=== PATIENT | female | born 2000 | race Hispanic/Latino ===

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

== ENCOUNTER 2022-03-05 19:12 | Emergency (ER) | payer OTHER ==
--- OUTSIDE RECORDS SUMMARY | 2022-03-05 19:15 | XMS REPORT | Continuity of Care Document ---
:2000 Author Organization [facility] t Address [address] [place] [address] Care Team Providers Name Role Phone SANTY PALUMBO Primary Care Physician Unavailable Nurse, Adc Pob Immunization Attending Clinician Unavailable Luis Fox DO Attending Clinician LUIS FOX Attending Clinician Unavailable MATEUS ALCANTAR Attending Clinician Unavailable Chely Torre DO Attending Clinician Payers Payer Name Policy Type Policy Number Effective Date Expiration Date S [facility] MEDICAID PENDING PENDING 2020 00:00:00 Problems Condition Condition Condition Status Onset Resolution Last Treating Co mments Source Name Details Category Date Date Treatment Clinician Date Passive Passive Disease Active 2012-07 Univers smoke smoke 0-07 ity of exposure exposure 00:00: [address] Allergies, Adverse Reactions, Alerts Allergy Allergy Status Severity Reaction(s) Onset Inactive Treating Comm ents Source Name Type Date Date Clinician NO KNOWN Drug Active Univers ALLERGIE Class ity of S [facility] Social History Social Habit Start Date Stop Date Quantity Comments Source Exposure to Not sure University SARS-CoV-2 [facility] [place] Tobacco use and 2020-09-12 2020-09-12 Never used Universit y of exposure 00:00:00 00:00:00 [facility] Alcohol intake 2020-09-12 2020-09-12 Current University 00:00:00 00:00:00 non-drinker of [facility] alcohol Branch (finding) Tobacco Comment 2013-05-01 2013-05-01 Dad smokes Universit y of 00:00:00 00:00:00 outside only [facility] l [place] Sex Assigned At [birth year] Universit y of 00:00:00 00:00:00 [facility] Smoking Status Start Date Stop Date Source Never smoker [facility] Medications Ordered Filled Start Stop Current Ordering Indication Dosage Frequency Signature Comments Components Source Medication Medication Date Date Medication? Clinician (SIG) Name Name No known No Univers medications ity [facility] No known No Univers medications ity of [facility] Immunizations Ordered Immunization Filled Immunization Date Status Commen ts Source Name Name SARS-COV-2 COVID-19 2021-03-28 Completed Unive rsity of PFIZER VACCINE 00:00:00 [facility] SARS-COV-2 COVID-19 2020-11-16 Completed Unive rsity of PFIZER VACCINE 00:00:00 [facility] Meningococcal Vaccine 2018-03-16 Completed Uni versity of 00:00:00 [facility] Meningococcal Vaccine 2018-03-16 Completed Uni versity of 00:00:00 [facility] Influenza Virus 2013-05-01 Completed Universit y of Vaccine Nasal 00:00:00 [facility] Meningococcal 2013-05-01 Completed University of Polysaccharide 00:00:00 [facility] (groups A, C, Y and Branc h W-135) conjugate vaccine (MCV4P) TDAP 2013-05-01 Completed University of 00:00:00 [facility] Influenza Virus 2013-05-01 Completed Universit y of Vaccine Nasal 00:00:00 [facility] Meningococcal 2013-05-01 Completed University of Polysaccharide 00:00:00 [facility] (groups A, C, Y and Branc h W-135) conjugate vaccine (MCV4P) TDAP 2013-05-01 Completed University of 00:00:00 [facility] HPV 2012-11-17 Completed University of 00:00:00 [facility] HPV 2012-11-17 Completed University of 00:00:00 [facility] HPV 2012-07-21 Completed University of 00:00:00 [facility] HPV 2012-07-21 Completed University of 00:00:00 [facility] HPV 2012-05-18 Completed University of 00:00:00 [facility] Influenza Virus 2012-05-18 Completed Universit y of Vaccine 00:00:00 [facility] HPV 2012-05-18 Completed University of 00:00:00 [facility] Influenza Virus 2012-05-18 Completed Universit y of Vaccine 00:00:00 [facility] Influenza Virus 2011-04-28 Completed Universit y of Vaccine 00:00:00 [facility] Influenza Virus 2011-04-28 Completed Universit y of Vaccine 00:00:00 [facility] Influenza Virus 2010-04-25 Completed Universit y of Vaccine 00:00:00 [facility] Influenza Virus 2010-04-25 Completed Universit y of Vaccine 00:00:00 [facility] H1n1 Vaccine 2009-10-25 Completed University o f 00:00:00 [facility] H1n1 Vaccine 2009-10-25 Completed University o f 00:00:00 [facility] H1n1 Vaccine 2009-08-21 Completed University o f 00:00:00 [facility] H1n1 Vaccine 2009-08-21 Completed University o f 00:00:00 [facility] Influenza Virus 2008-05-03 Completed Universit y of Vaccine 00:00:00 [facility] Influenza Virus 2008-05-03 Completed Universit y of Vaccine 00:00:00 [facility] Varicella 2008-03-13 Completed University of (varivax)(chicken 00:00:00 [facility] edical pox) [place] Varicella 2008-03-13 Completed University of (varivax)(chicken 00:00:00 [facility] edical pox) [place] HEPATITIS A 2006-09-17 Completed University of 00:00:00 [facility] HEPATITIS A 2006-09-17 Completed University of 00:00:00 [facility] DTAP 2006-03-17 Completed University of 00:00:00 [facility] HEPATITIS A 2006-03-17 Completed University of 00:00:00 [facility] MMR 2006-03-17 Completed University of 00:00:00 [facility] Polio (IPV/OPV) 2006-03-17 Completed Universit y of 00:00:00 [facility] DTAP 2006-03-17 Completed University of 00:00:00 [facility] HEPATITIS A 2006-03-17 Completed University of 00:00:00 [facility] MMR 2006-03-17 Completed University of 00:00:00 [facility] Polio (IPV/OPV) 2006-03-17 Completed Universit y of 00:00:00 [facility] PPD (TB) 2004-06-23 Completed University of 00:00:00 [facility] PPD (TB) 2004-06-23 Completed University of 00:00:00 [facility] Pneumococcal 7 2003-10-11 Completed University of Conjugate, PCV7 00:00:00 [place] [facility] (Prevnar7) [facility] Pneumococcal 7 2003-10-11 Completed University of Conjugate, PCV7 00:00:00 [place] [facility] (Prevnar7) Branch Polio (IPV/OPV) 2003-06-13 Completed Universit y of 00:00:00 [facility] Polio (IPV/OPV) 2003-06-13 Completed Universit y of 00:00:00 [facility] Pneumococcal 7 2003-06-04 Completed University of Conjugate, PCV7 00:00:00 [facility] ical (Prevnar7) Branch DTAP 2003-06-04 Completed University of 00:00:00 [facility] Pneumococcal 7 2003-06-04 Completed University of Conjugate, PCV7 00:00:00 [place] [facility] (Prevnar7) Branch DTAP 2003-06-04 Completed University of 00:00:00 [facility] HIB 4 Dose Schedule 2003 Completed Unive rsity of 00:00:00 [facility] MMR 2003 Completed University of 00:00:00 [facility] Pneumococcal 7 2003 Completed University of Conjugate, PCV7 00:00:00 [place] [facility] (Prevnar7) Branch Varicella 2003 Completed University of (varivax)(chicken 00:00:00 [place] [facility] pox) [facility] HIB 4 Dose Schedule 2003 Completed Unive rsity of 00:00:00 [facility] MMR 2003 Completed University of 00:00:00 [facility] Pneumococcal 7 2003 Completed University of Conjugate, PCV7 00:00:00 [place] [facility] (Prevnar7) Branch Varicella 2003 Completed University of (varivax)(chicken 00:00:00 [place] [facility] pox) Branch HIB 4 Dose Schedule 2002 Completed Unive rsity of 00:00:00 [facility] Hep B, Adol or Pedi 2002 Completed Unive rsity of Dosage 00:00:00 [facility] DTAP 2002 Completed University of 00:00:00 [facility] HIB 4 Dose Schedule 2002 Completed Unive rsity of 00:00:00 [facility] Branch Hep B, Adol or Pedi 2002 Completed Unive rsity of Dosage 00:00:00 [facility] DTAP 2002 Completed University of 00:00:00 [facility] HIB 4 Dose Schedule 2002 Completed Unive rsity of 00:00:00 [facility] Polio (IPV/OPV) 2002 Completed Universit y of 00:00:00 [facility] DTAP 2002 Completed University of 00:00:00 [facility] HIB 4 Dose Schedule 2002 Completed Unive rsity of 00:00:00 [facility] Polio (IPV/OPV) 2002 Completed Universit y of 00:00:00 [facility] DTAP 2002 Completed University of 00:00:00 [facility] Hep B, Adol or Pedi 2002 Completed Unive rsity of Dosage 00:00:00 [facility] Polio (IPV/OPV) 2002 Completed Universit y of 00:00:00 [facility] DTAP 2002 Completed University of 00:00:00 [facility] HIB 4 Dose Schedule 2002 Completed Unive rsity of 00:00:00 [facility] Hep B, Adol or Pedi 2002 Completed Unive rsity of Dosage 00:00:00 [facility] Polio (IPV/OPV) 2002 Completed Universit y of 00:00:00 [facility] DTAP 2002 Completed University of 00:00:00 [facility] HIB 4 Dose Schedule 2002 Completed Unive rsity of 00:00:00 [facility] Hep B, Adol or Pedi 2002 Completed Unive rsity of Dosage 00:00:00 [facility] Hep B, Adol or Pedi 2002 Completed Unive rsity of Dosage 00:00:00 [facility] Vital Signs Vital Name Observation Time Observation Value Comments Source Systolic blood 2020-09-12 19:21:00 134 mm[Hg] Univer sity of pressure [facility] Diastolic blood 2020-09-12 19:21:00 89 mm[Hg] Unive rsity of pressure [facility] Heart rate 2020-09-12 19:21:00 122 /min Universi ty of [facility] Body temperature 2020-09-12 19:21:00 37.56 Pilar Univ ersity of [facility] Respiratory rate 2020-09-12 19:21:00 16 /min Univ ersity of [facility] Body height 2020-09-12 19:21:00 154.9 cm Universi ty of [facility] Body weight 2020-09-12 19:21:00 49.896 kg Universi ty [facility] BMI 2020-09-12 19:21:00 20.78 kg/m2 Universi ty of [facility] Oxygen saturation in 2020-09-12 19:21:00 100 /min University of Arterial blood by [place] [employer] wan Pulse oximetry Branch Systolic blood 2020-09-12 19:21:00 134 mm[Hg] Univer sity of pressure [facility] Diastolic blood 2020-09-12 19:21:00 89 mm[Hg] Unive rsity of pressure [facility] Heart rate 2020-09-12 19:21:00 122 /min Universi ty of [facility] Body temperature 2020-09-12 19:21:00 37.56 Pilar Univ ersity of [place] [facility] Respiratory rate 2020-09-12 19:21:00 16 /min Univ ersity of [facility] Body height 2020-09-12 19:21:00 154.9 cm Universi ty [facility] Body weight 2020-09-12 19:21:00 49.896 kg Universi ty [facility] [place] [facility] BMI 2020-09-12 19:21:00 20.78 kg/m2 Universi ty [facility] [place] [facility] Oxygen saturation in 2020-09-12 19:21:00 100 /min University of Arterial blood by [place] [employer] wan Pulse oximetry Branch Procedures Procedure Date / Time Performed Performing Clinician Sour e SARS-COV-2 COVID-19 2021-03-28 21:08:00 [facility] Unassigned, No [facility] [place] VACCINE,0.3ML,IM Name Medical Branch (PFIZER) POCT TEST 2020-09-12 19:43:00 [facility] OF [facility]IVACY 2020-09-12 19:12:23 [facility] 2020-09-12 19:12:09 [facility] TREATMENT Encounters Start End Encounter Admission Attending Care Care Encounter Source Date/Time Date/Time Type Type Clinicians Facility Department ID 2021-05-24 Emergency [facility] [id number] Univers 23:57:16 ity [facility] 2021-03-28 2021-03-28 Imm/Inj Nurse, Adc Pob Immunization [facility] [id number] Univers 16:04:57 16:05:06 [id number] Gianna Brunneressio [id number] [place] [address] Branch [facility] 2021-03-28 2021-03-28 Outpatient Benny FOX [facility] [id number] Univers 14:50:00 16:05:06 LUIS [facility] 2020-12-14 2020-12-14 Outpatient [facility] [id number] Univers 10:05:00 10:05:00 [id number] ity [facility] 2020-12-07 2020-12-07 Outpatient [facility] [id number] Univers 10:05:00 10:05:00 [id number] ity [facility] 2020-11-16 2020-11-16 Outpatient [facility] [id number] Univers 10:05:00 10:05:00 [id number] [facility] 2020-11-16 2020-11-16 Outpatient Benny ALCANTAR [facility] [id number] Univers 10:05:00 10:05:00 [facility] 2020-09-13 2020-09-13 Outpatient [facility] [id number] Univers 09:20:00 09:20:00 [id number] [facility] 2020-09-12 2020-09-12 [facility] [id number] 13:28:00 14:21:00 Chely Pollard [id number] [place] [id number] [place] [id number] 2020-09-12 2020-09-12 [facility] [id number] Univers 13:28:00 14:21:00 Chely Pollard [id number] ity [facility] [id number] [facility] [id number] [address] 2012-07-21 2012-07-21 Outpatient [facility] [id number] Univers 00:00:00 14:57:00 1 [facility] 2012-05-18 2012-05-18 Outpatient [facility] [id number] Univers 00:00:00 15:07:00 4 [facility] 2012-05-18 2012-05-18 Outpatient [facility] [id number] Univers 00:00:00 00:00:00 [id number] [facility] 2012-04-28 2012-04-28 Outpatient [facility] [id number] Univers 00:00:00 16:10:00 6 [facility] 2012-04-28 2012-04-28 Outpatient [facility] [id number] Univers 00:00:00 00:00:00 [id number] [facility] 2012-03-10 2012-03-10 Outpatient [facility] [id number] Univers 00:00:00 16:50:00 8 [facility] 2012-03-09 2012-03-09 Outpatient [facility] [id number] Univers 00:00:00 00:00:00 [id number] [facility] 2012 2012 Outpatient [facility] [id number] Univers 00:00:00 13:23:00 0 [facility] 2011-04-28 2011-04-28 Outpatient [facility] [id number] Univers 00:00:00 18:03:00 4 [facility] Results Test Description Test Time Test Comments Results Result Comments Source POCT TEST 2020-09-12 19:43:00 Test Item Value Reference Range Interpretation Comme nts POCT PREG (test code = 1605) positive On board controls acceptable with C Line (test code = 3574) present POCT PREG LOT # (test code = 3575) [id number] POCT PREG TEST DATE (test code = 3576) 04/24/2022 Lab Interpretation (test code = 03708-5) [facility]
[2022-03-05] MEDS ORDERED: NA CHLORIDE 0.9% 1,000 ML ONE (20:55)
[2022-03-05 21:59] LABS: Albumin 3.9 g/dL (3.4-5.0); Bilirubin Total 0.2 mg/dL (0.2-1.0); Potassium 3.8 mmol/L (3.5-5.1); Protein, Total 7.4 g/dL (6.4-8.2)
[2022-03-05 22:01] LABS: Absolute Lymphocytes (CBC) 3.4 K/uL (0.7-4.9); Hematocrit 40.5 % (36.0-45.0); Lymphocytes % 38.5 % (15.3-44.8); MCV 86.6 fL (80-100); MPV 9.8 fL (7.6-11.3); RBC Red Blood Cell Count 4.68 M/uL (3.86-4.86)
[2022-03-05 22:12] LABS: Urine RBC <5 /HPF (None Seen)
[2022-03-05 22:13] LABS: Urine Bacteria <20 /HPF (<20)
--- NOTE | 2022-03-05 22:28 | ER ---
Nurse's Notes [facility] Name: Nevin Palmer Age: 22 yrs Sex: Female : 2000 Arrival Date: 03/05/2022 Time: 19:14 Bed 15 Private MD: Diagnosis: Diarrhea, unspecified Presentation: 03/05 19:36 Chief complaint: Patient states: dizziness off and on x 2 weeks. Coronavirus screen: Vaccine status: Patient reports receiving the 2nd dose of the covid vaccine. Date September 24, 2020 [employer]. Ebola Screen: Patient negative for fever greater than or equal to 101.5 degrees Fahrenheit, and additional compatible Ebola Virus Disease symptoms. Initial Sepsis Screen: Does the patient meet any 2 criteria? No. Patient's initial sepsis screen is negative. Does the patient have a suspected source of infection? No. Patient's initial sepsis screen is negative. Risk Assessment: Do you want to hurt yourself or someone else? Patient reports no desire to harm self or others. Onset of symptoms was February 17, 2022. 19:36 Method Of Arrival: Ambulatory 19:36 Acuity: CHRISTIANE 3 Triage Assessment: 19:39 General: Appears in no apparent distress. comfortable, Behavior is calm, cooperative. Pain: Denies pain. Neuro: No deficits noted. Alves Agitation-Sedation Scale (RASS): 0 - Alert and Calm Level of Consciousness is awake, alert, obeys commands, Oriented to person, place, time, situation, Gait is steady, Speech is normal, Facial symmetry appears normal. Historical: - Allergies: 19:39 No Known Allergies; kl - Home Meds: 19:39 None [Active]; kl - PMHx: 19:39 None; kl - PSHx: 19:39 None; kl - Immunization history:: Client reports receiving the 2nd dose of the Covid vaccine. - Social history:: Smoking status: Patient denies any tobacco usage or history of. Screenin:00 Abuse screen: Denies threats or abuse. Nutritional screening: No deficits noted. ja4 Tuberculosis screening: No symptoms or risk factors identified. Fall Risk None identified. Assessment: 22:00 General: Appears in no apparent distress. Pain: Denies pain. Neuro: Reports dizziness, ja4 since 3 days. Vital Signs: 19:36 BP 115 / 68; Pulse 79; Resp 18; Temp 99(O); Pulse Ox 100% on R/A; Weight 49.9 kg (R); Height 5 ft. 1 in. (154.94 cm); Pain 0/10; 19:36 Body Mass Index 20.78 (49.90 kg, 154.94 cm) ED Course: 19:14 Patient arrived in ED. bp1 19:39 Triage completed. 20:30 Daina Alas MD is Attending Physician. sp3 20:45 Luke Stone, RN is Primary Nurse. ja4 21:25 CBC with Diff Sent. ja4 21:25 CMP Sent. ja4 21:25 Lipase Sent. ja4 21:25 Urine Microscopic Only Sent. ja4 22:00 Inserted saline lock: 22 gauge in right antecubital area, using aseptic technique. ja4 Blood collected. 22:00 Patient has correct armband on for positive identification. Bed in low position. Call ja4 light in reach. Administered Medications: 20:56 Drug: NS 0.9% 1000 ml Route: IV; Rate: 1 bolus; Site: right antecubital; ja4 Medication: 22:00 VIS not applicable for this client. ja4 Outcome: 22:27 Discharge ordered by . sp3 22:41 Discharged to home ambulatory. ja4 22:41 Condition: stable 22:41 Discharge instructions given to patient, Instructed on discharge instructions, follow up and referral plans. medication usage. 22:42 Patient left the ED. ja4 Signatures: Marilynn Salgado RN RN Devika Casillas [facility] Daina Alas MD MD sp3 Luke Stone, [place] RN [email or web address]
--- NOTE | 2022-03-05 22:28 | EDPHYS ---
Physician Documentation [facility] Name: Nevin Palmer Age: 22 yrs Sex: Female : 2000 Arrival Date: 03/05/2022 Time: 19:14 Bed 15 Private MD: ED Physician Daina Alas HPI: 03/05 20:51 This 22 yrs old Female presents to ER via Ambulatory with complaints of sp3 Dizziness. 20:51 This 22 yrs old Female presents to ER via Ambulatory with complaints of sp3 Dizziness and diarrhea. 20:51 22-year-old female with no past medical history presents with 2 weeks of watery sp3 diarrhea status post eating. She reports 2-4 times a day of bowel movements without any vomiting or abdominal cramping. She also reports no bad food, sick contacts or travel history. She also states that she had anemia during her several months ago now reports similar symptoms of lightheadedness and dizziness without vertigo. She denies headache, neck pain, chest pain, shortness of breath, abdominal pain, nausea, vomiting, lower extremity pain, rash, vaginal bleeding dysuria, any other ROS at this time.. Historical: - Allergies: 19:39 No Known Allergies; kl - Home Meds: 19:39 None [Active]; kl - PMHx: 19:39 None; kl - PSHx: 19:39 None; kl - Immunization history:: Client reports receiving the 2nd dose of the Covid vaccine. - Social history:: Smoking status: Patient denies any tobacco usage or history of. ROS: 20:53 Constitutional: Negative for fever, chills, and weight loss, Eyes: Negative for injury, sp3 pain, redness, and discharge, ENT: Negative for injury, pain, and discharge, Neck: Negative for injury, pain, and swelling, Cardiovascular: Negative for chest pain, palpitations, and edema, Respiratory: Negative for shortness of breath, cough, wheezing, and pleuritic chest pain, Back: Negative for injury and pain, MS/Extremity: Negative for injury and deformity, Skin: Negative for injury, rash, and discoloration, Neuro: Negative for headache, weakness, numbness, tingling, and seizure, Allergy/Immunology: Negative for hives, rash, and allergies, Endocrine: Negative for neck swelling, polydipsia, polyuria, polyphagia, and marked weight changes. 20:53 All other systems are negative. Exam: 20:53 Constitutional: This is a well developed, well nourished patient who is awake, alert, sp3 and in no acute distress. Head/Face: Normocephalic, atraumatic. Eyes: Pupils equal round and reactive to light, extra-ocular motions intact. Lids and lashes normal. Conjunctiva and sclera are non-icteric and not injected. Cornea within normal limits. Periorbital areas with no swelling, redness, or edema. ENT: Nares patent. No nasal discharge, no septal abnormalities noted. External auditory canals are clear. Oropharynx with no redness, swelling, or masses, exudates, or evidence of obstruction, uvula midline. Mucous membranes moist. Neck: Trachea midline, no thyromegaly or masses palpated, and no cervical lymphadenopathy. Supple, full range of motion without nuchal rigidity, or vertebral point tenderness. No Meningismus. Chest/axilla: Normal chest wall appearance and motion. Nontender with no deformity. No lesions are appreciated. Cardiovascular: Regular rate and rhythm with a normal S1 and S2. No gallops, murmurs, or rubs. Normal PMI, no JVD. No pulse deficits. Respiratory: Lungs have equal breath sounds bilaterally, clear to auscultation and percussion. No rales, rhonchi or wheezes noted. No increased work of breathing, no retractions or nasal flaring. Abdomen/GI: Soft, non-tender, with normal bowel sounds. No distension or tympany. No guarding or rebound. No evidence of tenderness throughout. Back: No spinal tenderness. No costovertebral tenderness. Full range of motion. Skin: Warm, dry with normal turgor. Normal color with no rashes, no lesions, and no evidence of cellulitis. MS/ Extremity: Pulses equal, no cyanosis. Neurovascular intact. Full, normal range of motion. Neuro: Awake and alert, GCS 15, oriented to person, place, time, and situation. Cranial nerves II-XII grossly intact. Motor strength 5/5 in all extremities. Sensory grossly intact. Cerebellar exam normal. Normal gait. Psych: Awake, alert, with orientation to person, place and time. Behavior, mood, and affect are within normal limits. Vital Signs: 19:36 BP 115 / 68; Pulse 79; Resp 18; Temp 99(O); Pulse Ox 100% on R/A; Weight 49.9 kg (R); kl Height 5 ft. 1 in. (154.94 cm); Pain 0/10; 19:36 Body Mass Index 20.78 (49.90 kg, 154.94 cm) kl MDM: 20:37 Patient medically screened. sp3 20:53 Data reviewed: vital signs, nurses notes. ED course: Diarrhea lightheadedness. We will sp3 check laboratory values including CBC, metabolic panel and administer normal saline 1 L. If work-up is negative and patient feels better, will discharge patient home on Cipro and Flagyl with PCP follow-up. Differential diagnosis includes traveler's diarrhea, bacterial diarrhea, viral diarrhea, irritable bowel, functional abdominal pain and anxiety.. 22:27 ED course: Laboratory values reviewed and demonstrate no significant abnormality. sp3 Patient remains pain-free and we will discharge her on Cipro and Flagyl at this time with follow-up with her PCP.. 03/05 20:44 Order name: CBC with Diff sp3 03/05 20:44 Order name: CMP; Complete Time: 22:26 sp3 03/05 20:44 Order name: Lipase; Complete Time: 22:26 sp3 03/05 20:44 Order name: Urine Microscopic Only; Complete Time: 22:26 sp3 03/05 20:44 Order name: IV Saline Lock; Complete Time: 21:25 sp3 03/05 20:44 Order name: Labs collected and sent sp3 03/05 20:44 Order name: Urine Dipstick-Ancillary (obtain specimen) sp3 03/05 20:44 Order name: Urine Test (obtain specimen) sp3 Administered Medications: 20:56 Drug: NS 0.9% 1000 ml Route: IV; Rate: 1 bolus; Site: right antecubital; ja4 Disposition Summary: 03/05/22 22:27 Discharge Ordered Location: Home sp3 Condition: Stable sp3 Diagnosis - Diarrhea, unspecified sp3 Followup: sp3 - With: Private Physician - When: Upon discharge from the Emergency Department - Reason: Re-evaluation by your physician Discharge Instructions: - Discharge Summary Sheet sp3 - Diarrhea, Adult sp3 Forms: - Medication Reconciliation Form sp3 - Thank You Letter sp3 - Antibiotic Education sp3 - Prescription Opioid Use sp3 Prescriptions: - Cipro 500 mg Oral Tablet - take 1 tablet by ORAL route every 12 hours for 10 days; 20 tablet; Refills: 0, sp3 Product Selection Permitted - Flagyl 500 mg Oral Tablet - take 1 tablet by ORAL route every 8 hours for 10 days; 30 tablet; Refills: 0, sp3 Product Selection Permitted Signatures: Dispatcher [employer] Marilynn Covarrubias, Daina Lynch RN, MD MD sp3 Luke Stone RN RN ja4
[2022-03-05 23:08] LABS: Blood Morphology Comment NOT SEEN (NOT SEEN); Platelet Estimate ADEQ; Platelets, Giant FEW
[2022-03-06 04:38] VITALS: BP 115/68; TEMP 99; O2SAT 100
== END 2022-03-05 22:42 | disposition home or self-care (01) ==
LOC: ER 19:12
DX: R19.7 Diarrhea, unspecified (principal); R42 Dizziness and giddiness
CPT/HCPCS: 85025; 36415; 81015; 83690; 80053; 99283; J7030

== ENCOUNTER 2022-12-04 07:53 | Emergency (ER) | payer OTHER ==
--- OUTSIDE RECORDS SUMMARY | 2022-12-04 07:57 | XMS REPORT | Continuity of Care Document ---
:2000 Author Organization [facility] t Address [address] [facility] [address] [place] [address] Care Team Providers Name Role Phone PCP, PATIENT DOES NOT HAVE A Primary Care Physician Unavaila DEVIKA Acuña Attending Clinician Unavailable Devika Deleon Attending Clinician Unknown, Attending Attending Clinician Unavailable Nurse, Adc Pob Immunization Attending Clinician Unavailable Mo Fox DO Attending Clinician MO FOX Attending Clinician Unavailable MATEUS ALCANTAR Attending Clinician Unavailable Chely Torre DO Attending Clinician Payers Payer Name Policy Type Policy Number Effective Date Expiration Date S [place] [employer] [id number] 2022 00:00:00 MEDICAID PENDING PENDING 2020 00:00:00 Problems Condition Condition Condition Status Onset Resolution Last Treating Co mments Source Name Details Category Date Date Treatment Clinician Date Passive Passive Disease Active 2012-07 Univers smoke smoke 0-07 ity of exposure exposure 00:00: [address] Allergies, Adverse Reactions, Alerts Allergy Allergy Status Severity Reaction(s) Onset Inactive Treating Comm ents Source Name Type Date Date Clinician NO KNOWN Drug Active Univers ALLERGIE Class ity of S [facility] Social History Social Habit Start Date Stop Date Quantity Comments Source History of Passive smoker University of tobacco use [facility] Exposure to Not sure University [facility] [place] Tobacco use and 2022-07-05 2022-07-05 Smokeless tobacco Un iversity of exposure 00:00:00 00:00:00 non-user [facility] Alcohol intake 2022-07-05 2022-07-05 Current University of 00:00:00 00:00:00 non-drinker of [facility] alcohol (finding) [place] Tobacco Comment 2022-07-05 2022-07-05 Dad smokes Universit y of 00:00:00 00:00:00 outside only [place] [facility] [place] Sex Assigned At [birth year] Universit y of 00:00:00 00:00:00 [facility] Smoking Status Start Date Stop Date Source Never smoked tobacco [facility] Medications Ordered Filled Start Stop Current Ordering Indication Dosage Frequency Signature Comments Components Source Medication Medication Date Date Medication? Clinician (SIG) Name Name sulfamethox 2021-07- No [id number] 1{tbl} Take 1 Univers azole-trime 09-05 [id number] tablet by ity of thoprim 00:00: 05:59 mouth 2 [place] (BACTRIM 00 :00 (two) Medical DS) 800-160 times Branch mg per daily for tablet 7 days. amoxicillin 2021-07 Yes TAKE 1 Univ ers 500 mg 2-03 CAPSULE BY ity of capsule 00:00: MOUTH [place] 00 EVERY 8 Medical HOURS FOR Branch 7 DAYS ibuprofen 2021-07 Yes TAKE 1 Univer s 800 mg 2-03 TABLET BY ity of tablet 00:00: MOUTH [place] 00 EVERY 8 Medical HOURS FOR Branch PAIN No known No [facility] No [facility] medications [facility] Immunizations Ordered Immunization Filled Immunization Date Status Commen ts Source Name Name SARS-COV-2 COVID-19 2021-03-28 Completed Unive rsity of PFIZER VACCINE 00:00:00 [facility] SARS-COV-2 COVID-19 2021-03-28 Completed Unive rsity of PFIZER VACCINE 00:00:00 [facility] SARS-COV-2 COVID-19 2020-11-16 Completed Unive rsity of PFIZER VACCINE 00:00:00 [facility] SARS-COV-2 COVID-19 2020-11-16 Completed Unive rsity of PFIZER VACCINE 00:00:00 [facility] Meningococcal Vaccine 2018-03-16 Completed Uni versity of 00:00:00 [facility] Meningococcal Vaccine 2018-03-16 Completed Uni versity of 00:00:00 [facility] Meningococcal Vaccine 2018-03-16 Completed Uni versity of 00:00:00 [facility] Influenza Virus 2013-05-01 Completed Universit y of Vaccine Nasal 00:00:00 [facility] Meningococcal 2013-05-01 Completed University of Polysaccharide 00:00:00 [facility] wan (groups A, C, Y and Branc h W-135) conjugate vaccine (MCV4P) TDAP 2013-05-01 Completed University of 00:00:00 [facility] Influenza Virus 2013-05-01 Completed Universit y of Vaccine Nasal 00:00:00 [facility] Meningococcal 2013-05-01 Completed University of Polysaccharide 00:00:00 [facility] wan (groups A, C, Y and Branc h W-135) conjugate vaccine (MCV4P) TDAP 2013-05-01 Completed University of 00:00:00 [facility] Influenza Virus 2013-05-01 Completed Universit y of Vaccine Nasal 00:00:00 [facility] Meningococcal 2013-05-01 Completed University of Polysaccharide 00:00:00 [facility] wan (groups A, C, Y and Branc h W-135) conjugate vaccine (MCV4P) TDAP 2013-05-01 Completed University of 00:00:00 [facility] HPV 2012-11-17 Completed University of 00:00:00 [facility] HPV 2012-11-17 Completed University of 00:00:00 [facility] HPV 2012-11-17 Completed University of 00:00:00 [facility] HPV 2012-07-21 Completed University of 00:00:00 [facility] HPV 2012-07-21 Completed University of 00:00:00 [facility] HPV 2012-05-18 Completed University of 00:00:00 [facility] Influenza Virus 2012-05-18 Completed Universit y of Vaccine 00:00:00 [facility] HPV 2012-05-18 Completed University of 00:00:00 [facility] Influenza Virus 2012-05-18 Completed Universit y of Vaccine 00:00:00 [facility] HPV 2012-05-18 Completed University of 00:00:00 [facility] Influenza Virus 2012-05-18 Completed Universit y of Vaccine 00:00:00 [facility] Influenza Virus 2011-04-28 Completed Universit y of Vaccine 00:00:00 [facility] Influenza Virus 2011-04-28 Completed Universit y of Vaccine 00:00:00 [facility] Influenza Virus 2011-04-28 Completed Universit y of Vaccine 00:00:00 [facility] Influenza Virus 2010-04-25 Completed Universit y of Vaccine 00:00:00 [facility] Influenza Virus 2010-04-25 Completed Universit y of Vaccine 00:00:00 [facility] Influenza Virus 2010-04-25 Completed Universit y of Vaccine 00:00:00 [facility] H1n1 Vaccine 2009-10-25 Completed University o f 00:00:00 [facility] H1n1 Vaccine 2009-10-25 Completed University o f 00:00:00 [facility] H1n1 Vaccine 2009-10-25 Completed University o f 00:00:00 [facility] H1n1 Vaccine 2009-08-21 Completed University o f 00:00:00 [facility] H1n1 Vaccine 2009-08-21 Completed University o f 00:00:00 [facility] H1n1 Vaccine 2009-08-21 Completed University o f 00:00:00 [facility] Influenza Virus 2008-05-03 Completed Universit y of Vaccine 00:00:00 [facility] Influenza Virus 2008-05-03 Completed Universit y of Vaccine 00:00:00 [facility] Influenza Virus 2008-05-03 Completed Universit y of Vaccine 00:00:00 [facility] Varicella 2008-03-13 Completed University of (varivax)(chicken 00:00:00 [place] [facility] pox) Branch Varicella 2008-03-13 Completed University of (varivax)(chicken 00:00:00 [place] [facility] pox) Branch Varicella 2008-03-13 Completed University of (varivax)(chicken 00:00:00 [place] [facility] pox) Branch HEPATITIS A 2006-09-17 Completed University of 00:00:00 [facility] HEPATITIS A 2006-09-17 Completed University of 00:00:00 [facility] HEPATITIS A 2006-09-17 Completed University of 00:00:00 [facility] DTAP 2006-03-17 Completed University of 00:00:00 [facility] HEPATITIS A 2006-03-17 Completed University of 00:00:00 [facility] MMR 2006-03-17 Completed University of 00:00:00 [facility] Polio (IPV/OPV) 2006-03-17 Completed Universit y of 00:00:00 [facility] DTAP 2006-03-17 Completed University of 00:00:00 [facility] HEPATITIS A 2006-03-17 Completed University of 00:00:00 [facility] MMR 2006-03-17 Completed University of 00:00:00 [facility] Polio (IPV/OPV) 2006-03-17 Completed Universit y of 00:00:00 [facility] PPD (TB) 2004-06-23 Completed University of 00:00:00 [facility] PPD (TB) 2004-06-23 Completed University of 00:00:00 [facility] PPD (TB) 2004-06-23 Completed University of 00:00:00 [facility] Pneumococcal 7 2003-10-11 Completed University of Conjugate, PCV7 00:00:00 [place] [facility] (Prevnar7) Branch Pneumococcal 7 2003-10-11 Completed University of Conjugate, PCV7 00:00:00 [place] [facility] (Prevnar7) Branch Pneumococcal 7 2003-10-11 Completed University of Conjugate, PCV7 00:00:00 [place] [facility] (Prevnar7) Branch Polio (IPV/OPV) 2003-06-13 Completed Universit y of 00:00:00 [facility] Polio (IPV/OPV) 2003-06-13 Completed Universit y of 00:00:00 [facility] Polio (IPV/OPV) 2003-06-13 Completed Universit y of 00:00:00 [facility] Pneumococcal 7 2003-06-04 Completed University of Conjugate, PCV7 00:00:00 [place] [facility] (Prevnar7) Branch DTAP 2003-06-04 Completed University of 00:00:00 [facility] Pneumococcal 7 2003-06-04 Completed University of Conjugate, PCV7 00:00:00 [place] [facility] (Prevnar7) Branch DTAP 2003-06-04 Completed University of 00:00:00 [facility] Pneumococcal 7 2003-06-04 Completed University of Conjugate, PCV7 00:00:00 [place] [facility] (Prevnar7) Branch DTAP 2003-06-04 Completed University of 00:00:00 [facility] HIB 4 Dose Schedule 2003 Completed Unive rsity of 00:00:00 [facility] MMR 2003 Completed University of 00:00:00 [facility] Branch Pneumococcal 7 2003 Completed University of Conjugate, PCV7 00:00:00 [place] [facility] (Prevnar7) Branch Varicella 2003 Completed University of (varivax)(chicken 00:00:00 [place] [facility] pox) Branch HIB 4 Dose Schedule 2003 Completed Unive rsity of 00:00:00 [facility] Branch MMR 2003 Completed University of 00:00:00 [facility] Pneumococcal 7 2003 Completed University of Conjugate, PCV7 00:00:00 [place] [facility] (Prevnar7) Branch Varicella 2003 Completed University of (varivax)(chicken 00:00:00 [facility] edical pox) Branch HIB 4 Dose Schedule 2003 Completed Unive rsity of 00:00:00 [facility] MMR 2003 Completed University of 00:00:00 [facility] Pneumococcal 7 2003 Completed University of Conjugate, PCV7 00:00:00 [place] [facility] (Prevnar7) Branch Varicella 2003 Completed University of (varivax)(chicken 00:00:00 [place] [facility] pox) Branch HIB 4 Dose Schedule 2002 Completed Unive rsity of 00:00:00 [facility] Hep B, Adol or Pedi 2002 Completed Unive rsity of Dosage 00:00:00 [facility] DTAP 2002 Completed University of 00:00:00 [facility] HIB 4 Dose Schedule 2002 Completed Unive rsity of 00:00:00 [facility] Hep B, Adol or Pedi 2002 Completed Unive rsity of Dosage 00:00:00 [facility] DTAP 2002 Completed University of 00:00:00 [facility] HIB 4 Dose Schedule 2002 Completed Unive rsity of 00:00:00 [facility] Hep B, Adol or Pedi 2002 Completed Unive rsity of Dosage 00:00:00 [facility] DTAP 2002 Completed University of 00:00:00 [facility] HIB 4 Dose Schedule 2002 Completed Unive rsity of 00:00:00 [facility] Polio (IPV/OPV) 2002 Completed Universit y of 00:00:00 [facility] Branch DTAP 2002 Completed University of 00:00:00 [facility] HIB 4 Dose Schedule 2002 Completed Unive rsity of 00:00:00 [facility] Polio (IPV/OPV) 2002 Completed Universit y of 00:00:00 [facility] Branch DTAP 2002 Completed University of 00:00:00 [facility] HIB 4 Dose Schedule 2002 Completed Unive rsity of 00:00:00 [facility] Polio (IPV/OPV) 2002 Completed Universit y of 00:00:00 [facility] DTAP 2002 Completed University of 00:00:00 [facility] Hep B, Adol or Pedi 2002 Completed Unive rsity of Dosage 00:00:00 [facility] Polio (IPV/OPV) 2002 Completed Universit y of 00:00:00 [facility] DTAP 2002 Completed University of 00:00:00 [facility] HIB 4 Dose Schedule 2002 Completed Unive rsity of 00:00:00 [facility] Branch Hep B, Adol or Pedi 2002 Completed Unive rsity of Dosage 00:00:00 [facility] Polio (IPV/OPV) 2002 Completed Universit y of 00:00:00 [facility] DTAP 2002 Completed University of 00:00:00 [facility] HIB 4 Dose Schedule 2002 Completed Unive rsity of 00:00:00 [place] [facility] Hep B, Adol or Pedi 2002 Completed Unive rsity of Dosage 00:00:00 [facility] Polio (IPV/OPV) 2002 Completed Universit y of 00:00:00 [facility] Branch DTAP 2002 Completed University of 00:00:00 [facility] HIB 4 Dose Schedule 2002 Completed Unive rsity of 00:00:00 [place] [facility] Hep B, Adol or Pedi 2002 Completed Unive rsity of Dosage 00:00:00 [place] [facility] Hep B, Adol or Pedi 2002 Completed Unive rsity of Dosage 00:00:00 [facility] Hep B, Adol or Pedi 2002 Completed Unive rsity of Dosage 00:00:00 [facility] Vital Signs Vital Name Observation Time Observation Value Comments Source Systolic blood 2022-07-05 21:26:00 114 mm[Hg] Univer sity of pressure [facility] Diastolic blood 2022-07-05 21:26:00 78 mm[Hg] Unive rsity of pressure [facility] Heart rate 2022-07-05 21:26:00 97 /min Universi ty of [facility] Body temperature 2022-07-05 21:26:00 36.67 Pilar Univ ersity of [facility] Respiratory rate 2022-07-05 21:26:00 16 /min Univ ersity of [facility] Body height 2022-07-05 21:26:00 157.5 cm Universi ty of [place] [facility] [place] Body weight 2022-07-05 21:26:00 50.213 kg Universi ty of [place] [facility] [place] BMI 2022-07-05 21:26:00 20.25 kg/m2 Universi ty of [place] [facility] Oxygen saturation in 2022-07-05 21:26:00 98 /min University of Arterial blood by [facility] Pulse oximetry Branch Systolic blood 2020-09-12 19:21:00 134 mm[Hg] Univer sity of pressure [facility] Diastolic blood 2020-09-12 19:21:00 89 mm[Hg] Unive rsity of pressure [facility] Heart rate 2020-09-12 19:21:00 122 /min Universi ty [facility] [place] [facility] Body temperature 2020-09-12 19:21:00 37.56 Pilar Univ ersity of [facility] Branch Respiratory rate 2020-09-12 19:21:00 16 /min Univ ersity of [facility] Body height 2020-09-12 19:21:00 154.9 cm Universi ty of [place] [facility] Body weight 2020-09-12 19:21:00 49.896 kg [facility]i ty [facility] [place] [facility] BMI 2020-09-12 19:21:00 20.78 kg/m2 Universi ty of [facility] Oxygen saturation in 2020-09-12 19:21:00 100 /min University of Arterial blood by [facility] Pulse oximetry Branch Systolic blood 2020-09-12 19:21:00 134 mm[Hg] Univer sity of pressure [facility] Diastolic blood 2020-09-12 19:21:00 89 mm[Hg] Unive rsity of pressure [facility] Heart rate 2020-09-12 19:21:00 122 /min [facility] Body temperature 2020-09-12 19:21:00 37.56 Pilar [facility] Res[facility] rate 2020-09-12 19:21:00 16 /min [facility] Body height 2020-09-12 19:21:00 154.9 cm [facility] Body weight 2020-09-12 19:21:00 49.896 kg [facility] BMI 2020-09-12 19:21:00 20.78 kg/m2 [facility] Oxygen saturation in 2020-09-12 19:21:00 100 /min [facility] Arterial blood by [facility] Pulse oximetry Branch Procedures Procedure Date / Time Performed Performing Clinician [facility] e SARS-COV-2 COVID-19 2021-03-28 21:08:00 [facility], [facility],IM [facility] (PFIZER) POCT TEST 2020-09-12 19:43:00 Chely Torre [facility] NOTICE OF PRIVACY 2020-09-12 19:12:23 Doctor Unassigned, No [facility] PRACTICES [facility] CONSENT/REFUSAL FOR 2020-09-12 19:12:09 Doctor Unassigned, No Un iversity of [place] DIAGNOSIS AND [facility] TREATMENT Encounters Start End Encounter Admission Attending Care Care Encounter Source Date/Time Date/Time Type Type Clinicians Facility Department ID 2021-05-24 Emergency [facility] [id number] Univers 23:57:16 jennifer of [facility] 2022-07-05 2022-07-05 Outpatient R MILADYS [facility] [id number] Univers 15:40:00 15:42:58 DEVIKA bach f [facility] 2022-07-05 2022-07-05 Urgent Devika Cantrell [facility] 1.2.840. [id number] Univers 15:40:00 15:42:58 Care Unknown, Attending HEALTH [id number] ity of [place] [id number] [place] as EMPERATRIZ?BLEA [id number] Sd dical [place] [address] [place] [facility] 2021-03-28 2021-03-28 Imm/Inj Nurse, Adc Pob Immunization [facility] [id number] Univers 16:04:57 16:05:06 Visit Mo Fox [id number] .10 ity [facility] [id number] [place] [id number] S[place] dical formerly [facility] [address] [facility] 2021-03-28 2021-03-28 [facility] [id number] Univers 14:50:00 16:05:06 MO ity [facility] 2020-12-14 2020-12-14 Outpatient [facility] [id number] Univers 10:05:00 10:05:00 [id number] ity [facility] 2020-12-07 2020-12-07 Outpatient [facility] [id number] Univers 10:05:00 10:05:00 [id number] ity [facility] 2020-11-16 2020-11-16 Outpatient [facility] [id number] Univers 10:05:00 10:05:00 [id number] ity [facility] 2020-11-16 2020-11-16 Outpatient [facility] [id number] Univers 10:05:00 10:05:00 MATEUS [facility] 2020-09-13 2020-09-13 Outpatient [facility] [id number] Univers 09:20:00 09:20:00 [id number] [facility] 2020-09-12 2020-09-12 [facility] [id number] 13:28:00 14:21:00 Chely Pollard [id number] [place] [id number] [place] [id number] [facility] 2020-09-12 2020-09-12 Emergency [facility] [id number] Univers 13:28:00 14:21:00 Chely Pollard [id number] ity [place] [id number] [facility] [id number] [place] [id number] Branch 2012-07-21 2012-07-21 Outpatient [facility] [id number] Univers 00:00:00 14:57:00 1 ity [facility] 2012-05-18 2012-05-18 Outpatient [facility] [id number] Univers 00:00:00 15:07:00 4 ity [facility] 2012-05-18 2012-05-18 Outpatient [facility] [id number] Univers 00:00:00 00:00:00 [id number] [facility] 2012-04-28 2012-04-28 Outpatient [facility] [id number] Univers 00:00:00 [facility]:10[facility] 2012-04-28 Outpatient [facility] [id number] Univers 00:00:00 00:00:00 [id number] [facility] 2012-03-10 2012-03-10 Outpatient [facility] [id number] Univers 00:00:00 16:50:00 8 [facility] 2012-03-09 2012-03-09 Outpatient [facility] [id number] Univers 00:00:00 00:00:00 [id number] [facility] 2012 2012 Outpatient [facility] [id number] Univers 00:00:00 13:23:00 0 [facility] 2011-04-28 2011-04-28 Outpatient [facility] [id number] Univers 00:00:00 18:03:00 4 [facility] Results Test Description Test Time Test Comments Results Result Comments Source POCT TEST 2020-09-12 19:43:00 Test Item Value Reference Range Interpretation Comme nts POCT PREG (test code = 1605) positive On board controls acceptable with C Line (test code = 3574) present POCT PREG LOT # (test code = 3575) [id number] POCT PREG TEST DATE (test code = 3576) 04/24/2022 Lab Interpretation (test code = 11287-4) [facility]
[2022-12-04] MEDS ORDERED: LIDOCAINE HCL JELLY 2% 6 ML SYRINGE TOP ONE (09:06)
--- NOTE | 2022-12-04 09:32 | ER ---
Nurse's Notes [facility] Name: Nevin Palmer Age: 22 yrs Sex: Female : 2000 Arrival Date: 12/04/2022 Time: 07:53 Bed 17 Private MD: Diagnosis: Avulsed toenail Presentation: 12/04 08:13 Chief complaint: Patient states: she noticed last night her right great toe nail is ap3 starting to grow out and fall off after having some discomfort. patient denies any trauma. Coronavirus screen: At this time, the client does not indicate any symptoms associated with coronavirus-19. Ebola Screen: No symptoms or risks identified at this time. Initial Sepsis Screen: Does the patient meet any 2 criteria? No. Patient's initial sepsis screen is negative. Does the patient have a suspected source of infection? No. Patient's initial sepsis screen is negative. Risk Assessment: Do you want to hurt yourself or someone else? Patient reports no desire to harm self or others. Onset of symptoms was December 03, 2022. 08:13 Method Of Arrival: Ambulatory ap3 08:13 Acuity: CHRISTIANE 4 ap3 Triage Assessment: 08:16 General: Appears in no apparent distress. Behavior is calm, cooperative, appropriate ap3 for age. Pain: Complains of pain in Right first toenail Pain currently is 8 out of 10 on a pain scale. Neuro: Level of Consciousness is awake, alert, obeys commands, Oriented to person, place, time, situation. Cardiovascular: Patient's skin is warm and dry. Respiratory: Airway is patent Respiratory effort is even, unlabored, Respiratory pattern is regular, symmetrical. 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 - Social history:: Smoking status: Patient denies any tobacco usage or history of. Screenin:17 [facility] ED Fall Risk Assessment (Adult) History of falling in the last 3 months, ap3 including since admission No falls in past 3 months (0 pts). Abuse screen: Denies threats or abuse. Nutritional screening: No deficits noted. Tuberculosis screening: No symptoms or risk factors identified. Vital Signs: 08:13 BP 121 / 82; Pulse 85; Resp 17; Temp 97.6; Pulse Ox 100% ; Weight 49.9 kg; Pain 8/10; ap3 08:13 Pain Scale: Adult ap3 ED Course: 07:56 Patient arrived in ED. mr 08:04 Idania Stout, [place] is Primary Nurse. ap3 08:07 Olivia Tovar FNP-C is [facility]. snw 08:07 Lamont Gonzalez MD is Attending Physician. snw 08:16 Triage completed. ap3 08:17 Arm band placed on right wrist. ap3 08:17 Patient has correct armband on for positive identification. Bed in low position. Call ap3 light in reach. Side rails up X 1. Pulse ox on. NIBP on. Door closed. Noise minimized. Administered Medications: 09:02 Drug: Lidocaine Mucous Membrane Gel 2 % 1 ea Volume: 15 ml; Route: Mucous Membrane; ap3 09:41 Drug: Ibuprofen PO 800 mg Route: PO; ap3 Outcome: 09:31 Discharge ordered by . snw 10:00 Patient left the ED. zm Signatures: Olivia Tovar FNP-C FNP-Florecita Melissa Felton mr GloriajudyIdania, [place] RN ap3 Shira Jones
--- NOTE | 2022-12-04 09:32 | EDPHYS ---
Physician Documentation [facility] Name: Nevin Palmer Age: 22 yrs Sex: Female : 2000 Arrival Date: 12/04/2022 Time: 07:53 Bed 17 Private MD: ED Physician Lamont Gonzalez HPI: 12/04 08:50 This 22 yrs old Female presents to ER via Ambulatory with complaints of snw Toenail problem. 08:50 The patient presents with tenderness. The complaints affect the right foot. Context: snw The problem was sustained at home, Mechanism of Injury: Unknown. Onset: The symptoms/episode began/occurred acutely. Associated signs and symptoms: Pertinent positives: tenderness. The patient has not experienced similar symptoms in the past. It is unknown whether or not the patient has recently seen a physician. 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 - Social history:: Smoking status: Patient denies any tobacco usage or history of. ROS: 08:48 Constitutional: Negative for fever, chills, and weight loss, Eyes: Negative for injury, snw pain, redness, and discharge, ENT: Negative for injury, pain, and discharge, Neck: Negative for injury, pain, and swelling, Cardiovascular: Negative for chest pain, palpitations, and edema, Respiratory: Negative for shortness of breath, cough, wheezing, and pleuritic chest pain, Abdomen/GI: Negative for abdominal pain, nausea, vomiting, diarrhea, and constipation, Back: Negative for injury and pain, : Negative for injury, bleeding, discharge, and swelling, MS/Extremity: Negative for injury and deformity, Skin: Negative for injury, rash, and discoloration, toenail pain to right great toe Neuro: Negative for headache, weakness, numbness, tingling, and seizure, Psych: Negative for depression, anxiety, suicide ideation, homicidal ideation, and hallucinations. Exam: 08:47 Constitutional: This is a well developed, well nourished patient who is awake, alert, snw and in no acute distress. Head/Face: Normocephalic, atraumatic. Eyes: Pupils equal round and reactive to light, extra-ocular motions intact. Lids and lashes normal. Conjunctiva and sclera are non-icteric and not injected. Cornea within normal limits. Periorbital areas with no swelling, redness, or edema. 08:47 Skin: Appearance: normal except for affected area, Each great toenail split horizontally, right toenail pulling away from nailbed, no bleeding, tender. Vital Signs: 08:13 BP 121 / 82; Pulse 85; Resp 17; Temp 97.6; Pulse Ox 100% ; Weight 49.9 kg; Pain 8/10; ap3 08:13 Pain Scale: Adult ap3 Procedures: 09:34 Foreign Body Removal: lateral aspect of toenail popped free of adhesion to nail bed snw post lidocaine topically. Lido jelly placed and pressure bandage placed. Pt tolerated well.. MDM: 08:27 Patient medically screened. snw 09:33 Differential diagnosis: arthritis, fungal infection, trauma, thyroid dysfunction. Data snw reviewed: vital signs, nurses notes. Counseling: I had a detailed discussion with the patient and/or guardian regarding: the historical points, exam findings, and any diagnostic results supporting the discharge/admit diagnosis, the need for outpatient follow up, to return to the emergency department if symptoms worsen or persist or if there are any questions or concerns that arise at home. Special discussion: Based on the history and exam findings, there is no indication for further emergent testing or inpatient evaluation. I discussed with the patient/guardian the need to see the primary care provider for further evaluation of the symptoms. 12/04 09:31 Order name: Dressing - Wound: pressure dressing please; Complete Time: 09:41 snw Administered Medications: 09:02 Drug: Lidocaine Mucous Membrane Gel 2 % 1 ea Volume: 15 ml; Route: Mucous Membrane; ap3 09:41 Drug: Ibuprofen PO 800 mg Route: PO; ap3 Disposition: 09:18 Co-signature as Attending Physician, Lamont Gonzalez MD I agree with the assessment and kdr plan of care. Disposition Summary: 12/04/22 09:31 Discharge Ordered Location: Home snw Condition: Stable snw Diagnosis - Avulsed toenail snw Followup: snw - With: Emergency Department - When: As needed - Reason: Worsening of condition Followup: snw - With: Private Physician - When: 2 - 3 days - Reason: Recheck today's complaints, Continuance of care, Re-evaluation by your physician Discharge Instructions: - Discharge Summary Sheet snw - Fingernail or Toenail Removal, Adult snw - Fingernail or Toenail Removal, Adult, Care After snw Forms: - Work release form snw - Medication Reconciliation Form snw - Thank You Letter snw - Antibiotic Education snw - Prescription Opioid Use snw Prescriptions: - Motrin IB 200 mg Oral Tablet - take 3 tablet by ORAL route every 8 hours As needed as needed with food; 40 snw tablet; Refills: 0, Product Selection Permitted Signatures: Lamont Gonzalez MD MD kdr Waters, Shelly, FNP-C CLEMENTE-Flore[place] Idania Stout RN RN ap3
[2022-12-04] MEDS ORDERED: IBUPROFEN 400 MG TAB ONE (09:43)
[2022-12-04 10:06] VITALS: BP 121/82; TEMP 97.6; O2SAT 100
== END 2022-12-04 10:00 | disposition home or self-care (01) ==
LOC: ER 07:53
DX: S91.201A Unspecified open wound of right great toe with damage to nail, initial encounter (principal)
CPT/HCPCS: 99283

== ENCOUNTER 2024-03-12 09:45 | Emergency (ER) | payer SELFPAY ==
--- NOTE | 2024-03-12 10:35 | EDPHYS ---
Physician Documentation [facility] Name: Nevin Palmer Age: 24 yrs Sex: Female : 2000 Arrival Date: 03/12/2024 Time: 09:45 Bed DX3 Private MD: ED Physician Obinna Griffin HPI: 03/12 10:38 This 24 yrs old Female presents to ER via Ambulatory with complaints of 6 jr8 weeks , Vomiting - blood, Diarrhea. 10:38 Onset: The symptoms/episode began/occurred acutely, today. Associated signs and jr8 symptoms: The patient has no apparent associated signs or symptoms. The patient has not experienced similar symptoms in the past. The patient has not recently seen a physician. 24-year-old female presents emergency room with complaints of vomiting x 1 earlier this morning with spots of blood and then 4 times episodes of diarrhea. Patient stated that she is 6 weeks but denies vaginal discharge, bleeding, spotting. Currently no active vomiting or abdominal pain or cramping.. Historical: - Allergies: 10:17 No Known Allergies; hb - Home Meds: 10:17 None [Active]; hb - PMHx: 10:17 None; hb - PSHx: 10:17 None; hb - Immunization history:: Adult Immunizations up to date. - Infectious Disease History:: Denies. - Social history:: Smoking status: Patient denies any tobacco usage or history of. ROS: 10:38 Eyes: Negative for injury, pain, redness, and discharge, ENT: Negative for injury, jr8 pain, and discharge, Neck: Negative for injury, pain, and swelling, Cardiovascular: Negative for chest pain, palpitations, and edema, Respiratory: Negative for shortness of breath, cough, wheezing, and pleuritic chest pain, Back: Negative for injury and pain, MS/Extremity: Negative for injury and deformity, Skin: Negative for injury, rash, and discoloration, Neuro: Negative for headache, weakness, numbness, tingling, and seizure, 10:38 Abdomen/GI: Positive for nausea, vomiting, and diarrhea, abdominal cramps, Exam: 10:38 Constitutional: This is a well developed, well nourished patient who is awake, alert, jr8 and in no acute distress. Eyes: Pupils equal round and reactive to light, extra-ocular motions intact. Lids and lashes normal. Conjunctiva and sclera are non-icteric and not injected. Cornea within normal limits. Periorbital areas with no swelling, redness, or edema. ENT: Nares patent. No nasal discharge, no septal abnormalities noted. Tympanic membranes are normal and external auditory canals are clear. Oropharynx with no redness, swelling, or masses, exudates, or evidence of obstruction, uvula midline. Mucous membranes moist. Cardiovascular: Regular rate and rhythm with a normal S1 and S2. No gallops, murmurs, or rubs. Normal PMI, no JVD. No pulse deficits. Respiratory: Lungs have equal breath sounds bilaterally, clear to auscultation and percussion. No rales, rhonchi or wheezes noted. No increased work of breathing, no retractions or nasal flaring. Abdomen/GI: Soft, non-tender, with normal bowel sounds. No distension or tympany. No guarding or rebound. No evidence of tenderness throughout. Back: No spinal tenderness. No costovertebral tenderness. Full range of motion. Skin: Warm, dry with normal turgor. Normal color with no rashes, no lesions, and no evidence of cellulitis. MS/ Extremity: Pulses equal, no cyanosis. Neurovascular intact. Full, normal range of motion. Neuro: Awake and alert, GCS 15, oriented to person, place, time, and situation. Motor strength 5/5 in all extremities. Sensory grossly intact. Vital Signs: 10:15 BP 121 / 64; Pulse 82; Resp 16; Temp 98.9(O); Pulse Ox 100% on R/A; Weight 56.7 kg; hb Height 5 ft. 9 in. ; Pain 3/10; 10:15 Body Mass Index 18.46 (56.70 kg, 175.26 cm) hb 10:15 Pain Scale: Adult hb MDM: 10:11 Patient medically screened. jr8 10:38 Differential diagnosis: gastroenteritis, Dehydration, electrolyte dysfunction, jr8 gastritis, varices. Data reviewed: vital signs, nurses notes, and as a result, I will discharge patient. I considered the following discharge prescriptions or medication management in the emergency department Pain Medications: At this time, prescription pain medications are not recommended, Will be sent home on medications for nausea, gastritis, and diarrhea . Counseling: I had a detailed discussion with the patient and/or guardian regarding the historical points, exam findings, and any diagnostic results supporting the discharge/admit diagnosis, the need for outpatient follow up, a family practitioner, an OB/Gyne specialist, to return to the emergency department if symptoms worsen or persist or if there are any questions or concerns that arise at home. ED course: Discussed with patient that vital signs are stable and afebrile and without acute pain or tenderness upon palpation and no acute findings on physical exam at this time. No sign of significant dehydration. Recommend that we start her on omeprazole for the next 2 weeks to coat her stomach due to the specks of blood that she had. Also recommended nausea medicine and if needed can take Lomotil for diarrhea but did caution her risk versus benefit of it and letting the viral or food toxin pass. All 3 medications safe for at this time. If she were to worsen or have change, to immediately come back to the emergency room for reevaluation and possible IV fluids. Patient understood and good plan at this time and will follow-up otherwise.. 03/12 10:56 Order name: IV; Complete Time: 10:57 go2 Administered Medications: 10:58 Drug: NS 0.9% IV 1000 ml IV at 1 bolus Per protocol; 1000 mL bolus Route: IV; Rate: 1 aa5 bolus; Site: right antecubital; Disposition Summary: 03/12/24 10:34 Discharge Ordered Notes: Location: Home jr8 Problem: new jr8 Symptoms: have improved jr8 Condition: Stable jr8 Diagnosis - Noninfective gastroenteritis and colitis, unspecified jr8 Followup: jr8 - With: Private Physician - When: 5 - 6 days - Reason: Recheck today's complaints, Continuance of care, Re-evaluation by your physician Discharge Instructions: - Discharge Summary Sheet jr8 - Food Choices to Help Relieve Diarrhea, Adult jr8 - Viral Gastroenteritis, Adult jr8 Forms: - Medication Reconciliation Form jr8 - Antibiotic Education jr8 - Prescription Opioid Use jr8 - Patient Portal Instructions jr8 - Leadership Thank You Letter jr8 Prescriptions: - omeprazole 40 mg Oral capsule,delayed release (e.c.) - take 1 capsule ORAL route daily for 14 days; 14 capsule; Refills: 0, Product jr8 Selection Permitted - Lomotil 2.5-0.025 mg Oral Tablet - take 1 tablet ORAL route every 6 hours As needed; 20 tablet; Refills: 0, jr8 Product Selection Permitted - promethazine 25 mg Oral tablet - take 1 tablet ORAL route every 6 hours As needed; 20 tablet; Refills: 0, jr8 Product Selection Permitted Signatures: Zoila Dee RN RN aa5 Abhinav Hutchison PA PA jr8 Bridget Morin RN RN Stacie Zavala RN RN go2
--- NOTE | 2024-03-12 10:35 | ER ---
Nurse's Notes [facility] Name: Nevin Palmer Age: 24 yrs Sex: Female : 2000 Arrival Date: 03/12/2024 Time: 09:45 Bed DX3 Private MD: Diagnosis: Noninfective gastroenteritis and colitis, unspecified Presentation: 03/12 10:15 Chief complaint: N/V/D and diffuse abdominal pain x 2 days. Approx 6 weeks , hb LMP 7/7, . Coronavirus screen: At this time, the client does not indicate any symptoms associated with coronavirus-19. Ebola Screen: No symptoms or risks identified at this time. Initial Sepsis Screen: Does the patient meet any 2 criteria? No. Patient's initial sepsis screen is negative. Does the patient have a suspected source of infection? No. Patient's initial sepsis screen is negative. Risk Assessment: Do you want to hurt yourself or someone else? Patient reports no desire to harm self or others. Onset of symptoms was March 11, 2024. 10:15 Method Of Arrival: Ambulatory hb 10:15 Acuity: CHRISTIANE 3 hb Historical: - Allergies: 10:17 No Known Allergies; hb - Home Meds: 10:17 None [Active]; hb - PMHx: 10:17 None; hb - PSHx: 10:17 None; hb - Immunization history:: Adult Immunizations up to date. - Infectious Disease History:: Denies. - Social history:: Smoking status: Patient denies any tobacco usage or history of. Assessment: 11:00 Reassessment: Discharge pending completion of IV fluids. hb 11:51 Reassessment: Patient appears in no apparent distress at this time. Patient and/or hb family updated on plan of care and expected duration. Pain level reassessed. Patient is alert, oriented x 3, equal unlabored respirations, skin warm/dry/pink. Patient states feeling better. Patient states symptoms have improved. Vital Signs: 10:15 BP 121 / 64; Pulse 82; Resp 16; Temp 98.9(O); Pulse Ox 100% on R/A; Weight 56.7 kg; hb Height 5 ft. 9 in. ; Pain 3/10; 10:15 Body Mass Index 18.46 (56.70 kg, 175.26 cm) hb 10:15 Pain Scale: Adult hb ED Course: 09:48 Patient arrived in ED. im 09:49 Abhinav Hutchison PA is PHCP. jr8 09:49 Obinna Griffin MD is Attending Physician. jr8 10:17 Triage completed. hb 10:17 Arm band placed on. hb 10:56 Stacie Zavala, RN is Primary Nurse. go2 11:51 No provider procedures requiring assistance completed. IV discontinued, intact, hb bleeding controlled, No redness/swelling at site. Pressure dressing applied. Administered Medications: 10:58 Drug: NS 0.9% IV 1000 ml IV at 1 bolus Per protocol; 1000 mL bolus Route: IV; Rate: 1 aa5 bolus; Site: right antecubital; Outcome: 10:34 Discharge ordered by . jr8 11:51 Discharged to home ambulatory, with significant other, hb 11:51 Condition: stable 11:51 Discharge instructions given to patient, significant other, Instructed on discharge instructions, follow up and referral plans. medication usage, Demonstrated understanding of instructions, follow-up care, medications, Prescriptions given X 3, 11:53 Patient left the ED. hb Signatures: Zoila Dee, RN RN aa5 Abhinav Hutchison PA PA jr8 Bridget Morin RN RN Tri Hayes Stacie Zavala, RN RN go2
[2024-03-12] MEDS ORDERED: NA CHLORIDE 0.9% 1,000 ML ONE (10:53)
[2024-03-12 11:59] VITALS: BP 121/64; TEMP 98.9; O2SAT 100
--- OUTSIDE RECORDS SUMMARY | 2024-03-14 12:32 | XMS REPORT | Continuity of Care Document ---
Author Name Unknown Address [address] [facility] [place] [address] [facility] Address [address] [facility] [address] [place] [address] Care Team Providers Care Chief Medical Officer Name Role Phone NGUYEN BROWN Primary Care Physician Unavailab Pam Owusu Attending Clinician Unavailable JAREN ARTHUR Attending Clinician Unavailable JAREN ARTHUR Attending Clinician Unavailable Sandra Navarro Attending Clinician Unavailable Christianne Eckert MD Attending Clinician Doctor Unassigned, [place] Attending Clinician U navailCHRISTIANNE Reilly Attending Clinician Unavailable TG SAWANT Attending Clinician Unamitzi ilNASH Bassett Attending Clinician Unavailable TAMMY ARMENTA Attending Clinician Unavailable TAMMY ARMENTA Attending Clinician Unavailable Pob, [facility] Main Attending Clinician UnavailNguyen Orozco MD Attending Clinician NGUYEN BROWN Attending Clinician Unavailable Draw, [facility] Attending Clinician UnavailDEVIKA Mata Attending Clinician UnavailDevika Reinoso Attending Clinician Unknown, Attending Attending Clinician Unavailab shyla Nurse, Adc Pob Immunization Attending Clinician Unavailable Mo Ramsey DO Attending Clinician [phone] MO RAMSEY Attending Clinician Unavail able MATEUS ALCANTAR Attending Clinician Unavailable Chely Torre DO Attending Clinician Pam Ferrer Admitting Clinician Unavailable Payers Payer Name Policy Type Policy Number Effective Date Expirati on Date Source [employer] [place] [employer] [id number] 2024 00:00:00 MEDICAID PENDING PENDING 2020 00:00:00 Problems Condition Name Condition Details Condition Category Status Onset Date Resolution Date Last Treatment Date Treating Clinician Comments Source Passive smoke exposure Passive smoke exposure Disease Active 2012-07 00:00: 00 [facility] Allergies, Adverse Reactions, Alerts Allergy Name Allergy Type Status Severity Reaction(s) Onset Date Inactive Date Treating Clinician Comments Source No Known Allergie s DA Active U 11-04 00:00: 00 [facility] NO KNOWN ALLERGIE S Drug Class Active [facility] Social History Social Habit Start Date Stop Date Quantity Comments Source History SDOH Social Connections Membership [facility] History SDOH Housing Places Lived [facility] Use [facility] Sex Assigned At [facility] Alcohol intake 2023-09-01 00:00:00 2023-09-01 00:00:00 Current non-drinker of alcohol (finding) [facility] Exposure to SARS-CoV-2 (event) 2022-12-13 00:00:00 2022-12-23 09:58:00 Not sure [facility] History SDOH Alcohol Frequency 2022-12-23 00:00:00 2022-12-23 00:00:00 1 [facility] History SDOH Alcohol Std Drinks 2022-12-23 00:00:00 2022-12-23 00:00:00 0 [facility] History SDOH Alcohol Binge 2022-12-23 00:00:00 2022-12-23 00:00:00 1 [facility] History SDOH Social Connections Phone 2022-12-23 00:00:00 2022-12-23 00:00:00 5 [facility] History SDOH Social Connections Get Together 2022-12-23 00:00:00 2022-12-23 00:00:00 5 [facility] History SDOH Social Connections Temple 2022-12-23 00:00:00 2022-12-23 00:00:00 1 [facility] History SDOH Social Connections Meetings 2022-12-23 00:00:00 2022-12-23 00:00:00 2 [facility] History SDOH Social Connections Living 2022-12-23 00:00:00 2022-12-23 00:00:00 7 [facility] History SDOH Housing Unable to Pay 2022-12-23 00:00:00 2022-12-23 00:00:00 2 [facility] History SDOH Housing Homeless Last Year 2022-12-23 00:00:00 2022-12-23 00:00:00 2 [facility] Tobacco use and exposure 2022-07-05 00:00:00 2022-07-05 00:00:00 Smokeless tobacco non-user [facility] Tobacco Comment 2022-07-05 00:00:00 2022-07-05 00:00:00 Dad smokes outside only [facility] History of Social function 2019-02-02 00:00:00 2019-02-02 00:00:00 [facility] Smoking Status Start Date Stop Date Source Never Smoker [facility] Medications Ordered Medication Name Filled Medication Name Start Date Stop Date Current Medication? Ordering Clinician Indication Dosage Frequency Signature (SIG) Comments Components Source meclizine 25 mg tablet 09-01 00:00: 00 Yes [id number] 25mg Take 1 tablet by mouth 3 (three) times daily as needed for Dizziness. [facility] sulfamethox azole-trime thoprim (BACTRIM DS) 800-160 mg per tablet 2021-07 00:00: 00 07-13 05:59 :00 No [id number] 1{tbl} Take 1 tablet by mouth 2 (two) times daily for 7 days. [facility] amoxicillin 500 mg capsule 2021-07 00:00: 00 12-23 00:00 :00 No TAKE 1 CAPSULE BY MOUTH EVERY 8 HOURS FOR 7 DAYS [facility] ibuprofen 800 mg tablet 2021-07 00:00: 00 12-23 00:00 :00 No TAKE 1 TABLET BY MOUTH EVERY 8 HOURS FOR PAIN [facility] No Known Medications No Known Medications No [facility] No known medications No Un yvonne [facility] No known medications No Un yvonne [facility] Immunizations Ordered Immunization Name Filled Immunization Name Date Status Comments Source SARS-COV-2 COVID-19 PFIZER VACCINE 2021-03-28 00:00:00 Completed [facility] SARS-COV-2 COVID-19 PFIZER VACCINE 2021-03-28 00:00:00 Completed [facility] SARS-COV-2 COVID-19 PFIZER VACCINE 2021-03-28 00:00:00 Completed [facility] SARS-COV-2 COVID-19 PFIZER VACCINE 2021-03-28 00:00:00 Completed [facility] SARS-COV-2 COVID-19 PFIZER VACCINE 2021-03-28 00:00:00 Completed [facility] SARS-COV-2 COVID-19 PFIZER VACCINE 2021-03-28 00:00:00 Completed [facility] SARS-COV-2 COVID-19 PFIZER VACCINE 2021-03-28 00:00:00 Completed [facility] SARS-COV-2 COVID-19 PFIZER VACCINE 2021-03-28 00:00:00 Completed [facility] SARS-COV-2 COVID-19 PFIZER VACCINE 2021-03-28 00:00:00 Completed [facility] SARS-COV-2 COVID-19 PFIZER VACCINE 2020-11-16 00:00:00 Completed [facility] SARS-COV-2 COVID-19 PFIZER VACCINE 2020-11-16 00:00:00 Completed [facility] SARS-COV-2 COVID-19 PFIZER VACCINE 2020-11-16 00:00:00 Completed [facility] SARS-COV-2 COVID-19 PFIZER VACCINE 2020-11-16 00:00:00 Completed [facility] SARS-COV-2 COVID-19 PFIZER VACCINE 2020-11-16 00:00:00 Completed [facility] SARS-COV-2 COVID-19 PFIZER VACCINE 2020-11-16 00:00:00 Completed [facility] SARS-COV-2 COVID-19 PFIZER VACCINE 2020-11-16 00:00:00 Completed [facility] SARS-COV-2 COVID-19 PFIZER VACCINE 2020-11-16 00:00:00 Completed [facility] SARS-COV-2 COVID-19 PFIZER VACCINE 2020-11-16 00:00:00 Completed [facility] Meningococcal Vaccine 2018-03-16 00:00:00 Completed [facility] Meningococcal Vaccine 2018-03-16 00:00:00 Completed [facility] Meningococcal Vaccine 2018-03-16 00:00:00 Completed [facility] Meningococcal Polysaccharide (groups A, C, Y and W-135) conjugate vaccine (MCV4P) 2018-03-16 00:00:00 Completed [facility] Meningococcal Vaccine 2018-03-16 00:00:00 Completed [facility] Meningococcal Polysaccharide (groups A, C, Y and W-135) conjugate vaccine (MCV4P) 2018-03-16 00:00:00 Completed [facility] Meningococcal Vaccine 2018-03-16 00:00:00 Completed [facility] Meningococcal Polysaccharide (groups A, C, Y and W-135) conjugate vaccine (MCV4P) 2018-03-16 00:00:00 Completed [facility] Meningococcal Vaccine 2018-03-16 00:00:00 Completed [facility] Meningococcal Polysaccharide (groups A, C, Y and W-135) conjugate vaccine (MCV4P) 2018-03-16 00:00:00 Completed [facility] Meningococcal Vaccine 2018-03-16 00:00:00 Completed [facility] Meningococcal Polysaccharide (groups A, C, Y and W-135) conjugate vaccine (MCV4P) 2018-03-16 00:00:00 Completed [facility] Meningococcal Vaccine 2018-03-16 00:00:00 Completed [facility] Meningococcal Polysaccharide (groups A, C, Y and W-135) conjugate vaccine (MCV4P) 2018-03-16 00:00:00 Completed [facility] Meningococcal Vaccine 2018-03-16 00:00:00 Completed [facility] Meningococcal Polysaccharide (groups A, C, Y and W-135) conjugate vaccine (MCV4P) 2018-03-16 00:00:00 Completed [facility] Meningococcal Vaccine 2018-03-16 00:00:00 Completed [facility] Influenza Virus Vaccine Nasal 2013-05-01 00:00:00 Completed [facility] Meningococcal Polysaccharide (groups A, C, Y and W-135) conjugate vaccine (MCV4P) 2013-05-01 00:00:00 Completed [facility] TDAP 2013-05-01 00:00:00 Completed [facility] Influenza Virus Vaccine Nasal 2013-05-01 00:00:00 Completed [facility] Meningococcal Polysaccharide (groups A, C, Y and W-135) conjugate vaccine (MCV4P) 2013-05-01 00:00:00 Completed [facility] TDAP 2013-05-01 00:00:00 Completed [facility] Influenza Virus Vaccine Nasal 2013-05-01 00:00:00 Completed [facility] Meningococcal Polysaccharide (groups A, C, Y and W-135) conjugate vaccine (MCV4P) 2013-05-01 00:00:00 Completed [facility] TDAP 2013-05-01 00:00:00 Completed [facility] Influenza Virus Vaccine Nasal 2013-05-01 00:00:00 Completed [facility] Meningococcal Polysaccharide (groups A, C, Y and W-135) conjugate vaccine (MCV4P) 2013-05-01 00:00:00 Completed [facility] TDAP 2013-05-01 00:00:00 Completed [facility] Influenza Virus Vaccine Nasal 2013-05-01 00:00:00 Completed [facility] Meningococcal Polysaccharide (groups A, C, Y and W-135) conjugate vaccine (MCV4P) 2013-05-01 00:00:00 Completed [facility] TDAP 2013-05-01 00:00:00 Completed [facility] Influenza Virus Vaccine Nasal 2013-05-01 00:00:00 Completed [facility] Meningococcal Polysaccharide (groups A, C, Y and W-135) conjugate vaccine (MCV4P) 2013-05-01 00:00:00 Completed [facility] TDAP 2013-05-01 00:00:00 Completed [facility] Influenza Virus Vaccine Nasal 2013-05-01 00:00:00 Completed [facility] Meningococcal Polysaccharide (groups A, C, Y and W-135) conjugate vaccine (MCV4P) 2013-05-01 00:00:00 Completed [facility] TDAP 2013-05-01 00:00:00 Completed [facility] Influenza Virus Vaccine Nasal 2013-05-01 00:00:00 Completed [facility] Meningococcal Polysaccharide (groups A, C, Y and W-135) conjugate vaccine (MCV4P) 2013-05-01 00:00:00 Completed [facility] TDAP 2013-05-01 00:00:00 Completed [facility] Influenza Virus Vaccine Nasal 2013-05-01 00:00:00 Completed [facility] Meningococcal Polysaccharide (groups A, C, Y and W-135) conjugate vaccine (MCV4P) 2013-05-01 00:00:00 Completed [facility] TDAP 2013-05-01 00:00:00 Completed [facility] Influenza Virus Vaccine Nasal 2013-05-01 00:00:00 Completed [facility] Meningococcal Polysaccharide (groups A, C, Y and W-135) conjugate vaccine (MCV4P) 2013-05-01 00:00:00 Completed [facility] TDAP 2013-05-01 00:00:00 Completed [facility] HPV 2012-11-17 00:00:00 Completed [facility] HPV 2012-11-17 00:00:00 Completed [facility] HPV 2012-11-17 00:00:00 Completed [facility] HPV 2012-11-17 00:00:00 Completed [facility] HPV 2012-11-17 00:00:00 Completed [facility] HPV 2012-11-17 00:00:00 Completed [facility] HPV 2012-11-17 00:00:00 Completed [facility] HPV 2012-11-17 00:00:00 Completed [facility] HPV 2012-11-17 00:00:00 Completed [facility] HPV 2012-11-17 00:00:00 Completed [facility] HPV 2012-07-21 00:00:00 Completed [facility] HPV 2012-07-21 00:00:00 Completed [facility] HPV 2012-05-18 00:00:00 Completed [facility] Influenza Virus Vaccine 2012-05-18 00:00:00 Completed [facility] HPV 2012-05-18 00:00:00 Completed [facility] Influenza Virus Vaccine 2012-05-18 00:00:00 Completed [facility] HPV 2012-05-18 00:00:00 Completed [facility] Influenza Virus Vaccine 2012-05-18 00:00:00 Completed [facility] Influenza Virus Vaccine Nasal 2012-05-18 00:00:00 Completed [facility] HPV 2012-05-18 00:00:00 Completed [facility] Influenza Virus Vaccine 2012-05-18 00:00:00 Completed [facility] Influenza Virus Vaccine Nasal 2012-05-18 00:00:00 Completed [facility] HPV 2012-05-18 00:00:00 Completed [facility] Influenza Virus Vaccine 2012-05-18 00:00:00 Completed [facility] Influenza Virus Vaccine Nasal 2012-05-18 00:00:00 Completed [facility] HPV 2012-05-18 00:00:00 Completed [facility] Influenza Virus Vaccine 2012-05-18 00:00:00 Completed [facility] Influenza Virus Vaccine Nasal 2012-05-18 00:00:00 Completed [facility] HPV 2012-05-18 00:00:00 Completed [facility] Influenza Virus Vaccine 2012-05-18 00:00:00 Completed [facility] Influenza Virus Vaccine Nasal 2012-05-18 00:00:00 Completed [facility] HPV 2012-05-18 00:00:00 Completed [facility] Influenza Virus Vaccine 2012-05-18 00:00:00 Completed [facility] Influenza Virus Vaccine Nasal 2012-05-18 00:00:00 Completed [facility] HPV 2012-05-18 00:00:00 Completed [facility] HPV 2012-05-18 00:00:00 Completed [facility] Influenza Virus Vaccine 2012-05-18 00:00:00 Completed [facility] Influenza Virus Vaccine 2012-05-18 00:00:00 Completed [facility] Influenza Virus Vaccine Nasal 2012-05-18 00:00:00 Completed [facility] Influenza Virus Vaccine 2011-04-28 00:00:00 Completed [facility] Influenza Virus Vaccine 2011-04-28 00:00:00 Completed [facility] Influenza Virus Vaccine 2011-04-28 00:00:00 Completed [facility] Influenza Virus Vaccine Nasal 2011-04-28 00:00:00 Completed [facility] Influenza Virus Vaccine 2011-04-28 00:00:00 Completed [facility] Influenza Virus Vaccine Nasal 2011-04-28 00:00:00 Completed [facility] Influenza Virus Vaccine 2011-04-28 00:00:00 Completed [facility] Influenza Virus Vaccine Nasal 2011-04-28 00:00:00 Completed [facility] Influenza Virus Vaccine 2011-04-28 00:00:00 Completed [facility] Influenza Virus Vaccine Nasal 2011-04-28 00:00:00 Completed [facility] Influenza Virus Vaccine 2011-04-28 00:00:00 Completed [facility] Influenza Virus Vaccine Nasal 2011-04-28 00:00:00 Completed [facility] Influenza Virus Vaccine 2011-04-28 00:00:00 Completed [facility] Influenza Virus Vaccine Nasal 2011-04-28 00:00:00 Completed [facility] Influenza Virus Vaccine 2011-04-28 00:00:00 Completed [facility] Influenza Virus Vaccine 2011-04-28 00:00:00 Completed [facility] Influenza Virus Vaccine Nasal 2011-04-28 00:00:00 Completed [facility] Influenza Virus Vaccine 2010-04-25 00:00:00 Completed [facility] Influenza Virus Vaccine 2010-04-25 00:00:00 Completed [facility] Influenza Virus Vaccine 2010-04-25 00:00:00 Completed [facility] Influenza Virus Vaccine Nasal 2010-04-25 00:00:00 Completed [facility] Influenza Virus Vaccine 2010-04-25 00:00:00 Completed [facility] Influenza Virus Vaccine Nasal 2010-04-25 00:00:00 Completed [facility] Influenza Virus Vaccine 2010-04-25 00:00:00 Completed [facility] Influenza Virus Vaccine Nasal 2010-04-25 00:00:00 Completed [facility] Influenza Virus Vaccine 2010-04-25 00:00:00 Completed [facility] Influenza Virus Vaccine Nasal 2010-04-25 00:00:00 Completed [facility] Influenza Virus Vaccine 2010-04-25 00:00:00 Completed [facility] Influenza Virus Vaccine Nasal 2010-04-25 00:00:00 Completed [facility] Influenza Virus Vaccine 2010-04-25 00:00:00 Completed [facility] Influenza Virus Vaccine Nasal 2010-04-25 00:00:00 Completed [facility] Influenza Virus Vaccine 2010-04-25 00:00:00 Completed [facility] Influenza Virus Vaccine 2010-04-25 00:00:00 Completed [facility] Influenza Virus Vaccine Nasal 2010-04-25 00:00:00 Completed [facility] H1n1 Vaccine 2009-10-25 00:00:00 Completed [facility] H1n1 Vaccine 2009-10-25 00:00:00 Completed [facility] H1n1 Vaccine 2009-10-25 00:00:00 Completed [facility] H1n1 Vaccine 2009-10-25 00:00:00 Completed [facility] H1n1 Vaccine 2009-10-25 00:00:00 Completed [facility] H1n1 Vaccine 2009-10-25 00:00:00 Completed [facility] H1n1 Vaccine 2009-10-25 00:00:[address] [facility] [place] [place] H1n1 Vaccine 2009-10-25 00:00:[address] [facility] [place] [place] H1n1 Vaccine 2009-10-25 00:00:00 Completed [facility] H1n1 Vaccine 2009-10-25 00:00:00 Completed [facility] H1n1 Vaccine 2009-08-21 00:00:00 Completed [facility] H1n1 Vaccine 2009-08-21 00:00:00 Completed [facility] H1n1 Vaccine 2009-08-21 00:00:00 Completed [facility] H1n1 Vaccine 2009-08-21 00:00:00 Completed [facility] H1n1 Vaccine 2009-08-21 00:00:00 Completed [facility] H1n1 Vaccine 2009-08-21 00:00:00 Completed [facility] H1n1 Vaccine 2009-08-21 00:00:00 Completed [facility] H1n1 Vaccine 2009-08-21 00:00:00 Completed [facility] H1n1 Vaccine 2009-08-21 00:00:00 Completed [facility] H1n1 Vaccine 2009-08-21 00:00:00 Completed [facility] Influenza Virus Vaccine 2008-05-03 00:00:00 Completed [facility] Influenza Virus Vaccine 2008-05-03 00:00:00 Completed [facility] Influenza Virus Vaccine 2008-05-03 00:00:00 Completed [facility] Flu Trivalent 2008-05-03 00:00:00 Completed [facility] Influenza Virus Vaccine 2008-05-03 00:00:00 Completed [facility] Flu Trivalent 2008-05-03 00:00:00 Completed [facility] Influenza Virus Vaccine 2008-05-03 00:00:00 Completed [facility] Flu Trivalent 2008-05-03 00:00:00 Completed [facility] Influenza Virus Vaccine 2008-05-03 00:00:00 Completed [facility] Flu Trivalent 2008-05-03 00:00:00 Completed [facility] Influenza Virus Vaccine 2008-05-03 00:00:00 Completed [facility] Flu Trivalent 2008-05-03 00:00:00 Completed [facility] Influenza Virus Vaccine 2008-05-03 00:00:00 Completed [facility] Flu Trivalent 2008-05-03 00:00:00 Completed [facility] Influenza Virus Vaccine 2008-05-03 00:00:00 Completed [facility] Influenza Virus Vaccine 2008-05-03 00:00:00 Completed [facility] Flu Trivalent 2008-05-03 00:00:00 Completed [facility] Varicella (varivax)(chicken pox) 2008-03-13 00:00:00 Completed [facility] Varicella (varivax)(chicken pox) 2008-03-13 00:00:00 Completed [facility] Varicella (varivax)(chicken pox) 2008-03-13 00:00:00 Completed [facility] Varicella (varivax)(chicken pox) 2008-03-13 00:00:00 Completed [facility] Varicella (varivax)(chicken pox) 2008-03-13 00:00:00 Completed [facility] Varicella (varivax)(chicken pox) 2008-03-13 00:00:00 Completed [facility] Varicella (varivax)(chicken pox) 2008-03-13 00:00:00 Completed [facility] Varicella (varivax)(chicken pox) 2008-03-13 00:00:00 Completed [facility] Varicella (varivax)(chicken pox) 2008-03-13 00:00:00 Completed [facility] Varicella (varivax)(chicken pox) 2008-03-13 00:00:00 Completed [facility] HEPATITIS A 2006-09-17 00:00:00 Completed [facility] HEPATITIS A 2006-09-17 00:00:00 Completed [facility] HEPATITIS A 2006-09-17 00:00:00 Completed [facility] HEPATITIS A 2006-09-17 00:00:00 Completed [facility] HEPATITIS A 2006-09-17 00:00:00 Completed [facility] HEPATITIS A 2006-09-17 00:00:00 Completed [facility] HEPATITIS A 2006-09-17 00:00:00 Completed [facility] HEPATITIS A 2006-09-17 00:00:00 Completed [facility] HEPATITIS A 2006-09-17 00:00:00 Completed [facility] HEPATITIS A 2006-09-17 00:00:00 Completed [facility] DTaP, Unspecified Formulation 2006-03-17 00:00:00 Completed [facility] IPV 2006-03-17 00:00:00 Completed [facility] DTaP, Unspecified Formulation 2006-03-17 00:00:00 Completed [facility] IPV 2006-03-17 00:00:00 Completed [facility] DTaP, Unspecified Formulation 2006-03-17 00:00:00 Completed [facility] IPV 2006-03-17 00:00:00 Completed [facility] DTAP 2006-03-17 00:00:00 Completed [facility] HEPATITIS A 2006-03-17 00:00:00 Completed [facility] MMR 2006-03-17 00:00:00 Completed [facility] Polio (IPV/OPV) 2006-03-17 00:00:00 Completed [facility] DTaP, Unspecified Formulation 2006-03-17 00:00:00 Completed [facility] IPV 2006-03-17 00:00:00 Completed [facility] DTaP, Unspecified Formulation 2006-03-17 00:00:00 Completed [facility] IPV 2006-03-17 00:00:00 Completed [facility] DTaP, Unspecified Formulation 2006-03-17 00:00:00 Completed [facility] IPV 2006-03-17 00:00:00 Completed [facility] DTaP, Unspecified Formulation 2006-03-17 00:00:00 Completed [facility] IPV 2006-03-17 00:00:00 Completed [facility] DTAP 2006-03-17 00:00:00 Completed [facility] HEPATITIS A 2006-03-17 00:00:00 Completed [facility] MMR 2006-03-17 00:00:00 Completed [facility] Polio (IPV/OPV) 2006-03-17 00:00:00 Completed [facility] HEPATITIS A 2005-09-17 00:00:00 Completed [facility] HEPATITIS A 2005-09-17 00:00:00 Completed [facility] HEPATITIS A 2005-09-17 00:00:00 Completed [facility] HEPATITIS A 2005-09-17 00:00:00 Completed [facility] HEPATITIS A 2005-09-17 00:00:00 Completed [facility] HEPATITIS A 2005-09-17 00:00:00 Completed [facility] HEPATITIS A 2005-09-17 00:00:00 Completed [facility] PPD (TB) 2004-06-23 00:00:00 Completed [facility] PPD (TB) 2004-06-23 00:00:00 Completed [facility] PPD (TB) 2004-06-23 00:00:00 Completed [facility] PPD (TB) 2004-06-23 00:00:00 Completed [facility] PPD (TB) 2004-06-23 00:00:00 Completed [facility] PPD (TB) 2004-06-23 00:00:00 Completed [facility] PPD (TB) 2004-06-23 00:00:00 Completed [facility] PPD (TB) 2004-06-23 00:00:00 Completed [facility] PPD (TB) 2004-06-23 00:00:00 Completed [facility] PPD (TB) 2004-06-23 00:00:00 Completed [facility] Pneumococcal 7 Conjugate, PCV7 (Prevnar7) 2003-10-11 00:00:00 Completed [facility] Pneumococcal 7 Conjugate, PCV7 (Prevnar7) 2003-10-11 00:00:00 Completed [facility] Pneumococcal 7 Conjugate, PCV7 (Prevnar7) 2003-10-11 00:00:00 Completed [facility] Pneumococcal 7 Conjugate, PCV7 (Prevnar7) 2003-10-11 00:00:00 Completed [facility] Pneumococcal 7 Conjugate, PCV7 (Prevnar7) 2003-10-11 00:00:00 Completed [facility] Pneumococcal 7 Conjugate, PCV7 (Prevnar7) 2003-10-11 00:00:00 Completed [facility] Pneumococcal 7 Conjugate, PCV7 (Prevnar7) 2003-10-11 00:00:00 Completed [facility] Pneumococcal 7 Conjugate, PCV7 (Prevnar7) 2003-10-11 00:00:00 Completed [facility] Pneumococcal 7 Conjugate, PCV7 (Prevnar7) 2003-10-11 00:00:00 Completed [facility] Pneumococcal 7 Conjugate, PCV7 (Prevnar7) 2003-10-11 00:00:00 Completed [facility] Polio (IPV/OPV) 2003-06-13 00:00:00 Completed [facility] Polio (IPV/OPV) 2003-06-13 00:00:00 Completed [facility] Polio (IPV/OPV) 2003-06-13 00:00:00 Completed [facility] Polio (IPV/OPV) 2003-06-13 00:00:00 Completed [facility] Polio (IPV/OPV) 2003-06-13 00:00:00 Completed [facility] Polio (IPV/OPV) 2003-06-13 00:00:00 Completed [facility] Polio (IPV/OPV) 2003-06-13 00:00:00 Completed [facility] Polio (IPV/OPV) 2003-06-13 00:00:00 Completed [facility] Polio (IPV/OPV) 2003-06-13 00:00:00 Completed [facility] Polio (IPV/OPV) 2003-06-13 00:00:00 Completed [facility] Pneumococcal 7 Conjugate, PCV7 (Prevnar7) 2003-06-04 00:00:00 Completed [facility] DTAP 2003-06-04 00:00:00 Completed [facility] Pneumococcal 7 Conjugate, PCV7 (Prevnar7) 2003-06-04 00:00:00 Completed [facility] DTAP 2003-06-04 00:00:00 Completed [facility] Pneumococcal 7 Conjugate, PCV7 (Prevnar7) 2003-06-04 00:00:00 Completed [facility] DTaP, Unspecified Formulation 2003-06-04 00:00:00 Completed [facility] IPV 2003-06-04 00:00:00 Completed [facility] DTAP 2003-06-04 00:00:00 Completed [facility] Pneumococcal 7 Conjugate, PCV7 (Prevnar7) 2003-06-04 00:00:00 Completed [facility] DTaP, Unspecified Formulation 2003-06-04 00:00:00 Completed [facility] IPV 2003-06-04 00:00:00 Completed [facility] DTAP 2003-06-04 00:00:00 Completed [facility] Pneumococcal 7 Conjugate, PCV7 (Prevnar7) 2003-06-04 00:00:00 Completed [facility] DTaP, Unspecified Formulation 2003-06-04 00:00:00 Completed [facility] IPV 2003-06-04 00:00:00 Completed [facility] DTAP 2003-06-04 00:00:00 Completed [facility] Pneumococcal 7 Conjugate, PCV7 (Prevnar7) 2003-06-04 00:00:00 Completed [facility] DTaP, Unspecified Formulation 2003-06-04 00:00:00 Completed [facility] IPV 2003-06-04 00:00:00 Completed [facility] DTAP 2003-06-04 00:00:00 Completed [facility] DTAP 2003-06-04 00:00:00 Completed [facility] Pneumococcal 7 Conjugate, PCV7 (Prevnar7) 2003-06-04 00:00:00 Completed [facility] DTaP, Unspecified Formulation 2003-06-04 00:00:00 Completed [facility] IPV 2003-06-04 00:00:00 Completed [facility] DTAP 2003-06-04 00:00:00 Completed [facility] Pneumococcal 7 Conjugate, PCV7 (Prevnar7) 2003-06-04 00:00:00 Completed [facility] DTaP, Unspecified Formulation 2003-06-04 00:00:00 Completed [facility] IPV 2003-06-04 00:00:00 Completed [facility] DTAP 2003-06-04 00:00:00 Completed [facility] Pneumococcal 7 Conjugate, PCV7 (Prevnar7) 2003-06-04 00:00:00 Completed [facility] DTaP, Unspecified Formulation 2003-06-04 00:00:00 Completed [facility] IPV 2003-06-04 00:00:00 Completed [facility] Pneumococcal 7 Conjugate, PCV7 (Prevnar7) 2003-06-04 00:00:00 Completed [facility] DTAP 2003-06-04 00:00:00 Completed [facility] HIB 4 Dose Schedule 2003 00:00:00 Completed [facility] MMR 2003 00:00:00 Completed [facility] Pneumococcal 7 Conjugate, PCV7 (Prevnar7) 2003 00:00:00 Completed [facility] Varicella (varivax)(chicken pox) 2003 00:00:00 Completed [facility] HIB 4 Dose Schedule 2003 00:00:00 Completed [facility] MMR 2003 00:00:00 Completed [facility] Pneumococcal 7 Conjugate, PCV7 (Prevnar7) 2003 00:00:00 Completed [facility] Varicella (varivax)(chicken pox) 2003 00:00:00 Completed [facility] HIB 4 Dose Schedule 2003 00:00:00 Completed [facility] MMR 2003 00:00:00 Completed [facility] Pneumococcal 7 Conjugate, PCV7 (Prevnar7) 2003 00:00:00 Completed [facility] Varicella (varivax)(chicken pox) 2003 00:00:00 Completed [facility] Hib-HbOC 2003 00:00:00 Completed [facility] HIB 4 Dose Schedule 2003 00:00:00 Completed [facility] MMR 2003 00:00:00 Completed [facility] Pneumococcal 7 Conjugate, PCV7 (Prevnar7) 2003 00:00:00 Completed [facility] Varicella (varivax)(chicken pox) 2003 00:00:00 Completed [facility] Hib-HbOC 2003 00:00:00 Completed [facility] HIB 4 Dose Schedule 2003 00:00:00 Completed [facility] MMR 2003 00:00:00 Completed [facility] Pneumococcal 7 Conjugate, PCV7 (Prevnar7) 2003 00:00:00 Completed [facility] Varicella (varivax)(chicken pox) 2003 00:00:00 Completed [facility] Hib-HbOC 2003 00:00:00 Completed [facility] HIB 4 Dose Schedule 2003 00:00:00 Completed [facility] MMR 2003 00:00:00 Completed [facility] Pneumococcal 7 Conjugate, PCV7 (Prevnar7) 2003 00:00:00 Completed [facility] Varicella (varivax)(chicken pox) 2003 00:00:00 Completed [facility] Hib-HbOC 2003 00:00:00 Completed [facility] HIB 4 Dose Schedule 2003 00:00:00 Completed [facility] MMR 2003 00:00:00 Completed [facility] Pneumococcal 7 Conjugate, PCV7 (Prevnar7) 2003 00:00:00 Completed [facility] Varicella (varivax)(chicken pox) 2003 00:00:00 Completed [facility] Hib-HbOC 2003 00:00:00 Completed [facility] HIB 4 Dose Schedule 2003 00:00:00 Completed [facility] HIB 4 Dose Schedule 2003 00:00:00 Completed [facility] MMR 2003 00:00:00 Completed [facility] Pneumococcal 7 Conjugate, PCV7 (Prevnar7) 2003 00:00:00 Completed [facility] Varicella (varivax)(chicken pox) 2003 00:00:00 Completed [facility] Hib-HbOC 2003 00:00:00 Completed [facility] HIB 4 Dose Schedule 2003 00:00:00 Completed [facility] MMR 2003 00:00:00 Completed [facility] Pneumococcal 7 Conjugate, PCV7 (Prevnar7) 2003 00:00:00 Completed [facility] Varicella (varivax)(chicken pox) 2003 00:00:00 Completed [facility] Hib-HbOC 2003 00:00:00 Completed [facility] MMR 2003 00:00:00 Completed [facility] Pneumococcal 7 Conjugate, PCV7 (Prevnar7) 2003 00:00:00 Completed [facility] Varicella (varivax)(chicken pox) 2003 00:00:00 Completed [facility] HIB 4 Dose Schedule 2002 00:00:00 Completed [facility] Hep B, Adol or Pedi Dosage 2002 00:00:00 Completed [facility] DTAP 2002 00:00:00 Completed [facility] HIB 4 Dose Schedule 2002 00:00:00 Completed [facility] Hep B, Adol or Pedi Dosage 2002 00:00:00 Completed [facility] DTAP 2002 00:00:00 Completed [facility] HIB 4 Dose Schedule 2002 00:00:00 Completed [facility] Hep B, Adol or Pedi Dosage 2002 00:00:00 Completed [facility] DTaP, Unspecified Formulation 2002 00:00:00 Completed [facility] DTAP 2002 00:00:00 Completed [facility] HIB 4 Dose Schedule 2002 00:00:00 Completed [facility] Hep B, Adol or Pedi Dosage 2002 00:00:00 Completed [facility] DTaP, Unspecified Formulation 2002 00:00:00 Completed [facility] DTAP 2002 00:00:00 Completed [facility] HIB 4 Dose Schedule 2002 00:00:00 Completed [facility] Hep B, Adol or Pedi Dosage 2002 00:00:00 Completed [facility] DTaP, Unspecified Formulation 2002 00:00:00 Completed [facility] DTAP 2002 00:00:00 Completed [facility] HIB 4 Dose Schedule 2002 00:00:00 Completed [facility] Hep B, Adol or Pedi Dosage 2002 00:00:00 Completed [facility] DTaP, Unspecified Formulation 2002 00:00:00 Completed [facility] DTAP 2002 00:00:00 Completed [facility] HIB 4 Dose Schedule 2002 00:00:00 Completed [facility] DTAP 2002 00:00:00 Completed [facility] Hep B, Adol or Pedi Dosage 2002 00:00:00 Completed [facility] DTaP, Unspecified Formulation 2002 00:00:00 Completed [facility] HIB 4 Dose Schedule 2002 00:00:00 Completed [facility] DTAP 2002 00:00:00 Completed [facility] HIB 4 Dose Schedule 2002 00:00:00 Completed [facility] Hep B, Adol or Pedi Dosage 2002 00:00:00 Completed [facility] DTaP, Unspecified Formulation 2002 00:00:00 Completed [facility] Hep B, Adol or Pedi Dosage 2002 00:00:00 Completed [facility] DTAP 2002 00:00:00 Completed [facility] HIB 4 Dose Schedule 2002 00:00:00 Completed [facility] Hep B, Adol or Pedi Dosage 2002 00:00:00 Completed [facility] DTaP, Unspecified Formulation 2002 00:00:00 Completed [facility] DTAP 2002 00:00:00 Completed [facility] HIB 4 Dose Schedule 2002 00:00:00 Completed [facility] Polio (IPV/OPV) 2002 00:00:00 Completed [facility] DTAP 2002 00:00:00 Completed [facility] HIB 4 Dose Schedule 2002 00:00:00 Completed [facility] Polio (IPV/OPV) 2002 00:00:00 Completed [facility] DTAP 2002 00:00:00 Completed [facility] HIB 4 Dose Schedule 2002 00:00:00 Completed [facility] Polio (IPV/OPV) 2002 00:00:00 Completed [facility] DTaP, Unspecified Formulation 2002 00:00:00 Completed [facility] IPV 2002 00:00:00 Completed [facility] DTAP 2002 00:00:00 Completed [facility] HIB 4 Dose Schedule 2002 00:00:00 Completed [facility] Polio (IPV/OPV) 2002 00:00:00 Completed [facility] DTaP, Unspecified Formulation 2002 00:00:00 Completed [facility] IPV 2002 00:00:00 Completed [facility] DTAP 2002 00:00:00 Completed [facility] HIB 4 Dose Schedule 2002 00:00:00 Completed [facility] Polio (IPV/OPV) 2002 00:00:00 Completed [facility] DTaP, Unspecified Formulation 2002 00:00:00 Completed [facility] IPV 2002 00:00:00 Completed [facility] DTAP 2002 00:00:00 Completed [facility] HIB 4 Dose Schedule 2002 00:00:00 Completed [facility] Polio (IPV/OPV) 2002 00:00:00 Completed [facility] DTaP, Unspecified Formulation 2002 00:00:00 Completed [facility] IPV 2002 00:00:00 Completed [facility] DTAP 2002 00:00:00 Completed [facility] DTAP 2002 00:00:00 Completed [facility] HIB 4 Dose Schedule 2002 00:00:00 Completed [facility] Polio (IPV/OPV) 2002 00:00:00 Completed [facility] DTaP, Unspecified Formulation 2002 00:00:00 Completed [facility] HIB 4 Dose Schedule 2002 00:00:00 Completed [facility] IPV 2002 00:00:00 Completed [facility] DTAP 2002 00:00:00 Completed [facility] HIB 4 Dose Schedule 2002 00:00:00 Completed [facility] Polio (IPV/OPV) 2002 00:00:00 Completed [facility] DTaP, Unspecified Formulation 2002 00:00:00 Completed [facility] IPV 2002 00:00:00 Completed [facility] DTAP 2002 00:00:00 Completed [facility] HIB 4 Dose Schedule 2002 00:00:00 Completed [facility] Polio (IPV/OPV) 2002 00:00:00 Completed [facility] DTaP, Unspecified Formulation 2002 00:00:00 Completed [facility] IPV 2002 00:00:00 Completed [facility] Polio (IPV/OPV) 2002 00:00:00 Completed [facility] DTAP 2002 00:00:00 Completed [facility] Hep B, Adol or Pedi Dosage 2002 00:00:00 Completed [facility] Polio (IPV/OPV) 2002 00:00:00 Completed [facility] DTAP 2002 00:00:00 Completed [facility] HIB 4 Dose Schedule 2002 00:00:00 Completed [facility] Hep B, Adol or Pedi Dosage 2002 00:00:00 Completed [facility] Polio (IPV/OPV) 2002 00:00:00 Completed [facility] DTAP 2002 00:00:00 Completed [facility] HIB 4 Dose Schedule 2002 00:00:00 Completed [facility] Hep B, Adol or Pedi Dosage 2002 00:00:00 Completed [facility] Polio (IPV/OPV) 2002 00:00:00 Completed [facility] DTaP, Unspecified Formulation 2002 00:00:00 Completed [facility] IPV 2002 00:00:00 Completed [facility] DTAP 2002 00:00:00 Completed [facility] HIB 4 Dose Schedule 2002 00:00:00 Completed [facility] Hep B, Adol or Pedi Dosage 2002 00:00:00 Completed [facility] Polio (IPV/OPV) 2002 00:00:00 Completed [facility] DTaP, Unspecified Formulation 2002 00:00:00 Completed [facility] IPV 2002 00:00:00 Completed [facility] DTAP 2002 00:00:00 Completed [facility] HIB 4 Dose Schedule 2002 00:00:00 Completed [facility] Hep B, Adol or Pedi Dosage 2002 00:00:00 Completed [facility] Polio (IPV/OPV) 2002 00:00:00 Completed [facility] DTaP, Unspecified Formulation 2002 00:00:00 Completed [facility] IPV 2002 00:00:00 Completed [facility] DTAP 2002 00:00:00 Completed [facility] HIB 4 Dose Schedule 2002 00:00:00 Completed [facility] Hep B, Adol or Pedi Dosage 2002 00:00:00 Completed [facility] Polio (IPV/OPV) 2002 00:00:00 Completed [facility] DTaP, Unspecified Formulation 2002 00:00:00 Completed [facility] [facility] DTAP 2002 00[facility]00:00 Completed [facility] IPV 2002 00:00:00 Completed [facility] DTAP 2002 00:00:00 Completed [facility] HIB 4 Dose Schedule 2002 00:00:00 Completed [facility] Hep B, Adol or Pedi Dosage 2002 00:00:00 Completed [facility] Polio (IPV/OPV) 2002 00:00:00 Completed [facility] HIB 4 Dose Schedule 2002 00:00:00 Completed [facility] DTaP, Unspecified Formulation 2002 00:00:00 Completed [facility] IPV 2002 00:00:00 Completed [facility] DTAP 2002 00:00:00 Completed [facility] HIB 4 Dose Schedule 2002 00:00:00 Completed [facility] Hep B, Adol or Pedi Dosage 2002 00:00:00 Completed [facility] Polio (IPV/OPV) 2002 00:00:00 Completed [facility] Hep B, Adol or Pedi Dosage 2002 00:00:00 Completed [facility] DTaP, Unspecified Formulation 2002 00:00:00 Completed [facility] IPV 2002 00:00:00 Completed [facility] DTAP 2002 00:00:00 Completed [facility] HIB 4 Dose Schedule 2002 00:00:00 Completed [facility] Hep B, Adol or Pedi Dosage 2002 00:00:00 Completed [facility] Polio (IPV/OPV) 2002 00:00:00 Completed [facility] DTaP, Unspecified Formulation 2002 00:00:00 Completed [facility] IPV 2002 00:00:00 Completed [facility] Polio (IPV/OPV) 2002 00:00:00 Completed [facility] DTAP 2002 00:00:00 Completed [facility] HIB 4 Dose Schedule 2002 00:00:00 Completed [facility] Hep B, Adol or Pedi Dosage 2002 00:00:00 Completed [facility] Hep B, Adol or Pedi Dosage 2002 00:00:00 Completed [facility] Hep B, Adol or Pedi Dosage 2002 00:00:00 Completed [facility] Hep B, Adol or Pedi Dosage 2002 00:00:00 Completed [facility] Hep B, Adol or Pedi Dosage 2002 00:00:00 Completed [facility] Hep B, Adol or Pedi Dosage 2002 00:00:00 Completed [facility] Hep B, Adol or Pedi Dosage 2002 00:00:00 Completed [facility] Hep B, Adol or Pedi Dosage 2002 00:00:00 Completed [facility] Hep B, Adol or Pedi Dosage 2002 00:00:00 Completed [facility] Hep B, Adol or Pedi Dosage 2002 00:00:00 Completed [facility] Flu Trivalent Unknown Completed [facility] Influenza Virus Vaccine Nasal Unknown Completed [facility] Influenza Virus Vaccine Nasal Unknown Completed [facility] Influenza Virus Vaccine Nasal Unknown Completed [facility] HEPATITIS A Unknown Completed [facility] Hib-HbOC Unknown Completed [facility] Meningococcal Polysaccharide (groups A, C, Y and W-135) conjugate vaccine (MCV4P) Unknown Completed [facility] IPV Unknown Completed [facility] IPV Unknown Completed [facility] IPV Unknown Completed [facility] IPV Unknown Completed [facility] DTAP Unknown Completed [facility] DTAP Unknown Completed [facility] DTAP Unknown Completed [facility] DTAP Unknown Completed [facility] HIB 4 Dose Schedule Unknown Completed [facility] HIB 4 Dose Schedule Unknown Completed [facility] HIB 4 Dose Schedule Unknown Completed [facility] HIB 4 Dose Schedule Unknown Completed [facility] HEPATITIS A Unknown Completed [facility] Hep B, Adol or Pedi Dosage Unknown Completed [facility] Hep B, Adol or Pedi Dosage Unknown Completed [facility] Hep B, Adol or Pedi Dosage Unknown Completed [facility] HPV Unknown Completed [facility] HPV Unknown Completed [facility] Influenza Virus Vaccine Unknown Completed [facility] Influenza Virus Vaccine Unknown Completed [facility] Influenza Virus Vaccine Unknown Completed [facility] Influenza Virus Vaccine Unknown Completed [facility] H1n1 Vaccine Unknown Completed [facility] H1n1 Vaccine Unknown Com[facility] MMR Unknown Completed [facility] Pneumococcal 7 Conjugate, PCV7 (Prevnar7) Unknown Completed [facility] Pneumococcal 7 Conjugate, PCV7 (Prevnar7) Unknown Completed [facility] Pneumococcal 7 Conjugate, PCV7 (Prevnar7) Unknown Completed [facility] Polio (IPV/OPV) Unknown Completed [facility] Polio (IPV/OPV) Unknown Completed [facility] Polio (IPV/OPV) Unknown Completed [facility] PPD (TB) Unknown Completed [facility] Varicella (varivax)(chicken pox) Unknown Completed [facility] Varicella (varivax)(chicken pox) Unknown Completed [facility] Influenza Virus Vaccine Nasal Unknown Completed [facility] Meningococcal Polysaccharide (groups A, C, Y and W-135) conjugate vaccine (MCV4P) Unknown Completed [facility] TDAP Unknown Completed [facility] Meningococcal Vaccine Unknown Completed [facility] SARS-COV-2 COVID-19 PFIZER VACCINE Unknown Completed [facility] SARS-COV-2 COVID-19 PFIZER VACCINE Unknown Completed [facility] DTaP, Unspecified Formulation Unknown Completed [facility] DTaP, Unspecified Formulation Unknown Completed [facility] DTaP, Unspecified Formulation Unknown Completed [facility] DTaP, Unspecified Formulation Unknown Completed [facility] DTaP, Unspecified Formulation Unknown Completed [facility] Flu Trivalent Unknown Completed [facility] Influenza Virus Vaccine Nasal Unknown Completed [facility] Influenza Virus Vaccine Nasal Unknown Completed [facility] Influenza Virus Vaccine Nasal Unknown Completed [facility] HEPATITIS A Unknown Completed [facility] Hib-HbOC Unknown Completed [facility] Meningococcal Polysaccharide (groups A, C, Y and W-135) conjugate vaccine (MCV4P) Unknown Completed [facility] IPV Unknown Completed [facility] IPV Unknown Completed [facility] IPV Unknown [facility]pleted [facility] IPV Unknown Completed [facility] DTAP Unknown Completed [facility] HEPATITIS A Unknown Completed [facility] MMR Unknown Completed [facility] Polio (IPV/OPV) Unknown Completed [facility] HPV Unknown Completed [facility] DTAP Unknown Completed [facility] DTAP Unknown Completed [facility] DTAP Unknown Completed [facility] DTAP Unknown Completed [facility] HIB 4 Dose Schedule Unknown Completed [facility] HIB 4 Dose Schedule Unknown Completed [facility] HIB 4 Dose Schedule Unknown Completed [facility] HIB 4 Dose Schedule Unknown Completed [facility] HEPATITIS A Unknown Completed [facility] Hep B, Adol or Pedi Dosage Unknown Completed [facility] Hep B, Adol or Pedi Dosage Unknown Completed [facility] Hep B, Adol or Pedi Dosage Unknown Completed [facility] HPV Unknown Completed [facility] HPV Unknown Completed [facility] Influenza Virus Vaccine Unknown Completed [facility] Influenza Virus Vaccine Unknown Completed [facility] Influenza Virus Vaccine Unknown Completed [facility] Influenza Virus Vaccine Unknown Completed [facility] H1n1 Vaccine Unknown Completed [facility] H1n1 Vaccine Unknown Com[facility] MMR Unknown Completed [facility] Pneumococcal 7 Conjugate, PCV7 (Prevnar7) Unknown Completed [facility] Pneumococcal 7 Conjugate, PCV7 (Prevnar7) Unknown Completed [facility] Pneumococcal 7 Conjugate, PCV7 (Prevnar7) Unknown Completed [facility] Polio (IPV/OPV) Unknown Completed [facility] Polio (IPV/OPV) Unknown Completed [facility] Polio (IPV/OPV) Unknown Completed [facility] PPD (TB) Unknown Completed [facility] Varicella (varivax)(chicken pox) Unknown Completed [facility] Varicella (varivax)(chicken pox) Unknown Completed [facility] Influenza Virus Vaccine Nasal Unknown Completed [facility] Meningococcal Polysaccharide (groups A, C, Y and W-135) conjugate vaccine (MCV4P) Unknown Completed [facility] TDAP Unknown Completed [facility] Meningococcal Vaccine Unknown Completed [facility] SARS-COV-2 COVID-19 PFIZER VACCINE Unknown Completed [facility] SARS-COV-2 COVID-19 PFIZER VACCINE Unknown Completed [facility] DTaP, Unspecified Formulation Unknown Completed [facility] DTaP, Unspecified Formulation Unknown Completed [facility] DTaP, Unspecified Formulation Unknown Completed [facility] DTaP, Unspecified Formulation Unknown Completed [facility] DTaP, Unspecified Formulation Unknown Completed [facility] Flu Trivalent Unknown Com[facility] Influenza Virus Vaccine Nasal Unknown Completed [facility] Influenza Virus Vaccine Nasal Unknown Completed [facility] Influenza Virus Vaccine Nasal Unknown Completed [facility] HEPATITIS A Unknown Completed [facility] Hib-HbOC Unknown Completed [facility] Meningococcal Polysaccharide (groups A, C, Y and W-135) conjugate vaccine (MCV4P) Unknown Completed [facility] IPV Unknown Completed [facility] IPV Unknown Completed [facility] IPV Unknown Completed [facility] IPV Unknown Completed [facility] DTAP Unknown Completed [facility] DTAP Unknown Completed [facility] DTAP Unknown Completed [facility] DTAP Unknown Completed [facility] HIB 4 Dose Schedule Unknown Completed [facility] HIB 4 Dose Schedule Unknown Completed [facility] HIB 4 Dose Schedule Unknown Completed [facility] HIB 4 Dose Schedule Unknown Completed [facility] HEPATITIS A Unknown Completed [facility] Hep B, Adol or Pedi Dosage Unknown Completed [facility] Hep B, Adol or Pedi Dosage Unknown Completed [facility] Hep B, Adol or Pedi Dosage Unknown Completed [facility] HPV Unknown Completed [facility] HPV Unknown Completed [facility] Influenza Virus Vaccine Unknown Completed [facility] Influenza Virus Vaccine Unknown Completed [facility] Influenza Virus Vaccine Unknown Completed [facility] Influenza Virus Vaccine Unknown Completed [facility] H1n1 Vaccine Unknown Completed [facility] H1n1 Vaccine Unknown Completed [facility] MMR Unknown Completed [facility] Pneumococcal 7 Conjugate, PCV7 (Prevnar7) Unknown Completed [facility] Pneumococcal 7 Conjugate, PCV7 (Prevnar7) Unknown Completed [facility] Pneumococcal 7 Conjugate, PCV7 (Prevnar7) Unknown Completed [facility] Polio (IPV/OPV) Unknown Completed [facility] Polio (IPV/OPV) Unknown Completed [facility] Polio (IPV/OPV) Unknown Completed [facility] PPD (TB) Unknown Completed [facility] Varicella (varivax)(chicken pox) Unknown Completed [facility] Varicella (varivax)(chicken pox) Unknown Completed [facility] Influenza Virus Vaccine Nasal Unknown Completed [facility] Meningococcal Polysaccharide (groups A, C, Y and W-135) conjugate vaccine (MCV4P) Unknown Completed [facility] TDAP Unknown Completed [facility] Meningococcal Vaccine Unknown Completed [facility] SARS-COV-2 COVID-19 PFIZER VACCINE Unknown Completed [facility] SARS-COV-2 COVID-19 PFIZER VACCINE Unknown Completed [facility] DTaP, Unspecified Formulation Unknown Completed [facility] DTaP, Unspecified Formulation Unknown Completed [facility] DTaP, Unspecified Formulation Unknown Completed [facility] DTaP, Unspecified Formulation Unknown Completed [facility] DTaP, Unspecified Formulation Unknown Completed [facility] Flu Trivalent Unknown Completed [facility] Influenza Virus Vaccine Nasal Unknown Completed [facility] Influenza Virus Vaccine Nasal Unknown Completed [facility] Influenza Virus Vaccine Nasal Unknown Completed [facility] HEPATITIS A Unknown Completed [facility] Hib-HbOC Unknown Completed [facility] Meningococcal Polysaccharide (groups A, C, Y and W-135) conjugate vaccine (MCV4P) Unknown Completed [facility] IPV Unknown Completed [facility] IPV Unknown Completed [facility] IPV Unknown [facility]pleted [facility] IPV Unknown Completed [facility] DTAP Unknown Completed [facility] HEPATITIS A Unknown Completed [facility] MMR Unknown Completed [facility] Polio (IPV/OPV) Unknown Completed [facility] HPV Unknown Completed [facility] DTAP Unknown Completed [facility] DTAP Unknown Completed [facility] DTAP Unknown Completed [facility] DTAP Unknown Completed [facility] HIB 4 Dose Schedule Unknown Completed [facility] HIB 4 Dose Schedule Unknown Completed [facility] HIB 4 Dose Schedule Unknown Completed [facility] HIB 4 Dose Schedule Unknown Completed [facility] HEPATITIS A Unknown Completed [facility] Hep B, Adol or Pedi Dosage Unknown Completed [facility] Hep B, Adol or Pedi Dosage Unknown Completed [facility] Hep B, Adol or Pedi Dosage Unknown Completed [facility] HPV Unknown Completed [facility] HPV Unknown Completed [facility] Influenza Virus Vaccine Unknown Completed [facility] Influenza Virus Vaccine Unknown Completed [facility] Influenza Virus Vaccine Unknown Completed [facility] Influenza Virus Vaccine Unknown Completed [facility] H1n1 Vaccine Unknown Completed [facility] H1n1 Vaccine Unknown Com[facility] MMR Unknown Completed [facility] Pneumococcal 7 Conjugate, PCV7 (Prevnar7) Unknown Completed [facility] Pneumococcal 7 Conjugate, PCV7 (Prevnar7) Unknown Completed [facility] Pneumococcal 7 Conjugate, PCV7 (Prevnar7) Unknown Completed [facility] Polio (IPV/OPV) Unknown Completed [facility] Polio (IPV/OPV) Unknown Completed [facility] Polio (IPV/OPV) Unknown Completed [facility] PPD (TB) Unknown Completed [facility] Varicella (varivax)(chicken pox) Unknown Completed [facility] Varicella (varivax)(chicken pox) Unknown Completed [facility] Influenza Virus Vaccine Nasal Unknown Completed [facility] Meningococcal Polysaccharide (groups A, C, Y and W-135) conjugate vaccine (MCV4P) Unknown Completed [facility] TDAP Unknown Completed [facility] Meningococcal Vaccine Unknown Completed [facility] SARS-COV-2 COVID-19 PFIZER VACCINE Unknown Completed [facility] SARS-COV-2 COVID-19 PFIZER VACCINE Unknown Completed [facility] DTaP, Unspecified Formulation Unknown Completed [facility] DTaP, Unspecified Formulation Unknown Completed [facility] DTaP, Unspecified Formulation Unknown Completed [facility] DTaP, Unspecified Formulation Unknown Completed [facility] DTaP, Unspecified Formulation Unknown Completed [facility] Flu Trivalent Unknown Com[facility] Influenza Virus Vaccine Nasal Unknown Completed [facility] Influenza Virus Vaccine Nasal Unknown Completed [facility] Influenza Virus Vaccine Nasal Unknown Completed [facility] HEPATITIS A Unknown Completed [facility] Hib-HbOC Unknown Completed [facility] Meningococcal Polysaccharide (groups A, C, Y and W-135) conjugate vaccine (MCV4P) Unknown Completed [facility] IPV Unknown Completed [facility] IPV Unknown Completed [facility] IPV Unknown Completed [facility] IPV Unknown Completed [facility] DTAP Unknown Completed [facility] DTAP Unknown Completed [facility] DTAP Unknown Completed [facility] DTAP Unknown Completed [facility] HIB 4 Dose Schedule Unknown Completed [facility] HIB 4 Dose Schedule Unknown Completed [facility] HIB 4 Dose Schedule Unknown Completed [facility] HIB 4 Dose Schedule Unknown Completed [facility] HEPATITIS A Unknown Completed [facility] Hep B, Adol or Pedi Dosage Unknown Completed [facility] Hep B, Adol or Pedi Dosage Unknown Completed [facility] Hep B, Adol or Pedi Dosage Unknown Completed [facility] HPV Unknown Completed [facility] HPV Unknown Completed [facility] Influenza Virus Vaccine Unknown Completed [facility] Influenza Virus Vaccine Unknown Completed [facility] Influenza Virus Vaccine Unknown Completed [facility] Influenza Virus Vaccine Unknown Completed [facility] H1n1 Vaccine Unknown Completed [facility] H1n1 Vaccine Unknown Com[facility] MMR Unknown Completed [facility] Pneumococcal 7 Conjugate, PCV7 (Prevnar7) Unknown Completed [facility] Pneumococcal 7 Conjugate, PCV7 (Prevnar7) Unknown Completed [facility] Pneumococcal 7 Conjugate, PCV7 (Prevnar7) Unknown Completed [facility] Polio (IPV/OPV) Unknown Completed [facility] Polio (IPV/OPV) Unknown Completed [facility] Polio (IPV/OPV) Unknown Completed [facility] PPD (TB) Unknown Completed [facility] Varicella (varivax)(chicken pox) Unknown Completed [facility] Varicella (varivax)(chicken pox) Unknown Completed [facility] Influenza Virus Vaccine Nasal Unknown Completed [facility] Meningococcal Polysaccharide (groups A, C, Y and W-135) conjugate vaccine (MCV4P) Unknown Completed [facility] [facility] TDAP Unknown Completed [facility] Meningococcal Vaccine Unknown Completed [facility] SARS-COV-2 COVID-19 PFIZER VACCINE Unknown Completed [facility] SARS-COV-2 COVID-19 PFIZER VACCINE Unknown Completed [facility] DTaP, Unspecified Formulation Unknown Completed [facility] DTaP, Unspecified Formulation Unknown Completed [facility] DTaP, Unspecified Formulation Unknown Completed [facility] DTaP, Unspecified Formulation Unknown Completed [facility] DTaP, Unspecified Formulation Unknown Completed [facility] Flu Trivalent Unknown Completed [facility] [place] [place] Influenza Virus Vaccine Nasal Unknown Completed [facility] Influenza Virus Vaccine Nasal Unknown Completed [facility] Influenza Virus Vaccine Nasal Unknown Completed [facility] HEPATITIS A Unknown [facility] Hib-HbOC Unknown Completed [facility] Meningococcal Polysaccharide (groups A, C, Y and W-135) conjugate vaccine (MCV4P) Unknown Completed [facility] IPV Unknown Completed [facility] IPV Unknown Completed [facility] IPV Unknown Completed [facility] IPV Unknown Completed [facility] DTAP Unknown Completed [facility] DTAP Unknown Completed [facility] DTAP Unknown Completed [facility] DTAP Unknown Completed [facility] HIB 4 Dose Schedule Unknown Completed [facility] HIB 4 Dose Schedule Unknown Completed [facility] HIB 4 Dose Schedule Unknown Completed [facility] HIB 4 Dose Schedule Unknown Completed [facility] HEPATITIS A Unknown Completed [facility] Hep B, Adol or Pedi Dosage Unknown Completed [facility] Hep B, Adol or Pedi Dosage Unknown Completed [facility] Hep B, Adol or Pedi Dosage Unknown Completed [facility] HPV Unknown Completed [facility] HPV Unknown Completed [facility] Influenza Virus Vaccine Unknown Completed [facility] Influenza Virus Vaccine Unknown Completed [facility] Influenza Virus Vaccine Unknown Completed [facility] Influenza Virus Vaccine Unknown Completed [facility] H1n1 Vaccine Unknown Completed [facility] H1n1 Vaccine Unknown Com[facility] MMR Unknown Completed [facility] Pneumococcal 7 Conjugate, PCV7 (Prevnar7) Unknown Completed [facility] Pneumococcal 7 Conjugate, PCV7 (Prevnar7) Unknown Completed [facility] Pneumococcal 7 Conjugate, PCV7 (Prevnar7) Unknown Completed [facility] Polio (IPV/OPV) Unknown Completed [facility] Polio (IPV/OPV) Unknown Completed [facility] Polio (IPV/OPV) Unknown Completed [facility] PPD (TB) Unknown Completed [facility] Varicella (varivax)(chicken pox) Unknown Completed [facility] Varicella (varivax)(chicken pox) Unknown Completed [facility] Influenza Virus Vaccine Nasal Unknown Completed [facility] Meningococcal Polysaccharide (groups A, C, Y and W-135) conjugate vaccine (MCV4P) Unknown Completed [facility] TDAP Unknown Completed [facility] Meningococcal Vaccine Unknown Completed [facility] SARS-COV-2 COVID-19 PFIZER VACCINE Unknown Completed [facility] SARS-COV-2 COVID-19 PFIZER VACCINE Unknown Completed [facility] DTaP, Unspecified Formulation Unknown Completed [facility] DTaP, Unspecified Formulation Unknown Completed [facility] DTaP, Unspecified Formulation Unknown Completed [facility] DTaP, Unspecified Formulation Unknown Completed [facility] DTaP, Unspecified Formulation Unknown Completed [facility] Flu [facility]rivalent [facility]al Unknown Completed [facility] Influenza Virus Vaccine Nasal Unknown Completed [facility] Influenza Virus Vaccine Nasal Unknown Completed [facility] HEPATITIS A Unknown Completed [facility] Hib-HbOC Unknown Completed [facility] Meningococcal Polysaccharide (groups A, C, Y and W-135) conjugate vaccine (MCV4P) Unknown Completed [facility] IPV Unknown Completed [facility] IPV Unknown Completed [facility] IPV Unknown Completed [facility] IPV Unknown Completed [facility] DTAP Unknown Completed [facility] DTAP Unknown Completed [facility] DTAP Unknown Completed [facility] DTAP Unknown Completed [facility] HIB 4 Dose Schedule Unknown Completed [facility] HIB 4 Dose Schedule Unknown Completed [facility] HIB 4 Dose Schedule Unknown Completed [facility] HIB 4 Dose Schedule Unknown Completed [facility] HEPATITIS A Unknown Completed [facility] Hep B, Adol or Pedi Dosage Unknown Completed [facility] Hep B, Adol or Pedi Dosage Unknown Completed [facility] Hep B, Adol or Pedi Dosage Unknown Completed [facility] HPV Unknown Completed [facility] HPV Unknown Completed [facility] Influenza Virus Vaccine Unknown Completed [facility] Influenza Virus Vaccine Unknown Completed [facility] Influenza Virus Vaccine Unknown Completed [facility] Influenza Virus Vaccine Unknown Completed [facility] H1n1 Vaccine Unknown Completed [facility] H1n1 Vaccine Unknown Com[facility] MMR Unknown Completed [facility] Pneumococcal 7 Conjugate, PCV7 (Prevnar7) Unknown Completed [facility] Pneumococcal 7 Conjugate, PCV7 (Prevnar7) Unknown Completed [facility] Pneumococcal 7 Conjugate, PCV7 (Prevnar7) Unknown Completed [facility] Polio (IPV/OPV) [facility]) [facility] ([facility]/OPV) Unknown Completed [facility] PPD (TB) Unknown Completed [facility] Varicella (varivax)(chicken pox) Unknown Completed [facility] Varicella (varivax)(chicken pox) Unknown Completed [facility] Influenza Virus Vaccine Nasal Unknown Completed [facility] Meningococcal Polysaccharide (groups A, C, Y and W-135) conjugate vaccine (MCV4P) Unknown Completed [facility] TDAP Unknown Completed [facility] Meningococcal Vaccine Unknown Completed [facility] SARS-COV-2 COVID-19 PFIZER VACCINE Unknown Completed [facility] SARS-COV-2 COVID-19 PFIZER VACCINE Unknown Completed [facility] DTaP, Unspecified Formulation Unknown Completed [facility] DTaP, Unspecified Formulation Unknown Completed [facility] DTaP, Unspecified Formulation Unknown Completed [facility] DTaP, Unspecified Formulation Unknown Completed [facility] DTaP, Unspecified Formulation Unknown Completed [facility] Flu Trivalent Unknown [facility] Influenza Virus Vaccine Nasal Unknown Completed [facility] Influenza Virus Vaccine Nasal Unknown Completed [facility] Influenza Virus Vaccine Nasal Unknown Completed [facility] HEPATITIS A Unknown Completed [facility] Hib-HbOC Unknown Completed [facility] Meningococcal Polysaccharide (groups A, C, Y and W-135) conjugate vaccine (MCV4P) Unknown Completed [facility] IPV Unknown Completed [facility] IPV Unknown Completed [facility] IPV Unknown [facility]pleted [facility] IPV Unknown Completed [facility] DTAP Unknown Completed [facility] DTAP Unknown Completed [facility] DTAP Unknown Completed [facility] DTAP Unknown Completed [facility] HIB 4 Dose Schedule Unknown Completed [facility] HIB 4 Dose Schedule Unknown Completed [facility] HIB 4 Dose Schedule Unknown Completed [facility] HIB 4 Dose Schedule Unknown Completed [facility] HEPATITIS A Unknown Completed [facility] Hep B, Adol or Pedi Dosage Unknown Completed [facility] Hep B, Adol or Pedi Dosage Unknown Completed [facility] Hep B, Adol or Pedi Dosage Unknown Completed [facility] HPV Unknown Completed [facility] HPV Unknown Completed [facility] Influenza Virus Vaccine Unknown Completed [facility] Influenza Virus Vaccine Unknown Completed [facility] Influenza Virus Vaccine Unknown Completed [facility] Influenza Virus Vaccine Unknown Completed [facility] H1n1 Vaccine Unknown Completed [facility] H1n1 Vaccine Unknown Com[facility] MMR Unknown Completed [facility] Pneumococcal 7 Conjugate, PCV7 (Prevnar7) Unknown Completed [facility] Pneumococcal 7 Conjugate, PCV7 (Prevnar7) Unknown Completed [facility] Pneumococcal 7 Conjugate, PCV7 (Prevnar7) Unknown Completed [facility] Polio (IPV/OPV) Unknown Completed [facility] Polio (IPV/OPV) Unknown Completed [facility] Polio (IPV/OPV) Unknown Completed [facility] PPD (TB) Unknown Completed [facility] Varicella (varivax)(chicken pox) Unknown Completed [facility] Varicella (varivax)(chicken pox) Unknown Completed [facility] Influenza Virus Vaccine Nasal Unknown Completed [facility] Meningococcal Polysaccharide (groups A, C, Y and W-135) conjugate vaccine (MCV4P) Unknown Completed [facility] TDAP Unknown Completed [facility] Meningococcal Vaccine Unknown Completed [facility] SARS-COV-2 COVID-19 PFIZER VACCINE Unknown Completed [facility] SARS-COV-2 COVID-19 PFIZER VACCINE Unknown Completed [facility] DTaP, Unspecified Formulation Unknown Completed [facility] DTaP, Unspecified Formulation Unknown Completed [facility] DTaP, Unspecified Formulation Unknown Completed [facility] DTaP, Unspecified Formulation Unknown Completed [facility] DTaP, Unspecified Formulation Unknown Completed [facility] Flu [facility]rivalent [facility] Completed [facility] Influenza Virus Vaccine Nasal Unknown Completed [facility] Influenza Virus Vaccine Nasal Unknown Completed [facility] HEPATITIS A Unknown Completed [facility] Hib-HbOC Unknown Completed [facility] Meningococcal Polysaccharide (groups A, C, Y and W-135) conjugate vaccine (MCV4P) Unknown Completed [facility] IPV Unknown Completed [facility] IPV Unknown Completed [facility] IPV Unknown [facility]pleted [facility] IPV Unknown Completed [facility] DTAP Unknown Completed [facility] DTAP Unknown Completed [facility] DTAP Unknown Completed [facility] DTAP Unknown Completed [facility] HIB 4 Dose Schedule Unknown Completed [facility] HIB 4 Dose Schedule Unknown Completed [facility] HIB 4 Dose Schedule Unknown Completed [facility] HIB 4 Dose Schedule Unknown Completed [facility] HEPATITIS A Unknown Completed [facility] Hep B, Adol or Pedi Dosage Unknown Completed [facility] Hep B, Adol or Pedi Dosage Unknown Completed [facility] Hep B, Adol or Pedi Dosage Unknown Completed [facility] HPV Unknown Completed [facility] HPV Unknown Completed [facility] Influenza Virus Vaccine Unknown Completed [facility] Influenza Virus Vaccine Unknown Completed [facility] Influenza Virus Vaccine Unknown Completed [facility] Influenza Virus Vaccine Unknown Completed [facility] H1n1 Vaccine Unknown Completed [facility] H1n1 Vaccine Unknown Com[facility] MMR Unknown Completed [facility] Pneumococcal 7 Conjugate, PCV7 (Prevnar7) Unknown Completed [facility] Pneumococcal 7 Conjugate, PCV7 (Prevnar7) Unknown Completed [facility] Pneumococcal 7 Conjugate, PCV7 (Prevnar7) Unknown Completed [facility] Polio (IPV/OPV) Unknown Completed [facility] Polio (IPV/OPV) Unknown Completed [facility] Polio (IPV/OPV) Unknown Completed [facility] PPD (TB) Unknown Completed [facility] Varicella (varivax)(chicken pox) Unknown Completed [facility] Varicella (varivax)(chicken pox) Unknown Completed [facility] Influenza Virus Vaccine Nasal Unknown Completed [facility] Meningococcal Polysaccharide (groups A, C, Y and W-135) conjugate vaccine (MCV4P) Unknown Completed [facility] TDAP Unknown Completed [facility] Meningococcal Vaccine Unknown Completed [facility] SARS-COV-2 COVID-19 PFIZER VACCINE Unknown Completed [facility] SARS-COV-2 COVID-19 PFIZER VACCINE Unknown Completed [facility] DTaP, Unspecified Formulation Unknown Completed [facility] DTaP, Unspecified Formulation Unknown Completed [facility] DTaP, Unspecified Formulation Unknown Completed [facility] DTaP, Unspecified Formulation Unknown Completed [facility] DTaP, Unspecified Formulation Unknown Completed [facility] Flu Trivalent Unknown Com[facility] Influenza Virus Vaccine Nasal Unknown Completed [facility] Influenza Virus Vaccine Nasal Unknown Completed [facility] Influenza Virus Vaccine Nasal Unknown Completed [facility] HEPATITIS A Unknown Completed [facility] Hib-HbOC Unknown Completed [facility] Meningococcal Polysaccharide (groups A, C, Y and W-135) conjugate vaccine (MCV4P) Unknown Completed [facility] IPV Unknown Completed [facility] IPV Unknown Completed [facility] IPV Unknown Completed [facility] IPV Unknown Completed [facility] DTAP Unknown Completed [facility] DTAP Unknown Completed [facility] DTAP Unknown Completed [facility] DTAP Unknown Completed [facility] HIB 4 Dose Schedule Unknown Completed [facility] HIB 4 Dose Schedule Unknown Completed [facility] HIB 4 Dose Schedule Unknown Completed [facility] HIB 4 Dose Schedule Unknown Completed [facility] HEPATITIS A Unknown Completed [facility] Hep B, Adol or Pedi Dosage Unknown Completed [facility] Hep B, Adol or Pedi Dosage Unknown Completed [facility] Hep B, Adol or Pedi Dosage Unknown Completed [facility] HPV Unknown Completed [facility] HPV Unknown Completed [facility] Influenza Virus Vaccine Unknown Completed [facility] Influenza Virus Vaccine Unknown Completed [facility] Influenza Virus Vaccine Unknown Completed [facility] Influenza Virus Vaccine Unknown Completed [facility] H1n1 Vaccine Unknown Completed [facility] H1n1 Vaccine Unknown Com[facility] MMR Unknown Completed [facility] Pneumococcal 7 Conjugate, PCV7 (Prevnar7) Unknown Completed [facility] Pneumococcal 7 Conjugate, PCV7 (Prevnar7) Unknown Completed [facility] Pneumococcal 7 Conjugate, PCV7 (Prevnar7) Unknown Completed [facility] Polio (IPV/OPV) Unknown [facility]) [facility] Completed [facility] Polio (IPV/OPV) Unknown Completed [facility] PPD (TB) Unknown Completed [facility] Varicella (varivax)(chicken pox) Unknown Completed [facility] Varicella (varivax)(chicken pox) Unknown Completed [facility] Influenza Virus Vaccine Nasal Unknown Completed [facility] Meningococcal Polysaccharide (groups A, C, Y and W-135) conjugate vaccine (MCV4P) Unknown Completed [facility] TDAP Unknown Completed [facility] Meningococcal Vaccine Unknown Completed [facility] SARS-COV-2 COVID-19 PFIZER VACCINE Unknown Completed [facility] SARS-COV-2 COVID-19 PFIZER VACCINE Unknown Completed [facility] DTaP, Unspecified Formulation Unknown Completed [facility] DTaP, Unspecified Formulation Unknown Completed [facility] DTaP, Unspecified Formulation Unknown Completed [facility] DTaP, Unspecified Formulation Unknown Completed [facility] DTaP, Unspecified Formulation Unknown Completed [facility] Flu Trivalent Unknown [facility] Influenza Virus Vaccine Nasal Unknown Completed [facility] Influenza Virus Vaccine Nasal Unknown Completed [facility] Influenza Virus Vaccine Nasal Unknown Completed [facility] HEPATITIS A Unknown Completed [facility] Hib-HbOC Unknown Completed [facility] Meningococcal Polysaccharide (groups A, C, Y and W-135) conjugate vaccine (MCV4P) Unknown Completed [facility] IPV Unknown Completed [facility] IPV Unknown Completed [facility] IPV Unknown Completed [facility] IPV Unknown Completed [facility] DTAP Unknown Completed [facility] HEPATITIS A Unknown Completed [facility] MMR Unknown Completed [facility] Polio (IPV/OPV) Unknown Completed [facility] HPV Unknown Completed [facility] DTAP Unknown Completed [facility] DTAP Unknown Completed [facility] DTAP Unknown Completed [facility] DTAP Unknown Completed [facility] HIB 4 Dose Schedule Unknown Completed [facility] HIB 4 Dose Schedule Unknown Completed [facility] HIB 4 Dose Schedule Unknown Completed [facility] HIB 4 Dose Schedule Unknown Completed [facility] HEPATITIS A Unknown Completed [facility] Hep B, Adol or Pedi Dosage Unknown [facility] [facility] Hep B, Adol or Pedi Dosage Unknown Completed [facility] Hep B, Adol or Pedi Dosage Unknown Completed [facility] HPV Unknown Completed [facility] HPV Unknown Completed [facility] Influenza Virus Vaccine Unknown Completed [facility] Influenza Virus Vaccine Unknown Completed [facility] Influenza Virus Vaccine Unknown Completed [facility] Influenza Virus Vaccine Unknown Completed [facility] H1n1 Vaccine Unknown [facility] H1n1 Vaccine [facility] MMR Unknown Completed [facility] Pneumococcal 7 Conjugate, PCV7 (Prevnar7) Unknown Completed [facility] Pneumococcal 7 Conjugate, PCV7 (Prevnar7) Unknown Completed [facility] Pneumococcal 7 Conjugate, PCV7 (Prevnar7) Unknown Completed [facility] Polio (IPV/OPV) Unknown Completed [facility] Polio (IPV/OPV) Unknown Completed [facility] Polio (IPV/OPV) Unknown Completed [facility] PPD (TB) Unknown Completed [facility] Varicella (varivax)(chicken pox) Unknown Completed [facility] Varicella (varivax)(chicken pox) Unknown Completed [facility] Influenza Virus Vaccine Nasal Unknown Completed [facility] Meningococcal Polysaccharide (groups A, C, Y and W-135) conjugate vaccine (MCV4P) Unknown Completed [facility] TDAP Unknown Completed [facility] Meningococcal Vaccine Unknown Completed [facility] SARS-COV-2 COVID-19 PFIZER VACCINE Unknown Completed [facility] SARS-COV-2 COVID-19 PFIZER VACCINE Unknown Completed [facility] DTaP, Unspecified Formulation Unknown Completed [facility] DTaP, Unspecified Formulation Unknown Completed [facility] DTaP, Unspecified Formulation Unknown Completed [facility] DTaP, Unspecified Formulation Unknown Completed [facility] DTaP, Unspecified Formulation Unknown Completed [facility] Flu Trivalent [facility]al Unknown Completed [facility] Influenza Virus Vaccine Nasal Unknown Completed [facility] Influenza Virus Vaccine Nasal Unknown Completed [facility] HEPATITIS A Unknown Completed [facility] Hib-HbOC Unknown Completed [facility] Meningococcal Polysaccharide (groups A, C, Y and W-135) conjugate vaccine (MCV4P) Unknown Completed [facility] IPV Unknown Completed [facility] IPV Unknown Completed [facility] IPV Unknown Completed [facility] IPV Unknown Completed [facility] DTAP Unknown Completed [facility] HEPATITIS A Unknown Completed [facility] MMR Unknown Completed [facility] Polio (IPV/OPV) Unknown Completed [facility] HPV Unknown Completed [facility] DTAP Unknown Completed [facility] DTAP Unknown Completed [facility] DTAP Unknown Completed [facility] DTAP Unknown Completed [facility] HIB 4 Dose Schedule Unknown Completed [facility] HIB 4 Dose Schedule Unknown Completed [facility] HIB 4 Dose Schedule Unknown Completed [facility] HIB 4 Dose Schedule Unknown Completed [facility] HEPATITIS A Unknown Completed [facility] Hep B, Adol or Pedi Dosage Unknown Completed [facility] Hep B, Adol or Pedi Dosage Unknown Completed [facility] Hep B, Adol or Pedi Dosage Unknown Completed [facility] HPV Unknown Completed [facility] HPV Unknown Completed [facility] Influenza Virus Vaccine Unknown Completed [facility] Influenza Virus Vaccine Unknown Completed [facility] Influenza Virus Vaccine Unknown Completed [facility] Influenza Virus Vaccine Unknown Completed [facility] H1n1 Vaccine Unknown Com[facility] H1n1 Vaccine Unknown [facility] MMR Unknown Completed [facility] Pneumococcal 7 Conjugate, PCV7 (Prevnar7) Unknown Completed [facility] Pneumococcal 7 Conjugate, PCV7 (Prevnar7) Unknown Completed [facility] Pneumococcal 7 Conjugate, PCV7 (Prevnar7) Unknown Completed [facility] Polio (IPV/OPV) Unknown Completed [facility] Polio (IPV/OPV) Unknown Completed [facility] Polio (IPV/OPV) Unknown Completed [facility] PPD (TB) Unknown Completed [facility] Varicella (varivax)(chicken pox) Unknown Completed [facility] Varicella (varivax)(chicken pox) Unknown Completed [facility] Influenza Virus Vaccine Nasal Unknown Completed [facility] Meningococcal Polysaccharide (groups A, C, Y and W-135) conjugate vaccine (MCV4P) Unknown Completed [facility] TDAP Unknown Completed [facility] Meningococcal Vaccine Unknown Completed [facility] SARS-COV-2 COVID-19 PFIZER VACCINE Unknown Completed [facility] SARS-COV-2 COVID-19 PFIZER VACCINE Unknown Completed [facility] DTaP, Unspecified Formulation Unknown Completed [facility] DTaP, Unspecified Formulation Unknown Completed [facility] DTaP, Unspecified Formulation Unknown Completed [facility] DTaP, Unspecified Formulation Unknown Completed [facility] DTaP, Unspecified Formulation Unknown Completed [facility] Flu Trivalent Unknown [facility] Influenza Virus Vaccine Nasal Unknown Completed [facility] Influenza Virus Vaccine Nasal Unknown Completed [facility] Influenza Virus Vaccine Nasal Unknown Completed [facility] HEPATITIS A Unknown Completed [facility] Hib-HbOC Unknown Completed [facility] Meningococcal Polysaccharide (groups A, C, Y and W-135) conjugate vaccine (MCV4P) Unknown Completed [facility] IPV Unknown Completed [facility] IPV Unknown Completed [facility] IPV Unknown [facility]pleted [facility] IPV Unknown Completed [facility] DTAP Unknown Completed [facility] DTAP Unknown Completed [facility] DTAP Unknown Completed [facility] DTAP Unknown Completed [facility] HIB 4 Dose Schedule Unknown Completed [facility] HIB 4 Dose Schedule Unknown Completed [facility] HIB 4 Dose Schedule Unknown Completed [facility] HIB 4 Dose Schedule Unknown Completed [facility] HEPATITIS A Unknown Completed [facility] Hep B, Adol or Pedi Dosage Unknown Completed [facility] Hep B, Adol or Pedi Dosage Unknown Completed [facility] Hep B, Adol or Pedi Dosage Unknown Completed [facility] HPV Unknown Completed [facility] HPV Unknown Completed [facility] Influenza Virus Vaccine Unknown Completed [facility] Influenza Virus Vaccine Unknown Completed [facility] Influenza Virus Vaccine Unknown Completed [facility] Influenza Virus Vaccine Unknown Completed [facility] H1n1 Vaccine Unknown Completed [facility] H1n1 Vaccine Unknown [facility] MMR Unknown Completed [facility] Pneumococcal 7 Conjugate, PCV7 (Prevnar7) Unknown Completed [facility] Pneumococcal 7 Conjugate, PCV7 (Prevnar7) Unknown Completed [facility] Pneumococcal 7 Conjugate, PCV7 (Prevnar7) Unknown Completed [facility] Polio (IPV/OPV) Unknown Completed [facility] Polio (IPV/OPV) Unknown Completed [facility] Polio (IPV/OPV) Unknown Completed [facility] PPD (TB) Unknown Completed [facility] Varicella (varivax)(chicken pox) Unknown Completed [facility] Varicella (varivax)(chicken pox) Unknown Completed [facility] Influenza Virus Vaccine Nasal Unknown Completed [facility] Meningococcal Polysaccharide (groups A, C, Y and W-135) conjugate vaccine (MCV4P) Unknown Completed [facility] TDAP Unknown Completed [facility] Meningococcal Vaccine Unknown Completed [facility] SARS-COV-2 COVID-19 PFIZER VACCINE Unknown Completed [facility] SARS-COV-2 COVID-19 PFIZER VACCINE Unknown Completed [facility] DTaP, Unspecified Formulation Unknown Completed [facility] DTaP, Unspecified Formulation Unknown Completed [facility] DTaP, Unspecified Formulation Unknown Completed [facility] DTaP, Unspecified Formulation Unknown Completed [facility] DTaP, Unspecified Formulation Unknown Completed [facility] Flu Trivalent Unknown [facility] Influenza Virus Vaccine Nasal Unknown Completed [facility] Influenza Virus Vaccine Nasal Unknown Completed [facility] Influenza Virus Vaccine Nasal Unknown Completed [facility] HEPATITIS A Unknown Completed [facility] Hib-HbOC Unknown Completed [facility] Meningococcal Polysaccharide (groups A, C, Y and W-135) conjugate vaccine (MCV4P) Unknown Completed [facility] IPV Unknown Completed [facility] IPV Unknown Completed [facility] IPV Unknown Completed [facility] IPV Unknown Completed [facility] DTAP Unknown Completed [facility] DTAP Unknown Completed [facility] DTAP Unknown Completed [facility] DTAP Unknown Completed [facility] HIB 4 Dose Schedule Unknown Completed [facility] HIB 4 Dose Schedule Unknown Completed [facility] HIB 4 Dose Schedule Unknown Completed [facility] HIB 4 Dose Schedule Unknown Completed [facility] HEPATITIS A Unknown Completed [facility] Hep B, Adol or Pedi Dosage Unknown Completed [facility] Hep B, Adol or Pedi Dosage Unknown Completed [facility] Hep B, Adol or Pedi Dosage Unknown Completed [facility] HPV Unknown Completed [facility] HPV Unknown Completed [facility] Influenza Virus Vaccine Unknown Completed [facility] Influenza Virus Vaccine Unknown Completed [facility] Influenza Virus Vaccine Unknown Completed [facility] Influenza Virus Vaccine Unknown Completed [facility] H1n1 Vaccine Unknown Com[facility] H1n1 Vaccine Unknown [facility] MMR Unknown Completed [facility] Pneumococcal 7 Conjugate, PCV7 (Prevnar7) Unknown Completed [facility] Pneumococcal 7 Conjugate, PCV7 (Prevnar7) Unknown Completed [facility] Pneumococcal 7 Conjugate, PCV7 (Prevnar7) Unknown Completed [facility] Polio (IPV/OPV) Unknown Completed [facility] Polio (IPV/OPV) Unknown Completed [facility] Polio (IPV/OPV) Unknown Completed [facility] PPD (TB) Unknown Completed [facility] Varicella (varivax)(chicken pox) Unknown Completed [facility] Varicella (varivax)(chicken pox) Unknown Completed [facility] Influenza Virus Vaccine Nasal Unknown Completed [facility] Meningococcal Polysaccharide (groups A, C, Y and W-135) conjugate vaccine (MCV4P) Unknown Completed [facility] TDAP Unknown Completed [facility] Meningococcal Vaccine Unknown Completed [facility] SARS-COV-2 COVID-19 PFIZER VACCINE Unknown Completed [facility] SARS-COV-2 COVID-19 PFIZER VACCINE Unknown Completed [facility] DTaP, Unspecified Formulation Unknown Completed [facility] DTaP, Unspecified Formulation Unknown Completed [facility] DTaP, Unspecified Formulation Unknown Completed [facility] DTaP, Unspecified Formulation Unknown Completed [facility] DTaP, Unspecified Formulation Unknown Completed [facility] Flu Trivalent Unknown Com[facility] Influenza Virus Vaccine Nasal Unknown Completed [facility] Influenza Virus Vaccine Nasal Unknown Completed [facility] Influenza Virus Vaccine Nasal Unknown Completed [facility] HEPATITIS A Unknown Completed [facility] Hib-HbOC Unknown Completed [facility] Meningococcal Polysaccharide (groups A, C, Y and W-135) conjugate vaccine (MCV4P) Unknown Completed [facility] IPV Unknown Completed [facility] IPV Unknown Completed [facility] IPV Unknown Completed [facility] IPV Unknown Completed [facility] DTAP Unknown Completed [facility] DTAP Unknown Completed [facility] DTAP Unknown Completed [facility] DTAP Unknown Completed [facility] HIB 4 Dose Schedule Unknown Completed [facility] HIB 4 Dose Schedule Unknown Completed [facility] HIB 4 Dose Schedule Unknown Completed [facility] HIB 4 Dose Schedule Unknown Completed [facility] HEPATITIS A Unknown Completed [facility] Hep B, Adol or Pedi Dosage Unknown Completed [facility] Hep B, Adol or Pedi Dosage Unknown Completed [facility] Hep B, Adol or Pedi Dosage Unknown Completed [facility] HPV Unknown Completed [facility] HPV Unknown Completed [facility] Influenza Virus Vaccine Unknown Completed [facility] Influenza Virus Vaccine Unknown Completed [facility] Influenza Virus Vaccine Unknown Completed [facility] Influenza Virus Vaccine Unknown Completed [facility] H1n1 Vaccine Unknown Completed [facility] H1n1 Vaccine Unknown Com[facility] MMR Unknown Completed [facility] Pneumococcal 7 Conjugate, PCV7 (Prevnar7) Unknown Completed [facility] Pneumococcal 7 Conjugate, PCV7 (Prevnar7) Unknown Completed [facility] Pneumococcal 7 Conjugate, PCV7 (Prevnar7) Unknown Completed [facility] Polio (IPV/OPV) Unknown Completed [facility] Polio (IPV/OPV) Unknown Completed [facility] Polio (IPV/OPV) Unknown Completed [facility] PPD (TB) Unknown Completed [facility] Varicella (varivax)(chicken pox) Unknown Completed [facility] Varicella (varivax)(chicken pox) Unknown Completed [facility] Influenza Virus Vaccine Nasal Unknown Completed [facility] Meningococcal Polysaccharide (groups A, C, Y and W-135) conjugate vaccine (MCV4P) Unknown Completed [facility] TDAP Unknown Completed [facility] Meningococcal Vaccine Unknown Completed [facility] SARS-COV-2 COVID-19 PFIZER VACCINE Unknown Completed [facility] SARS-COV-2 COVID-19 PFIZER VACCINE Unknown Completed [facility] DTaP, Unspecified Formulation Unknown Completed [facility] DTaP, Unspecified Formulation Unknown Completed [facility] DTaP, Unspecified Formulation Unknown Completed [facility] DTaP, Unspecified Formulation Unknown Completed [facility] DTaP, Unspecified Formulation Unknown Completed [facility] Vital Signs Vital Name Observation Time Observation Value Comments S ource height 2023-12-13 08:20:00 61 [in_i] Commo n [facility] weight 2023-12-13 08:20:00 126.4 [lb_av] Co mmon [facility] temperature 2023-12-13 08:20:00 97.2 [degF] Com [facility] bmi 2023-12-13 08:20:00 23.88 kg/m2 Comm on [facility] oximetry 2023-12-13 08:20:00 97 % Commo n [facility] respiratory rate 2023-12-13 08:20:00 16 /min [facility] blood pressure systolic 2023-12-13 08:20:00 116 mm[Hg] [facility] blood pressure diastolic 2023-12-13 08:20:00 78 mm[Hg] [facility] weight 2023-11-26 10:20:00 125.6 [lb_av] Co mmon [facility] temperature 2023-11-26 10:20:00 97.5 [degF] Com mon [facility] bmi 2023-11-26 10:20:00 23.73 kg/m2 Comm on [facility] oximetry 2023-11-26 10:20:00 94 % Commo n [facility] respiratory rate 2023-11-26 10:20:00 16 /min [facility] blood pressure systolic 2023-11-26 10:20:00 120 mm[Hg] [facility] blood pressure diastolic 2023-11-26 10:20:00 76 mm[facility]Hg[facility] height 2023-11-26 10:20:00 61 [in_i] Commo n [facility] Systolic blood pressure 2023-09-01 20:27:00 113 mm[Hg] [facility] Diastolic blood pressure 2023-09-01 20:27:00 74 mm[Hg] [facility] Heart rate 2023-09-01 20:27:00 76 /[facility] 2023-09-01 20:27:00 157.5 cm [facility] Body weight 2023-09-01 20:27:00 56.155 kg [facility] BMI 2023-09-01 20:27:00 22.64 kg/m2 [facility] Oxygen saturation in Arterial blood by Pulse oximetry 2023-09-01 20:27:00 99 /min [facility] Systolic blood pressure 2022-12-23 15:51:00 115 mm[Hg] [facility] Diastolic blood pressure 2022-12-23 15:51:00 78 mm[Hg] [facility] Heart rate 2022-12-23 15:51:00 60 /[facility] Body temperature 2022-12-23 15:51:00 37.11 Pilar [facility] Respiratory rate 2022-12-23 15:51:00 16 /min [facility] Body height 2022-12-23 15:51:00 157.5 cm [facility] Body weight 2022-12-23 15:51:00 52.3 kg [facility] BMI 2022-12-23 15:51:00 21.09 kg/m2 [facility] Systolic blood pressure 2022-07-05 21:26:00 114 mm[Hg] [facility] Diastolic blood pressure 2022-07-05 21:26:00 78 mm[Hg] [facility] Heart rate 2022-07-05 21:26:00 97 /min [facility] Body temperature 2022-07-05 21:26:00 36.67 Pilar [facility] Respiratory rate 2022-07-05 21:26:00 16 /min [facility] Body height 2022-07-05 21:26:00 157.5 cm [facility] Body weight 2022-07-05 21:26:00 50.213 kg [facility] BMI 2022-07-05 21:26:00 20.25 kg/m2 [facility] Oxygen saturation in Arterial blood by Pulse oximetry 2022-07-05 21:26:00 98 /min [facility] Systolic blood pressure 2020-09-12 19:21:00 134 mm[Hg] [facility] Diastolic blood pressure 2020-09-12 19:21:00 89 mm[Hg] [facility] Heart rate 2020-09-12 19:21:00 122 /min [facility] Body temperature 2020-09-12 19:21:00 37.56 Pilar [facility] Respiratory rate 2020-09-12 19:21:00 16 /min [facility] Body height 2020-09-12 19:21:00 154.9 cm [facility] Body weight 2020-09-12 19:21:00 49.896 kg [facility] BMI 2020-09-12 19:21:00 20.78 kg/m2 [facility] Oxygen saturation in Arterial blood by Pulse oximetry 2020-09-12 19:21:00 100 /min [facility] Systolic blood pressure 2020-09-12 19:21:00 134 mm[Hg] [facility] Diastolic blood pressure 2020-09-12 19:21:00 89 mm[Hg] [facility] Heart rate 2020-09-12 19:21:00 122 /min [facility] Body temperature 2020-09-12 19:21:00 37.56 Pilar [facility] Respiratory rate 2020-09-12 19:21:00 16 /min [facility] Body height 2020-09-12 19:21:00 154.9 cm [facility] Body weight 2020-09-12 19:21:00 49.896 kg [facility] BMI 2020-09-12 19:21:00 20.78 kg/m2 [facility] Oxygen saturation in Arterial blood by Pulse oximetry 2020-09-12 19:21:00 100 /min [place] o [facility] Procedures Procedure Date / Time Performed Performing Clinicia n Source SCANNED LAB RESULTS 2023-09-03 06:01:00 Doctor Stepan rosado, [place] [facility] ASSIGNMENT OF BENEFITS 2022-12-23 15:02:57 Docto r Unassigned, [place] [facility] SARS-COV-2 COVID-19 VACCINE,0.3ML,IM (PFIZER) 2021-03-28 21:08:00 Doctor Unassigned, [place] [facility] POCT TEST 2020-09-12 19:43:00 Teresita Torre ra [facility] NOTICE OF PRIVACY PRACTICES 2020-09-12 19:12:23 Doctor Unassigned, [place] [facility] CONSENT/REFUSAL FOR DIAGNOSIS AND TREATMENT 2020-09-12 19:12:09 Doctor Unassigned, [place] [facility] Encounters Start Date/Time End Date/Time Encounter Type Admission Type Attending Clinicians Care Facility Care Department Encounter ID Source 2024-02-09 14:29:01 Outpatient Pam Ferrer [facility] [id number] [facility] 2023-12-09 08:06:00 Outpatient Pam Ferrer [facility] [id number] [facility] 2023-11-26 09:33:02 Outpatient Pam Ferrer [facility] [id number] [facility] 2021-05-24 23:57:16 Emergency [facility] [id number] [facility] 2024-03-10 09:00:00 2024-03-10 09:00:00 Outpatient JAREN SUMNER VIEN [facility] [id number] [facility] 2023-12-13 00:00:00 2023-12-13 00:00:00 PREV VISIT EST AGE 18-39 [facility] [id number] [facility] 2023-11-26 00:00:00 2023-11-26 00:00:00 OFFICE VISIT NEW PT LEVEL 3 [facility]LMLC STLC [id number] [facility] 2023-11-05 18:02:00 2023-11-05 19:10:00 Emergency EM Sandra Navarro [facility] [id number] [facility] 2023-09-06 00:00:00 2023-09-06 00:00:00 [facility] 1.0.114 350.1.13.10 4.2.7.2.686 [id number] [facility] 2023-09-03 00:00:00 2023-09-03 00:00:00 Orders Only Doctor Unassigned, [place] [facility] 1.2.840.114 350.1.13.10 4.2.7.2.686 [id number] [facility] 2023-09-03 00:00:00 2023-09-03 00:00:00 [facility] 1.840.114 350.1.13.10 4.2.7.2.686 [id number] [facility] 2023-09-01 14:20:00 2023-09-01 14:49:13 Outpatient R CHRISTIANNE ECKERT [facility] [id number] [facility] 2023-09-01 14:20:00 2023-09-01 14:49:13 Office Visit Christianne Eckert [facility] 1.840.114 350.1.13.10 4.2.7.2.686 [id number] [facility] 2023-08-30 14:00:00 2023-08-30 14:00:00 Outpatient TG SAWANT [id number] [facility] 2022-12-31 00:00:00 2022-12-31 00:00:00 Patient Secure Msg Doctor Unassigned, [place] [facility] 1..840.114 350.1.13.10 4.2.7.2.686 [id number] [facility] 2022-12-24 08:00:00 2022-12-24 08:15:00 Thermodynamics Engineer Visit Posilverio, [facility] 1..840.114 350.1.13.10 4.2.7.2.686 [id number] [facility] 2022-12-24 08:00:00 2022-12-24 08:00:00 Outpatient R DEBORAH [facility] [id number] [facility] 2022-12-23 11:45:00 2022-12-23 12:00:00 Thermodynamics Engineer Visit Draw, Clc-Bls Lab Deborah [facility] OFFICE BUILDING 1..840.114 350.1.13.10 4.2.7.2.686 [id number] [facility] 2022-12-23 10:50:00 2022-12-23 11:24:29 Outpatient R DEBORAH [facility] [id number] [facility] 2022-12-23 10:50:00 2022-12-23 11:24:29 Office Visit Deborah [facility] 1.2840.114 350.1.13.10 4.2.7.2.686 [id number] [facility] 2022-12-23 00:00:00 2022-12-23 00:00:00 Orders Only Doctor Unassigned, [place] [facility] 1.2.840.114 350.1.13.10 4.2.7.2.686 [id number] [facility] 2022-07-08 00:00:00 2022-07-08 00:00:00 Patient Secure Msg Doctor Unassigned, [place] [facility] 1.2840.114 350.1.13.10 4.2.7.2.686 [id number] [facility] 2022-07-05 15:40:00 2022-07-05 15:42:58 Outpatient R DEVIKA HOOK [facility] [id number] [facility] 2022-07-05 15:40:00 2022-07-05 15:42:58 Urgent Care Devika Hook Unknown, Attending [facility] 1.2840.114 350.1.13.10 4.2.7.2.686 [id number] [facility] 2022-03-22 00:00:00 2022-03-22 00:00:00 Patient Secure Msg Doctor Unassigned, [place] [facility] 1.2840.114 350.1.13.10 4.2.7.2.686 [id number] [facility] 2022-03-05 00:00:00 2022-03-05 00:00:00 Patient Secure Msg Doctor Unassigned, [place] [facility] 1.2840.114 350.1.13.10 4.2.7.2.686 [id number] [facility] 2022-01-28 00:00:00 2022-01-28 00:00:00 Patient Secure Msg Doctor Unassigned, [place] [facility] 1.114 350.1.13.10 4.2.7.2.686 [id number] [facility] 2021-03-28 16:04:57 2021-03-28 16:05:06 Imm/Inj Visit Nurse, Jimbo Posil[facility]io [facility] 1..114 350.1.13.10 4.2.7.2.686 [id number] [facility] 2021-03-28 14:50:00 2021-03-28 16:05:06 Outpatient MO MAYA [facility] [id number] [facility] 2020-12-14 10:05:00 2020-12-14 10:05:00 Outpatient [facility] [id number] [facility] 2020-12-07 10:05:00 2020-12-07 10:05:00 Outpatient [facility] [id number] [facility] 2020-11-16 10:05:00 2020-11-16 10:05:00 Outpatient [facility] [id number] [facility] 2020-11-16 10:05:00 2020-11-16 10:05:00 Outpatient MATEUS ALEXIS [facility] [id number] [facility] 2020-09-13 09:20:00 2020-09-13 09:20:00 Outpatient [facility] [id number] [facility] 2020-09-12 13:28:00 2020-09-12 14:21:00 Emergency Chely Torre [facility] 1..114 350.1.13.10 4.2.7.2.686 [id number] [facility] 2020-09-12 13:28:00 2020-09-12 14:21:00 Emergency Chely Torre [facility] 1.2.840.114 350.1.13.10 4.2.7.2.686 [id number] 2012-07-21 00:00:00 2012-07-21 14:57:00 [facility] [id number] 2012-05-18 00:00:00 2012-05-18 15:07:00 [facility]patient [facility] [id number] [facility] 2012-05-18 00:00:00 2012-05-18 00:00:00 [facility]patient [facility] [id number] [facility] 2012-04-28 00:00:00 2012-04-28 16:10:00 [facility]patient [facility] [id number] [facility] 2012-04-28 00:00:00 2012-04-28 00:00:00 [facility]patient [facility] [id number] [facility] 2012-03-10 00:00:00 2012-03-10 16:50:00 Outpatient [facility] [id number] [facility] 2012-03-09 00:00:00 2012-03-09 00:00:00 [facility]patient [facility] [id number] [facility] 2012 00:00:00 2012 13:23:00 Outpatient [facility] [id number] [facility] 2011-04-28 00:00:00 2011-04-28 18:03:00 Outpatient [facility] [id number] [facility] Results Test Description Test Time Test Comments Results Result Co mments Source [facility] Notes Date/Time Note Provider Source 2023-11-05 18:37:00 [facility] ([facility] EMERGENCY PROVIDER REPORT REPORT#:[id number] REPORT STATUS: Signed DATE:11/05/23 TIME: 1837 PATIENT: BRIGIDA CORTES UNIT #: [id number] ROOM/BED: AGE: 23 SEX: F PCP PHYS: Pam Ferrer MD SERVICE AUTHOR: Sandra Navarro MD * ALL edits or amendments must be made on the electronic/computer document * GAH-Yqs-Qidx Illness Free Text HPI Notes Free Text HPI Notes 23-year-old female with no contributory history presenting to the emergency department complaints of a sore throat and right ear pain. She reports her son also has identical symptoms and was diagnosed with a virus. She has taken Tylenol which did improve her sore throat. She reports dysphagia without odynophagia. No nausea or vomiting. No other concerns or complaints. General Initial Greet Date/Time 11/05/231801 Presentation Chief Complaint Sore throat Review of Systems ROS Statements All systems rev neg except as marked. Past Medical History - Adult Stated Complaint SORE THROAT/EAR PAIN Allergies Coded Allergies: No Known Allergies (11/05/23) Calculated Suicide Risk (nurs) No risk Pt reports no significant: Past medical history, Past surgical history, Family history, Social history Smoking status for patients 13 years old or older: Never Smoker Physical Exam Vital Signs Vital Signs First Documented: Result Date Time Pulse Ox 100 11/04 1810 B/P 118/73 11/04 1810 B/P Mean 88 11/04 1810 O2 Delivery Room air 11/04 1809 Temp 36.7 11/04 181 Pulse 89 11/04 1810 Resp 16 11/04 1809 Last Documented: Result Date Time Pulse Ox 100 11/04 1810 B/P 118/73 11/04 1810 B/P Mean 88 11/04 1810 O2 Delivery Room air 11/04 1809 Temp 36.7 11/04 181 Pulse 89 11/04 1810 Resp 16 11/04 1809 Review of Vital Signs Reviewed Free Text PE Notes Free Text PE Notes Const: Well-nourished, Well-developed in no apparent distress. Head: Normocephalic/Atraumatic. Eyes: No conjunctival injection, symmetrical lids. ENMT: Atraumatic, Moist MM. Oropharynx is without edema. Uvula is midline. Or exudates are present. Neck: Symmetric, trachea midline. Cardio: Regular rate, and rhythm. RESP: Unlabored respiratory effort. Speaking in full sentences. GI: Nontender/Nondistended, No guarding or rebound tenderness. MSK: Extremities w/o deformity. No cyanosis or clubbing. Skin: Warm, Dry. No rashes or lesions. Neuro: Awake, Alert, Oriented (AAO) x3. Sensation grossly intact. Psych: Appropriate mood and affect. Re-Evaluation MDM Free Text MDM Notes Free Text MDM Notes 22-year-old presented to emergency department symptoms that are most consistent with a viral syndrome. Strep pharyngitis is under differential and likely given the presence of no exudates. Empiric treatment given. Patient was given very strict return precautions for which they expressed understanding. Patient was discharged in hemodynamically stable condition with PCP follow-up. Patient Discharge Departure Vital Signs/Condition Vital Signs First Documented: Result Date Time Pulse Ox 100 04 1810 B/P 118/73 04/ 1810 B/P Mean 88 / 1810 O2 Delivery Room air 11/04 1810 Temp 36.7 11/04 1810 Pulse 89 04/ 1810 Resp 16 11/04 1810 Last Documented: Result Date Time Pulse Ox 100 04/ 1810 B/P 118/73 / 1810 B/P Mean 88 /12 1810 O2 Delivery Room air / 1810 Temp 36.7 / 1810 Pulse 89 / 1810 Resp 16 11/04 1810 All vital signs available at the time of this entry have been reviewed. Clinical Impression Clinical Impression Primary Impression: Acute pharyngitis Secondary Impressions: Viral syndrome Disposition Decision Discharge )( Discharged to Home Yes )( Time 1839 )( Date 11/05/23 Discharge/Care Plan (Auto) Prescriptions Current Visit Scripts AMOXICILLIN/CLAV K (AUGMENTIN 875/125 MG) 875 MG PO Q12H AMOXICILLIN/CLAV K (AUGMENTIN 875/125 MG) 875 MG PO Q12H #20 TABS PHENOL (CHLORASEPTIC 1.4%) 1 APPLIC PO ASDIR PHENOL (CHLORASEPTIC 1.4%) 1 APPLIC PO ASDIR #1 EACH IBUPROFEN (MOTRIN) 600 MG PO QID PRN PRN PAIN IBUPROFEN (MOTRIN) 600 MG PO QID PRN PRN PAIN #30 TABS Patient Instructions ED Pharyngitis, Strep (Presumed), ED Viral Syndrome (Adult) Additional Instructions Please return to the emergency department if your symptoms worsen or any concerns you may have. Otherwise, please follow-up with your primary care doctor. at [address] [facility] #:[id number] END OF REPORT [facility] 2023-09-07 14:37:29 Labs discussed in alternative encounter 09/07/2023. [facility] 2023-09-07 14:36:47 Called patient and discussed lab results. Patient voiced understanding/agreement with plan. Christianne Eckert MD Department of Family Medicine [facility] 2023-09-07 09:41:50 Routing to provider, pt would like you to go over her labs with her. I can call if you want me to. Please advise [facility] 2023-09-07 09:11:10 Message routed to provider for review. Vincent Jones LVN 09/07/2023 9:11 AM [facility] Vincent Jones LVN [facility] 2023-09-06 16:13:53 Brigida Cortes is a 23 year old female Pt is calling to request a call back on labs done on 09/01/2023. Pt would like explained to her. [facility] Anneliese Humphrey [facility]
== END 2024-03-12 11:53 | disposition home or self-care (01) ==
LOC: ER 09:45
DX: O99.611 Diseases of the digestive system complicating pregnancy, first trimester (principal); K52.9 Noninfective gastroenteritis and colitis, unspecified; Z3A.01 Less than 8 weeks gestation of pregnancy
CPT/HCPCS: 99284; J7030

== ENCOUNTER 2024-03-15 22:17 | Emergency (ER) | payer SELFPAY ==
--- OUTSIDE RECORDS SUMMARY | 2024-03-15 22:28 | XMS REPORT | Continuity of Care Document ---
Author Name Unknown Address [address] [facility] [place] [address] [facility] Address [address] [facility] [address] [place] [address] Care Team Providers Care Campaign Worker Name Role Phone NGUYEN BROWN Primary Care Physician Unavailab Pam Owusu Attending Clinician Unavailable JAREN ARTHUR Attending Clinician Unavailable JAREN ARTHUR Attending Clinician Unavailable Sandra Navarro Attending Clinician Unavailable Christianne Eckert MD Attending Clinician [phone] Doctor Unassigned, [place] Attending Clinician U navailCHRISTIANNE Reilly Attending Clinician Unavailable TG SAWANT Attending Clinician Unamitzi ilNASH Bassett Attending Clinician Unavailable TAMMY ARMENTA Attending Clinician Unavailable TAMMY ARMENTA Attending Clinician Unavailable Pob, Adc Lab Main Attending Clinician UnavailNguyen Orozco MD Attending Clinician [phone] NGUYEN BROWN Attending Clinician Unavailable Draw, Clc-Bls Lab Attending Clinician UnavailDEVIKA Mata Attending Clinician UnavailDevika Reinoso Attending Clinician Unknown, Attending Attending Clinician Unavailab shyla Nurse, Adc Pob Immunization Attending Clinician Unavailable Mo Ramsey DO Attending Clinician [phone] MO RAMSEY Attending Clinician Unavail able MATEUS ALCANTAR Attending Clinician Unavailable Chely Torre DO Attending Clinician Pam Ferrer Admitting Clinician Unavailable Payers Payer Name Policy Type Policy Number Effective Date Expirati on Date Source [employer] [place] [facility] [id number] 2024 00:00:00 MEDICAID PENDING PENDING 2020 00:00:00 Problems Condition Name Condition Details Condition Category Status Onset Date Resolution Date Last Treatment Date Treating Clinician Comments Source Passive smoke exposure Passive smoke exposure Disease Active 2012-07 00:00: 00 [facility] Allergies, Adverse Reactions, Alerts Allergy Name Allergy Type Status Severity Reaction(s) Onset Date Inactive Date Treating Clinician Comments Source No Known Allergie s DA Active U 11-04 00:00: 00 [facility] NO KNOWN ALLERGIE S Drug Class Active [facility] Social History Social Habit Start Date Stop Date Quantity Comments Source History SDOH Social Connections Membership [facility] History SDOH Housing Places Lived [facility] Use [facility] Sex Assigned At [facility] Alcohol intake 2023-09-01 00:00:00 2023-09-01 00:00:00 Current non-drinker of alcohol (finding) [facility] Exposure to SARS-CoV-2 (event) 2022-12-13 00:00:00 2022-12-23 09:58:00 Not sure [facility] History SDOH Alcohol Frequency 2022-12-23 00:00:00 2022-12-23 00:00:00 1 [facility] History SDOH Alcohol Std Drinks 2022-12-23 00:00:00 2022-12-23 00:00:00 0 [facility] History SDOH Alcohol Binge 2022-12-23 00:00:00 2022-12-23 00:00:00 1 [facility] History SDOH Social Connections Phone 2022-12-23 00:00:00 2022-12-23 00:00:00 5 [facility] History SDOH Social Connections Get Together 2022-12-23 00:00:00 2022-12-23 00:00:00 5 [facility] History SDOH Social Connections Jewish 2022-12-23 00:00:00 2022-12-23 00:00:00 1 [facility] History SDOH Social Connections Meetings 2022-12-23 00:00:00 2022-12-23 00:00:00 2 [facility] History SDOH Social Connections Living 2022-12-23 00:00:00 2022-12-23 00:00:00 7 [facility] History SDOH Housing Unable to Pay 2022-12-23 00:00:00 2022-12-23 00:00:00 2 [facility] History SDOH Housing Homeless Last Year 2022-12-23 00:00:00 2022-12-23 00:00:00 2 [facility] Tobacco use and exposure 2022-07-05 00:00:00 2022-07-05 00:00:00 Smokeless tobacco non-user [facility] Tobacco Comment 2022-07-05 00:00:00 2022-07-05 00:00:00 Dad smokes outside only [facility] History of Social function 2019-02-02 00:00:00 2019-02-02 00:00:00 [facility] Smoking Status Start Date Stop Date Source Never Smoker Common [facility] Medications Ordered Medication Name Filled Medication Name Start Date Stop Date Current Medication? Ordering Clinician Indication Dosage Frequency Signature (SIG) Comments Components Source meclizine 25 mg tablet 09-01 00:00: 00 Yes [id number] 25mg Take 1 tablet by mouth 3 (three) times daily as needed for Dizziness. [facility] sulfamethox azole-trime thoprim (BACTRIM DS) 800-160 mg per tablet 2021-07 00:00: 00 07-13 05:59 :00 No [id number] 1{tbl} Take 1 tablet by mouth 2 (two) times daily for 7 days. [facility] amoxicillin 500 mg capsule 2021-07 00:00: 00 12-23 00:00 :00 No TAKE 1 CAPSULE BY MOUTH EVERY 8 HOURS FOR 7 DAYS [facility] ibuprofen 800 mg tablet 2021-07 00:00: 00 12-23 00:00 :00 No TAKE 1 TABLET BY MOUTH EVERY 8 HOURS FOR PAIN [facility] No Known Medications No Known Medications No Common [facility] No known medications No Un yvonne [facility] No known medications No Un yvonne [facility] Immunizations Ordered Immunization Name Filled Immunization Name Date Status Comments Source SARS-COV-2 COVID-19 PFIZER VACCINE 2021-03-28 00:00:00 Completed [facility] SARS-COV-2 COVID-19 PFIZER VACCINE 2021-03-28 00:00:00 Completed [facility] SARS-COV-2 COVID-19 PFIZER VACCINE 2021-03-28 00:00:00 Completed [facility] SARS-COV-2 COVID-19 PFIZER VACCINE 2021-03-28 00:00:00 Completed [facility] SARS-COV-2 COVID-19 PFIZER VACCINE 2021-03-28 00:00:00 Completed [facility] SARS-COV-2 COVID-19 PFIZER VACCINE 2021-03-28 00:00:00 Completed [facility] SARS-COV-2 COVID-19 PFIZER VACCINE 2021-03-28 00:00:00 Completed [facility] SARS-COV-2 COVID-19 PFIZER VACCINE 2021-03-28 00:00:00 Completed [facility] SARS-COV-2 COVID-19 PFIZER VACCINE 2021-03-28 00:00:00 Completed [facility] SARS-COV-2 COVID-19 PFIZER VACCINE 2020-11-16 00:00:00 Completed [facility] SARS-COV-2 COVID-19 PFIZER VACCINE 2020-11-16 00:00:00 Completed [facility] SARS-COV-2 COVID-19 PFIZER VACCINE 2020-11-16 00:00:00 Completed [facility] SARS-COV-2 COVID-19 PFIZER VACCINE 2020-11-16 00:00:00 Completed [facility] SARS-COV-2 COVID-19 PFIZER VACCINE 2020-11-16 00:00:00 Completed [facility] SARS-COV-2 COVID-19 PFIZER VACCINE 2020-11-16 00:00:00 Completed [facility] SARS-COV-2 COVID-19 PFIZER VACCINE 2020-11-16 00:00:00 Completed [facility] SARS-COV-2 COVID-19 PFIZER VACCINE 2020-11-16 00:00:00 Completed [facility] SARS-COV-2 COVID-19 PFIZER VACCINE 2020-11-16 00:00:00 Completed [facility] Meningococcal Vaccine 2018-03-16 00:00:00 Completed [facility] Meningococcal Vaccine 2018-03-16 00:00:00 Completed [facility] Meningococcal Vaccine 2018-03-16 00:00:00 Completed [facility] Meningococcal Polysaccharide (groups A, C, Y and W-135) conjugate vaccine (MCV4P) 2018-03-16 00:00:00 Completed [facility] Meningococcal Vaccine 2018-03-16 00:00:00 Completed [facility] Meningococcal Polysaccharide (groups A, C, Y and W-135) conjugate vaccine (MCV4P) 2018-03-16 00:00:00 Completed [facility] Meningococcal Vaccine 2018-03-16 00:00:00 Completed [facility] Meningococcal Polysaccharide (groups A, C, Y and W-135) conjugate vaccine (MCV4P) 2018-03-16 00:00:00 Completed [facility] Meningococcal Vaccine 2018-03-16 00:00:00 Completed [facility] Meningococcal Polysaccharide (groups A, C, Y and W-135) conjugate vaccine (MCV4P) 2018-03-16 00:00:00 Completed [facility] Meningococcal Vaccine 2018-03-16 00:00:00 Completed [facility] Meningococcal Polysaccharide (groups A, C, Y and W-135) conjugate vaccine (MCV4P) 2018-03-16 00:00:00 Completed [facility] Meningococcal Vaccine 2018-03-16 00:00:00 Completed [facility] Meningococcal Polysaccharide (groups A, C, Y and W-135) conjugate vaccine (MCV4P) 2018-03-16 00:00:00 Completed [facility] Meningococcal Vaccine 2018-03-16 00:00:00 Completed [facility] Meningococcal Polysaccharide (groups A, C, Y and W-135) conjugate vaccine (MCV4P) 2018-03-16 00:00:00 Completed [facility] Meningococcal Vaccine 2018-03-16 00:00:00 Completed [facility] Influenza Virus Vaccine Nasal 2013-05-01 00:00:00 Completed [facility] Meningococcal Polysaccharide (groups A, C, Y and W-135) conjugate vaccine (MCV4P) 2013-05-01 00:00:00 Completed [facility] TDAP 2013-05-01 00:00:00 Completed [facility] Influenza Virus Vaccine Nasal 2013-05-01 00:00:00 Completed [facility] Meningococcal Polysaccharide (groups A, C, Y and W-135) conjugate vaccine (MCV4P) 2013-05-01 00:00:00 Completed [facility] TDAP 2013-05-01 00:00:00 Completed [facility] Influenza Virus Vaccine Nasal 2013-05-01 00:00:00 Completed [facility] Meningococcal Polysaccharide (groups A, C, Y and W-135) conjugate vaccine (MCV4P) 2013-05-01 00:00:00 Completed [facility] TDAP 2013-05-01 00:00:00 Completed [facility] Influenza Virus Vaccine Nasal 2013-05-01 00:00:00 Completed [facility] Meningococcal Polysaccharide (groups A, C, Y and W-135) conjugate vaccine (MCV4P) 2013-05-01 00:00:00 Completed [facility] TDAP 2013-05-01 00:00:00 Completed [facility] Influenza Virus Vaccine Nasal 2013-05-01 00:00:00 Completed [facility] Meningococcal Polysaccharide (groups A, C, Y and W-135) conjugate vaccine (MCV4P) 2013-05-01 00:00:00 Completed [facility] TDAP 2013-05-01 00:00:00 Completed [facility] Influenza Virus Vaccine Nasal 2013-05-01 00:00:00 Completed [facility] Meningococcal Polysaccharide (groups A, C, Y and W-135) conjugate vaccine (MCV4P) 2013-05-01 00:00:00 Completed [facility] TDAP 2013-05-01 00:00:00 Completed [facility] Influenza Virus Vaccine Nasal 2013-05-01 00:00:00 Completed [facility] Meningococcal Polysaccharide (groups A, C, Y and W-135) conjugate vaccine (MCV4P) 2013-05-01 00:00:00 Completed [facility] TDAP 2013-05-01 00:00:00 Completed [facility] Influenza Virus Vaccine Nasal 2013-05-01 00:00:00 Completed [facility] Meningococcal Polysaccharide (groups A, C, Y and W-135) conjugate vaccine (MCV4P) 2013-05-01 00:00:00 Completed [facility] TDAP 2013-05-01 00:00:00 Completed [facility] Influenza Virus Vaccine Nasal 2013-05-01 00:00:00 Completed [facility] Meningococcal Polysaccharide (groups A, C, Y and W-135) conjugate vaccine (MCV4P) 2013-05-01 00:00:00 Completed [facility] TDAP 2013-05-01 00:00:00 Completed [facility] Influenza Virus Vaccine Nasal 2013-05-01 00:00:00 Completed [facility] Meningococcal Polysaccharide (groups A, C, Y and W-135) conjugate vaccine (MCV4P) 2013-05-01 00:00:00 Completed [facility] TDAP 2013-05-01 00:00:00 Completed [facility] HPV 2012-11-17 00:00:00 Completed [facility] HPV 2012-11-17 00:00:00 Completed [facility] HPV 2012-11-17 00:00:00 Completed [facility] HPV 2012-11-17 00:00:00 Completed [facility] HPV 2012-11-17 00:00:00 Completed [facility] HPV 2012-11-17 00:00:00 Completed [facility] HPV 2012-11-17 00:00:00 Completed [facility] HPV 2012-11-17 00:00:00 Completed [facility] HPV 2012-11-17 00:00:00 Completed [facility] HPV 2012-11-17 00:00:00 Completed [facility] HPV 2012-07-21 00:00:00 Completed [facility] HPV 2012-07-21 00:00:00 Completed [facility] HPV 2012-05-18 00:00:00 Completed [facility] Influenza Virus Vaccine 2012-05-18 00:00:00 Completed [facility] HPV 2012-05-18 00:00:00 Completed [facility] Influenza Virus Vaccine 2012-05-18 00:00:00 Completed [facility] HPV 2012-05-18 00:00:00 Completed [facility] Influenza Virus Vaccine 2012-05-18 00:00:00 Completed [facility] Influenza Virus Vaccine Nasal 2012-05-18 00:00:00 Completed [facility] HPV 2012-05-18 00:00:00 Completed [facility] Influenza Virus Vaccine 2012-05-18 00:00:00 Completed [facility] Influenza Virus Vaccine Nasal 2012-05-18 00:00:00 Completed [facility] HPV 2012-05-18 00:00:00 Completed [facility] Influenza Virus Vaccine 2012-05-18 00:00:00 Completed [facility] Influenza Virus Vaccine Nasal 2012-05-18 00:00:00 Completed [facility] HPV 2012-05-18 00:00:00 Completed [facility] Influenza Virus Vaccine 2012-05-18 00:00:00 Completed [facility] Influenza Virus Vaccine Nasal 2012-05-18 00:00:00 Completed [facility] HPV 2012-05-18 00:00:00 Completed [facility] Influenza Virus Vaccine 2012-05-18 00:00:00 Completed [facility] Influenza Virus Vaccine Nasal 2012-05-18 00:00:00 Completed [facility] HPV 2012-05-18 00:00:00 Completed [facility] Influenza Virus Vaccine 2012-05-18 00:00:00 Completed [facility] Influenza Virus Vaccine Nasal 2012-05-18 00:00:00 Completed [facility] HPV 2012-05-18 00:00:00 Completed [facility] HPV 2012-05-18 00:00:00 Completed [facility] Influenza Virus Vaccine 2012-05-18 00:00:00 Completed [facility] Influenza Virus Vaccine 2012-05-18 00:00:00 Completed [facility] Influenza Virus Vaccine Nasal 2012-05-18 00:00:00 Completed [facility] Influenza Virus Vaccine 2011-04-28 00:00:00 Completed [facility] Influenza Virus Vaccine 2011-04-28 00:00:00 Completed [facility] Influenza Virus Vaccine 2011-04-28 00:00:00 Completed [facility] Influenza Virus Vaccine Nasal 2011-04-28 00:00:00 Completed [facility] Influenza Virus Vaccine 2011-04-28 00:00:00 Completed [facility] Influenza Virus Vaccine Nasal 2011-04-28 00:00:00 Completed [facility] Influenza Virus Vaccine 2011-04-28 00:00:00 Completed [facility] Influenza Virus Vaccine Nasal 2011-04-28 00:00:00 Completed [facility] Influenza Virus Vaccine 2011-04-28 00:00:00 Completed [facility] Influenza Virus Vaccine Nasal 2011-04-28 00:00:00 Completed [facility] Influenza Virus Vaccine 2011-04-28 00:00:00 Completed [facility] Influenza Virus Vaccine Nasal 2011-04-28 00:00:00 Completed [facility] Influenza Virus Vaccine 2011-04-28 00:00:00 Completed [facility] Influenza Virus Vaccine Nasal 2011-04-28 00:00:00 Completed [facility] Influenza Virus Vaccine 2011-04-28 00:00:00 Completed [facility] Influenza Virus Vaccine 2011-04-28 00:00:00 Completed [facility] Influenza Virus Vaccine Nasal 2011-04-28 00:00:00 Completed [facility] Influenza Virus Vaccine 2010-04-25 00:00:00 Completed [facility] Influenza Virus Vaccine 2010-04-25 00:00:00 Completed [facility] Influenza Virus Vaccine 2010-04-25 00:00:00 Completed [facility] Influenza Virus Vaccine Nasal 2010-04-25 00:00:00 Completed [facility] Influenza Virus Vaccine 2010-04-25 00:00:00 Completed [facility] Influenza Virus Vaccine Nasal 2010-04-25 00:00:00 Completed [facility] Influenza Virus Vaccine 2010-04-25 00:00:00 Completed [facility] Influenza Virus Vaccine Nasal 2010-04-25 00:00:00 Completed [facility] Influenza Virus Vaccine 2010-04-25 00:00:00 Completed [facility] Influenza Virus Vaccine Nasal 2010-04-25 00:00:00 Completed [facility] Influenza Virus Vaccine 2010-04-25 00:00:00 Completed [facility] Influenza Virus Vaccine Nasal 2010-04-25 00:00:00 Completed [facility] Influenza Virus Vaccine 2010-04-25 00:00:00 Completed [facility] Influenza Virus Vaccine Nasal 2010-04-25 00:00:00 Completed [facility] Influenza Virus Vaccine 2010-04-25 00:00:00 Completed [facility] Influenza Virus Vaccine 2010-04-25 00:00:00 Completed [facility] Influenza Virus Vaccine Nasal 2010-04-25 00:00:00 Completed [facility] H1n1 Vaccine 2009-10-25 00:00:00 Completed [facility] H1n1 Vaccine 2009-10-25 00:00:00 Completed [facility] H1n1 Vaccine 2009-10-25 00:00:00 Completed [facility] H1n1 Vaccine 2009-10-25 00:00:00 Completed [facility] H1n1 Vaccine 2009-10-25 00:00:00 Completed [facility] H1n1 Vaccine 2009-10-25 00:00:00 Completed [facility] H1n1 Vaccine 2009-10-25 00:00:00 Completed [facility] H1n1 Vaccine 2009-10-25 00:00:00 Completed [facility] H1n1 Vaccine 2009-10-25 00:00:00 Completed [facility] H1n1 Vaccine 2009-10-25 00:00:00 Completed [facility] H1n1 Vaccine 2009-08-21 00:00:00 Completed [facility] H1n1 Vaccine 2009-08-21 00:00:00 Completed [facility] H1n1 Vaccine 2009-08-21 00:00:00 Completed [facility] H1n1 Vaccine 2009-08-21 00:00:00 Completed [facility] H1n1 Vaccine 2009-08-21 00:00:00 Completed [facility] H1n1 Vaccine 2009-08-21 00:00:00 Completed [facility] H1n1 Vaccine 2009-08-21 00:00:00 Completed [facility] H1n1 Vaccine 2009-08-21 00:00:00 Completed [facility] H1n1 Vaccine 2009-08-21 00:00:00 Completed [facility] H1n1 Vaccine 2009-08-21 00:00:00 Completed [facility] Influenza Virus Vaccine 2008-05-03 00:00:00 Completed [facility] Influenza Virus Vaccine 2008-05-03 00:00:00 Completed [facility] Influenza Virus Vaccine 2008-05-03 00:00:00 Completed [facility] Flu Trivalent 2008-05-03 00:00:00 Completed [facility] Influenza Virus Vaccine 2008-05-03 00:00:00 Completed [facility] Flu Trivalent 2008-05-03 00:00:00 Completed [facility] Influenza Virus Vaccine 2008-05-03 00:00:00 Completed [facility] Flu Trivalent 2008-05-03 00:00:00 Completed [facility] Influenza Virus Vaccine 2008-05-03 00:00:00 Completed [facility] Flu Trivalent 2008-05-03 00:00:00 Completed [facility] Influenza Virus Vaccine 2008-05-03 00:00:00 Completed [facility] Flu Trivalent 2008-05-03 00:00:00 Completed [facility] Influenza Virus Vaccine 2008-05-03 00:00:00 Completed [facility] Flu Trivalent 2008-05-03 00:00:00 Completed [facility] Influenza Virus Vaccine 2008-05-03 00:00:00 Completed [facility] Influenza Virus Vaccine 2008-05-03 00:00:00 Completed [facility] Flu Trivalent 2008-05-03 00:00:00 Completed [facility] Varicella (varivax)(chicken pox) 2008-03-13 00:00:00 Completed [facility] Varicella (varivax)(chicken pox) 2008-03-13 00:00:00 Completed [facility] Varicella (varivax)(chicken pox) 2008-03-13 00:00:00 Completed [facility] Varicella (varivax)(chicken pox) 2008-03-13 00:00:00 Completed [facility] Varicella (varivax)(chicken pox) 2008-03-13 00:00:00 Completed [facility] Varicella (varivax)(chicken pox) 2008-03-13 00:00:00 Completed [facility] Varicella (varivax)(chicken pox) 2008-03-13 00:00:00 Completed [facility] Varicella (varivax)(chicken pox) 2008-03-13 00:00:00 Completed [facility] Varicella (varivax)(chicken pox) 2008-03-13 00:00:00 Completed [facility] Varicella (varivax)(chicken pox) 2008-03-13 00:00:00 Completed [facility] HEPATITIS A 2006-09-17 00:00:00 Completed [facility] HEPATITIS A 2006-09-17 00:00:00 Completed [facility] HEPATITIS A 2006-09-17 00:00:00 Completed [facility] HEPATITIS A 2006-09-17 00:00:00 Completed [facility] HEPATITIS A 2006-09-17 00:00:00 Completed [facility] HEPATITIS A 2006-09-17 00:00:00 Completed [facility] HEPATITIS A 2006-09-17 00:00:00 Completed [facility] HEPATITIS A 2006-09-17 00:00:00 Completed [facility] HEPATITIS A 2006-09-17 00:00:00 Completed [facility] HEPATITIS A 2006-09-17 00:00:00 Completed [facility] DTaP, Unspecified Formulation 2006-03-17 00:00:00 Completed [facility] IPV 2006-03-17 00:00:00 Completed [facility] DTaP, Unspecified Formulation 2006-03-17 00:00:00 Completed [facility] IPV 2006-03-17 00:00:00 Completed [facility] DTaP, Unspecified Formulation 2006-03-17 00:00:00 Completed [facility] IPV 2006-03-17 00:00:00 Completed [facility] DTAP 2006-03-17 00:00:00 Completed [facility] HEPATITIS A 2006-03-17 00:00:00 Completed [facility] MMR 2006-03-17 00:00:00 Completed [facility] Polio (IPV/OPV) 2006-03-17 00:00:00 Completed [facility] DTaP, Unspecified Formulation 2006-03-17 00:00:00 Completed [facility] IPV 2006-03-17 00:00:00 Completed [facility] DTaP, Unspecified Formulation 2006-03-17 00:00:00 Completed [facility] IPV 2006-03-17 00:00:00 Completed [facility] DTaP, Unspecified Formulation 2006-03-17 00:00:00 Completed [facility] IPV 2006-03-17 00:00:00 Completed [facility] DTaP, Unspecified Formulation 2006-03-17 00:00:00 Completed [facility] IPV 2006-03-17 00:00:00 Completed [facility] DTAP 2006-03-17 00:00:00 Completed [facility] HEPATITIS A 2006-03-17 00:00:00 Completed [facility] MMR 2006-03-17 00:00:00 Completed [facility] Polio (IPV/OPV) 2006-03-17 00:00:00 Completed [facility] HEPATITIS A 2005-09-17 00:00:00 [facility] [facility] A 2005-09-17 00:00:00 Completed [facility] HEPATITIS A 2005-09-17 00:00:00 Completed [facility] HEPATITIS A 2005-09-17 00:00:00 Completed [facility] HEPATITIS A 2005-09-17 00:00:00 Completed [facility] HEPATITIS A 2005-09-17 00:00:00 Completed [facility] HEPATITIS A 2005-09-17 00:00:00 Completed [facility] PPD (TB) 2004-06-23 00:00:00 Completed [facility] PPD (TB) 2004-06-23 00:00:00 Completed [facility] PPD (TB) 2004-06-23 00:00:00 Completed [facility] PPD (TB) 2004-06-23 00:00:00 Completed [facility] PPD (TB) 2004-06-23 00:00:00 Completed [facility] PPD (TB) 2004-06-23 00:00:00 Completed [facility] PPD (TB) 2004-06-23 00:00:00 Completed [facility] PPD (TB) 2004-06-23 00:00:00 Completed [facility] PPD (TB) 2004-06-23 00:00:00 Completed [facility] PPD (TB) 2004-06-23 00:00:00 Completed [facility] Pneumococcal 7 Conjugate, PCV7 (Prevnar7) 2003-10-11 00:00:00 Completed [facility] Pneumococcal 7 Conjugate, PCV7 (Prevnar7) 2003-10-11 00:00:00 Completed [facility] Pneumococcal 7 Conjugate, PCV7 (Prevnar7) 2003-10-11 00:00:00 Completed [facility] Pneumococcal 7 Conjugate, PCV7 (Prevnar7) 2003-10-11 00:00:00 Completed [facility] Pneumococcal 7 Conjugate, PCV7 (Prevnar7) 2003-10-11 00:00:00 Completed [facility] Pneumococcal 7 Conjugate, PCV7 (Prevnar7) 2003-10-11 00:00:00 Completed [facility] Pneumococcal 7 Conjugate, PCV7 (Prevnar7) 2003-10-11 00:00:00 Completed [facility] Pneumococcal 7 Conjugate, PCV7 (Prevnar7) 2003-10-11 00:00:00 Completed [facility] Pneumococcal 7 Conjugate, PCV7 (Prevnar7) 2003-10-11 00:00:00 Completed [facility] Pneumococcal 7 Conjugate, PCV7 (Prevnar7) 2003-10-11 00:00:00 Completed [facility] Polio (IPV/OPV) 2003-06-13 00:00:00 Completed [facility] Polio (IPV/OPV) 2003-06-13 00:00:00 Completed [facility] Polio (IPV/OPV) 2003-06-13 00:00:00 Completed [facility] Polio (IPV/OPV) 2003-06-13 00:00:00 Completed [facility] Polio (IPV/OPV) 2003-06-13 00:00:00 Completed [facility] Polio (IPV/OPV) 2003-06-13 00:00:00 Completed [facility] Polio (IPV/OPV) 2003-06-13 00:00:00 Completed [facility] Polio (IPV/OPV) 2003-06-13 00:00:00 Completed [facility] Polio (IPV/OPV) 2003-06-13 00:00:00 Completed [facility] Polio (IPV/OPV) 2003-06-13 00:00:00 Completed [facility] Pneumococcal 7 Conjugate, PCV7 (Prevnar7) 2003-06-04 00:00:00 Completed [facility] DTAP 2003-06-04 00:00:00 Completed [facility] Pneumococcal 7 Conjugate, PCV7 (Prevnar7) 2003-06-04 00:00:00 Completed [facility] DTAP 2003-06-04 00:00:00 Completed [facility] Pneumococcal 7 Conjugate, PCV7 (Prevnar7) 2003-06-04 00:00:00 Completed [facility] DTaP, Unspecified Formulation 2003-06-04 00:00:00 Completed [facility] IPV 2003-06-04 00:00:00 Completed [facility] DTAP 2003-06-04 00:00:00 Completed [facility] Pneumococcal 7 Conjugate, PCV7 (Prevnar7) 2003-06-04 00:00:00 Completed [facility] DTaP, Unspecified Formulation 2003-06-04 00:00:00 Completed [facility] IPV 2003-06-04 00:00:00 Completed [facility] DTAP 2003-06-04 00:00:00 Completed [facility] Pneumococcal 7 Conjugate, PCV7 (Prevnar7) 2003-06-04 00:00:00 Completed [facility] DTaP, Unspecified Formulation 2003-06-04 00:00:00 Completed [facility] IPV 2003-06-04 00:00:00 Completed [facility] DTAP 2003-06-04 00:00:00 Completed [facility] Pneumococcal 7 Conjugate, PCV7 (Prevnar7) 2003-06-04 00:00:00 Completed [facility] DTaP, Unspecified Formulation 2003-06-04 00:00:00 Completed [facility] IPV 2003-06-04 00:00:00 Completed [facility] DTAP 2003-06-04 00:00:00 Completed [facility] DTAP 2003-06-04 00:00:00 Completed [facility] Pneumococcal 7 Conjugate, PCV7 (Prevnar7) 2003-06-04 00:00:00 Completed [facility] DTaP, Unspecified Formulation 2003-06-04 00:00:00 Completed [facility] IPV 2003-06-04 00:00:00 Completed [facility] DTAP 2003-06-04 00:00:00 Completed [facility] Pneumococcal 7 Conjugate, PCV7 (Prevnar7) 2003-06-04 00:00:00 Completed [facility] DTaP, Unspecified Formulation 2003-06-04 00:00:00 Completed [facility] IPV 2003-06-04 00:00:00 Completed [facility] DTAP 2003-06-04 00:00:00 Completed [facility] Pneumococcal 7 Conjugate, PCV7 (Prevnar7) 2003-06-04 00:00:00 Completed [facility] DTaP, Unspecified Formulation 2003-06-04 00:00:00 Completed [facility] IPV 2003-06-04 00:00:00 Completed [facility] Pneumococcal 7 Conjugate, PCV7 (Prevnar7) 2003-06-04 00:00:00 Completed [facility] DTAP 2003-06-04 00:00:00 Completed [facility] HIB 4 Dose Schedule 2003 00:00:00 Completed [facility] MMR 2003 00:00:00 Completed [facility] Pneumococcal 7 Conjugate, PCV7 (Prevnar7) 2003 00:00:00 Completed [facility] Varicella (varivax)(chicken pox) 2003 00:00:00 Completed [facility] HIB 4 Dose Schedule 2003 00:00:00 Completed [facility] MMR 2003 00:00:00 Completed [facility] Pneumococcal 7 Conjugate, PCV7 (Prevnar7) 2003 00:00:00 Completed [facility] Varicella (varivax)(chicken pox) 2003 00:00:00 Completed [facility] HIB 4 Dose Schedule 2003 00:00:00 Completed [facility] MMR 2003 00:00:00 Completed [facility] Pneumococcal 7 Conjugate, PCV7 (Prevnar7) 2003 00:00:00 Completed [facility] Varicella (varivax)(chicken pox) 2003 00:00:00 Completed [facility] Hib-HbOC 2003 00:00:00 Completed [facility] HIB 4 Dose Schedule 2003 00:00:00 Completed [facility] MMR 2003 00:00:00 Completed [facility] Pneumococcal 7 Conjugate, PCV7 (Prevnar7) 2003 00:00:00 Completed [facility] Varicella (varivax)(chicken pox) 2003 00:00:00 Completed [facility] Hib-HbOC 2003 00:00:00 Completed [facility] HIB 4 Dose Schedule 2003 00:00:00 Completed [facility] MMR 2003 00:00:00 Completed [facility] Pneumococcal 7 Conjugate, PCV7 (Prevnar7) 2003 00:00:00 Completed [facility] Varicella (varivax)(chicken pox) 2003 00:00:00 Completed [facility] Hib-HbOC 2003 00:00:00 Completed [facility] HIB 4 Dose Schedule 2003 00:00:00 Completed [facility] MMR 2003 00:00:00 Completed [facility] Pneumococcal 7 Conjugate, PCV7 (Prevnar7) 2003 00:00:00 Completed [facility] Varicella (varivax)(chicken pox) 2003 00:00:00 Completed [facility] Hib-HbOC 2003 00:00:00 Completed [facility] HIB 4 Dose Schedule 2003 00:00:00 Completed [facility] MMR 2003 00:00:00 Completed [facility] Pneumococcal 7 Conjugate, PCV7 (Prevnar7) 2003 00:00:00 Completed [facility] Varicella (varivax)(chicken pox) 2003 00:00:00 Completed [facility] Hib-HbOC 2003 00:00:00 Completed [facility] HIB 4 Dose Schedule 2003 00:00:00 Completed [facility] HIB 4 Dose Schedule 2003 00:00:00 Completed [facility] MMR 2003 00:00:00 Completed [facility] Pneumococcal 7 Conjugate, PCV7 (Prevnar7) 2003 00:00:00 Completed [facility] Varicella (varivax)(chicken pox) 2003 00:00:00 Completed [facility] Hib-HbOC 2003 00:00:00 Completed [facility] HIB 4 Dose Schedule 2003 00:00:00 Completed [facility] MMR 2003 00:00:00 Completed [facility] Pneumococcal 7 Conjugate, PCV7 (Prevnar7) 2003 00:00:00 Completed [facility] Varicella (varivax)(chicken pox) 2003 00:00:00 Completed [facility] Hib-HbOC 2003 00:00:00 Completed [facility] MMR 2003 00:00:00 Completed [facility] Pneumococcal 7 Conjugate, PCV7 (Prevnar7) 2003 00:00:00 Completed [facility] Varicella (varivax)(chicken pox) 2003 00:00:00 Completed [facility] HIB 4 Dose Schedule 2002 00:00:00 Completed [facility] Hep B, Adol or Pedi Dosage 2002 00:00:00 Completed [facility] DTAP 2002 00:00:00 Completed [facility] HIB 4 Dose Schedule 2002 00:00:00 Completed [facility] Hep B, Adol or Pedi Dosage 2002 00:00:00 Completed [facility] DTAP 2002 00:00:00 Completed [facility] HIB 4 Dose Schedule 2002 00:00:00 Completed [facility] Hep B, Adol or Pedi Dosage 2002 00:00:00 Completed [facility] DTaP, Unspecified Formulation 2002 00:00:00 Completed [facility] DTAP 2002 00:00:00 Completed [facility] HIB 4 Dose Schedule 2002 00:00:00 Completed [facility] Hep B, Adol or Pedi Dosage 2002 00:00:00 Completed [facility] DTaP, Unspecified Formulation 2002 00:00:00 Completed [facility] DTAP 2002 00:00:00 Completed [facility] HIB 4 Dose Schedule 2002 00:00:00 Completed [facility] Hep B, Adol or Pedi Dosage 2002 00:00:00 Completed [facility] DTaP, Unspecified Formulation 2002 00:00:00 Completed [facility] DTAP 2002 00:00:00 Completed [facility] HIB 4 Dose Schedule 2002 00:00:00 Completed [facility] Hep B, Adol or Pedi Dosage 2002 00:00:00 Completed [facility] DTaP, Unspecified Formulation 2002 00:00:00 Completed [facility] DTAP 2002 00:00:00 Completed [facility] HIB 4 Dose Schedule 2002 00:00:00 Completed [facility] DTAP 2002 00:00:00 Completed [facility] Hep B, Adol or Pedi Dosage 2002 00:00:00 Completed [facility] DTaP, Unspecified Formulation 2002 00:00:00 Completed [facility] HIB 4 Dose Schedule 2002 00:00:00 Completed [facility] DTAP 2002 00:00:00 Completed [facility] HIB 4 Dose Schedule 2002 00:00:00 Completed [facility] Hep B, Adol or Pedi Dosage 2002 00:00:00 Completed [facility] DTaP, Unspecified Formulation 2002 00:00:00 Completed [facility] Hep B, Adol or Pedi Dosage 2002 00:00:00 Completed [facility] DTAP 2002 00:00:00 Completed [facility] HIB 4 Dose Schedule 2002 00:00:00 Completed [facility] Hep B, Adol or Pedi Dosage 2002 00:00:00 Completed [facility] DTaP, Unspecified Formulation 2002 00:00:00 Completed [facility] DTAP 2002 00:00:00 Completed [facility] HIB 4 Dose Schedule 2002 00:00:00 Completed [facility] Polio (IPV/OPV) 2002 00:00:00 Completed [facility] DTAP 2002 00:00:00 Completed [facility] HIB 4 Dose Schedule 2002 00:00:00 Completed [facility] Polio (IPV/OPV) 2002 00:00:00 Completed [facility] DTAP 2002 00:00:00 Completed [facility] HIB 4 Dose Schedule 2002 00:00:00 Completed [facility] Polio (IPV/OPV) 2002 00:00:00 Completed [facility] DTaP, Unspecified Formulation 2002 00:00:00 Completed [facility] IPV 2002 00:00:00 Completed [facility] DTAP 2002 00:00:00 Completed [facility] HIB 4 Dose Schedule 2002 00:00:00 Completed [facility] Polio (IPV/OPV) 2002 00:00:00 Completed [facility] DTaP, Unspecified Formulation 2002 00:00:00 Completed [facility] IPV 2002 00:00:00 Completed [facility] DTAP 2002 00:00:00 Completed [facility] HIB 4 Dose Schedule 2002 00:00:00 Completed [facility] Polio (IPV/OPV) 2002 00:00:00 Completed [facility] DTaP, Unspecified Formulation 2002 00:00:00 Completed [facility] IPV 2002 00:00:00 Completed [facility] DTAP 2002 00:00:00 Completed [facility] HIB 4 Dose Schedule 2002 00:00:00 Completed [facility] Polio (IPV/OPV) 2002 00:00:00 Completed [facility] DTaP, Unspecified Formulation 2002 00:00:00 Completed [facility] IPV 2002 00:00:00 Completed [facility] DTAP 2002 00:00:00 Completed [facility] DTAP 2002 00:00:00 Completed [facility] HIB 4 Dose Schedule 2002 00:00:00 Completed [facility] Polio (IPV/OPV) 2002 00:00:00 Completed [facility] DTaP, Unspecified Formulation 2002 00:00:00 Completed [facility] HIB 4 Dose Schedule 2002 00:00:00 Completed [facility] IPV 2002 00:00:00 Completed [facility] DTAP 2002 00:00:00 Completed [facility] HIB 4 Dose Schedule 2002 00:00:00 Completed [facility] Polio (IPV/OPV) 2002 00:00:00 Completed [facility] DTaP, Unspecified Formulation 2002 00:00:00 Completed [facility] IPV 2002 00:00:00 Completed [facility] DTAP 2002 00:00:00 Completed [facility] HIB 4 Dose Schedule 2002 00:00:00 Completed [facility] Polio (IPV/OPV) 2002 00:00:00 Completed [facility] DTaP, Unspecified Formulation 2002 00:00:00 Completed [facility] IPV 2002 00:00:00 Completed [facility] Polio (IPV/OPV) 2002 00:00:00 Completed [facility] DTAP 2002 00:00:00 Completed [facility] Hep B, Adol or Pedi Dosage 2002 00:00:00 Completed [facility] Polio (IPV/OPV) 2002 00:00:00 Completed [facility] DTAP 2002 00:00:00 Completed [facility] HIB 4 Dose Schedule 2002 00:00:00 Completed [facility] Hep B, Adol or Pedi Dosage 2002 00:00:00 Completed [facility] Polio (IPV/OPV) 2002 00:00:00 Completed [facility] DTAP 2002 00:00:00 Completed [facility] HIB 4 Dose Schedule 2002 00:00:00 Completed [facility] Hep B, Adol or Pedi Dosage 2002 00:00:00 Completed [facility] Polio (IPV/OPV) 2002 00:00:00 Completed [facility] DTaP, Unspecified Formulation 2002 00:00:00 Completed [facility] IPV 2002 00:00:00 Completed [facility] DTAP 2002 00:00:00 Completed [facility] HIB 4 Dose Schedule 2002 00:00:00 Completed [facility] Hep B, Adol or Pedi Dosage 2002 00:00:00 Completed [facility] Polio (IPV/OPV) 2002 00:00:00 Completed [facility] DTaP, Unspecified Formulation 2002 00:00:00 Completed [facility] IPV 2002 00:00:00 Completed [facility] DTAP 2002 00:00:00 Completed [facility] HIB 4 Dose Schedule 2002 00:00:00 Completed [facility] Hep B, Adol or Pedi Dosage 2002 00:00:00 Completed [facility] Polio (IPV/OPV) 2002 00:00:00 Completed [facility] DTaP, Unspecified Formulation 2002 00:00:00 Completed [facility] IPV 2002 00:00:00 Completed [facility] DTAP 2002 00:00:00 Completed [facility] HIB 4 Dose Schedule 2002 00:00:00 Completed [facility] Hep B, Adol or Pedi Dosage 2002 00:00:00 Completed [facility] Polio (IPV/OPV) 2002 00:00:00 Completed [facility] DTaP, Unspecified Formulation 2002 00:00:00 Completed [facility] DTAP 2002 00:00:00 Completed [facility] IPV 2002 00:00:00 Completed [facility] DTAP 2002 00:00:00 Completed [facility] HIB 4 Dose Schedule 2002 00:00:00 Completed [facility] Hep B, Adol or Pedi Dosage 2002 00:00:00 Completed [facility] Polio (IPV/OPV) 2002 00:00:00 Completed [facility] HIB 4 Dose Schedule 2002 00:00:00 Completed [facility] DTaP, Unspecified Formulation 2002 00:00:00 Completed [facility] IPV 2002 00:00:00 Completed [facility] DTAP 2002 00:00:00 Completed [facility] HIB 4 Dose Schedule 2002 00:00:00 Completed [facility] Hep B, Adol or Pedi Dosage 2002 00:00:00 Completed [facility] Polio (IPV/OPV) 2002 00:00:00 Completed [facility] Hep B, Adol or Pedi Dosage 2002 00:00:00 Completed [facility] DTaP, Unspecified Formulation 2002 00:00:00 Completed [facility] IPV 2002 00:00:00 Completed [facility] DTAP 2002 00:00:00 Completed [facility] HIB 4 Dose Schedule 2002 00:00:00 Completed [facility] Hep B, Adol or Pedi Dosage 2002 00:00:00 Completed [facility] Polio (IPV/OPV) 2002 00:00:00 Completed [facility] DTaP, Unspecified Formulation 2002 00:00:00 Completed [facility] IPV 2002 00:00:00 Completed [facility] Polio (IPV/OPV) 2002 00:00:00 Completed [facility] DTAP 2002 00:00:00 Completed [facility] HIB 4 Dose Schedule 2002 00:00:00 Completed [facility] Hep B, Adol or Pedi Dosage 2002 00:00:00 Completed [facility] Hep B, Adol or Pedi Dosage 2002 00:00:00 Completed [facility] Hep B, Adol or Pedi Dosage 2002 00:00:00 Completed [facility] Hep B, Adol or Pedi Dosage 2002 00:00:00 Completed [facility] Hep B, Adol or Pedi Dosage 2002 00:00:00 Completed [facility] Hep B, Adol or Pedi Dosage 2002 00:00:00 Completed [facility] Hep B, Adol or Pedi Dosage 2002 00:00:00 Completed [facility] Hep B, Adol or Pedi Dosage 2002 00:00:00 Completed [facility] Hep B, Adol or Pedi Dosage 2002 00:00:00 Completed [facility] Hep B, Adol or Pedi Dosage 2002 00:00:00 Completed [facility] DTaP, Unspecified Formulation Unknown Completed [facility] Flu Trivalent Unknown Completed [facility] Influenza Virus Vaccine Nasal Unknown Completed [facility] Influenza Virus Vaccine Nasal Unknown Completed [facility] Influenza Virus Vaccine Nasal Unknown Completed [facility] HEPATITIS A Unknown Completed [facility] Hib-HbOC Unknown Completed [facility] Meningococcal Polysaccharide (groups A, C, Y and W-135) conjugate vaccine (MCV4P) Unknown Completed [facility] IPV Unknown Completed [facility] IPV Unknown Completed [facility] IPV Unknown Completed [facility] IPV Unknown Completed [facility] DTAP Unknown Completed [facility] DTAP Unknown Completed [facility] DTAP Unknown Completed [facility] DTAP Unknown Completed [facility] HIB 4 Dose Schedule Unknown Completed [facility] HIB 4 Dose Schedule Unknown Completed [facility] HIB 4 Dose Schedule Unknown Completed [facility] HIB 4 Dose Schedule Unknown Completed [facility] HEPATITIS A Unknown Completed [facility] Hep B, Adol or Pedi Dosage Unknown Completed [facility] Hep B, Adol or Pedi Dosage Unknown Completed [facility] Hep B, Adol or Pedi Dosage Unknown Completed [facility] HPV Unknown Completed [facility] HPV Unknown Completed [facility] Influenza Virus Vaccine Unknown Completed [facility] Influenza Virus Vaccine Unknown Completed [facility] Influenza Virus Vaccine Unknown Completed [facility] Influenza Virus Vaccine Unknown Completed [facility] H1n1 Vaccine Unknown Completed [facility] H1n1 Vaccine Unknown Completed [facility] MMR Unknown Completed [facility] Pneumococcal 7 Conjugate, PCV7 (Prevnar7) Unknown Completed [facility] Pneumococcal 7 Conjugate, PCV7 (Prevnar7) Unknown Completed [facility] Pneumococcal 7 Conjugate, PCV7 (Prevnar7) Unknown Completed [facility] Polio (IPV/OPV) Unknown Completed [facility] Polio (IPV/OPV) Unknown Completed [facility] Polio (IPV/OPV) Unknown Completed [facility] PPD (TB) Unknown Completed [facility] Varicella (varivax)(chicken pox) Unknown Completed [facility] Varicella (varivax)(chicken pox) Unknown Completed [facility] Influenza Virus Vaccine Nasal Unknown Completed [facility] Meningococcal Polysaccharide (groups A, C, Y and W-135) conjugate vaccine (MCV4P) Unknown Completed [facility] TDAP Unknown Completed [facility] Meningococcal Vaccine Unknown Completed [facility] SARS-COV-2 COVID-19 PFIZER VACCINE Unknown Completed [facility] SARS-COV-2 COVID-19 PFIZER VACCINE Unknown Completed [facility] DTaP, Unspecified Formulation Unknown Completed [facility] DTaP, Unspecified Formulation Unknown Completed [facility] DTaP, Unspecified Formulation Unknown Completed [facility] DTaP, Unspecified Formulation Unknown Completed [facility] DTaP, Unspecified Formulation Unknown Completed [facility] Flu Trivalent Unknown Completed [facility] Influenza Virus Vaccine Nasal Unknown Completed [facility] Influenza Virus Vaccine Nasal Unknown Completed [facility] Influenza Virus Vaccine Nasal Unknown Completed [facility] HEPATITIS A Unknown Completed [facility] Hib-HbOC Unknown Completed [facility] Meningococcal Polysaccharide (groups A, C, Y and W-135) conjugate vaccine (MCV4P) Unknown Completed [facility] IPV Unknown Completed [facility] IPV Unknown [facility]pleted [facility] IPV Unknown Completed [facility] IPV Unknown Completed [facility] DTAP Unknown Completed [facility] HEPATITIS A Unknown Completed [facility] MMR Unknown Completed [facility] Polio (IPV/OPV) Unknown Completed [facility] HPV Unknown Completed [facility] DTAP Unknown Completed [facility] DTAP Unknown Completed [facility] DTAP Unknown Completed [facility] DTAP Unknown Completed [facility] HIB 4 Dose Schedule Unknown Completed [facility] HIB 4 Dose Schedule Unknown Completed [facility] HIB 4 Dose Schedule Unknown Completed [facility] HIB 4 Dose Schedule Unknown Completed [facility] HEPATITIS A Unknown Completed [facility] Hep B, Adol or Pedi Dosage Unknown Completed [facility] Hep B, Adol or Pedi Dosage Unknown Completed [facility] Hep B, Adol or Pedi Dosage Unknown Completed [facility] HPV Unknown Completed [facility] HPV Unknown Completed [facility] Influenza Virus Vaccine Unknown Completed [facility] Influenza Virus Vaccine Unknown Completed [facility] Influenza Virus Vaccine Unknown Completed [facility] Influenza Virus Vaccine Unknown Completed [facility] H1n1 Vaccine Unknown Completed [facility] H1n1 Vaccine Unknown Completed [facility] MMR Unknown Completed [facility] Pneumococcal 7 Conjugate, PCV7 (Prevnar7) Unknown Completed [facility] Pneumococcal 7 Conjugate, PCV7 (Prevnar7) Unknown Completed [facility] Pneumococcal 7 Conjugate, PCV7 (Prevnar7) Unknown Completed [facility] Polio (IPV/OPV) Unknown Completed [facility] Polio (IPV/OPV) Unknown Completed [facility] Polio (IPV/OPV) Unknown Completed [facility] PPD (TB) Unknown Completed [facility] Varicella (varivax)(chicken pox) Unknown Completed [facility] Varicella (varivax)(chicken pox) Unknown Completed [facility] Influenza Virus Vaccine Nasal Unknown Completed [facility] Meningococcal Polysaccharide (groups A, C, Y and W-135) conjugate vaccine (MCV4P) Unknown Completed [facility] TDAP Unknown Completed [facility] Meningococcal Vaccine Unknown Completed [facility] SARS-COV-2 COVID-19 PFIZER VACCINE Unknown Completed [facility] SARS-COV-2 COVID-19 PFIZER VACCINE Unknown Completed [facility] DTaP, Unspecified Formulation Unknown Completed [facility] DTaP, Unspecified Formulation Unknown Completed [facility] DTaP, Unspecified Formulation Unknown Completed [facility] DTaP, Unspecified Formulation Unknown Completed [facility] DTaP, Unspecified Formulation Unknown Completed [facility] Flu Trivalent Unknown Completed [facility] Influenza Virus Vaccine Nasal Unknown Completed [facility] Influenza Virus Vaccine Nasal Unknown Completed [facility] Influenza Virus Vaccine Nasal Unknown Completed [facility] HEPATITIS A Unknown Completed [facility] Hib-HbOC Unknown Completed [facility] Meningococcal Polysaccharide (groups A, C, Y and W-135) conjugate vaccine (MCV4P) Unknown Completed [facility] IPV Unknown Completed [facility] IPV Unknown Completed [facility] IPV Unknown Completed [facility] IPV Unknown Completed [facility] DTAP Unknown Completed [facility] DTAP Unknown Completed [facility] DTAP Unknown Completed [facility] DTAP Unknown Completed [facility] HIB 4 Dose Schedule Unknown Completed [facility] HIB 4 Dose Schedule Unknown Completed [facility] HIB 4 Dose Schedule Unknown Completed [facility] HIB 4 Dose Schedule Unknown Completed [facility] HEPATITIS A Unknown Completed [facility] Hep B, Adol or Pedi Dosage Unknown Completed [facility] Hep B, Adol or Pedi Dosage Unknown Completed [facility] Hep B, Adol or Pedi Dosage Unknown Completed [facility] HPV Unknown Completed [facility] HPV Unknown Completed [facility] Influenza Virus Vaccine Unknown Completed [facility] Influenza Virus Vaccine Unknown Completed [facility] Influenza Virus Vaccine Unknown Completed [facility] Influenza Virus Vaccine Unknown Completed [facility] H1n1 Vaccine Unknown Completed [facility] H1n1 Vaccine Unknown Completed [facility] MMR Unknown Completed [facility] Pneumococcal 7 Conjugate, PCV7 (Prevnar7) Unknown Completed [facility] Pneumococcal 7 Conjugate, PCV7 (Prevnar7) Unknown Completed [facility] Pneumococcal 7 Conjugate, PCV7 (Prevnar7) Unknown Completed [facility] Polio (IPV/OPV) Unknown Completed [facility] Polio (IPV/OPV) Unknown Completed [facility] Polio (IPV/OPV) Unknown Completed [facility] PPD (TB) Unknown Completed [facility] Varicella (varivax)(chicken pox) Unknown Completed [facility] Varicella (varivax)(chicken pox) Unknown Completed [facility] Influenza Virus Vaccine Nasal Unknown Completed [facility] Meningococcal Polysaccharide (groups A, C, Y and W-135) conjugate vaccine (MCV4P) Unknown Completed [facility] TDAP Unknown Completed [facility] Meningococcal Vaccine Unknown Completed [facility] SARS-COV-2 COVID-19 PFIZER VACCINE Unknown Completed [facility] SARS-COV-2 COVID-19 PFIZER VACCINE Unknown Completed [facility] DTaP, Unspecified Formulation Unknown Completed [facility] DTaP, Unspecified Formulation Unknown Completed [facility] DTaP, Unspecified Formulation Unknown Completed [facility] DTaP, Unspecified Formulation Unknown Completed [facility] DTaP, Unspecified Formulation Unknown Completed [facility] Flu Trivalent Unknown [facility] Influ[facility] Virus Vaccine Nasal Unknown Completed [facility] Influenza Virus Vaccine Nasal Unknown Completed [facility] Influenza Virus Vaccine Nasal Unknown Completed [facility] HEPATITIS A Unknown Completed [facility] Hib-HbOC Unknown Completed [facility] Meningococcal Polysaccharide (groups A, C, Y and W-135) conjugate vaccine (MCV4P) Unknown Completed [facility] IPV Unknown Completed [facility] IPV Unknown Completed [facility] IPV Unknown Completed [facility] IPV Unknown Completed [facility] DTAP Unknown Completed [facility] HEPATITIS A Unknown Completed [facility] MMR Unknown Completed [facility] Polio (IPV/OPV) Unknown Completed [facility] HPV Unknown Completed [facility] DTAP Unknown Completed [facility] DTAP Unknown Completed [facility] DTAP Unknown Completed [facility] DTAP Unknown Completed [facility] HIB 4 Dose Schedule Unknown Completed [facility] HIB 4 Dose Schedule Unknown Completed [facility] HIB 4 Dose Schedule Unknown Completed [facility] HIB 4 Dose Schedule Unknown Completed [facility] HEPATITIS A Unknown Completed [facility] Hep B, Adol or Pedi Dosage Unknown Completed [facility] Hep B, Adol or Pedi Dosage Unknown Completed [facility] Hep B, Adol or Pedi Dosage Unknown Completed [facility] HPV Unknown Completed [facility] HPV Unknown Completed [facility] Influenza Virus Vaccine Unknown Completed [facility] Influenza Virus Vaccine Unknown Completed [facility] Influenza Virus Vaccine Unknown Completed [facility] Influenza Virus Vaccine Unknown Completed [facility] H1n1 Vaccine Unknown Completed [facility] H1n1 Vaccine Unknown Completed [facility] MMR Unknown Completed [facility] Pneumococcal 7 Conjugate, PCV7 (Prevnar7) Unknown Completed [facility] Pneumococcal 7 Conjugate, PCV7 (Prevnar7) Unknown Completed [facility] Pneumococcal 7 Conjugate, PCV7 (Prevnar7) Unknown Completed [facility] Polio (IPV/OPV) Unknown Completed [facility] Polio (IPV/OPV) Unknown Completed [facility] Polio (IPV/OPV) Unknown Completed [facility] PPD (TB) Unknown Completed [facility] Varicella (varivax)(chicken pox) Unknown Completed [facility] Varicella (varivax)(chicken pox) Unknown Completed [facility] Influenza Virus Vaccine Nasal Unknown Completed [facility] Meningococcal Polysaccharide (groups A, C, Y and W-135) conjugate vaccine (MCV4P) Unknown Completed [facility] TDAP Unknown Completed [facility] Meningococcal Vaccine Unknown Completed [facility] SARS-COV-2 COVID-19 PFIZER VACCINE Unknown Completed [facility] SARS-COV-2 COVID-19 PFIZER VACCINE Unknown Completed [facility] DTaP, Unspecified Formulation Unknown Completed [facility] DTaP, Unspecified Formulation Unknown Completed [facility] DTaP, Unspecified Formulation Unknown Completed [facility] DTaP, Unspecified Formulation Unknown Completed [facility] DTaP, Unspecified Formulation Unknown Completed [facility] Flu Trivalent Unknown Completed [facility] Influenza Virus Vaccine Nasal Unknown Completed [facility] Influenza Virus Vaccine Nasal Unknown Completed [facility] Influenza Virus Vaccine Nasal Unknown Completed [facility] HEPATITIS A Unknown Completed [facility] Hib-HbOC Unknown Completed [facility] Meningococcal Polysaccharide (groups A, C, Y and W-135) conjugate vaccine (MCV4P) Unknown Completed [facility] IPV Unknown Completed [facility] IPV Unknown Completed [facility] IPV Unknown Completed [facility] IPV Unknown Completed [facility] DTAP Unknown Completed [facility] DTAP Unknown Completed [facility] DTAP Unknown Completed [facility] DTAP Unknown Completed [facility] HIB 4 Dose Schedule Unknown Completed [facility] HIB 4 Dose Schedule Unknown Completed [facility] HIB 4 Dose Schedule Unknown Completed [facility] HIB 4 Dose Schedule Unknown Completed [facility] HEPATITIS A Unknown Completed [facility] Hep B, Adol or Pedi Dosage Unknown Completed [facility] Hep B, Adol or Pedi Dosage Unknown Completed [facility] Hep B, Adol or Pedi Dosage Unknown Completed [facility] HPV Unknown Completed [facility] HPV Unknown Completed [facility] Influenza Virus Vaccine Unknown Completed [facility] Influenza Virus Vaccine Unknown Completed [facility] Influenza Virus Vaccine Unknown Completed [facility] Influenza Virus Vaccine Unknown Completed [facility] H1n1 Vaccine Unknown Completed [facility] H1n1 Vaccine Unknown Completed [facility] MMR Unknown Completed [facility] Pneumococcal 7 Conjugate, PCV7 (Prevnar7) Unknown Completed [facility] Pneumococcal 7 Conjugate, PCV7 (Prevnar7) Unknown Completed [facility] Pneumococcal 7 Conjugate, PCV7 (Prevnar7) Unknown Completed [facility] Polio (IPV/OPV) Unknown Completed [facility] Polio (IPV/OPV) Unknown Completed [facility] Polio (IPV/OPV) Unknown Completed [facility] PPD (TB) Unknown Completed [facility] Varicella (varivax)(chicken pox) Unknown Completed [facility] Varicella (varivax)(chicken pox) Unknown Completed [facility] Influenza Virus Vaccine Nasal Unknown Completed [facility] Meningococcal Polysaccharide (groups A, C, Y and W-135) conjugate vaccine (MCV4P) Unknown Completed [facility] TDAP Unknown Completed [facility] Meningococcal Vaccine Unknown Completed [facility] SARS-COV-2 COVID-19 PFIZER VACCINE Unknown Completed [facility] SARS-COV-2 COVID-19 PFIZER VACCINE Unknown Completed [facility] DTaP, Unspecified Formulation Unknown Completed [facility] DTaP, Unspecified Formulation Unknown Completed [facility] DTaP, Unspecified Formulation Unknown Completed [facility] DTaP, Unspecified Formulation Unknown Completed [facility] DTaP, Unspecified Formulation Unknown Completed [facility] Flu Trivalent Unknown Com[facility] Influenza Virus Vaccine Nasal Unknown Completed [facility] Influenza Virus Vaccine Nasal Unknown Completed [facility] Influenza Virus Vaccine Nasal Unknown Completed [facility] HEPATITIS A Unknown Completed [facility] Hib-HbOC Unknown Completed [facility] Meningococcal Polysaccharide (groups A, C, Y and W-135) conjugate vaccine (MCV4P) Unknown Completed [facility] IPV Unknown Completed [facility] IPV Unknown Completed [facility] IPV Unknown Completed [facility] IPV Unknown Completed [facility] DTAP Unknown Completed [facility] DTAP Unknown Completed [facility] DTAP Unknown Completed [facility] DTAP Unknown Completed [facility] HIB 4 Dose Schedule Unknown Completed [facility] HIB 4 Dose Schedule Unknown Completed [facility] HIB 4 Dose Schedule Unknown Completed [facility] HIB 4 Dose Schedule Unknown Completed [facility] HEPATITIS A Unknown Completed [facility] Hep B, Adol or Pedi Dosage Unknown Completed [facility] Hep B, Adol or Pedi Dosage Unknown Completed [facility] Hep B, Adol or Pedi Dosage Unknown Completed [facility] HPV Unknown Completed [facility] HPV Unknown Completed [facility] Influenza Virus Vaccine Unknown Completed [facility] Influenza Virus Vaccine Unknown Completed [facility] Influenza Virus Vaccine Unknown Completed [facility] Influenza Virus Vaccine Unknown Completed [facility] H1n1 Vaccine Unknown Completed [facility] H1n1 Vaccine Unknown Completed [facility] MMR Unknown Completed [facility] Pneumococcal 7 Conjugate, PCV7 (Prevnar7) Unknown Completed [facility] Pneumococcal 7 Conjugate, PCV7 (Prevnar7) Unknown Completed [facility] Pneumococcal 7 Conjugate, PCV7 (Prevnar7) Unknown Completed [facility] Polio (IPV/OPV) Unknown Completed [facility] Polio (IPV/OPV) Unknown Completed [facility] Polio (IPV/OPV) Unknown Completed [facility] PPD (TB) Unknown Completed [facility] Varicella (varivax)(chicken pox) Unknown Completed [facility] Varicella (varivax)(chicken pox) Unknown Completed [facility] Influenza Virus Vaccine Nasal Unknown Completed [facility] Meningococcal Polysaccharide (groups A, C, Y and W-135) conjugate vaccine (MCV4P) Unknown Completed [facility] TDAP Unknown Completed [facility] Meningococcal Vaccine Unknown Completed [facility] SARS-COV-2 COVID-19 PFIZER VACCINE Unknown Completed [facility] SARS-COV-2 COVID-19 PFIZER VACCINE Unknown Completed [facility] DTaP, Unspecified Formulation Unknown Completed [facility] DTaP, Unspecified Formulation Unknown Completed [facility] DTaP, Unspecified Formulation Unknown Completed [facility] DTaP, Unspecified Formulation Unknown Completed [facility] DTaP, Unspecified Formulation Unknown Completed [facility] Flu Trivalent Unknown Completed [facility] Influenza Virus Vaccine Nasal Unknown Completed [facility] Influenza Virus Vaccine Nasal Unknown Completed [facility] Influenza Virus Vaccine Nasal Unknown Completed [facility] HEPATITIS A Unknown Completed [facility] Hib-HbOC Unknown Completed [facility] Meningococcal Polysaccharide (groups A, C, Y and W-135) conjugate vaccine (MCV4P) Unknown Completed [facility] IPV Unknown Completed [facility] IPV Unknown Completed [facility] IPV Unknown Completed [facility] IPV Unknown Completed [facility] DTAP Unknown Completed [facility] DTAP Unknown Completed [facility] DTAP Unknown Completed [facility] DTAP Unknown Completed [facility] HIB 4 Dose Schedule Unknown Completed [facility] HIB 4 Dose Schedule Unknown Completed [facility] HIB 4 Dose Schedule Unknown Completed [facility] HIB 4 Dose Schedule Unknown Completed [facility] HEPATITIS A Unknown Completed [facility] Hep B, Adol or Pedi Dosage Unknown Completed [facility] Hep B, Adol or Pedi Dosage Unknown Completed [facility] Hep B, Adol or Pedi Dosage Unknown Completed [facility] HPV Unknown Completed [facility] HPV Unknown Completed [facility] Influenza Virus Vaccine Unknown Completed [facility] Influenza Virus Vaccine Unknown Completed [facility] Influenza Virus Vaccine Unknown Completed [facility] Influenza Virus Vaccine Unknown Completed [facility] H1n1 Vaccine Unknown Completed [facility] H1n1 Vaccine Unknown Completed [facility] MMR Unknown Completed [facility] Pneumococcal 7 Conjugate, PCV7 (Prevnar7) Unknown Completed [facility] Pneumococcal 7 Conjugate, PCV7 (Prevnar7) Unknown Completed [facility] Pneumococcal 7 Conjugate, PCV7 (Prevnar7) Unknown Completed [facility] Polio (IPV/OPV) Unknown Completed [facility] Polio (IPV/OPV) Unknown Completed [facility] Polio (IPV/OPV) Unknown Completed [facility] PPD (TB) Unknown Completed [facility] Varicella (varivax)(chicken pox) Unknown Completed [facility] Varicella (varivax)(chicken pox) Unknown Completed [facility] Influenza Virus Vaccine Nasal Unknown Completed [facility] Meningococcal Polysaccharide (groups A, C, Y and W-135) conjugate vaccine (MCV4P) Unknown Completed [facility] TDAP Unknown Completed [facility] Meningococcal Vaccine Unknown Completed [facility] SARS-COV-2 COVID-19 PFIZER VACCINE Unknown Completed [facility] SARS-COV-2 COVID-19 PFIZER VACCINE Unknown Completed [facility] DTaP, Unspecified Formulation Unknown Completed [facility] DTaP, Unspecified Formulation Unknown Completed [facility] DTaP, Unspecified Formulation Unknown Completed [facility] DTaP, Unspecified Formulation Unknown Completed [facility] DTaP, Unspecified Formulation Unknown Completed [facility] Flu Trivalent Unknown Completed [facility] Influenza Virus Vaccine Nasal Unknown Completed [facility] Influenza Virus Vaccine Nasal Unknown Completed [facility] Influenza Virus Vaccine Nasal Unknown Completed [facility] HEPATITIS A Unknown Completed [facility] Hib-HbOC Unknown Completed [facility] Meningococcal Polysaccharide (groups A, C, Y and W-135) conjugate vaccine (MCV4P) Unknown Completed [facility] IPV Unknown Completed [facility] IPV Unknown Completed [facility] IPV Unknown Completed [facility] IPV Unknown Completed [facility] DTAP Unknown Completed [facility] DTAP Unknown Completed [facility] DTAP Unknown Completed [facility] DTAP Unknown Completed [facility] HIB 4 Dose Schedule Unknown Completed [facility] HIB 4 Dose Schedule Unknown Completed [facility] HIB 4 Dose Schedule Unknown Completed [facility] HIB 4 Dose Schedule Unknown Completed [facility] HEPATITIS A Unknown Completed [facility] Hep B, Adol or Pedi Dosage Unknown Completed [facility] Hep B, Adol or Pedi Dosage Unknown Completed [facility] Hep B, Adol or Pedi Dosage Unknown Completed [facility] HPV Unknown Completed [facility] HPV Unknown Completed [facility] Influenza Virus Vaccine Unknown Completed [facility] Influenza Virus Vaccine Unknown Completed [facility] Influenza Virus Vaccine Unknown Completed [facility] Influenza Virus Vaccine Unknown Completed [facility] H1n1 Vaccine Unknown Completed [facility] H1n1 Vaccine Unknown Completed [facility] MMR Unknown Completed [facility] Pneumococcal 7 Conjugate, PCV7 (Prevnar7) Unknown Completed [facility] Pneumococcal 7 Conjugate, PCV7 (Prevnar7) Unknown Completed [facility] Pneumococcal 7 Conjugate, PCV7 (Prevnar7) Unknown Completed [facility] Polio (IPV/OPV) Unknown Completed [facility] Polio (IPV/OPV) Unknown Completed [facility] Polio (IPV/OPV) Unknown Completed [facility] PPD (TB) Unknown Completed [facility] Varicella (varivax)(chicken pox) Unknown Completed [facility] Varicella (varivax)(chicken pox) Unknown Completed [facility] Influenza Virus Vaccine Nasal Unknown Completed [facility] Meningococcal Polysaccharide (groups A, C, Y and W-135) conjugate vaccine (MCV4P) Unknown Completed [facility] TDAP Unknown Completed [facility] Meningococcal Vaccine Unknown Completed [facility] SARS-COV-2 COVID-19 PFIZER VACCINE Unknown Completed [facility] SARS-COV-2 COVID-19 PFIZER VACCINE Unknown Completed [facility] DTaP, Unspecified Formulation Unknown Completed [facility] DTaP, Unspecified Formulation Unknown Completed [facility] DTaP, Unspecified Formulation Unknown Completed [facility] DTaP, Unspecified Formulation Unknown Completed [facility] DTaP, Unspecified Formulation Unknown Completed [facility] Flu Trivalent Unknown Completed [facility] Influenza Virus Vaccine Nasal Unknown Completed [facility] Influenza Virus Vaccine Nasal Unknown Completed [facility] Influenza Virus Vaccine Nasal Unknown Completed [facility] HEPATITIS A Unknown Completed [facility] Hib-HbOC Unknown Completed [facility] Meningococcal Polysaccharide (groups A, C, Y and W-135) conjugate vaccine (MCV4P) Unknown Completed [facility] IPV Unknown Completed [facility] IPV Unknown Completed [facility] IPV Unknown Completed [facility] IPV Unknown Completed [facility] DTAP Unknown Completed [facility] DTAP Unknown Completed [facility] DTAP Unknown Completed [facility] DTAP Unknown Completed [facility] HIB 4 Dose Schedule Unknown Completed [facility] HIB 4 Dose Schedule Unknown Completed [facility] HIB 4 Dose Schedule Unknown Completed [facility] HIB 4 Dose Schedule Unknown Completed [facility] HEPATITIS A Unknown Completed [facility] Hep B, Adol or Pedi Dosage Unknown Completed [facility] Hep B, Adol or Pedi Dosage Unknown Completed [facility] Hep B, Adol or Pedi Dosage Unknown Completed [facility] HPV Unknown Completed [facility] HPV Unknown Completed [facility] Influenza Virus Vaccine Unknown Completed [facility] Influenza Virus Vaccine Unknown Completed [facility] Influenza Virus Vaccine Unknown Completed [facility] Influenza Virus Vaccine Unknown Completed [facility] H1n1 Vaccine Unknown Completed [facility] H1n1 Vaccine Unknown Completed [facility] MMR Unknown Completed [facility] Pneumococcal 7 Conjugate, PCV7 (Prevnar7) Unknown Completed [facility] Pneumococcal 7 Conjugate, PCV7 (Prevnar7) Unknown Completed [facility] Pneumococcal 7 Conjugate, PCV7 (Prevnar7) Unknown Completed [facility] Polio (IPV/OPV) Unknown Completed [facility] Polio (IPV/OPV) Unknown Completed [facility] Polio (IPV/OPV) Unknown Completed [facility] PPD (TB) Unknown Completed [facility] Varicella (varivax)(chicken pox) Unknown Completed [facility] Varicella (varivax)(chicken pox) Unknown Completed [facility] Influenza Virus Vaccine Nasal Unknown Completed [facility] Meningococcal Polysaccharide (groups A, C, Y and W-135) conjugate vaccine (MCV4P) Unknown Completed [facility] TDAP Unknown Completed [facility] Meningococcal Vaccine Unknown Completed [facility] SARS-COV-2 COVID-19 PFIZER VACCINE Unknown Completed [facility] SARS-COV-2 COVID-19 PFIZER VACCINE Unknown Completed [facility] DTaP, Unspecified Formulation Unknown Completed [facility] DTaP, Unspecified Formulation Unknown Completed [facility] DTaP, Unspecified Formulation Unknown Completed [facility] DTaP, Unspecified Formulation Unknown Completed [facility] DTaP, Unspecified Formulation Unknown Completed [facility] Flu Trivalent Unknown Completed [facility] Influenza Virus Vaccine Nasal Unknown Completed [facility] Influenza Virus Vaccine Nasal Unknown Completed [facility] Influenza Virus Vaccine Nasal Unknown Completed [facility] HEPATITIS A Unknown Completed [facility] Hib-HbOC Unknown Completed [facility] Meningococcal Polysaccharide (groups A, C, Y and W-135) conjugate vaccine (MCV4P) Unknown Completed [facility] IPV Unknown Completed [facility] IPV Unknown Completed [facility] IPV Unknown Completed [facility] IPV Unknown Completed [facility] DTAP Unknown Completed [facility] DTAP Unknown Completed [facility] DTAP Unknown Completed [facility] DTAP Unknown Completed [facility] HIB 4 Dose Schedule Unknown Completed [facility] HIB 4 Dose Schedule Unknown Completed [facility] HIB 4 Dose Schedule Unknown Completed [facility] HIB 4 Dose Schedule Unknown Completed [facility] HEPATITIS A Unknown Completed [facility] Hep B, Adol or Pedi Dosage Unknown Completed [facility] Hep B, Adol or Pedi Dosage Unknown Completed [facility] Hep B, Adol or Pedi Dosage Unknown Completed [facility] HPV Unknown Completed [facility] HPV Unknown Completed [facility] Influenza Virus Vaccine Unknown Completed [facility] Influenza Virus Vaccine Unknown Completed [facility] Influenza Virus Vaccine Unknown Completed [facility] Influenza Virus Vaccine Unknown Completed [facility] H1n1 Vaccine Unknown Completed [facility] H1n1 Vaccine Unknown Completed [facility] MMR Unknown Completed [facility] Pneumococcal 7 Conjugate, PCV7 (Prevnar7) Unknown Completed [facility] Pneumococcal 7 Conjugate, PCV7 (Prevnar7) Unknown Completed [facility] Pneumococcal 7 Conjugate, PCV7 (Prevnar7) Unknown Completed [facility] Polio (IPV/OPV) Unknown Completed [facility] Polio (IPV/OPV) [facility] PPD (TB) Unknown Completed [facility] Varicella (varivax)(chicken pox) Unknown Completed [facility] Varicella (varivax)(chicken pox) Unknown Completed [facility] Influenza Virus Vaccine Nasal Unknown Completed [facility] Meningococcal Polysaccharide (groups A, C, Y and W-135) conjugate vaccine (MCV4P) Unknown Completed [facility] TDAP Unknown Completed [facility] Meningococcal Vaccine Unknown Completed [facility] SARS-COV-2 COVID-19 PFIZER VACCINE Unknown Completed [facility] SARS-COV-2 COVID-19 PFIZER VACCINE Unknown Completed [facility] DTaP, Unspecified Formulation Unknown Completed [facility] DTaP, Unspecified Formulation Unknown Completed [facility] DTaP, Unspecified Formulation Unknown Completed [facility] DTaP, Unspecified Formulation Unknown Completed [facility] DTaP, Unspecified Formulation Unknown Completed [facility] Flu Trivalent Unknown Completed [facility] Influenza Virus Vaccine Nasal Unknown Completed [facility] Influenza Virus Vaccine Nasal Unknown Completed [facility] Influenza Virus Vaccine Nasal Unknown Completed [facility] HEPATITIS A Unknown Completed [facility] Hib-HbOC Unknown Completed [facility] Meningococcal Polysaccharide (groups A, C, Y and W-135) conjugate vaccine (MCV4P) Unknown Completed [facility] IPV Unknown Completed [facility] IPV Unknown Completed [facility] IPV Unknown Completed [facility] IPV Unknown Completed [facility] DTAP Unknown Completed [facility] HEPATITIS A Unknown Completed [facility] MMR Unknown Completed [facility] Polio (IPV/OPV) Unknown Com[facility] HPV Unknown Completed [facility] DTAP Unknown Completed [facility] DTAP Unknown Completed [facility] DTAP Unknown Completed [facility] DTAP Unknown Completed [facility] HIB 4 Dose Schedule Unknown Completed [facility] HIB 4 Dose Schedule Unknown Completed [facility] HIB 4 Dose Schedule Unknown Completed [facility] HIB 4 Dose Schedule Unknown Completed [facility] HEPATITIS A Unknown Completed [facility] Hep B, Adol or Pedi Dosage Unknown Completed [facility] Hep B, Adol or Pedi Dosage Unknown Completed [facility] Hep B, Adol or Pedi Dosage Unknown Completed [facility] HPV Unknown Completed [facility] HPV Unknown Completed [facility] Influenza Virus Vaccine Unknown Completed [facility] Influenza Virus Vaccine Unknown Completed [facility] Influenza Virus Vaccine Unknown Completed [facility] Influenza Virus Vaccine Unknown Completed [facility] H1n1 Vaccine Unknown Completed [facility] H1n1 Vaccine Unknown Completed [facility] MMR Unknown Completed [facility] Pneumococcal 7 Conjugate, PCV7 (Prevnar7) Unknown Completed [facility] Pneumococcal 7 Conjugate, PCV7 (Prevnar7) Unknown Completed [facility] Pneumococcal 7 Conjugate, PCV7 (Prevnar7) Unknown Completed [facility] Polio (IPV/OPV) Unknown Completed [facility] Polio (IPV/OPV) Unknown Completed [facility] Polio (IPV/OPV) Unknown Completed [facility] PPD (TB) Unknown Completed [facility] Varicella (varivax)(chicken pox) Unknown Completed [facility] Varicella (varivax)(chicken pox) Unknown Completed [facility] Influenza Virus Vaccine Nasal Unknown Completed [facility] Meningococcal Polysaccharide (groups A, C, Y and W-135) conjugate vaccine (MCV4P) Unknown Completed [facility] TDAP Unknown Completed [facility] Meningococcal Vaccine Unknown Completed [facility] SARS-COV-2 COVID-19 PFIZER VACCINE Unknown Completed [facility] SARS-COV-2 COVID-19 PFIZER VACCINE Unknown Completed [facility] DTaP, Unspecified Formulation Unknown Completed [facility] DTaP, Unspecified Formulation Unknown Completed [facility] DTaP, Unspecified Formulation Unknown Completed [facility] DTaP, Unspecified Formulation Unknown Completed [facility] DTaP, Unspecified Formulation Unknown Completed [facility] Flu Trivalent Unknown Completed [facility] Influenza Virus Vaccine Nasal Unknown Completed [facility] Influenza Virus Vaccine Nasal Unknown Completed [facility] Influenza Virus Vaccine Nasal Unknown Completed [facility] HEPATITIS A Unknown Completed [facility] Hib-HbOC Unknown Completed [facility] Meningococcal Polysaccharide (groups A, C, Y and W-135) conjugate vaccine (MCV4P) Unknown Completed [facility] IPV Unknown Completed [facility] IPV Unknown Completed [facility] IPV Unknown Completed [facility] IPV Unknown Completed [facility] DTAP Unknown Completed [facility] HEPATITIS A Unknown Completed [facility] MMR Unknown Completed [facility] Polio (IPV/OPV) Unknown Com[facility] HPV Unknown Completed [facility] DTAP Unknown Completed [facility] DTAP Unknown Completed [facility] DTAP Unknown Completed [facility] DTAP Unknown Completed [facility] HIB 4 Dose Schedule Unknown Completed [facility] HIB 4 Dose Schedule Unknown Completed [facility] HIB 4 Dose Schedule Unknown Completed [facility] HIB 4 Dose Schedule Unknown Completed [facility] HEPATITIS A Unknown Completed [facility] Hep B, Adol or Pedi Dosage Unknown Completed [facility] Hep B, Adol or Pedi Dosage Unknown Completed [facility] Hep B, Adol or Pedi Dosage Unknown Completed [facility] HPV Unknown Completed [facility] HPV Unknown Completed [facility] Influenza Virus Vaccine Unknown Completed [facility] Influenza Virus Vaccine Unknown Completed [facility] Influenza Virus Vaccine Unknown Completed [facility] Influenza Virus Vaccine Unknown Completed [facility] H1n1 Vaccine Unknown Completed [facility] H1n1 Vaccine Unknown Completed [facility] MMR Unknown Completed [facility] Pneumococcal 7 Conjugate, PCV7 (Prevnar7) Unknown Completed [facility] Pneumococcal 7 Conjugate, PCV7 (Prevnar7) Unknown Completed [facility] Pneumococcal 7 Conjugate, PCV7 (Prevnar7) Unknown Completed [facility] Polio (IPV/OPV) Unknown Completed [facility] Polio (IPV/OPV) Unknown Completed [facility] Polio (IPV/OPV) Unknown Completed [facility] PPD (TB) Unknown Completed [facility] Varicella (varivax)(chicken pox) Unknown Completed [facility] Varicella (varivax)(chicken pox) Unknown Completed [facility] Influenza Virus Vaccine Nasal Unknown Completed [facility] Meningococcal Polysaccharide (groups A, C, Y and W-135) conjugate vaccine (MCV4P) Unknown Completed [facility] TDAP Unknown Completed [facility] Meningococcal Vaccine Unknown Completed [facility] SARS-COV-2 COVID-19 PFIZER VACCINE Unknown Completed [facility] SARS-COV-2 COVID-19 PFIZER VACCINE Unknown Completed [facility] DTaP, Unspecified Formulation Unknown Completed [facility] DTaP, Unspecified Formulation Unknown Completed [facility] DTaP, Unspecified Formulation Unknown Completed [facility] DTaP, Unspecified Formulation Unknown Completed [facility] DTaP, Unspecified Formulation Unknown Completed [facility] Flu Trivalent Unknown Completed [facility] Influenza Virus Vaccine Nasal Unknown Completed [facility] Influenza Virus Vaccine Nasal Unknown Completed [facility] Influenza Virus Vaccine Nasal Unknown Completed [facility] HEPATITIS A Unknown Completed [facility] Hib-HbOC Unknown Completed [facility] Meningococcal Polysaccharide (groups A, C, Y and W-135) conjugate vaccine (MCV4P) Unknown Completed [facility] IPV Unknown Completed [facility] IPV Unknown Completed [facility] IPV Unknown Completed [facility] IPV Unknown Completed [facility] DTAP Unknown Completed [facility] DTAP Unknown Completed [facility] DTAP Unknown Completed [facility] DTAP Unknown Completed [facility] HIB 4 Dose Schedule Unknown Completed [facility] HIB 4 Dose Schedule Unknown Completed [facility] HIB 4 Dose Schedule Unknown Completed [facility] HIB 4 Dose Schedule Unknown Completed [facility] HEPATITIS A Unknown Completed [facility] Hep B, Adol or Pedi Dosage Unknown Completed [facility] Hep B, Adol or Pedi Dosage Unknown Completed [facility] Hep B, Adol or Pedi Dosage Unknown Completed [facility] HPV Unknown Completed [facility] HPV Unknown Completed [facility] Influenza Virus Vaccine Unknown Completed [facility] Influenza Virus Vaccine Unknown Completed [facility] Influenza Virus Vaccine Unknown Completed [facility] Influenza Virus Vaccine Unknown Completed [facility] H1n1 Vaccine Unknown Completed [facility] H1n1 Vaccine Unknown Completed [facility] MMR Unknown Completed [facility] Pneumococcal 7 Conjugate, PCV7 (Prevnar7) Unknown Completed [facility] Pneumococcal 7 Conjugate, PCV7 (Prevnar7) Unknown Completed [facility] Pneumococcal 7 Conjugate, PCV7 (Prevnar7) Unknown Completed [facility] Polio (IPV/OPV) Unknown Completed [facility] Polio (IPV/OPV) Unknown Completed [facility] Polio (IPV/OPV) Unknown Completed [facility] PPD (TB) Unknown Completed [facility] Varicella (varivax)(chicken pox) Unknown Completed [facility] Varicella (varivax)(chicken pox) Unknown Completed [facility] Influenza Virus Vaccine Nasal Unknown Completed [facility] Meningococcal Polysaccharide (groups A, C, Y and W-135) conjugate vaccine (MCV4P) Unknown Completed [facility] TDAP Unknown Completed [facility] Meningococcal Vaccine Unknown Completed [facility] SARS-COV-2 COVID-19 PFIZER VACCINE Unknown Completed [facility] SARS-COV-2 COVID-19 PFIZER VACCINE Unknown Completed [facility] DTaP, Unspecified Formulation Unknown Completed [facility] DTaP, Unspecified Formulation Unknown Completed [facility] DTaP, Unspecified Formulation Unknown Completed [facility] DTaP, Unspecified Formulation Unknown Completed [facility] DTaP, Unspecified Formulation Unknown Completed [facility] Flu Trivalent Unknown Completed [facility] Influenza Virus Vaccine Nasal Unknown Completed [facility] Influenza Virus Vaccine Nasal Unknown Completed [facility] Influenza Virus Vaccine Nasal Unknown Completed [facility] HEPATITIS A Unknown Completed [facility] Hib-HbOC Unknown Completed [facility] Meningococcal Polysaccharide (groups A, C, Y and W-135) conjugate vaccine (MCV4P) Unknown Completed [facility] IPV Unknown Completed [facility] IPV Unknown Completed [facility] IPV Unknown Completed [facility] IPV Unknown Completed [facility] DTAP Unknown Completed [facility] DTAP Unknown Completed [facility] DTAP Unknown Completed [facility] DTAP Unknown Completed [facility] HIB 4 Dose Schedule Unknown Completed [facility] HIB 4 Dose Schedule Unknown Completed [facility] HIB 4 Dose Schedule Unknown Completed [facility] HIB 4 Dose Schedule Unknown Completed [facility] HEPATITIS A Unknown Completed [facility] Hep B, Adol or Pedi Dosage Unknown Completed [facility] Hep B, Adol or Pedi Dosage Unknown Completed [facility] Hep B, Adol or Pedi Dosage Unknown Completed [facility] HPV Unknown Completed [facility] HPV Unknown Completed [facility] Influenza Virus Vaccine Unknown Completed [facility] Influenza Virus Vaccine Unknown Completed [facility] Influenza Virus Vaccine Unknown Completed [facility] Influenza Virus Vaccine Unknown Completed [facility] H1n1 Vaccine Unknown Completed [facility] H1n1 Vaccine Unknown Completed [facility] MMR Unknown Completed [facility] Pneumococcal 7 Conjugate, PCV7 (Prevnar7) Unknown Completed [facility] Pneumococcal 7 Conjugate, PCV7 (Prevnar7) Unknown Completed [facility] Pneumococcal 7 Conjugate, PCV7 (Prevnar7) Unknown Completed [facility] Polio (IPV/OPV) Unknown Completed [facility] Polio (IPV/OPV) Unknown Completed [facility] Polio (IPV/OPV) Unknown Completed [facility] PPD (TB) Unknown Completed [facility] Varicella (varivax)(chicken pox) Unknown Completed [facility] Varicella (varivax)(chicken pox) Unknown Completed [facility] Influenza Virus Vaccine Nasal Unknown Completed [facility] Meningococcal Polysaccharide (groups A, C, Y and W-135) conjugate vaccine (MCV4P) Unknown Completed [facility] TDAP Unknown Completed [facility] Meningococcal Vaccine Unknown Completed [facility] SARS-COV-2 COVID-19 PFIZER VACCINE Unknown Completed [facility] SARS-COV-2 COVID-19 PFIZER VACCINE Unknown Completed [facility] DTaP, Unspecified Formulation Unknown Completed [facility] DTaP, Unspecified Formulation Unknown Completed [facility] DTaP, Unspecified Formulation Unknown Completed [facility] DTaP, Unspecified Formulation Unknown Completed [facility] DTaP, Unspecified Formulation Unknown Completed [facility] Flu Trivalent Unknown [facility] Influenza Virus Vaccine Nasal Unknown Completed [facility] Influenza Virus Vaccine Nasal Unknown Completed [facility] Influenza Virus Vaccine Nasal Unknown Completed [facility] HEPATITIS A Unknown Completed [facility] Hib-HbOC Unknown Completed [facility] Meningococcal Polysaccharide (groups A, C, Y and W-135) conjugate vaccine (MCV4P) Unknown Completed [facility] IPV Unknown Completed [facility] IPV Unknown Completed [facility] IPV Unknown Completed [facility] IPV Unknown Completed [facility] DTAP Unknown Completed [facility] DTAP Unknown Completed [facility] DTAP Unknown Completed [facility] DTAP Unknown Completed [facility] HIB 4 Dose Schedule Unknown Completed [facility] HIB 4 Dose Schedule Unknown Completed [facility] HIB 4 Dose Schedule Unknown Completed [facility] HIB 4 Dose Schedule Unknown Completed [facility] HEPATITIS A Unknown Completed [facility] Hep B, Adol or Pedi Dosage Unknown Completed [facility] Hep B, Adol or Pedi Dosage Unknown Completed [facility] Hep B, Adol or Pedi Dosage Unknown Completed [facility] HPV Unknown Completed [facility] HPV Unknown Completed [facility] Influenza Virus Vaccine Unknown Completed [facility] Influenza Virus Vaccine Unknown Completed [facility] Influenza Virus Vaccine Unknown Completed [facility] Influenza Virus Vaccine Unknown Completed [facility] H1n1 Vaccine Unknown Completed [facility] H1n1 Vaccine Unknown Completed [facility] MMR Unknown Completed [facility] Pneumococcal 7 Conjugate, PCV7 (Prevnar7) Unknown Completed [facility] Pneumococcal 7 Conjugate, PCV7 (Prevnar7) Unknown Completed [facility] Pneumococcal 7 Conjugate, PCV7 (Prevnar7) Unknown Completed [facility] Polio (IPV/OPV) Unknown [facility] Polio (IPV/OPV) Unknown Completed [facility] Polio (IPV/OPV) Unknown Completed [facility] PPD (TB) Unknown Completed [facility] Varicella (varivax)(chicken pox) Unknown Completed [facility] Varicella (varivax)(chicken pox) Unknown Completed [facility] Influenza Virus Vaccine Nasal Unknown Completed [facility] Meningococcal Polysaccharide (groups A, C, Y and W-135) conjugate vaccine (MCV4P) Unknown Completed [facility] TDAP Unknown Completed [facility] Meningococcal Vaccine Unknown Completed [facility] SARS-COV-2 COVID-19 PFIZER VACCINE Unknown Completed [facility] SARS-COV-2 COVID-19 PFIZER VACCINE Unknown Completed [facility] DTaP, Unspecified Formulation Unknown Completed [facility] DTaP, Unspecified Formulation Unknown Completed [facility] DTaP, Unspecified Formulation Unknown Completed [facility] DTaP, Unspecified Formulation Unknown Completed [facility] Vital Signs Vital Name Observation Time Observation Value Comments S ource height 2023-12-13 08:20:00 61 [in_i] Commo n [facility] weight 2023-12-13 08:20:00 126.4 [facility] 2023-12-13 08:20:00 97.2 [degF] Com [facility] bmi 2023-12-13 08:20:00 23.88 kg/m2 Comm on [facility] oximetry 2023-12-13 08:20:00 97 % Commo n [facility] respiratory rate 2023-12-13 08:20:00 16 /min [facility] blood pressure systolic 2023-12-13 08:20:00 116 mm[Hg] [facility] blood pressure diastolic 2023-12-13 08:20:00 78 mm[Hg] [facility] weight 2023-11-26 10:20:00 125.6 [lb_av] Co mmon [facility] temperature 2023-11-26 10:20:00 97.5 [degF] Com [facility] bmi 2023-11-26 10:20:00 23.73 kg/m2 Comm on [facility] oximetry 2023-11-26 10:20:00 94 % Commo n [facility] respiratory rate 2023-11-26 10:20:00 16 /min [facility] blood pressure systolic 2023-11-26 10:20:00 120 mm[Hg] [facility] blood pressure diastolic 2023-11-26 10:20:00 76 mm[Hg[facility] height 2023-11-26 10:20:00 61 [in_i] Commo n [facility] Systolic blood pressure 2023-09-01 20:27:00 113 mm[Hg] [facility] Diastolic blood pressure 2023-09-01 20:27:00 74 mm[Hg] [facility] Heart rate 2023-09-01 20:27:00 76 /min [facility] Body height 2023-09-01 20:27:00 157.5 cm [facility] Body weight 2023-09-01 20:27:00 56.155 kg [facility] BMI 2023-09-01 20:27:00 22.64 kg/m2 [facility] Oxygen saturation in Arterial blood by Pulse oximetry 2023-09-01 20:27:00 99 /min [facility] Systolic blood pressure 2022-12-23 15:51:00 115 mm[Hg] [facility] Diastolic blood pressure 2022-12-23 15:51:00 78 mm[Hg] [facility] Heart rate 2022-12-23 15:51:00 60 /min [facility] Body temperature 2022-12-23 15:51:00 37.11 Pilar [facility] Respiratory rate 2022-12-23 15:51:00 16 /min [facility] Body height 2022-12-23 15:51:00 157.5 cm [facility] Body weight 2022-12-23 15:51:00 52.3 kg [facility] BMI 2022-12-23 15:51:00 21.09 kg/m2 [facility] Systolic blood pressure 2022-07-05 21:26:00 114 mm[Hg] [facility] Diastolic blood pressure 2022-07-05 21:26:00 78 mm[Hg] [facility] Heart rate 2022-07-05 21:26:00 97 /min [facility] Body temperature 2022-07-05 21:26:00 36.67 Pilar [facility] Respiratory rate 2022-07-05 21:26:00 16 /min [facility] Body height 2022-07-05 21:26:00 157.5 cm [facility] Body weight 2022-07-05 21:26:00 50.213 kg [facility] BMI 2022-07-05 21:26:00 20.25 kg/m2 [facility] Oxygen saturation in Arterial blood by Pulse oximetry 2022-07-05 21:26:00 98 /min [facility] Systolic blood pressure 2020-09-12 19:21:00 134 mm[Hg] [facility] Diastolic blood pressure 2020-09-12 19:21:00 89 mm[Hg] [facility] Heart rate 2020-09-12 19:21:00 122 /min [facility] Body temperature 2020-09-12 19:21:00 37.56 Pilar [facility] Respiratory rate 2020-09-12 19:21:00 16 /min [facility] Body height 2020-09-12 19:21:00 154.9 cm [facility] Body weight 2020-09-12 19:21:00 49.896 kg [facility] BMI 2020-09-12 19:21:00 20.78 kg/m2 [facility] Oxygen saturation in Arterial blood by Pulse oximetry 2020-09-12 19:21:00 100 /min [facility] Systolic blood pressure 2020-09-12 19:21:00 134 mm[Hg] [facility] Diastolic blood pressure 2020-09-12 19:21:00 89 mm[Hg] [facility] Heart rate 2020-09-12 19:21:00 122 /min [facility] Body temperature 2020-09-12 19:21:00 37.56 Pilar [facility] Respiratory rate 2020-09-12 19:21:00 16 /min [facility] Body height 2020-09-12 19:21:00 154.9 cm [facility] Body weight 2020-09-12 19:21:00 49.896 kg [facility] BMI 2020-09-12 19:21:00 20.78 kg/m2 [facility] Oxygen saturation in Arterial blood by Pulse oximetry 2020-09-12 19:21:00 100 /min [facility] Procedures Procedure Date / Time Performed Performing Clinicia n Source SCANNED LAB RESULTS 2023-09-03 06:01:00 Doctor Stepan rosado, [place] [facility] ASSIGNMENT OF BENEFITS 2022-12-23 15:02:57 Docto r Unassigned, [place] [facility] SARS-COV-2 COVID-19 VACCINE,0.3ML,IM (PFIZER) 2021-03-28 21:08:00 Doctor Unassigned, [place] [facility] POCT TEST 2020-09-12 19:43:00 Teresita Torre ra [facility] NOTICE OF PRIVACY PRACTICES 2020-09-12 19:12:23 Doctor Unassigned, [place] [facility] CONSENT/REFUSAL FOR DIAGNOSIS AND TREATMENT 2020-09-12 19:12:09 Doctor Unassigned, [place] [facility] Encounters Start Date/Time End Date/Time Encounter Type Admission Type Attending Clinicians Care Facility Care Department Encounter ID Source 2024-02-09 14:29:[address] [facility] [id number] [facility] 2023-12-09 08:06:[address] [facility] [id number] [facility] 2023-11-26 09:33:[address] [facility] [id number] [facility] 2021-05-24 23:57:16 Emergency [facility] [id number] [facility] 2024-03-10 09:00:00 2024-03-10 09:00:00 Outpatient JAREN SUMNER VIEN [facility] [id number] [facility] 2023-12-13 00:00:00 2023-12-13 00:00:00 PREV VISIT EST AGE 18-39 [facility]C [facility] [id number] [facility] 2023-11-26 00:00:00 2023-11-26 00:00:00 OFFICE VISIT NEW PT LEVEL 3 [facility] STLC [id number] [facility] 2023-11-05 18:02:00 2023-11-05 19:10:00 Emergency EM Sandra Navarro [facility] [id number] [facility] 2023-09-06 00:00:00 2023-09-06 00:00:00 [facility] 1.0.114 350.1.13.10 4.2.7.2.686 [id number] [facility] 2023-09-03 00:00:00 2023-09-03 00:00:00 Orders Only Doctor Unassigned, [place] [facility] 1.2.840.114 350.1.13.10 4.2.7.2.686 [id number] [facility] 2023-09-03 00:00:00 2023-09-03 00:00:00 [facility] 1.840.114 350.1.13.10 4.2.7.2.686 [id number] [facility] 2023-09-01 14:20:00 2023-09-01 14:49:13 Outpatient R CHRISTIANNE ECKERT [facility] [id number] [facility] 2023-09-01 14:20:00 2023-09-01 14:49:13 Office Visit Christianne Eckert [facility] 1.840.114 350.1.13.10 4.2.7.2.686 [id number] [facility] 2023-08-30 14:00:00 2023-08-30 14:00:00 Outpatient TG SAWANT [id number] Monica [facility]ands 2022-12-31 00:00:00 2022-12-31 00:00:00 Patient Secure Msg Doctor Unassigned, [place] [facility] 1..840.114 350.1.13.10 4.2.7.2.686 [id number] [facility] 2022-12-24 08:00:00 2022-12-24 08:15:00 Darklight Inspector Visit Posilverio, [facility] 1..840.114 350.1.13.10 4.2.7.2.686 [id number] [facility] 2022-12-24 08:00:00 2022-12-24 08:00:[address] [facility] [id number] [facility] 2022-12-23 11:45:00 2022-12-23 12:00:00 Darklight Inspector Visit Draw, Clc-Bls Lab Deborah [facility]ILD[facility] 1..840.114 350.1.13.10 4.2.7.2.686 [id number] [facility] 2022-12-23 10:50:00 2022-12-23 11:24:[address] [facility] [id number] [facility] 2022-12-23 10:50:00 2022-12-23 11:24:29 Office Visit Deborah [facility] 1.2840.114 350.1.13.10 4.2.7.2.686 [id number] [facility] 2022-12-23 00:00:00 2022-12-23 00:00:00 Orders Only Doctor Unassigned, [place] [facility] 1.2.840.114 350.1.13.10 4.2.7.2.686 [id number] [facility] 2022-07-08 00:00:00 2022-07-08 00:00:00 Patient Secure Msg Doctor Unassigned, [place] [facility] 1.2840.114 350.1.13.10 4.2.7.2.686 [id number] [facility] 2022-07-05 15:40:00 2022-07-05 15:42:58 Outpatient R DEVIKA HOOK [facility] [id number] [facility] 2022-07-05 15:40:00 2022-07-05 15:42:58 Urgent Care Devika Hook Unknown, Attending [facility] 1.2840.114 350.1.13.10 4.2.7.2.686 [id number] [facility] 2022-03-22 00:00:00 2022-03-22 00:00:00 Patient Secure Msg Doctor Unassigned, [place] [facility] 1.2840.114 350.1.13.10 4.2.7.2.686 [id number] [facility] 2022-03-05 00:00:00 2022-03-05 00:00:00 Patient Secure Msg Doctor Unassigned, [place] [facility] 1.2840.114 350.1.13.10 4.2.7.2.686 [id number] [facility] 2022-01-28 00:00:00 2022-01-28 00:00:00 Patient Secure Msg Doctor Unassigned, [place] [facility] 1.114 350.1.13.10 4.2.7.2.686 [id number] [facility] 2021-03-28 16:04:57 2021-03-28 16:05:06 Imm/Inj Visit Nurse, Jimbo [facility] 1..114 350.1.13.10 4.2.7.2.686 [id number] [facility] 2021-03-28 14:50:00 2021-03-28 16:05:06 Outpatient MO MAYA [facility] [id number] [facility] 2020-12-14 10:05:00 2020-12-14 10:05:00 Outpatient [facility] [id number] [facility] 2020-12-07 10:05:00 2020-12-07 10:05:00 Outpatient [facility] [id number] [facility] 2020-11-16 10:05:00 2020-11-16 10:05:00 Outpatient [facility] [id number] [facility] 2020-11-16 10:05:00 2020-11-16 10:05:00 Outpatient MATEUS ALEXIS [facility] [id number] [facility] 2020-09-13 09:20:00 2020-09-13 09:20:00 Outpatient [facility] [id number] [facility] 2020-09-12 13:28:00 2020-09-12 14:21:00 Emergency Chely Torre [facility] 1..114 350.1.13.10 4.2.7.2.686 [id number] [facility] 2020-09-12 13:28:00 2020-09-12 14:21:00 Emergency Chely Torre [facility] 1.2.840.114 350.1.13.10 4.2.7.2.686 [id number] 2012-07-21 00:00:00 2012-07-21 14:57:00 [facility]patient [facility] [id number] [facility] 2012-05-18 00:00:00 2012-05-18 15:07:00 [facility]patient [facility] [id number] [facility] 2012-05-18 00:00:00 2012-05-18 00:00:00 Outpatient [facility] [id number] [facility] 2012-04-28 00:00:00 2012-04-28 16:10:00 [facility]patient [facility] [id number] [facility] 2012-04-28 00:00:00 2012-04-28 00:00:00 Outpatient [facility] [id number] [facility] 2012-03-10 00:00:00 2012-03-10 16:50:00 Outpatient [facility] [id number] [facility] 2012-03-09 00:00:00 2012-03-09 00:00:00 Outpatient [facility] [id number] [facility] 2012 00:00:00 2012 13:23:00 Outpatient [facility] [id number] [facility] 2011-04-28 00:00:00 2011-04-28 18:03:00 Outpatient [facility] [id number] [facility] Results Test Description Test Time Test Comments Results Result Co mments Source [facility] Notes Date/Time Note Provider Source 2023-11-05 18:37:00 [facility] ([facility]) EMERGENCY PROVIDER REPORT REPORT#:[id number] REPORT STATUS: Signed DATE:11/05/23 TIME: 1837 PATIENT: BRIGIDA CORTES UNIT #: [id number] ROOM/BED: AGE: 23 SEX: F PCP PHYS: Pam Ferrer MD SERVICE AUTHOR: Sandra Navarro MD * ALL edits or amendments must be made on the electronic/computer document * PDB-Crm-Eobf Illness Free Text HPI Notes Free Text [...] with your [facility] care doctor. [facility][id number] END OF REPORT [facility] 2023-09-07 14:37:29 Labs discussed in alternative encounter 09/07/2023. [facility] 2023-09-07 14:36:47 Called patient and discussed lab results. Patient voiced understanding/agreement with plan. Christianne Eckert MD Department of Family Medicine [facility] 2023-09-07 09:41:50 Routing to provider, pt would like you to go over her labs with her. I can call if you want me to. Please advise [facility] 2023-09-07 09:11:10 Message routed to provider for review. Vincent Jones LVN 09/07/2023 9:11 AM [facility] Vincent Jones LVN [facility] 2023-09-06 16:13:53 Brigida Cortes is a 23 year old female Pt is calling to request a call back on labs done on 09/01/2023. Pt would like explained to her. [facility] Anneliese Humphrey [facility]
[2024-03-15] MEDS ORDERED: ONDANSETRON 4 MG/2 ML VIAL ONE (22:33)
[2024-03-15] MEDS ORDERED: NA CHLORIDE 0.9% 1,000 ML ONE (22:33)
[2024-03-15 23:21] LABS: Absolute Basophils 0.1 K/uL (0-0.5); Absolute Eosinophils 0.1 K/uL (0-0.5); Absolute Lymphocytes (CBC) 3.7 K/uL (0.7-4.9); Absolute Monocytes 0.7 K/uL (0.1-1.3); Absolute Neutrophil 7.2 K/uL (1.8-8.0); Basophils % 0.6 % (0-1.3); Hematocrit 43.5 % (36.0-45.0); Hemoglobin 14.3 g/dL (12.0-15.0); Lymphocytes % 31.4 % (15.3-44.8); MCH 28.2 pg (27.0-35.0); MCHC 32.9 g/dL (32.0-36.0); MCV 85.6 fL (80-100); MPV 9.4 fL (7.6-11.3); Monocytes % 5.7 % (3.3-12.3); Neutrophils % 61.3 % (41.7-73.7); Platelets 362 thou/uL (152-406); RBC Red Blood Cell Count 5.08 M/uL (3.86-4.86); Red Cell Distribution Width 13.4 % (12.1-15.2)
[2024-03-16 00:02] LABS: Specific Gravity < 1.005 (1.005-1.030); Sqamous Epithelial None Seen /HPF (None Seen); Urine Bacteria None Seen /HPF (<20); Urine Bilirubin NEGATIVE (Negative); Urine Blood Negative (Negative); Urine Clarity Clear (Clear); Urine Color Colorless (Yellow); Urine Culture Reflex Order NOT NEEDED; Urine Glucose NEGATIVE (Negative); Urine Ketones NEGATIVE (Negative); Urine Microscopic Reflex YN ORDER UMIC; Urine Nitrite NEGATIVE (Negative); Urine Protein NEGATIVE (Negative); Urine RBC None Seen /HPF (None Seen); Urine Urobilinogen Normal (Normal); Urine WBC <5 /HPF (<5)
[2024-03-16 00:03] LABS: Anion Gap 12.4 mEq/L (5.0-15.0)
[2024-03-16 00:04] LABS: Potassium 3.4 mEq/L (3.5-5.1)
--- NOTE | 2024-03-16 00:07 | ER ---
Nurse's Notes [facility] Name: Nevin Palmer Age: 24 yrs Sex: Female : 2000 Arrival Date: 03/15/2024 Time: 22:17 Bed 7 Private MD: Diagnosis: Mild hyperemesis gravidarum;Less than 8 weeks gestation of -5 WEEKS 6 DAYS, VIABLE;Hypokalemia;UTI/ Urinary tract infection, site not specified Presentation: 03/15 22:31 Chief complaint: Patient states: n/v/d since last weekend, became SOB just lighter captain while me1 laying down. Intermittent LUQ abdominal pain. 6 weeks . LMP 01/30/24. Coronavirus screen: Vaccine status: Patient reports receiving the 2nd dose of the covid vaccine. Ebola Screen: No symptoms or risks identified at this time. Initial Sepsis Screen: Does the patient meet any 2 criteria? No. Patient's initial sepsis screen is negative. Does the patient have a suspected source of infection? No. Patient's initial sepsis screen is negative. Risk Assessment: Do you want to hurt yourself or someone else? Patient reports no desire to harm self or others. Onset of symptoms was March 11, 2024. 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 - Infectious Disease History:: Denies. - Social history:: Smoking status: Patient denies any tobacco usage or history of. Screenin:00 [facility] ED Fall Risk Assessment (Adult) History of falling in the last 3 months, ha1 including since admission No falls in past 3 months (0 pts) Confusion or Disorientation No (0 pts) Intoxicated or Sedated No (0 pts) Impaired Gait No (0 pts) Mobility Assist Device Used No (0 pt) Altered Elimination No (0 pt) Score/Fall Risk Level 0 - 2 = Low Risk Oriented to surroundings, Maintained a safe environment, Educated pt \T\ family on fall prevention, incl call for assistance when getting out of bed. Abuse screen: Denies threats or abuse. Denies injuries from another. Nutritional screening: No deficits noted. Tuberculosis screening: No symptoms or risk factors identified. Assessment: 22:30 General: Appears uncomfortable, Behavior is calm, cooperative. Pain: Complains of pain ha1 in left upper quadrant Pain does not radiate. Pain currently is 7 out of 10 on a pain scale. Quality of pain is described as aching, crampy, Pain began 1 day ago. Neuro: Level of Consciousness is awake, alert, obeys commands, Oriented to person, place, time, situation. Cardiovascular: Capillary refill < 3 seconds Patient's skin is warm and dry. Respiratory: Airway is patent Respiratory effort is even, unlabored, Respiratory pattern is regular, symmetrical. GI: Abdomen is round non-distended, Bowel sounds present X 4 quads. Reports upper abdominal pain, diarrhea, nausea, vomiting. : No signs and/or symptoms were reported regarding the genitourinary system. Derm: Skin is pink, warm \T\ dry. Musculoskeletal: Circulation, motion, and sensation intact. Range of motion: intact in all extremities. 23:30 Reassessment: Patient and/or family updated on plan of care and expected duration. Pain ha1 level reassessed. Patient is alert, oriented x 3, equal unlabored respirations, skin warm/dry/pink. Patient states feeling better. Patient states symptoms have improved. 03/16 00:25 Reassessment: Patient and/or family updated on plan of care and expected duration. Pain ha1 level reassessed. Patient is alert, oriented x 3, equal unlabored respirations, skin warm/dry/pink. Patient denies pain at this time. Patient states feeling better. Patient states symptoms have improved. Vital Signs: 03/15 22:31 BP 125 / 74; Pulse 86; Resp 15; Temp 97.9; Pulse Ox 100% ; Weight 56.7 kg; Height 5 ft. me1 2 in. ; Pain 0/10; 23:30 BP 107 / 76; Pulse 75; Resp 17 S; Pulse Ox 100% on R/A; ha1 03/16 00:25 BP 112 / 78; Pulse 78; Resp 17 S; Pulse Ox 100% on R/A; ha1 03/15 22:31 Body Mass Index 22.86 (56.70 kg, 157.48 cm) me1 08 22:31 Pain Scale: [place] [facility] [place] Course: 03/15 22:22 Patient arrived in ED. gm2 22:24 Obinna Griffin MD is Attending Physician. [facility] 22:27 Patient has correct armband on for positive identification. Placed in gown. Bed in low ha1 position. Call light in reach. Side rails up X 1. Adult w/ patient. 22:33 Triage completed. me1 22:34 Arm band placed on Patient placed in an exam room. me1 22:40 Inserted saline lock: 22 gauge in left antecubital area, using aseptic technique. Blood ha1 collected. Flushed with 10 mL NS. 22:59 Abo/rh Typing Sent. ha1 22:59 Basic Metabolic Panel Sent. ha1 22:59 CBC with Diff Sent. ha1 22:59 Test, Urine Sent. ha1 22:59 Quantitative Hcg Sent. ha1 23:24 US Transvaginal Ob In Process Unspecified. EDMS 03/16 00:08 Rosa Briceno, RN is Primary Nurse. ha1 00:25 No provider procedures requiring assistance completed. IV discontinued, intact, ha1 bleeding controlled, No redness/swelling at site. Pressure dressing applied. 00:30 Provided Education on: follow up with OB . ha1 Administered Medications: 03/15 22:45 Drug: NS 0.9% IV 1000 ml IV at 1 bolus Per protocol; 1000 mL bolus Route: IV; Rate: 1 ha1 bolus; Site: left antecubital; 03/16 00:31 Follow up: Response: No adverse reaction; IV Status: Completed infusion; IV Intake: ha1 1000ml 03/15 23:00 Not Given (Patient Refused): ondansetron 4 mg IVP once; over 2 minutes 1 03/16 00:15 Drug: Potassium PO Effervescent Tablet 25 mEq PO once; dissolve in 4 ounces of water or ha1 juice Route: PO; 00:31 Follow up: Response: No adverse reaction ha1 00:15 Drug: Rocephin IV 1 grams IV at per protocol once; Given slow IV push per pharmacy ha1 instructions Route: IV; Rate: per protocol; Site: left antecubital; 00:31 Follow up: Response: No adverse reaction; IV Status: Completed infusion; IV Intake: [id number] Medication: 00:25 VIS not applicable for this client. ha1 Intake: 00:31 IV: 50ml; Total: 50ml. ha1 00:31 IV: 1000ml; Total: 1050ml. ha1 Outcome: 00:06 Discharge ordered by . elyse 00:25 Condition: stable ha1 00:25 Discharged to home ambulatory, with family, ha1 00:25 Discharge instructions given to patient, family, Instructed on discharge instructions, follow up and referral plans. medication usage, Demonstrated understanding of instructions, follow-up care, medications, Prescriptions given X 3, 00:32 Patient left the ED. ha1 Signatures: Dispatcher [employer] EDObinna Dubon MD MD cha Ayala, Heidy RN RN ha1 Georgie Gastelum RN RN mo1 Ml Lyn 2
--- NOTE | 2024-03-16 00:07 | EDPHYS ---
Physician Documentation [facility] Name: Nevin Palmer Age: 24 yrs Sex: Female : 2000 Arrival Date: 03/15/2024 Time: 22:17 Bed 7 Private MD: ED Physician Obinna Griffin HPI: 03/15 23:52 This 24 yrs old Female presents to ER via Wheelchair with complaints of 6 elyse weeks preg, Nausea/Vomiting, Dizziness, Decreased Appetite. 23:52 The patient presents to the emergency department with nausea, vomiting, that is elyse continuous. Onset: The symptoms/episode began/occurred 5 day(s) ago. Possible causes: . The symptoms are aggravated by nothing. The symptoms are alleviated by remaining still. Associated signs and symptoms: The patient has no apparent associated signs or symptoms. Severity of symptoms: in the emergency department the symptoms have improved moderately. The patient has experienced similar episodes in the past, several times. 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 - Infectious Disease History:: Denies. - Social history:: Smoking status: Patient denies any tobacco usage or history of. ROS: 03/16 00:00 Constitutional: Negative for fever, chills, and weight loss, Eyes: Negative for injury, elyse pain, redness, and discharge, ENT: Negative for injury, pain, and discharge, Neck: Negative for injury, pain, and swelling, Cardiovascular: Negative for chest pain, palpitations, and edema, Respiratory: Negative for shortness of breath, cough, wheezing, and pleuritic chest pain, Back: Negative for injury and pain, : Negative for injury, bleeding, discharge, and swelling, MS/Extremity: Negative for injury and deformity, Skin: Negative for injury, rash, and discoloration, Neuro: Negative for headache, weakness, numbness, tingling, and seizure, Psych: Negative for depression, anxiety, suicide ideation, homicidal ideation, and hallucinations, Allergy/Immunology: Negative for hives, rash, and allergies, Endocrine: Negative for neck swelling, polydipsia, polyuria, polyphagia, and marked weight changes, Hematologic/Lymphatic: Negative for swollen nodes, abnormal bleeding, and unusual bruising, Abdomen/GI: Positive for nausea, vomiting, Exam: 00:00 Constitutional: This is a well developed, well nourished patient who is awake, alert, elyse and in no acute distress. Head/Face: Normocephalic, atraumatic. Eyes: Pupils equal round and reactive to light, extra-ocular motions intact. Lids and lashes normal. Conjunctiva and sclera are non-icteric and not injected. Cornea within normal limits. Periorbital areas with no swelling, redness, or edema. ENT: Nares patent. No nasal discharge, no septal abnormalities noted. Tympanic membranes are normal and external auditory canals are clear. Oropharynx with no redness, swelling, or masses, exudates, or evidence of obstruction, uvula midline. Mucous membranes moist. Neck: Trachea midline, no thyromegaly or masses palpated, and no cervical lymphadenopathy. Supple, full range of motion without nuchal rigidity, or vertebral point tenderness. No Meningismus. Chest/axilla: Normal chest wall appearance and motion. Nontender with no deformity. No lesions are appreciated. Cardiovascular: Regular rate and rhythm with a normal S1 and S2. No gallops, murmurs, or rubs. Normal PMI, no JVD. No pulse deficits. Respiratory: Lungs have equal breath sounds bilaterally, clear to auscultation and percussion. No rales, rhonchi or wheezes noted. No increased work of breathing, no retractions or nasal flaring. Abdomen/GI: Soft, non-tender, with normal bowel sounds. No distension or tympany. No guarding or rebound. No evidence of tenderness throughout. Back: No spinal tenderness. No costovertebral tenderness. Full range of motion. Skin: Warm, dry with normal turgor. Normal color with no rashes, no lesions, and no evidence of cellulitis. MS/ Extremity: Pulses equal, no cyanosis. Neurovascular intact. Full, normal range of motion. Neuro: Awake and alert, GCS 15, oriented to person, place, time, and situation. Cranial nerves II-XII grossly intact. Motor strength 5/5 in all extremities. Sensory grossly intact. Cerebellar exam normal. Normal gait. Psych: Awake, alert, with orientation to person, place and time. Behavior, mood, and affect are within normal limits. 00:00 Musculoskeletal/extremity: DVT Exam: No signs of deep vein thrombosis. no pain, no swelling, no tenderness, negative Homans' sign noted on exam, no appreciated bluish discoloration, no erythema, no increased warmth, 00:21 Musculoskeletal/extremity: DVT Exam: [facility] 00:21 Chest/axilla: Inspection: normal, Palpation: is normal, Axilla: are normal, Breasts: elyse are normal, Lymph nodes: lymphadenopathy is not appreciated, 00:21 Cardiovascular: Rate: normal, Rhythm: regular, Pulses: Pulses are 4+ in bilateral radial, brachial, femoral, popliteal, posterior tibial and and dorsalis pedis arteries.. Heart sounds: normal, Edema: is not appreciated, JVD: is not appreciated, Vital Signs: 03/15 22:31 BP 125 / 74; Pulse 86; Resp 15; Temp 97.9; Pulse Ox 100% ; Weight 56.7 kg; Height 5 ft. me1 2 in. ; Pain 0/10; 23:30 BP 107 / 76; Pulse 75; Resp 17 S; Pulse Ox 100% on R/A; [facility] 03/16 00:25 BP 112 / 78; Pulse 78; Resp 17 S; Pulse Ox 100% on R/A; 1 03/15 22:31 Body Mass Index 22.86 (56.70 kg, 157.48 cm) [facility] [place] 03/15 22:31 Pain Scale: Adult ms1 MDM: 03/15 22:24 Patient medically screened. [facility] 03/16 00:01 Differential diagnosis: Nonspecific abd pain, viral gastroenteritis, gastroenteritis. [facility] Data reviewed: vital signs, nurses notes, lab test result(s), radiologic studies, ultrasound. Consideration of Admission/Observation Escalation of care including admission/observation considered. I considered the following discharge prescriptions or medication management in the emergency department Medications were administered in the Emergency Department. See MAR. Independent interpretation of the following test(s) in the Emergency Department Radiology Department Ultrasound: My interpretation is VAG PROBE. Test considered but Not performed: MRI: NO MRI. Historians other than the Patient: Spouse/Significant Other: WELL INFORMED. Care significantly affected by the following chronic conditions: NONE A0. 03/15 22:25 Order name: Abo/rh Typing; Complete Time: 23:43 [facility] 03/15 22:25 Order name: Basic Metabolic Panel; Complete Time: 00:09 [facility] 03/15 22:25 Order name: CBC with Diff; Complete Time: 23:43 [facility] 03/15 22:25 Order name: Test, Urine; Complete Time: 00:09 [facility] 03/15 22:25 Order name: Quantitative Hcg; Complete Time: 00:09 [facility] 03/15 22:25 Order name: Urinalysis w/ reflexes; Complete Time: 00:09 [facility] 03/15 22:25 Order name: US Transvaginal Ob [facility] 03/15 22:25 Order name: IV Saline Lock; Complete Time: 22:59 [facility] 03/15 22:25 Order name: Labs collected and sent; Complete Time: 22:59 [facility] 03/15 22: Order name: NPO; Complete Time: 22:59 [facility] Administered Medications: 03/15 22:45 Drug: NS 0.9% IV 1000 ml IV at 1 bolus Per protocol; 1000 mL bolus Route: IV; Rate: 1 ha1 bolus; Site: left antecubital; 03/16 00:31 Follow up: Response: No adverse reaction; IV Status: Completed infusion; IV Intake: ha1 1000ml 03/15 23:00 Not Given (Patient Refused): ondansetron 4 mg IVP once; over 2 minutes [facility] 03/16 00:15 Drug: Potassium PO Effervescent Tablet 25 mEq PO once; dissolve in 4 ounces of water or ha1 juice Route: PO; 00:31 Follow up: Response: No adverse reaction 1 00:15 Drug: Rocephin IV 1 grams IV at per protocol once; Given slow IV push per pharmacy ha1 instructions Route: IV; Rate: per protocol; Site: left antecubital; 00:31 Follow up: Response: No adverse reaction; IV Status: Completed infusion; IV Intake: [id number] Disposition Summary: 03/16/24 00:06 Discharge Ordered Notes: Location: Home elyse Problem: new elyse Symptoms: have improved elyse Condition: Stable elyse Diagnosis - Mild hyperemesis gravidarum elyse - Less than 8 weeks gestation of - 5 WEEKS 6 DAYS, VIABLE elyse - Hypokalemia elyse - UTI/ Urinary tract infection, site not specified elyse Followup: elyse - With: Private Physician - When: 2 - 3 days - Reason: Recheck today's complaints, Continuance of care, Re-evaluation by your physician Discharge Instructions: - Discharge Summary Sheet elyse - Potassium Content of Foods elyse - Hyperemesis Gravidarum elyse - Morning Sickness, [id number] elyse - Care elyse - Urinary Tract Infection, Adult elyse - Morning Sickness elyse - First Trimester of , [id number]-[id number] elyse - First Trimester of elyse - and Urinary Tract Infection [facility] - Eating Plan for Women [facility] Forms: - Medication Reconciliation Form [facility] - Antibiotic Education elyse - Prescription Opioid Use elyse - Patient Portal Instructions [facility] - Leadership Thank You Letter [facility] Prescriptions: - Diclegis 10-10 mg Oral tablet, delayed release (enteric coated) - take 1 tablet ORAL route 3 times per day PRN NAUSEA, VOMITING; 60 tablet; elyse Refills: 0, Product Selection Permitted - ondansetron 4 mg Oral Tablet,disintegrating - take 1 tablet ORAL route every 6-8 hours as needed for nausea and vomiting; 20 elyse tablet; Refills: 0, Product Selection Permitted - cefdinir 300 mg Oral capsule - take 1 capsule ORAL route 2 times per day; 10 capsule; Refills: 0, Product elyse Selection Permitted 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 EDMS EDMS 22:25 22:25 BASIC METABOLIC PANEL+C.LAB.BRZ ordered. EDMS EDMS 22:25 22:25 CBC+H.LAB.BRZ ordered. EDMS EDMS 22:25 22:25 Test, Urine+UC.LAB.BRZ ordered. EDMS EDMS 22:25 22:25 QUANTITATIVE HCG+C.LAB.BRZ ordered. EDMS EDMS 22:25 22:25 Urinalysis+U.LAB.BRZ ordered. EDMS EDMS 22:25 22:25 Transvaginal Ob+US.RAD.BRZ ordered. EDMS EDMS 03/16 00:10 00:10 Urine Culture+BA.LAB.BRZ ordered. EDMS EDMS
[2024-03-16] MEDS ORDERED: CEFTRIAXONE 1000 MG/VIAL ONE (00:16)
[2024-03-16] MEDS ORDERED: POTASSIUM 25 MEQ EFFERV TAB ONE (00:16)
[2024-03-16 00:47] VITALS: BP 125/74; TEMP 97.9; O2SAT 100
--- NOTE | 2024-03-16 10:19 | RAD REPORT ---
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 TECHNIQUE: Transvaginal images of the pelvis obtained. FINDINGS: Uterus: Measures 7.1 x 5.4 x 6.1 cm. No myometrial mass. Gestational sac/Yolk sac/ pole: Single live intrauterine is identified with gestationa l sac containing small yolk sac and pole. Hercules-rump length of 0.3 cm, compatible with estimate d gestational age of 5 weeks and 6 days. heart motion: 144 bpm Right ovary: Measures 3.5 x 1.2 x 2.0 cm. No suspicious sonographic abnormality. Left ovary: Measures 2.6 x 1.4 x 1.6 cm. No suspicious sonographic abnormality. Adnexa: No additional abnormality. Free fluid: None identified. IMPRESSION: Single live intrauterine with estimated gestational age of 5 weeks and 6 days. Electronically signed by: Iesha Sarabia MD 03/15/2024 11:41 PM CDT Due to temporary technical issues with the PACS/Fluency reporting system, reports are being signed by the in house radiologist without review as a courtesy to ensure prompt reporting. The interpreting r adiologist is fully responsible for the content of the report.
== END 2024-03-16 00:32 | disposition home or self-care (01) ==
LOC: ER 22:17
DX: O21.1 Hyperemesis gravidarum with metabolic disturbance (principal); O23.41 Unspecified infection of urinary tract in pregnancy, first trimester; N39.0 Urinary tract infection, site not specified; Z3A.01 Less than 8 weeks gestation of pregnancy
CPT/HCPCS: 36415; 76817; 80048; 81001; 81025; 84702; 85025; 86900; 86901; 96361; 96365; 99284; J0696; J2405; J7030

== ENCOUNTER 2024-03-23 23:56 | Emergency (ER) | payer OTHER ==
--- OUTSIDE RECORDS SUMMARY | 2024-03-24 00:10 | XMS REPORT | Continuity of Care Document ---
Author Name Unknown Address [address] [facility] [place] [address] [facility] [address] [facility] [address] [place] [address] Care Team Providers Care Corn Lab Technician Name Role Phone WURNGUYEN Primary Care Physician Unavailab Pam Owusu Attending Clinician Unavailable JAREN ARTHUR Attending Clinician Unavailable JAREN ARTHUR Attending Clinician Unavailable ARABELLA ROSA Attending Clinician Unavailable ARABELLA ROSA Attending Clinician Unavailable ARABELLA MAS Attending Clinician Unavailable Arabella Mas NP Attending Clinician Sandra Navarro Attending Clinician Unavailable Christianne Eckert MD Attending Clinician Doctor Unassigned, Buhl Attending Clinician U navailCHRISTIANNE Reilly Attending Clinician Unavailable TG SAWANT Attending Clinician Unava ilable NASH RODRÍGUEZ Attending Clinician Unavailable TAMMY ARMENTA Attending Clinician Unavailable TAMMY ARMENTA Attending Clinician Unavailable Pob, Adc Lab Main Attending Clinician UnavailNguyen Orozco MD Attending Clinician NGUYEN CABRERA Attending Clinician Unavailable Draw, Clc-Bls Lab Attending Clinician UnavailDEVIKA Mata Attending Clinician UnavailDevika Reinoso Attending Clinician Unknown, Attending Attending Clinician Unavailab shyla Nurse, Adc Pob Immunization Attending Clinician Unavailable Mo Ramsey DO Attending Clinician [phone] MO RAMSEY Attending Clinician Unavail able MATEUS ALCANTAR Attending Clinician Unavailable Chely Torre DO Attending Clinician ARABELLA MAS Admitting Clinician Unavailable Pam Ferrer Admitting Clinician Unavailable Payers Payer Name Policy Type Policy Number Effective Date Expirati on Date Source [facility] [id number] 2024 00:00:00 MEDICAID PENDING PENDING 2024 00:00:00 Problems Condition Name Condition Details Condition Category Status Onset Date Resolution Date Last Treatment Date Treating Clinician Comments Source Threatened Threatened Disease Active 03-18 00:00: 00 [facility] Single in first trimester Single in first trimester Disease Active 03-18 00:00: 00 [facility] Hematuria of undiagnose d cause Hematuria of undiagnose d cause Disease Active 03-18 00:00: 00 [facility] Vaginal spotting Vaginal spotting Disease Active 03-18 00:00: 00 [facility] Passive smoke exposure Passive smoke exposure Disease Active 2012-07 00:00: 00 [facility] Periumbili wan abdominal pain Periumbili wan abdominal pain Disease Resolve d 2012-07 00:00: 00 2015-03-11 00:00:00 2022-02-08 00:26:50 [facility] Allergies, Adverse Reactions, Alerts Allergy Name Allergy Type Status Severity Reaction(s) Onset Date Inactive Date Treating Clinician Comments Source PROMETHRoro ZIMATTI DRUG INGREDI Active High Other-Cmnt 03-18 00:00: 00 [facility] Julio Ugalde ty to adverse reaction s Active Other - See comments 03-18 00:00: 00 [facility] No Known Allergie s DA Active U 11-04 00:00: 00 [facility] NO KNOWN ALLERGIE S Drug Class Active [facility] Social History Social Habit Start Date Stop Date Quantity Comments Source History SDOH Social Connections Membership [facility] History SDOH Housing Places Lived [facility] of [facility] Sex Assigned At [facility] Alcoholic beverage intake 2024-03-18 00:00:00 2024-03-18 00:00:00 Current non-drinker of alcohol (finding) [facility] Alcohol intake 2023-09-01 00:00:00 2023-09-01 00:00:00 Current non-drinker of alcohol (finding) [facility] Exposure to SARS-CoV-2 (event) 2022-12-13 00:00:00 2022-12-23 09:58:00 Not sure [facility] History SDOH Alcohol Frequency 2022-12-23 00:00:00 2022-12-23 00:00:00 1 [facility] History SDOH Alcohol Std Drinks 2022-12-23 00:00:00 2022-12-23 00:00:00 0 [facility] History SDOH Alcohol Binge 2022-12-23 00:00:00 2022-12-23 00:00:00 1 [facility] History SDOH Social Connections Phone 2022-12-23 00:00:00 2022-12-23 00:00:00 5 [facility] History SDOH Social Connections Get Together 2022-12-23 00:00:00 2022-12-23 00:00:00 5 [facility] History SDOH Social Connections Holiness 2022-12-23 00:00:00 2022-12-23 00:00:00 1 [facility] History SDOH Social Connections Meetings 2022-12-23 00:00:00 2022-12-23 00:00:00 2 [facility] History SDOH Social Connections Living 2022-12-23 00:00:00 2022-12-23 00:00:00 7 [facility] History SDOH Housing Unable to Pay 2022-12-23 00:00:00 2022-12-23 00:00:00 2 [facility] History SDOH Housing Homeless Last Year 2022-12-23 00:00:00 2022-12-23 00:00:00 2 [facility] Tobacco use and exposure 2022-07-05 00:00:00 2022-07-05 00:00:00 Smokeless tobacco non-user [facility] Tobacco Comment 2022-07-05 00:00:00 2022-07-05 00:00:00 Dad smokes outside only [facility] History of Social function 2019-02-02 00:00:00 2019-02-02 00:00:00 [facility] Smoking Status Start Date Stop Date Source Never smoked tobacco [facility] Medications Ordered Medication Name Filled Medication Name Start Date Stop Date Current Medication? Ordering Clinician Indication Dosage Frequency Signature (SIG) Comments Components Source ondansetron 4 mg disintegrat ing tablet 03-18 00:00: 00 Yes [id number] 4mg Take 1 tablet by mouth every 8 (eight) hours as needed for Nausea and Vomiting (N/V). [facility] meclizine 25 mg tablet 09-01 00:00: 00 03-18 00:00 :00 No [id number] 25mg Take 1 tablet by mouth 3 (three) times daily as needed for Dizziness. [facility] sulfamethox azole-trime thoprim (BACTRIM DS) 800-160 mg per tablet 2021-07 00:00: 00 07-13 05:59 :00 No [id number] 1{tbl} Take 1 tablet by mouth 2 (two) times daily for 7 days. [facility] amoxicillin 500 mg capsule 2021-07 2- 00:00: 00 12-23 00:00 :00 No TAKE 1 CAPSULE BY MOUTH EVERY 8 HOURS FOR 7 DAYS [facility] ibuprofen 800 mg tablet 2021-08-28 00:00: 00 12-23 00:00 :00 No TAKE 1 TABLET BY MOUTH EVERY 8 HOURS FOR PAIN [facility] No Known Medications No Known Medications No [facility] No known medications No Un y[facility] No known medications No Un yvonne [facility] Immunizations Ordered Immunization Name Filled Immunization Name Date Status Comments Source SARS-COV-2 COVID-19 PFIZER VACCINE 2021-03-28 00:00:00 Completed [facility] SARS-COV-2 COVID-19 PFIZER VACCINE 2021-03-28 00:00:00 Completed [facility] SARS-COV-2 COVID-19 PFIZER VACCINE 2021-03-28 00:00:00 Completed [facility] SARS-COV-2 COVID-19 PFIZER VACCINE 2021-03-28 00:00:00 Completed [facility] SARS-COV-2 COVID-19 PFIZER VACCINE 2021-03-28 00:00:00 Completed [facility] SARS-COV-2 COVID-19 PFIZER VACCINE 2021-03-28 00:00:00 Completed [facility] SARS-COV-2 COVID-19 PFIZER VACCINE 2021-03-28 00:00:00 Completed [facility] SARS-COV-2 COVID-19 PFIZER VACCINE 2021-03-28 00:00:00 Completed [facility] SARS-COV-2 COVID-19 PFIZER VACCINE 2021-03-28 00:00:00 Completed [facility] SARS-COV-2 COVID-19 PFIZER VACCINE 2020-11-16 00:00:00 Completed [facility] SARS-COV-2 COVID-19 PFIZER VACCINE 2020-11-16 00:00:00 Completed [facility] SARS-COV-2 COVID-19 PFIZER VACCINE 2020-11-16 00:00:00 Completed [facility] SARS-COV-2 COVID-19 PFIZER VACCINE 2020-11-16 00:00:00 Completed [facility] SARS-COV-2 COVID-19 PFIZER VACCINE 2020-11-16 00:00:00 Completed [facility] SARS-COV-2 COVID-19 PFIZER VACCINE 2020-11-16 00:00:00 Completed [facility] SARS-COV-2 COVID-19 PFIZER VACCINE 2020-11-16 00:00:00 Completed [facility] SARS-COV-2 COVID-19 PFIZER VACCINE 2020-11-16 00:00:00 Completed [facility] SARS-COV-2 COVID-19 PFIZER VACCINE 2020-11-16 00:00:00 Completed [facility] Meningococcal Vaccine 2018-03-16 00:00:00 Completed [facility] Meningococcal Vaccine 2018-03-16 00:00:00 Completed [facility] Meningococcal Vaccine 2018-03-16 00:00:00 Completed [facility] Meningococcal Polysaccharide (groups A, C, Y and W-135) conjugate vaccine (MCV4P) 2018-03-16 00:00:00 Completed [facility] Meningococcal Vaccine 2018-03-16 00:00:00 Completed [facility] Meningococcal Polysaccharide (groups A, C, Y and W-135) conjugate vaccine (MCV4P) 2018-03-16 00:00:00 Completed [facility] Meningococcal Vaccine 2018-03-16 00:00:00 Completed [facility] Meningococcal Polysaccharide (groups A, C, Y and W-135) conjugate vaccine (MCV4P) 2018-03-16 00:00:00 Completed [facility] Meningococcal Vaccine 2018-03-16 00:00:00 Completed [facility] Meningococcal Polysaccharide (groups A, C, Y and W-135) conjugate vaccine (MCV4P) 2018-03-16 00:00:00 Completed [facility] Meningococcal Vaccine 2018-03-16 00:00:00 Completed [facility] Meningococcal Polysaccharide (groups A, C, Y and W-135) conjugate vaccine (MCV4P) 2018-03-16 00:00:00 Completed [facility] Meningococcal Vaccine 2018-03-16 00:00:00 Completed [facility] Meningococcal Polysaccharide (groups A, C, Y and W-135) conjugate vaccine (MCV4P) 2018-03-16 00:00:00 Completed [facility] Meningococcal Vaccine 2018-03-16 00:00:00 Completed [facility] Meningococcal Polysaccharide (groups A, C, Y and W-135) conjugate vaccine (MCV4P) 2018-03-16 00:00:00 Completed [facility] Meningococcal Vaccine 2018-03-16 00:00:00 Completed [facility] Influenza Virus Vaccine Nasal 2013-05-01 00:00:00 Completed [facility] Meningococcal Polysaccharide (groups A, C, Y and W-135) conjugate vaccine (MCV4P) 2013-05-01 00:00:00 Completed [facility] TDAP 2013-05-01 00:00:00 Completed [facility] Influenza Virus Vaccine Nasal 2013-05-01 00:00:00 Completed [facility] Meningococcal Polysaccharide (groups A, C, Y and W-135) conjugate vaccine (MCV4P) 2013-05-01 00:00:00 Completed [facility] TDAP 2013-05-01 00:00:00 Completed [facility] Influenza Virus Vaccine Nasal 2013-05-01 00:00:00 Completed [facility] Meningococcal Polysaccharide (groups A, C, Y and W-135) conjugate vaccine (MCV4P) 2013-05-01 00:00:00 Completed [facility] TDAP 2013-05-01 00:00:00 Completed [facility] Influenza Virus Vaccine Nasal 2013-05-01 00:00:00 Completed [facility] Meningococcal Polysaccharide (groups A, C, Y and W-135) conjugate vaccine (MCV4P) 2013-05-01 00:00:00 Completed [facility] TDAP 2013-05-01 00:00:00 Completed [facility] Influenza Virus Vaccine Nasal 2013-05-01 00:00:00 Completed [facility] Meningococcal Polysaccharide (groups A, C, Y and W-135) conjugate vaccine (MCV4P) 2013-05-01 00:00:00 Completed [facility] TDAP 2013-05-01 00:00:00 Completed [facility] Influenza Virus Vaccine Nasal 2013-05-01 00:00:00 Completed [facility] Meningococcal Polysaccharide (groups A, C, Y and W-135) conjugate vaccine (MCV4P) 2013-05-01 00:00:00 Completed [facility] TDAP 2013-05-01 00:00:00 Completed [facility] Influenza Virus Vaccine Nasal 2013-05-01 00:00:00 Completed [facility] Meningococcal Polysaccharide (groups A, C, Y and W-135) conjugate vaccine (MCV4P) 2013-05-01 00:00:00 Completed [facility] TDAP 2013-05-01 00:00:00 Completed [facility] Influenza Virus Vaccine Nasal 2013-05-01 00:00:00 Completed [facility] Meningococcal Polysaccharide (groups A, C, Y and W-135) conjugate vaccine (MCV4P) 2013-05-01 00:00:00 Completed [facility] TDAP 2013-05-01 00:00:00 Completed [facility] Influenza Virus Vaccine Nasal 2013-05-01 00:00:00 Completed [facility] Meningococcal Polysaccharide (groups A, C, Y and W-135) conjugate vaccine (MCV4P) 2013-05-01 00:00:00 Completed [facility] TDAP 2013-05-01 00:00:00 Completed [facility] Influenza Virus Vaccine Nasal 2013-05-01 00:00:00 Completed [facility] Meningococcal Polysaccharide (groups A, C, Y and W-135) conjugate vaccine (MCV4P) 2013-05-01 00:00:00 Completed [facility] TDAP 2013-05-01 00:00:00 Completed [facility] HPV 2012-11-17 00:00:00 Completed [facility] HPV 2012-11-17 00:00:00 Completed [facility] HPV 2012-11-17 00:00:00 Completed [facility] HPV 2012-11-17 00:00:00 Completed [facility] HPV 2012-11-17 00:00:00 Completed [facility] HPV 2012-11-17 00:00:00 Completed [facility] HPV 2012-11-17 00:00:00 Completed [facility] HPV 2012-11-17 00:00:00 Completed [facility] HPV 2012-11-17 00:00:00 Completed [facility] HPV 2012-11-17 00:00:00 Completed [facility] HPV 2012-07-21 00:00:00 Completed [facility] HPV 2012-07-21 00:00:00 Completed [facility] HPV 2012-05-18 00:00:00 Completed [facility] Influenza Virus Vaccine 2012-05-18 00:00:00 Completed [facility] HPV 2012-05-18 00:00:00 Completed [facility] Influenza Virus Vaccine 2012-05-18 00:00:00 Completed [facility] HPV 2012-05-18 00:00:00 Completed [facility] Influenza Virus Vaccine 2012-05-18 00:00:00 Completed [facility] Influenza Virus Vaccine Nasal 2012-05-18 00:00:00 Completed [facility] HPV 2012-05-18 00:00:00 Completed [facility] Influenza Virus Vaccine 2012-05-18 00:00:00 Completed [facility] Influenza Virus Vaccine Nasal 2012-05-18 00:00:00 Completed [facility] HPV 2012-05-18 00:00:00 Completed [facility] Influenza Virus Vaccine 2012-05-18 00:00:00 Completed [facility] Influenza Virus Vaccine Nasal 2012-05-18 00:00:00 Completed [facility] HPV 2012-05-18 00:00:00 Completed [facility] Influenza Virus Vaccine 2012-05-18 00:00:00 Completed [facility] Influenza Virus Vaccine Nasal 2012-05-18 00:00:00 Completed [facility] HPV 2012-05-18 00:00:00 Completed [facility] Influenza Virus Vaccine 2012-05-18 00:00:00 Completed [facility] Influenza Virus Vaccine Nasal 2012-05-18 00:00:00 Completed [facility] HPV 2012-05-18 00:00:00 Completed [facility] Influenza Virus Vaccine 2012-05-18 00:00:00 Completed [facility] Influenza Virus Vaccine Nasal 2012-05-18 00:00:00 Completed [facility] HPV 2012-05-18 00:00:00 Completed [facility] HPV 2012-05-18 00:00:00 Completed [facility] Influenza Virus Vaccine 2012-05-18 00:00:00 Completed [facility] Influenza Virus Vaccine 2012-05-18 00:00:00 Completed [facility] Influenza Virus Vaccine Nasal 2012-05-18 00:00:00 Completed [facility] Influenza Virus Vaccine 2011-04-28 00:00:00 Completed [facility] Influenza Virus Vaccine 2011-04-28 00:00:00 Completed [facility] Influenza Virus Vaccine 2011-04-28 00:00:00 Completed [facility] Influenza Virus Vaccine Nasal 2011-04-28 00:00:00 Completed [facility] Influenza Virus Vaccine 2011-04-28 00:00:00 Completed [facility] Influenza Virus Vaccine Nasal 2011-04-28 00:00:00 Completed [facility] Influenza Virus Vaccine 2011-04-28 00:00:00 Completed [facility] Influenza Virus Vaccine Nasal 2011-04-28 00:00:00 Completed [facility] Influenza Virus Vaccine 2011-04-28 00:00:00 Completed [facility] Influenza Virus Vaccine Nasal 2011-04-28 00:00:00 Completed [facility] Influenza Virus Vaccine 2011-04-28 00:00:00 Completed [facility] Influenza Virus Vaccine Nasal 2011-04-28 00:00:00 Completed [facility] Influenza Virus Vaccine 2011-04-28 00:00:00 Completed [facility] Influenza Virus Vaccine Nasal 2011-04-28 00:00:00 Completed [facility] Influenza Virus Vaccine 2011-04-28 00:00:00 Completed [facility] Influenza Virus Vaccine 2011-04-28 00:00:00 Completed [facility] Influenza Virus Vaccine Nasal 2011-04-28 00:00:00 Completed [facility] Influenza Virus Vaccine 2010-04-25 00:00:00 Completed [facility] Influenza Virus Vaccine 2010-04-25 00:00:00 Completed [facility] Influenza Virus Vaccine 2010-04-25 00:00:00 Completed [facility] Influenza Virus Vaccine Nasal 2010-04-25 00:00:00 Completed [facility] Influenza Virus Vaccine 2010-04-25 00:00:00 Completed [facility] Influenza Virus Vaccine Nasal 2010-04-25 00:00:00 Completed [facility] Influenza Virus Vaccine 2010-04-25 00:00:00 Completed [facility] Influenza Virus Vaccine Nasal 2010-04-25 00:00:00 Completed [facility] Influenza Virus Vaccine 2010-04-25 00:00:00 Completed [facility] Influenza Virus Vaccine Nasal 2010-04-25 00:00:00 Completed [facility] Influenza Virus Vaccine 2010-04-25 00:00:00 Completed [facility] Influenza Virus Vaccine Nasal 2010-04-25 00:00:00 Completed [facility] Influenza Virus Vaccine 2010-04-25 00:00:00 Completed [facility] Influenza Virus Vaccine Nasal 2010-04-25 00:00:00 Completed [facility] Influenza Virus Vaccine 2010-04-25 00:00:00 Completed [facility] Influenza Virus Vaccine 2010-04-25 00:00:00 Completed [facility] Influenza Virus Vaccine Nasal 2010-04-25 00:00:00 Completed [facility] H1n1 Vaccine 2009-10-25 00:00:00 Completed [facility] H1n1 Vaccine 2009-10-25 00:00:00 Completed [facility] H1n1 Vaccine 2009-10-25 00:00:00 Completed [facility] H1n1 Vaccine 2009-10-25 00:00:00 Completed [facility] H1n1 Vaccine 2009-10-25 00:00:00 Completed [facility] H1n1 Vaccine 2009-10-25 00:00:00 Completed [facility] H1n1 Vaccine 2009-10-25 00:00:00 Completed [facility] H1n1 Vaccine 2009-10-25 00:00:00 Completed [facility] H1n1 Vaccine 2009-10-25 00:00:00 Completed [facility] H1n1 Vaccine 2009-10-25 00:00:00 Completed [facility] H1n1 Vaccine 2009-08-21 00:00:00 Completed [facility] H1n1 Vaccine 2009-08-21 00:00:00 Completed [facility] H1n1 Vaccine 2009-08-21 00:00:00 Completed [facility] H1n1 Vaccine 2009-08-21 00:00:00 Completed [facility] H1n1 Vaccine 2009-08-21 00:00:00 Completed [facility] H1n1 Vaccine 2009-08-21 00:00:00 Completed [facility] H1n1 Vaccine 2009-08-21 00:00:00 Completed [facility] H1n1 Vaccine 2009-08-21 00:00:00 Completed [facility] H1n1 Vaccine 2009-08-21 00:00:00 Completed [facility] H1n1 Vaccine 2009-08-21 00:00:00 Completed [facility] Influenza Virus Vaccine 2008-05-03 00:00:00 Completed [facility] Influenza Virus Vaccine 2008-05-03 00:00:00 Completed [facility] Influenza Virus Vaccine 2008-05-03 00:00:00 Completed [facility] Flu Trivalent 2008-05-03 00:00:00 Completed [facility] Influenza Virus Vaccine 2008-05-03 00:00:00 Completed [facility] Flu Trivalent 2008-05-03 00:00:00 Completed [facility] Influenza Virus Vaccine 2008-05-03 00:00:00 Completed [facility] Flu Trivalent 2008-05-03 00:00:00 Completed [facility] Influenza Virus Vaccine 2008-05-03 00:00:00 Completed [facility] Flu Trivalent 2008-05-03 00:00:00 Completed [facility] Influenza Virus Vaccine 2008-05-03 00:00:00 Completed [facility] Flu Trivalent 2008-05-03 00:00:00 Completed [facility] Influenza Virus Vaccine 2008-05-03 00:00:00 Completed [facility] Flu Trivalent 2008-05-03 00:00:00 Completed [facility] Influenza Virus Vaccine 2008-05-03 00:00:00 Completed [facility] Influenza Virus Vaccine 2008-05-03 00:00:00 Completed [facility] Flu Trivalent 2008-05-03 00:00:00 Completed [facility] Varicella (varivax)(chicken pox) 2008-03-13 00:00:00 Completed [facility] Varicella (varivax)(chicken pox) 2008-03-13 00:00:00 Completed [facility] Varicella (varivax)(chicken pox) 2008-03-13 00:00:00 Completed [facility] Varicella (varivax)(chicken pox) 2008-03-13 00:00:00 Completed [facility] Varicella (varivax)(chicken pox) 2008-03-13 00:00:00 Completed [facility] Varicella (varivax)(chicken pox) 2008-03-13 00:00:00 Completed [facility] Varicella (varivax)(chicken pox) 2008-03-13 00:00:00 Completed [facility] Varicella (varivax)(chicken pox) 2008-03-13 00:00:00 Completed [facility] Varicella (varivax)(chicken pox) 2008-03-13 00:00:00 Completed [facility] Varicella (varivax)(chicken pox) 2008-03-13 00:00:00 Completed [facility] HEPATITIS A 2006-09-17 00:00:00 Completed [facility] HEPATITIS A 2006-09-17 00:00:00 Completed [facility] HEPATITIS A 2006-09-17 00:00:00 Completed [facility] HEPATITIS A 2006-09-17 00:00:00 Completed [facility] HEPATITIS A 2006-09-17 00:00:00 Completed [facility] HEPATITIS A 2006-09-17 00:00:00 Completed [facility] HEPATITIS A 2006-09-17 00:00:00 Completed [facility] HEPATITIS A 2006-09-17 00:00:00 Completed [facility] HEPATITIS A 2006-09-17 00:00:00 Completed [facility] HEPATITIS A 2006-09-17 00:00:00 Completed [facility] DTaP, Unspecified Formulation 2006-03-17 00:00:00 Completed [facility] IPV 2006-03-17 00:00:00 Completed [facility] DTaP, Unspecified Formulation 2006-03-17 00:00:00 Completed [facility] IPV 2006-03-17 00:00:00 Completed [facility] DTaP, Unspecified Formulation 2006-03-17 00:00:00 Completed [facility] IPV 2006-03-17 00:00:00 Completed [facility] DTAP 2006-03-17 00:00:00 Completed [facility] HEPATITIS A 2006-03-17 00:00:00 Completed [facility] MMR 2006-03-17 00:00:00 Completed [facility] Polio (IPV/OPV) 2006-03-17 00:00:00 Completed [facility] DTaP, Unspecified Formulation 2006-03-17 00:00:00 Completed [facility] IPV 2006-03-17 00:00:00 Completed [facility] DTaP, Unspecified Formulation 2006-03-17 00:00:00 Completed [facility] IPV 2006-03-17 00:00:00 Completed [facility] DTaP, Unspecified Formulation 2006-03-17 00:00:00 Completed [facility] IPV 2006-03-17 00:00:00 Completed [facility] DTaP, Unspecified Formulation 2006-03-17 00:00:00 Completed [facility] IPV 2006-03-17 00:00:00 Completed [facility] DTAP 2006-03-17 00:00:00 Completed [facility] HEPATITIS A 2006-03-17 00:00:00 Completed [facility] MMR 2006-03-17 00:00:00 Completed [facility] Polio (IPV/OPV) 2006-03-17 00:00:00 Completed [facility] HEPATITIS A 2005-09-17 00:00:00 Completed [facility] HEPATITIS A 2005-09-17 00:00:00 Completed [facility] HEPATITIS A 2005-09-17 00:00:00 Completed [facility] HEPATITIS A 2005-09-17 00:00:00 Completed [facility] HEPATITIS A 2005-09-17 00:00:00 Completed [facility] HEPATITIS A 2005-09-17 00:00:00 Completed [facility] HEPATITIS A 2005-09-17 00:00:00 Completed [facility] PPD (TB) 2004-06-23 00:00:00 Completed [facility] PPD (TB) 2004-06-23 00:00:00 Completed [facility] PPD (TB) 2004-06-23 00:00:00 Completed [facility] PPD (TB) 2004-06-23 00:00:00 Completed [facility] PPD (TB) 2004-06-23 00:00:00 Completed [facility] PPD (TB) 2004-06-23 00:00:00 Completed [facility] PPD (TB) 2004-06-23 00:00:00 Completed [facility] PPD (TB) 2004-06-23 00:00:00 Completed [facility] PPD (TB) 2004-06-23 00:00:00 Completed [facility] PPD (TB) 2004-06-23 00:00:00 Completed [facility] Pneumococcal 7 Conjugate, PCV7 (Prevnar7) 2003-10-11 00:00:00 Completed [facility] Pneumococcal 7 Conjugate, PCV7 (Prevnar7) 2003-10-11 00:00:00 Completed [facility] Pneumococcal 7 Conjugate, PCV7 (Prevnar7) 2003-10-11 00:00:00 Completed [facility] Pneumococcal 7 Conjugate, PCV7 (Prevnar7) 2003-10-11 00:00:00 Completed [facility] Pneumococcal 7 Conjugate, PCV7 (Prevnar7) 2003-10-11 00:00:00 Completed [facility] Pneumococcal 7 Conjugate, PCV7 (Prevnar7) 2003-10-11 00:00:00 Completed [facility] Pneumococcal 7 Conjugate, PCV7 (Prevnar7) 2003-10-11 00:00:00 Completed [facility] Pneumococcal 7 Conjugate, PCV7 (Prevnar7) 2003-10-11 00:00:00 Completed [facility] Pneumococcal 7 Conjugate, PCV7 (Prevnar7) 2003-10-11 00:00:00 Completed [facility] Pneumococcal 7 Conjugate, PCV7 (Prevnar7) 2003-10-11 00:00:00 Completed [facility] Polio (IPV/OPV) 2003-06-13 00:00:00 Completed [facility] Polio (IPV/OPV) 2003-06-13 00:00:00 Completed [facility] Polio (IPV/OPV) 2003-06-13 00:00:00 Completed [facility] Polio (IPV/OPV) 2003-06-13 00:00:00 Completed [facility] Polio (IPV/OPV) 2003-06-13 00:00:00 Completed [facility] Polio (IPV/OPV) 2003-06-13 00:00:00 Completed [facility] Polio (IPV/OPV) 2003-06-13 00:00:00 Completed [facility] Polio (IPV/OPV) 2003-06-13 00:00:00 Completed [facility] Polio (IPV/OPV) 2003-06-13 00:00:00 Completed [facility] Polio (IPV/OPV) 2003-06-13 00:00:00 Completed [facility] Pneumococcal 7 Conjugate, PCV7 (Prevnar7) 2003-06-04 00:00:00 Completed [facility] DTAP 2003-06-04 00:00:00 Completed [facility] Pneumococcal 7 Conjugate, PCV7 (Prevnar7) 2003-06-04 00:00:00 Completed [facility] DTAP 2003-06-04 00:00:00 Completed [facility] Pneumococcal 7 Conjugate, PCV7 (Prevnar7) 2003-06-04 00:00:00 Completed [facility] DTaP, Unspecified Formulation 2003-06-04 00:00:00 Completed [facility] IPV 2003-06-04 00:00:00 Completed [facility] DTAP 2003-06-04 00:00:00 Completed [facility] Pneumococcal 7 Conjugate, PCV7 (Prevnar7) 2003-06-04 00:00:00 Completed [facility] DTaP, Unspecified Formulation 2003-06-04 00:00:00 Completed [facility] IPV 2003-06-04 00:00:00 Completed [facility] DTAP 2003-06-04 00:00:00 Completed [facility] Pneumococcal 7 Conjugate, PCV7 (Prevnar7) 2003-06-04 00:00:00 Completed [facility] DTaP, Unspecified Formulation 2003-06-04 00:00:00 Completed [facility] IPV 2003-06-04 00:00:00 Completed [facility] DTAP 2003-06-04 00:00:00 Completed [facility] Pneumococcal 7 Conjugate, PCV7 (Prevnar7) 2003-06-04 00:00:00 Completed [facility] DTaP, Unspecified Formulation 2003-06-04 00:00:00 Completed [facility] IPV 2003-06-04 00:00:00 Completed [facility] DTAP 2003-06-04 00:00:00 Completed [facility] DTAP 2003-06-04 00:00:00 Completed [facility] Pneumococcal 7 Conjugate, PCV7 (Prevnar7) 2003-06-04 00:00:00 Completed [facility] DTaP, Unspecified Formulation 2003-06-04 00:00:00 Completed [facility] IPV 2003-06-04 00:00:00 Completed [facility] DTAP 2003-06-04 00:00:00 Completed [facility] Pneumococcal 7 Conjugate, PCV7 (Prevnar7) 2003-06-04 00:00:00 Completed [facility] DTaP, Unspecified Formulation 2003-06-04 00:00:00 Completed [facility] IPV 2003-06-04 00:00:00 Completed [facility] DTAP 2003-06-04 00:00:00 Completed [facility] Pneumococcal 7 Conjugate, PCV7 (Prevnar7) 2003-06-04 00:00:00 Completed [facility] DTaP, Unspecified Formulation 2003-06-04 00:00:00 Completed [facility] IPV 2003-06-04 00:00:00 Completed [facility] Pneumococcal 7 Conjugate, PCV7 (Prevnar7) 2003-06-04 00:00:00 Completed [facility] DTAP 2003-06-04 00:00:00 Completed [facility] HIB 4 Dose Schedule 2003 00:00:00 Completed [facility] MMR 2003 00:00:00 Completed [facility] Pneumococcal 7 Conjugate, PCV7 (Prevnar7) 2003 00:00:00 Completed [facility] Varicella (varivax)(chicken pox) 2003 00:00:00 Completed [facility] HIB 4 Dose Schedule 2003 00:00:00 Completed [facility] MMR 2003 00:00:00 Completed [facility] Pneumococcal 7 Conjugate, PCV7 (Prevnar7) 2003 00:00:00 Completed [facility] Varicella (varivax)(chicken pox) 2003 00:00:00 Completed [facility] HIB 4 Dose Schedule 2003 00:00:00 Completed [facility] MMR 2003 00:00:00 Completed [facility] Pneumococcal 7 Conjugate, PCV7 (Prevnar7) 2003 00:00:00 Completed [facility] Varicella (varivax)(chicken pox) 2003 00:00:00 Completed [facility] Hib-HbOC 2003 00:00:00 Completed [facility] HIB 4 Dose Schedule 2003 00:00:00 Completed [facility] MMR 2003 00:00:00 Completed [facility] Pneumococcal 7 Conjugate, PCV7 (Prevnar7) 2003 00:00:00 Completed [facility] Varicella (varivax)(chicken pox) 2003 00:00:00 Completed [facility] Hib-HbOC 2003 00:00:00 Completed [facility] HIB 4 Dose Schedule 2003 00:00:00 Completed [facility] MMR 2003 00:00:00 Completed [facility] Pneumococcal 7 Conjugate, PCV7 (Prevnar7) 2003 00:00:00 Completed [facility] Varicella (varivax)(chicken pox) 2003 00:00:00 Completed [facility] Hib-HbOC 2003 00:00:00 Completed [facility] HIB 4 Dose Schedule 2003 00:00:00 Completed [facility] MMR 2003 00:00:00 Completed [facility] Pneumococcal 7 Conjugate, PCV7 (Prevnar7) 2003 00:00:00 Completed [facility] Varicella (varivax)(chicken pox) 2003 00:00:00 Completed [facility] Hib-HbOC 2003 00:00:00 Completed [facility] HIB 4 Dose Schedule 2003 00:00:00 Completed [facility] MMR 2003 00:00:00 Completed [facility] Pneumococcal 7 Conjugate, PCV7 (Prevnar7) 2003 00:00:00 Completed [facility] Varicella (varivax)(chicken pox) 2003 00:00:00 Completed [facility] Hib-HbOC 2003 00:00:00 Completed [facility] HIB 4 Dose Schedule 2003 00:00:00 Completed [facility] HIB 4 Dose Schedule 2003 00:00:00 Completed [facility] MMR 2003 00:00:00 Completed [facility] Pneumococcal 7 Conjugate, PCV7 (Prevnar7) 2003 00:00:00 Completed [facility] Varicella (varivax)(chicken pox) 2003 00:00:00 Completed [facility] Hib-HbOC 2003 00:00:00 Completed [facility] HIB 4 Dose Schedule 2003 00:00:00 Completed [facility] MMR 2003 00:00:00 Completed [facility] Pneumococcal 7 Conjugate, PCV7 (Prevnar7) 2003 00:00:00 Completed [facility] Varicella (varivax)(chicken pox) 2003 00:00:00 Completed [facility] Hib-HbOC 2003 00:00:00 Completed [facility] MMR 2003 00:00:00 Completed [facility] Pneumococcal 7 Conjugate, PCV7 (Prevnar7) 2003 00:00:00 Completed [facility] Varicella (varivax)(chicken pox) 2003 00:00:00 Completed [facility] HIB 4 Dose Schedule 2002 00:00:00 Completed [facility] Hep B, Adol or Pedi Dosage 2002 00:00:00 Completed [facility] DTAP 2002 00:00:00 Completed [facility] HIB 4 Dose Schedule 2002 00:00:00 Completed [facility] Hep B, Adol or Pedi Dosage 2002 00:00:00 Completed [facility] DTAP 2002 00:00:00 Completed [facility] HIB 4 Dose Schedule 2002 00:00:00 Completed [facility] Hep B, Adol or Pedi Dosage 2002 00:00:00 Completed [facility] DTaP, Unspecified Formulation 2002 00:00:00 Completed [facility] DTAP 2002 00:00:00 Completed [facility] HIB 4 Dose Schedule 2002 00:00:00 Completed [facility] Hep B, Adol or Pedi Dosage 2002 00:00:00 Completed [facility] DTaP, Unspecified Formulation 2002 00:00:00 Completed [facility] DTAP 2002 00:00:00 Completed [facility] HIB 4 Dose Schedule 2002 00:00:00 Completed [facility] Hep B, Adol or Pedi Dosage 2002 00:00:00 Completed [facility] DTaP, Unspecified Formulation 2002 00:00:00 Completed [facility] DTAP 2002 00:00:00 Completed [facility] HIB 4 Dose Schedule 2002 00:00:00 Completed [facility] Hep B, Adol or Pedi Dosage 2002 00:00:00 Completed [facility] DTaP, Unspecified Formulation 2002 00:00:00 Completed [facility] DTAP 2002 00:00:00 Completed [facility] HIB 4 Dose Schedule 2002 00:00:00 Completed [facility] DTAP 2002 00:00:00 Completed [facility] Hep B, Adol or Pedi Dosage 2002 00:00:00 Completed [facility] DTaP, Unspecified Formulation 2002 00:00:00 Completed [facility] HIB 4 Dose Schedule 2002 00:00:00 Completed [facility] DTAP 2002 00:00:00 Completed [facility] HIB 4 Dose Schedule 2002 00:00:00 Completed [facility] Hep B, Adol or Pedi Dosage 2002 00:00:00 Completed [facility] DTaP, Unspecified Formulation 2002 00:00:00 Completed [facility] Hep B, Adol or Pedi Dosage 2002 00:00:00 Completed [facility] DTAP 2002 00:00:00 Completed [facility] HIB 4 Dose Schedule 2002 00:00:00 Completed [facility] Hep B, Adol or Pedi Dosage 2002 00:00:00 Completed [facility] DTaP, Unspecified Formulation 2002 00:00:00 Completed [facility] DTAP 2002 00:00:00 Completed [facility] HIB 4 Dose Schedule 2002 00:00:00 Completed [facility] Polio (IPV/OPV) 2002 00:00:00 Completed [facility] DTAP 2002 00:00:00 Completed [facility] HIB 4 Dose Schedule 2002 00:00:00 Completed [facility] Polio (IPV/OPV) 2002 00:00:00 Completed [facility] DTAP 2002 00:00:00 Completed [facility] HIB 4 Dose Schedule 2002 00:00:00 Completed [facility] Polio (IPV/OPV) 2002 00:00:00 Completed [facility] DTaP, Unspecified Formulation 2002 00:00:00 Completed [facility] IPV 2002 00:00:00 Completed [facility] DTAP 2002 00:00:00 Completed [facility] HIB 4 Dose Schedule 2002 00:00:00 Completed [facility] Polio (IPV/OPV) 2002 00:00:00 Completed [facility] DTaP, Unspecified Formulation 2002 00:00:00 Completed [facility] IPV 2002 00:00:00 Completed [facility] DTAP 2002 00:00:00 Completed [facility] HIB 4 Dose Schedule 2002 00:00:00 Completed [facility] Polio (IPV/OPV) 2002 00:00:00 Completed [facility] DTaP, Unspecified Formulation 2002 00:00:00 Completed [facility] IPV 2002 00:00:00 Completed [facility] DTAP 2002 00:00:00 Completed [facility] HIB 4 Dose Schedule 2002 00:00:00 Completed [facility] Polio (IPV/OPV) 2002 00:00:00 Completed [facility] DTaP, Unspecified Formulation 2002 00:00:00 Completed [facility] IPV 2002 00:00:00 Completed [facility] DTAP 2002 00:00:00 Completed [facility] DTAP 2002 00:00:00 Completed [facility] HIB 4 Dose Schedule 2002 00:00:00 Completed [facility] Polio (IPV/OPV) 2002 00:00:00 Completed [facility] DTaP, Unspecified Formulation 2002 00:00:00 Completed [facility] HIB 4 Dose Schedule 2002 00:00:00 Completed [facility] IPV 2002 00:00:00 Completed [facility] DTAP 2002 00:00:00 Completed [facility] HIB 4 Dose Schedule 2002 00:00:00 Completed [facility] Polio (IPV/OPV) 2002 00:00:00 Completed [facility] DTaP, Unspecified Formulation 2002 00:00:00 Completed [facility] IPV 2002 00:00:00 Completed [facility] DTAP 2002 00:00:00 Completed [facility] HIB 4 Dose Schedule 2002 00:00:00 Completed [facility] Polio (IPV/OPV) 2002 00:00:00 Completed [facility] DTaP, Unspecified Formulation 2002 00:00:00 Completed [facility] IPV 2002 00:00:00 Completed [facility] Polio (IPV/OPV) 2002 00:00:00 Completed [facility] DTAP 2002 00:00:00 Completed [facility] Hep B, Adol or Pedi Dosage 2002 00:00:00 Completed [facility] Polio (IPV/OPV) 2002 00:00:00 Completed [facility] DTAP 2002 00:00:00 Completed [facility] HIB 4 Dose Schedule 2002 00:00:00 Completed [facility] Hep B, Adol or Pedi Dosage 2002 00:00:00 Completed [facility] Polio (IPV/OPV) 2002 00:00:00 Completed [facility] DTAP 2002 00:00:00 Completed [facility] HIB 4 Dose Schedule 2002 00:00:00 Completed [facility] Hep B, Adol or Pedi Dosage 2002 00:00:00 Completed [facility] Polio (IPV/OPV) 2002 00:00:00 Completed [facility] DTaP, Unspecified Formulation 2002 00:00:00 Completed [facility] IPV 2002 00:00:00 Completed [facility] DTAP 2002 00:00:00 Completed [facility] HIB 4 Dose Schedule 2002 00:00:00 Completed [facility] Hep B, Adol or Pedi Dosage 2002 00:00:00 Completed [facility] Polio (IPV/OPV) 2002 00:00:00 Completed [facility] DTaP, Unspecified Formulation 2002 00:00:00 Completed [facility] IPV 2002 00:00:00 Completed [facility] DTAP 2002 00:00:00 Completed [facility] HIB 4 Dose Schedule 2002 00:00:00 Completed [facility] Hep B, Adol or Pedi Dosage 2002 00:00:00 Completed [facility] Polio (IPV/OPV) 2002 00:00:00 Completed [facility] DTaP, Unspecified Formulation 2002 00:00:00 Completed [facility] IPV 2002 00:00:00 Completed [facility] DTAP 2002 00:00:00 Completed [facility] HIB 4 Dose Schedule 2002 00:00:00 Completed [facility] Hep B, Adol or Pedi Dosage 2002 00:00:00 Completed [facility] Polio (IPV/OPV) 2002 00:00:00 Completed [facility] DTaP, Unspecified Formulation 2002 00:00:00 Completed [facility] DTAP 2002 00:00:00 Completed [facility] IPV 2002 00:00:00 Completed [facility] DTAP 2002 00:00:00 Completed [facility] HIB 4 Dose Schedule 2002 00:00:00 Completed [facility] Hep B, Adol or Pedi Dosage 2002 00:00:00 Completed [facility] Polio (IPV/OPV) 2002 00:00:00 Completed [facility] HIB 4 Dose Schedule 2002 00:00:00 Completed [facility] DTaP, Unspecified Formulation 2002 00:00:00 Completed [facility] IPV 2002 00:00:00 Completed [facility] DTAP 2002 00:00:00 Completed [facility] HIB 4 Dose Schedule 2002 00:00:00 Completed [facility] Hep B, Adol or Pedi Dosage 2002 00:00:00 Completed [facility] Polio (IPV/OPV) 2002 00:00:00 Completed [facility] Hep B, Adol or Pedi Dosage 2002 00:00:00 Completed [facility] DTaP, Unspecified Formulation 2002 00:00:00 Completed [facility] IPV 2002 00:00:00 Completed [facility] DTAP 2002 00:00:00 Completed [facility] HIB 4 Dose Schedule 2002 00:00:00 Completed [facility] Hep B, Adol or Pedi Dosage 2002 00:00:00 Completed [facility] Polio (IPV/OPV) 2002 00:00:00 Completed [facility] DTaP, Unspecified Formulation 2002 00:00:00 Completed [facility] IPV 2002 00:00:00 Completed [facility] Polio (IPV/OPV) 2002 00:00:00 Completed [facility] DTAP 2002 00:00:00 Completed [facility] HIB 4 Dose Schedule 2002 00:00:00 Completed [facility] Hep B, Adol or Pedi Dosage 2002 00:00:00 Completed [facility] Hep B, Adol or Pedi Dosage 2002 00:00:00 Completed [facility] Hep B, Adol or Pedi Dosage 2002 00:00:00 Completed [facility] Hep B, Adol or Pedi Dosage 2002 00:00:00 Completed [facility] Hep B, Adol or Pedi Dosage 2002 00:00:00 Completed [facility] Hep B, Adol or Pedi Dosage 2002 00:00:00 Completed [facility] Hep B, Adol or Pedi Dosage 2002 00:00:00 Completed [facility] Hep B, Adol or Pedi Dosage 2002 00:00:00 Completed [facility] Hep B, Adol or Pedi Dosage 2002 00:00:00 Completed [facility] Hep B, Adol or Pedi Dosage 2002 00:00:00 Completed [facility] SARS-COV-2 COVID-19 PFIZER VACCINE Unknown Completed [facility] DTaP, Unspecified Formulation Unknown Completed [facility] DTaP, Unspecified Formulation Unknown Completed [facility] DTaP, Unspecified Formulation Unknown Completed [facility] DTaP, Unspecified Formulation Unknown Completed [facility] DTaP, Unspecified Formulation Unknown Completed [facility] Flu Trivalent Unknown Completed [facility] Influenza Virus Vaccine Nasal Unknown Completed [facility] Influenza Virus Vaccine Nasal Unknown Completed [facility] Influenza Virus Vaccine Nasal Unknown Completed [facility] HEPATITIS A Unknown Completed [facility] Hib-HbOC Unknown Completed [facility] Meningococcal Polysaccharide (groups A, C, Y and W-135) conjugate vaccine (MCV4P) Unknown Completed [facility] IPV Unknown Completed [facility] IPV Unknown Completed [facility] IPV Unknown Completed [facility] IPV Unknown Completed [facility] DTAP Unknown Completed [facility] DTAP Unknown Completed [facility] DTAP Unknown Completed [facility] DTAP Unknown Completed [facility] HIB 4 Dose Schedule Unknown Completed [facility] HIB 4 Dose Schedule Unknown Completed [facility] HIB 4 Dose Schedule Unknown Completed [facility] HIB 4 Dose Schedule Unknown Completed [facility] HEPATITIS A Unknown Completed [facility] Hep B, Adol or Pedi Dosage Unknown Completed [facility] Hep B, Adol or Pedi Dosage Unknown Completed [facility] Hep B, Adol or Pedi Dosage Unknown Completed [facility] HPV Unknown Completed [facility] HPV Unknown Completed [facility] Influenza Virus Vaccine Unknown Completed [facility] Influenza Virus Vaccine Unknown Completed [facility] Influenza Virus Vaccine Unknown Completed [facility] Influenza Virus Vaccine Unknown Completed [facility] H1n1 Vaccine Unknown Completed [facility] H1n1 Vaccine Unknown Completed [facility] MMR Unknown Completed [facility] Pneumococcal 7 Conjugate, PCV7 (Prevnar7) Unknown Completed [facility] Pneumococcal 7 Conjugate, PCV7 (Prevnar7) Unknown Completed [facility] Pneumococcal 7 Conjugate, PCV7 (Prevnar7) Unknown Completed [facility] Polio (IPV/OPV) Unknown Completed [facility] Polio (IPV/OPV) Unknown Completed [facility] Polio (IPV/OPV) Unknown Completed [facility] PPD (TB) Unknown Completed [facility] Varicella (varivax)(chicken pox) Unknown Completed [facility] Varicella (varivax)(chicken pox) Unknown Completed [facility] Influenza Virus Vaccine Nasal Unknown Completed [facility] Meningococcal Polysaccharide (groups A, C, Y and W-135) conjugate vaccine (MCV4P) Unknown Completed [facility] TDAP Unknown Completed [facility] Meningococcal Vaccine Unknown Completed [facility] SARS-COV-2 COVID-19 PFIZER VACCINE Unknown Completed [facility] SARS-COV-2 COVID-19 PFIZER VACCINE Unknown Completed [facility] DTaP, Unspecified Formulation Unknown Completed [facility] DTaP, Unspecified Formulation Unknown Completed [facility] DTaP, Unspecified Formulation Unknown Completed [facility] DTaP, Unspecified Formulation Unknown Completed [facility] DTaP, Unspecified Formulation Unknown Completed [facility] Flu Trivalent Unknown Completed [facility] Influenza Virus Vaccine Nasal Unknown Completed [facility] Influenza Virus Vaccine Nasal Unknown Completed [facility] Influenza Virus Vaccine Nasal Unknown Completed [facility] HEPATITIS A Unknown Completed [facility] Hib-HbOC Unknown Completed [facility] Meningococcal Polysaccharide (groups A, C, Y and W-135) conjugate vaccine (MCV4P) Unknown Completed [facility] IPV Unknown Completed [facility] IPV Unknown Completed [facility] IPV Unknown Completed [facility] IPV Unknown Completed [facility] DTAP Unknown Completed [facility] DTAP Unknown Completed [facility] DTAP Unknown Completed [facility] DTAP Unknown Completed [facility] HIB 4 Dose Schedule Unknown Completed [facility] HIB 4 Dose Schedule Unknown Completed [facility] HIB 4 Dose Schedule Unknown Completed [facility] HIB 4 Dose Schedule Unknown Completed [facility] HEPATITIS A Unknown Completed [facility] Hep B, Adol or Pedi Dosage Unknown Completed [facility] Hep B, Adol or Pedi Dosage Unknown Completed [facility] Hep B, Adol or Pedi Dosage Unknown Completed [facility] HPV Unknown Completed [facility] HPV Unknown Completed [facility] Influenza Virus Vaccine Unknown Completed [facility] Influenza Virus Vaccine Unknown Completed [facility] Influenza Virus Vaccine Unknown Completed [facility] Influenza Virus Vaccine Unknown Completed [facility] H1n1 Vaccine Unknown Completed [facility] H1n1 Vaccine Unknown Completed [facility] MMR Unknown Completed [facility] Pneumococcal 7 Conjugate, PCV7 (Prevnar7) Unknown Completed [facility] Pneumococcal 7 Conjugate, PCV7 (Prevnar7) Unknown Completed [facility] Pneumococcal 7 Conjugate, PCV7 (Prevnar7) Unknown Completed [facility] Polio (IPV/OPV) Unknown Completed [facility] Polio (IPV/OPV) Unknown Completed [facility] Polio (IPV/OPV) Unknown Completed [facility] PPD (TB) Unknown Completed [facility] Varicella (varivax)(chicken pox) Unknown Completed [facility] Varicella (varivax)(chicken pox) Unknown Completed [facility] Influenza Virus Vaccine Nasal Unknown Completed [facility] Meningococcal Polysaccharide (groups A, C, Y and W-135) conjugate vaccine (MCV4P) Unknown Completed [facility] TDAP Unknown Completed [facility] Meningococcal Vaccine Unknown Completed [facility] SARS-COV-2 COVID-19 PFIZER VACCINE Unknown Completed [facility] SARS-COV-2 COVID-19 PFIZER VACCINE Unknown Completed [facility] DTaP, Unspecified Formulation Unknown Completed [facility] DTaP, Unspecified Formulation Unknown Completed [facility] DTaP, Unspecified Formulation Unknown Completed [facility] DTaP, Unspecified Formulation Unknown Completed [facility] DTaP, Unspecified Formulation Unknown Completed [facility] Flu Trivalent Unknown Completed [facility] Influenza Virus Vaccine Nasal Unknown Completed [facility] Influenza Virus Vaccine Nasal Unknown Completed [facility] Influenza Virus Vaccine Nasal Unknown Completed [facility] HEPATITIS A Unknown Completed [facility] Hib-HbOC Unknown Completed [facility] Meningococcal Polysaccharide (groups A, C, Y and W-135) conjugate vaccine (MCV4P) Unknown Completed [facility] IPV Unknown Completed [facility] IPV Unknown Completed [facility] IPV Unknown Completed [facility] IPV Unknown Completed [facility] DTAP Unknown Completed [facility] HEPATITIS A Unknown Completed [facility] MMR Unknown Completed [facility] Polio (IPV/OPV) Unknown Completed [facility] HPV Unknown Completed [facility] DTAP Unknown Completed [facility] DTAP Unknown Completed [facility] DTAP Unknown Completed [facility] DTAP Unknown Completed [facility] HIB 4 Dose Schedule Unknown Completed [facility] HIB 4 Dose Schedule Unknown Completed [facility] HIB 4 Dose Schedule Unknown Completed [facility] HIB 4 Dose Schedule Unknown Completed [facility] HEPATITIS A Unknown Completed [facility] Hep B, Adol or Pedi Dosage Unknown Completed [facility] Hep B, Adol or Pedi Dosage Unknown Completed [facility] Hep B, Adol or Pedi Dosage Unknown Completed [facility] HPV Unknown Completed [facility] HPV Unknown Completed [facility] Influenza Virus Vaccine Unknown Completed [facility] Influenza Virus Vaccine Unknown Completed [facility] Influenza Virus Vaccine Unknown Completed [facility] Influenza Virus Vaccine Unknown Completed [facility] H1n1 Vaccine Unknown Completed [facility] H1n1 Vaccine Unknown Completed [facility] MMR Unknown Completed [facility] Pneumococcal 7 Conjugate, PCV7 (Prevnar7) Unknown Completed [facility] Pneumococcal 7 Conjugate, PCV7 (Prevnar7) Unknown Completed [facility] Pneumococcal 7 Conjugate, PCV7 (Prevnar7) Unknown Completed [facility] Polio (IPV/OPV) Unknown Completed [facility] Polio (IPV/OPV) Unknown Completed [facility] Polio (IPV/OPV) Unknown Completed [facility] PPD (TB) Unknown Completed [facility] Varicella (varivax)(chicken pox) Unknown Completed [facility] Varicella (varivax)(chicken pox) Unknown Completed [facility] Influenza Virus Vaccine Nasal Unknown Completed [facility] Meningococcal Polysaccharide (groups A, C, Y and W-135) conjugate vaccine (MCV4P) Unknown Completed [facility] TDAP Unknown Completed [facility] Meningococcal Vaccine Unknown Completed [facility] SARS-COV-2 COVID-19 PFIZER VACCINE Unknown Completed [facility] SARS-COV-2 COVID-19 PFIZER VACCINE Unknown Completed [facility] DTaP, Unspecified Formulation Unknown Completed [facility] DTaP, Unspecified Formulation Unknown Completed [facility] DTaP, Unspecified Formulation Unknown Completed [facility] DTaP, Unspecified Formulation Unknown Completed [facility] DTaP, Unspecified Formulation Unknown Completed [facility] Flu Trivalent Unknown Completed [facility] Influenza Virus Vaccine Nasal Unknown Completed [facility] Influenza Virus Vaccine Nasal Unknown Completed [facility] Influenza Virus Vaccine Nasal Unknown Completed [facility] HEPATITIS A Unknown Completed [facility] Hib-HbOC Unknown Completed [facility] Meningococcal Polysaccharide (groups A, C, Y and W-135) conjugate vaccine (MCV4P) Unknown Completed [facility] IPV Unknown Completed [facility] IPV Unknown Completed [facility] IPV Unknown Completed [facility] IPV Unknown Completed [facility] DTAP Unknown Completed [facility] DTAP Unknown Completed [facility] DTAP Unknown Completed [facility] DTAP Unknown Completed [facility] HIB 4 Dose Schedule Unknown Completed [facility] HIB 4 Dose Schedule Unknown Completed [facility] HIB 4 Dose Schedule Unknown Completed [facility] HIB 4 Dose Schedule Unknown Completed [facility] HEPATITIS A Unknown Completed [facility] Hep B, Adol or Pedi Dosage Unknown Completed [facility] Hep B, Adol or Pedi Dosage Unknown Completed [facility] Hep B, Adol or Pedi Dosage Unknown Completed [facility] HPV Unknown Completed [facility] HPV Unknown Completed [facility] Influenza Virus Vaccine Unknown Completed [facility] Influenza Virus Vaccine Unknown Completed [facility] Influenza Virus Vaccine Unknown Completed [facility] Influenza Virus Vaccine Unknown Completed [facility] H1n1 Vaccine Unknown Completed [facility] H1n1 Vaccine Unknown Completed [facility] MMR Unknown Completed [facility] Pneumococcal 7 Conjugate, PCV7 (Prevnar7) Unknown Completed [facility] Pneumococcal 7 Conjugate, PCV7 (Prevnar7) Unknown Completed [facility] Pneumococcal 7 Conjugate, PCV7 (Prevnar7) Unknown Completed [facility] Polio (IPV/OPV) Unknown Completed [facility] Polio (IPV/OPV) Unknown Completed [facility] Polio (IPV/OPV) Unknown Completed [facility] PPD (TB) Unknown Completed [facility] Varicella (varivax)(chicken pox) Unknown Completed [facility] Varicella (varivax)(chicken pox) Unknown Completed [facility] Influenza Virus Vaccine Nasal Unknown Completed [facility] Meningococcal Polysaccharide (groups A, C, Y and W-135) conjugate vaccine (MCV4P) Unknown Completed [facility] TDAP Unknown Completed [facility] Meningococcal Vaccine Unknown Completed [facility] SARS-COV-2 COVID-19 PFIZER VACCINE Unknown Completed [facility] SARS-COV-2 COVID-19 PFIZER VACCINE Unknown Completed [facility] DTaP, Unspecified Formulation Unknown Completed [facility] DTaP, Unspecified Formulation Unknown Completed [facility] DTaP, Unspecified Formulation Unknown Completed [facility] DTaP, Unspecified Formulation Unknown Completed [facility] DTaP, Unspecified Formulation Unknown Completed [facility] Flu Trivalent Unknown Completed [facility] Influenza Virus Vaccine Nasal Unknown Completed [facility] Influenza Virus Vaccine Nasal Unknown Completed [facility] Influenza Virus Vaccine Nasal Unknown Completed [facility] HEPATITIS A Unknown Completed [facility] Hib-HbOC Unknown Completed [facility] Meningococcal Polysaccharide (groups A, C, Y and W-135) conjugate vaccine (MCV4P) Unknown Completed [facility] IPV Unknown Completed [facility] IPV Unknown Completed [facility] IPV Unknown Completed [facility] IPV Unknown Completed [facility] DTAP Unknown Completed [facility] HEPATITIS A Unknown Completed [facility] MMR Unknown Completed [facility] Polio (IPV/OPV) Unknown Completed [facility] HPV Unknown Completed [facility] DTAP Unknown Completed [facility] DTAP Unknown Completed [facility] DTAP Unknown Completed [facility] DTAP Unknown Completed [facility] HIB 4 Dose Schedule Unknown Completed [facility] HIB 4 Dose Schedule Unknown Completed [facility] HIB 4 Dose Schedule Unknown Completed [facility] HIB 4 Dose Schedule Unknown Completed [facility] HEPATITIS A Unknown Completed [facility] Hep B, Adol or Pedi Dosage Unknown Completed [facility] Hep B, Adol or Pedi Dosage Unknown Completed [facility] Hep B, Adol or Pedi Dosage Unknown Completed [facility] HPV Unknown Completed [facility] HPV Unknown Completed [facility] Influenza Virus Vaccine Unknown Completed [facility] Influenza Virus Vaccine Unknown Completed [facility] Influenza Virus Vaccine Unknown Completed [facility] Influenza Virus Vaccine Unknown Completed [facility] H1n1 Vaccine Unknown Completed [facility] H1n1 Vaccine Unknown Completed [facility] MMR Unknown Completed [facility] Pneumococcal 7 Conjugate, PCV7 (Prevnar7) Unknown Completed [facility] Pneumococcal 7 Conjugate, PCV7 (Prevnar7) Unknown Completed [facility] Pneumococcal 7 Conjugate, PCV7 (Prevnar7) Unknown Completed [facility] Polio (IPV/OPV) Unknown Completed [facility] Polio (IPV/OPV) Unknown Completed [facility] Polio (IPV/OPV) Unknown Completed [facility] PPD (TB) Unknown Completed [facility] Varicella (varivax)(chicken pox) Unknown Completed [facility] Varicella (varivax)(chicken pox) Unknown Completed [facility] Influenza Virus Vaccine Nasal Unknown Completed [facility] Meningococcal Polysaccharide (groups A, C, Y and W-135) conjugate vaccine (MCV4P) Unknown Completed [facility] TDAP Unknown Completed [facility] Meningococcal Vaccine Unknown Completed [facility] SARS-COV-2 COVID-19 PFIZER VACCINE Unknown Completed [facility] SARS-COV-2 COVID-19 PFIZER VACCINE Unknown Completed [facility] DTaP, Unspecified Formulation Unknown Completed [facility] DTaP, Unspecified Formulation Unknown Completed [facility] DTaP, Unspecified Formulation Unknown Completed [facility] DTaP, Unspecified Formulation Unknown Completed [facility] DTaP, Unspecified Formulation Unknown Completed [facility] Flu Trivalent Unknown Completed [facility] Influenza Virus Vaccine Nasal Unknown Completed [facility] Influenza Virus Vaccine Nasal Unknown Completed [facility] Influenza Virus Vaccine Nasal Unknown Completed [facility] HEPATITIS A Unknown Completed [facility] Hib-HbOC Unknown Completed [facility] Meningococcal Polysaccharide (groups A, C, Y and W-135) conjugate vaccine (MCV4P) Unknown Completed [facility] IPV Unknown Completed [facility] IPV Unknown Completed [facility] IPV Unknown Completed [facility] IPV Unknown Completed [facility] DTAP Unknown Completed [facility] DTAP Unknown Completed [facility] DTAP Unknown Completed [facility] DTAP Unknown Completed [facility] HIB 4 Dose Schedule Unknown Completed [facility] HIB 4 Dose Schedule Unknown Completed [facility] HIB 4 Dose Schedule Unknown Completed [facility] HIB 4 Dose Schedule Unknown Completed [facility] HEPATITIS A Unknown Completed [facility] Hep B, Adol or Pedi Dosage Unknown Completed [facility] Hep B, Adol or Pedi Dosage Unknown Completed [facility] Hep B, Adol or Pedi Dosage Unknown Completed [facility] HPV Unknown Completed [facility] HPV Unknown Completed [facility] Influenza Virus Vaccine Unknown Completed [facility] Influenza Virus Vaccine Unknown Completed [facility] Influenza Virus Vaccine Unknown Completed [facility] Influenza Virus Vaccine Unknown Completed [facility] H1n1 Vaccine Unknown Completed [facility] H1n1 Vaccine Unknown Completed [facility] MMR Unknown Completed [facility] Pneumococcal 7 Conjugate, PCV7 (Prevnar7) Unknown Completed [facility] Pneumococcal 7 Conjugate, PCV7 (Prevnar7) Unknown Completed [facility] Pneumococcal 7 Conjugate, PCV7 (Prevnar7) Unknown Completed [facility] Polio (IPV/OPV) Unknown Completed [facility] Polio (IPV/OPV) Unknown Completed [facility] Polio (IPV/OPV) Unknown Completed [facility] PPD (TB) Unknown Completed [facility] Varicella (varivax)(chicken pox) Unknown Completed [facility] Varicella (varivax)(chicken pox) Unknown Completed [facility] Influenza Virus Vaccine Nasal Unknown Completed [facility] Meningococcal Polysaccharide (groups A, C, Y and W-135) conjugate vaccine (MCV4P) Unknown Completed [facility] TDAP Unknown Completed [facility] Meningococcal Vaccine Unknown Completed [facility] SARS-COV-2 COVID-19 PFIZER VACCINE Unknown Completed [facility] SARS-COV-2 COVID-19 PFIZER VACCINE Unknown Completed [facility] DTaP, Unspecified Formulation Unknown Completed [facility] DTaP, Unspecified Formulation Unknown Completed [facility] DTaP, Unspecified Formulation Unknown Completed [facility] DTaP, Unspecified Formulation Unknown Completed [facility] DTaP, Unspecified Formulation Unknown Completed [facility] Influenza, split virus, trivalent, PF (AFLURIA/FLUARIX/FLU LAVAL/FLUZONE) Unknown Completed [facility] Influenza Virus Vaccine Nasal Unknown Completed [facility] Influenza Virus Vaccine Nasal Unknown Completed [facility] Influenza Virus Vaccine Nasal Unknown Completed [facility] HEPATITIS A Unknown Completed [facility] Hib-HbOC Unknown Completed [facility] Meningococcal Polysaccharide (groups A, C, Y and W-135) conjugate vaccine (MCV4P) Unknown Completed [facility] IPV Unknown Completed [facility] IPV Unknown Completed [facility] IPV Unknown Completed [facility] IPV Unknown Completed [facility] DTAP Unknown Completed [facility] DTAP Unknown Completed [facility] DTAP Unknown Completed [facility] DTAP Unknown Completed [facility] HIB 4 Dose Schedule Unknown Completed [facility] HIB 4 Dose Schedule Unknown Completed [facility] HIB 4 Dose Schedule Unknown Completed [facility] HIB 4 Dose Schedule Unknown Completed [facility] HEPATITIS A Unknown Completed [facility] Hep B, Adol or Pedi Dosage Unknown Completed [facility] Hep B, Adol or Pedi Dosage Unknown Completed [facility] Hep B, Adol or Pedi Dosage Unknown Completed [facility] HPV Unknown Completed [facility] HPV Unknown Completed [facility] Influenza Virus Vaccine Unknown Completed [facility] Influenza Virus Vaccine Unknown Completed [facility] Influenza Virus Vaccine Unknown Completed [facility] Influenza Virus Vaccine Unknown Completed [facility] H1n1 Vaccine Unknown Completed [facility] H1n1 Vaccine Unknown Completed [facility] MMR Unknown Completed [facility] Pneumococcal 7 Conjugate, PCV7 (Prevnar7) Unknown Completed [facility] Pneumococcal 7 Conjugate, PCV7 (Prevnar7) Unknown Completed [facility] Pneumococcal 7 Conjugate, PCV7 (Prevnar7) Unknown Completed [facility] Polio (IPV/OPV) Unknown Completed [facility] Polio (IPV/OPV) Unknown Completed [facility] Polio (IPV/OPV) Unknown Completed [facility] PPD (TB) Unknown Completed [facility] Varicella (varivax)(chicken pox) Unknown Completed [facility] Varicella (varivax)(chicken pox) Unknown Completed [facility] Influenza Virus Vaccine Nasal Unknown Completed [facility] Meningococcal Polysaccharide (groups A, C, Y and W-135) conjugate vaccine (MCV4P) Unknown Completed [facility] TDAP Unknown Completed [facility] Meningococcal Vaccine Unknown Completed [facility] SARS-COV-2 COVID-19 PFIZER VACCINE Unknown Completed [facility] SARS-COV-2 COVID-19 PFIZER VACCINE Unknown Completed [facility] DTaP, Unspecified Formulation Unknown Completed [facility] DTaP, Unspecified Formulation Unknown Completed [facility] DTaP, Unspecified Formulation Unknown Completed [facility] DTaP, Unspecified Formulation Unknown Completed [facility] DTaP, Unspecified Formulation Unknown Completed [facility] Flu Trivalent Unknown Completed [facility] Influenza Virus Vaccine Nasal Unknown Completed [facility] Influenza Virus Vaccine Nasal Unknown Completed [facility] Influenza Virus Vaccine Nasal Unknown Completed [facility] HEPATITIS A Unknown Completed [facility] Hib-HbOC Unknown Completed [facility] Meningococcal Polysaccharide (groups A, C, Y and W-135) conjugate vaccine (MCV4P) Unknown Completed [facility] IPV Unknown Completed [facility] IPV Unknown Completed [facility] IPV Unknown Completed [facility] IPV Unknown Completed [facility] DTAP Unknown Completed [facility] DTAP Unknown Completed [facility] DTAP Unknown Completed [facility] DTAP Unknown Completed [facility] HIB 4 Dose Schedule Unknown Completed [facility] HIB 4 Dose Schedule Unknown Completed [facility] HIB 4 Dose Schedule Unknown Completed [facility] HIB 4 Dose Schedule Unknown Completed [facility] HEPATITIS A Unknown Completed [facility] Hep B, Adol or Pedi Dosage Unknown Completed [facility] Hep B, Adol or Pedi Dosage Unknown Completed [facility] Hep B, Adol or Pedi Dosage Unknown Completed [facility] HPV Unknown Completed [facility] HPV Unknown Completed [facility] Influenza Virus Vaccine Unknown Completed [facility] Influenza Virus Vaccine Unknown Completed [facility] Influenza Virus Vaccine Unknown Completed [facility] Influenza Virus Vaccine Unknown Completed [facility] H1n1 Vaccine Unknown Completed [facility] H1n1 Vaccine Unknown Completed [facility] MMR Unknown Completed [facility] Pneumococcal 7 Conjugate, PCV7 (Prevnar7) Unknown Completed [facility] Pneumococcal 7 Conjugate, PCV7 (Prevnar7) Unknown Completed [facility] Pneumococcal 7 Conjugate, PCV7 (Prevnar7) Unknown Completed [facility] Polio (IPV/OPV) Unknown Completed [facility] Polio (IPV/OPV) Unknown Completed [facility] Polio (IPV/OPV) Unknown Completed [facility] PPD (TB) Unknown Completed [facility] Varicella (varivax)(chicken pox) Unknown Completed [facility] Varicella (varivax)(chicken pox) Unknown Completed [facility] Influenza Virus Vaccine Nasal Unknown Completed [facility] Meningococcal Polysaccharide (groups A, C, Y and W-135) conjugate vaccine (MCV4P) Unknown Completed [facility] TDAP Unknown Completed [facility] Meningococcal Vaccine Unknown Completed [facility] SARS-COV-2 COVID-19 PFIZER VACCINE Unknown Completed [facility] SARS-COV-2 COVID-19 PFIZER VACCINE Unknown Completed [facility] DTaP, Unspecified Formulation Unknown Completed [facility] DTaP, Unspecified Formulation Unknown Completed [facility] DTaP, Unspecified Formulation Unknown Completed [facility] DTaP, Unspecified Formulation Unknown Completed [facility] DTaP, Unspecified Formulation Unknown Completed [facility] Flu Trivalent [facility] Virus Vaccine Nasal Unknown Completed [facility] Influenza Virus Vaccine Nasal Unknown Completed [facility] Influenza Virus Vaccine Nasal Unknown Completed [facility] HEPATITIS A Unknown Completed [facility] Hib-HbOC Unknown Completed [facility] Meningococcal Polysaccharide (groups A, C, Y and W-135) conjugate vaccine (MCV4P) Unknown Completed [facility] IPV Unknown Completed [facility] IPV Unknown Completed [facility] IPV Unknown Completed [facility] IPV Unknown Completed [facility] DTAP Unknown Completed [facility] DTAP Unknown Completed [facility] DTAP Unknown Completed [facility] DTAP Unknown Completed [facility] HIB 4 Dose Schedule Unknown Completed [facility] HIB 4 Dose Schedule Unknown Completed [facility] HIB 4 Dose Schedule Unknown Completed [facility] HIB 4 Dose Schedule Unknown Completed [facility] HEPATITIS A Unknown Completed [facility] Hep B, Adol or Pedi Dosage Unknown Completed [facility] Hep B, Adol or Pedi Dosage Unknown Completed [facility] Hep B, Adol or Pedi Dosage Unknown Completed [facility] HPV Unknown Completed [facility] HPV Unknown Completed [facility] Influenza Virus Vaccine Unknown Completed [facility] Influenza Virus Vaccine Unknown Completed [facility] Influenza Virus Vaccine Unknown Completed [facility] Influenza Virus Vaccine Unknown Completed [facility] H1n1 Vaccine Unknown Completed [facility] H1n1 Vaccine Unknown Completed [facility] MMR Unknown Completed [facility] Pneumococcal 7 Conjugate, PCV7 (Prevnar7) Unknown Completed [facility] Pneumococcal 7 Conjugate, PCV7 (Prevnar7) Unknown Completed [facility] Pneumococcal 7 Conjugate, PCV7 (Prevnar7) Unknown Completed [facility] Polio (IPV/OPV) Unknown Completed [facility] Polio (IPV/OPV) Unknown Completed [facility] Polio (IPV/OPV) Unknown Completed [facility] PPD (TB) Unknown Completed [facility] Varicella (varivax)(chicken pox) Unknown Completed [facility] Varicella (varivax)(chicken pox) Unknown Completed [facility] Influenza Virus Vaccine Nasal Unknown Completed [facility] Meningococcal Polysaccharide (groups A, C, Y and W-135) conjugate vaccine (MCV4P) Unknown Completed [facility] TDAP Unknown Completed [facility] Meningococcal Vaccine Unknown Completed [facility] SARS-COV-2 COVID-19 PFIZER VACCINE Unknown Completed [facility] SARS-COV-2 COVID-19 PFIZER VACCINE Unknown Completed [facility] DTaP, Unspecified Formulation Unknown Completed [facility] DTaP, Unspecified Formulation Unknown Completed [facility] DTaP, Unspecified Formulation Unknown Completed [facility] DTaP, Unspecified Formulation Unknown Completed [facility] DTaP, Unspecified Formulation Unknown Completed [facility] Flu Trivalent Unknown Completed [facility] Influenza Virus Vaccine Nasal Unknown Completed [facility] Influenza Virus Vaccine Nasal Unknown Completed [facility] Influenza Virus Vaccine Nasal Unknown Completed [facility] HEPATITIS A Unknown Completed [facility] Hib-HbOC Unknown Completed [facility] Meningococcal Polysaccharide (groups A, C, Y and W-135) conjugate vaccine (MCV4P) Unknown Completed [facility] IPV Unknown Completed [facility] IPV Unknown Completed [facility] IPV Unknown Completed [facility] IPV Unknown Completed [facility] DTAP Unknown Completed [facility] DTAP Unknown Completed [facility] DTAP Unknown Completed [facility] DTAP Unknown Completed [facility] HIB 4 Dose Schedule Unknown Completed [facility] HIB 4 Dose Schedule Unknown Completed [facility] HIB 4 Dose Schedule Unknown Completed [facility] HIB 4 Dose Schedule Unknown Completed [facility] HEPATITIS A Unknown Completed [facility] Hep B, Adol or Pedi Dosage Unknown Completed [facility] Hep B, Adol or Pedi Dosage Unknown Completed [facility] Hep B, Adol or Pedi Dosage Unknown Completed [facility] HPV Unknown Completed [facility] HPV Unknown Completed [facility] Influenza Virus Vaccine Unknown Completed [facility] Influenza Virus Vaccine Unknown Completed [facility] Influenza Virus Vaccine Unknown Completed [facility] Influenza Virus Vaccine Unknown Completed [facility] H1n1 Vaccine Unknown Completed [facility] H1n1 Vaccine Unknown Completed [facility] MMR Unknown Completed [facility] Pneumococcal 7 Conjugate, PCV7 (Prevnar7) Unknown Completed [facility] Pneumococcal 7 Conjugate, PCV7 (Prevnar7) Unknown Completed [facility] Pneumococcal 7 Conjugate, PCV7 (Prevnar7) Unknown Completed [facility] Polio (IPV/OPV) Unknown Completed [facility] Polio (IPV/OPV) Unknown Completed [facility] Polio (IPV/OPV) Unknown Completed [facility] PPD (TB) Unknown Completed [facility] Varicella (varivax)(chicken pox) Unknown Completed [facility] Varicella (varivax)(chicken pox) Unknown Completed [facility] Influenza Virus Vaccine Nasal Unknown Completed [facility] Meningococcal Polysaccharide (groups A, C, Y and W-135) conjugate vaccine (MCV4P) Unknown Completed [facility] TDAP Unknown Completed [facility] Meningococcal Vaccine Unknown Completed [facility] SARS-COV-2 COVID-19 PFIZER VACCINE Unknown Completed [facility] SARS-COV-2 COVID-19 PFIZER VACCINE Unknown Completed [facility] DTaP, Unspecified Formulation Unknown Completed [facility] DTaP, Unspecified Formulation Unknown Completed [facility] DTaP, Unspecified Formulation Unknown Completed [facility] DTaP, Unspecified Formulation Unknown Completed [facility] DTaP, Unspecified Formulation Unknown Completed [facility] Flu Trivalent Unknown Completed [facility] Influenza Virus Vaccine Nasal Unknown Completed [facility] Influenza Virus Vaccine Nasal Unknown Completed [facility] Influenza Virus Vaccine Nasal Unknown Completed [facility] HEPATITIS A Unknown Completed [facility] Hib-HbOC Unknown Completed [facility] Meningococcal Polysaccharide (groups A, C, Y and W-135) conjugate vaccine (MCV4P) Unknown Completed [facility] IPV Unknown Completed [facility] IPV Unknown Completed [facility] IPV Unknown Completed [facility] IPV Unknown Completed [facility] DTAP Unknown Completed [facility] DTAP Unknown Completed [facility] DTAP Unknown Completed [facility] DTAP Unknown Completed [facility] HIB 4 Dose Schedule Unknown Completed [facility] HIB 4 Dose Schedule Unknown Completed [facility] HIB 4 Dose Schedule Unknown Completed [facility] HIB 4 Dose Schedule Unknown Completed [facility] HEPATITIS A Unknown Completed [facility] Hep B, Adol or Pedi Dosage Unknown Completed [facility] Hep B, Adol or Pedi Dosage Unknown Completed [facility] Hep B, Adol or Pedi Dosage Unknown Completed [facility] HPV Unknown Completed [facility] HPV Unknown Completed [facility] Influenza Virus Vaccine Unknown Completed [facility] Influenza Virus Vaccine Unknown Completed [facility] Influenza Virus Vaccine Unknown Completed [facility] Influenza Virus Vaccine Unknown Completed [facility] H1n1 Vaccine Unknown Completed [facility] H1n1 Vaccine Unknown Completed [facility] MMR Unknown Completed [facility] Pneumococcal 7 Conjugate, PCV7 (Prevnar7) Unknown Completed [facility] Pneumococcal 7 Conjugate, PCV7 (Prevnar7) Unknown Completed [facility] Pneumococcal 7 Conjugate, PCV7 (Prevnar7) Unknown Completed [facility] Polio (IPV/OPV) Unknown Completed [facility] Polio (IPV/OPV) Unknown Completed [facility] Polio (IPV/OPV) Unknown Completed [facility] PPD (TB) Unknown Completed [facility] Varicella (varivax)(chicken pox) Unknown Completed [facility] Varicella (varivax)(chicken pox) Unknown Completed [facility] Influenza Virus Vaccine Nasal Unknown Completed [facility] Meningococcal Polysaccharide (groups A, C, Y and W-135) conjugate vaccine (MCV4P) Unknown Completed [facility] TDAP Unknown Completed [facility] Meningococcal Vaccine Unknown Completed [facility] SARS-COV-2 COVID-19 PFIZER VACCINE Unknown Completed [facility] SARS-COV-2 COVID-19 PFIZER VACCINE Unknown Completed [facility] DTaP, Unspecified Formulation Unknown Completed [facility] DTaP, Unspecified Formulation Unknown Completed [facility] DTaP, Unspecified Formulation Unknown Completed [facility] DTaP, Unspecified Formulation Unknown Completed [facility] DTaP, Unspecified Formulation Unknown Completed [facility] Flu Trivalent [facility]al Unknown Completed [facility] Influenza Virus Vaccine Nasal Unknown Completed [facility] Influenza Virus Vaccine Nasal Unknown Completed [facility] HEPATITIS A Unknown Completed [facility] Hib-HbOC Unknown Completed [facility] Meningococcal Polysaccharide (groups A, C, Y and W-135) conjugate vaccine (MCV4P) Unknown Completed [facility] IPV Unknown Completed [facility] IPV Unknown Completed [facility] IPV Unknown Completed [facility] IPV Unknown Completed [facility] DTAP Unknown Completed [facility] DTAP Unknown Completed [facility] DTAP Unknown Completed [facility] DTAP Unknown Completed [facility] HIB 4 Dose Schedule Unknown Completed [facility] HIB 4 Dose Schedule Unknown Completed [facility] HIB 4 Dose Schedule Unknown Completed [facility] HIB 4 Dose Schedule Unknown Completed [facility] HEPATITIS A Unknown Completed [facility] Hep B, Adol or Pedi Dosage Unknown Completed [facility] Hep B, Adol or Pedi Dosage Unknown Completed [facility] Hep B, Adol or Pedi Dosage Unknown Completed [facility] HPV Unknown Completed [facility] HPV Unknown Completed [facility] Influenza Virus Vaccine Unknown Completed [facility] Influenza Virus Vaccine Unknown Completed [facility] Influenza Virus Vaccine Unknown Completed [facility] Influenza Virus Vaccine Unknown Completed [facility] H1n1 Vaccine Unknown Completed [facility] H1n1 Vaccine Unknown Completed [facility] MMR Unknown Completed [facility] Pneumococcal 7 Conjugate, PCV7 (Prevnar7) Unknown Completed [facility] Pneumococcal 7 Conjugate, PCV7 (Prevnar7) Unknown Completed [facility] Pneumococcal 7 Conjugate, PCV7 (Prevnar7) Unknown Completed [facility] Polio (IPV/OPV) Unknown Completed [facility] Polio (IPV/OPV) Unknown Completed [facility] Polio (IPV/OPV) Unknown Completed [facility] PPD (TB) Unknown Completed [facility] Varicella (varivax)(chicken pox) Unknown Completed [facility] Varicella (varivax)(chicken pox) Unknown Completed [facility] Influenza Virus Vaccine Nasal Unknown Completed [facility] Meningococcal Polysaccharide (groups A, C, Y and W-135) conjugate vaccine (MCV4P) Unknown Completed [facility] TDAP Unknown Completed [facility] Meningococcal Vaccine Unknown Completed [facility] SARS-COV-2 COVID-19 PFIZER VACCINE Unknown Completed [facility] SARS-COV-2 COVID-19 PFIZER VACCINE Unknown Completed [facility] DTaP, Unspecified Formulation Unknown Completed [facility] DTaP, Unspecified Formulation Unknown Completed [facility] DTaP, Unspecified Formulation Unknown Completed [facility] DTaP, Unspecified Formulation Unknown Completed [facility] DTaP, Unspecified Formulation Unknown Completed [facility] Flu Trivalent Unknown Completed [facility] Influenza Virus Vaccine Nasal Unknown Completed [facility] Influenza Virus Vaccine Nasal Unknown Completed [facility] Influenza Virus Vaccine Nasal Unknown Completed [facility] HEPATITIS A Unknown Completed [facility] Hib-HbOC Unknown Completed [facility] Meningococcal Polysaccharide (groups A, C, Y and W-135) conjugate vaccine (MCV4P) Unknown Completed [facility] IPV Unknown Completed [facility] IPV Unknown Completed [facility] IPV Unknown Completed [facility] IPV Unknown Completed [facility] DTAP Unknown Completed [facility] HEPATITIS A Unknown Completed [facility] MMR Unknown Completed [facility] Polio (IPV/OPV) Unknown Completed [facility] HPV Unknown Completed [facility] DTAP Unknown Completed [facility] DTAP Unknown Completed [facility] DTAP Unknown Completed [facility] DTAP Unknown Completed [facility] HIB 4 Dose Schedule Unknown Completed [facility] HIB 4 Dose Schedule Unknown Completed [facility] HIB 4 Dose Schedule Unknown Completed [facility] HIB 4 Dose Schedule Unknown Completed [facility] HEPATITIS A Unknown Completed [facility] Hep B, Adol or Pedi Dosage Unknown Completed [facility] Hep B, Adol or Pedi Dosage Unknown Completed [facility] Hep B, Adol or Pedi Dosage Unknown Completed [facility] HPV Unknown Completed [facility] HPV Unknown Completed [facility] Influenza Virus Vaccine Unknown Completed [facility] Influenza Virus Vaccine Unknown Completed [facility] Influenza Virus Vaccine Unknown Completed [facility] Influenza Virus Vaccine Unknown Completed [facility] H1n1 Vaccine Unknown Completed [facility] H1n1 Vaccine Unknown Completed [facility] MMR Unknown Completed [facility] Pneumococcal 7 Conjugate, PCV7 (Prevnar7) Unknown Completed [facility] Pneumococcal 7 Conjugate, PCV7 (Prevnar7) Unknown Completed [facility] Pneumococcal 7 Conjugate, PCV7 (Prevnar7) Unknown Completed [facility] Polio (IPV/OPV) Unknown Completed [facility] Polio (IPV/OPV) Unknown Completed [facility] Polio (IPV/OPV) Unknown Completed [facility] PPD (TB) Unknown Completed [facility] Varicella (varivax)(chicken pox) Unknown Completed [facility] Varicella (varivax)(chicken pox) Unknown Completed [facility] Influenza Virus Vaccine Nasal Unknown Completed [facility] Meningococcal Polysaccharide (groups A, C, Y and W-135) conjugate vaccine (MCV4P) Unknown Completed [facility] TDAP Unknown Completed [facility] Meningococcal Vaccine Unknown Completed [facility] SARS-COV-2 COVID-19 PFIZER VACCINE Unknown Completed [facility] SARS-COV-2 COVID-19 PFIZER VACCINE Unknown Completed [facility] DTaP, Unspecified Formulation Unknown Completed [facility] DTaP, Unspecified Formulation Unknown Completed [facility] DTaP, Unspecified Formulation Unknown Completed [facility] DTaP, Unspecified Formulation Unknown Completed [facility] DTaP, Unspecified Formulation Unknown Completed [facility] Flu Trivalent Unknown Completed [facility] Influenza Virus Vaccine Nasal Unknown Completed [facility] Influenza Virus Vaccine Nasal Unknown Completed [facility] Influenza Virus Vaccine Nasal Unknown Completed [facility] HEPATITIS A Unknown Completed [facility] Hib-HbOC Unknown Completed [facility] Meningococcal Polysaccharide (groups A, C, Y and W-135) conjugate vaccine (MCV4P) Unknown Completed [facility] IPV Unknown Completed [facility] IPV Unknown Completed [facility] IPV Unknown Completed [facility] IPV Unknown Completed [facility] DTAP Unknown Completed [facility] HEPATITIS A Unknown Completed [facility] MMR Unknown Completed [facility] Polio (IPV/OPV) Unknown Completed [facility] HPV Unknown Completed [facility] DTAP Unknown Completed [facility] DTAP Unknown Completed [facility] DTAP Unknown Completed [facility] DTAP Unknown Completed [facility] HIB 4 Dose Schedule Unknown Completed [facility] HIB 4 Dose Schedule Unknown Completed [facility] HIB 4 Dose Schedule Unknown Completed [facility] HIB 4 Dose Schedule Unknown Completed [facility] HEPATITIS A Unknown Completed [facility] Hep B, Adol or Pedi Dosage Unknown Completed [facility] Hep B, Adol or Pedi Dosage Unknown Completed [facility] Hep B, Adol or Pedi Dosage Unknown Completed [facility] HPV Unknown Completed [facility] HPV Unknown Completed [facility] Influenza Virus Vaccine Unknown Completed [facility] Influenza Virus Vaccine Unknown Completed [facility] Influenza Virus Vaccine Unknown Completed [facility] Influenza Virus Vaccine Unknown Completed [facility] H1n1 Vaccine Unknown Completed [facility] H1n1 Vaccine Unknown Completed [facility] MMR Unknown Completed [facility] Pneumococcal 7 Conjugate, PCV7 (Prevnar7) Unknown Completed [facility] Pneumococcal 7 Conjugate, PCV7 (Prevnar7) Unknown Completed [facility] Pneumococcal 7 Conjugate, PCV7 (Prevnar7) Unknown Completed [facility] Polio (IPV/OPV) Unknown Completed [facility] Polio (IPV/OPV) Unknown Completed [facility] Polio (IPV/OPV) Unknown Completed [facility] PPD (TB) Unknown Completed [facility] Varicella (varivax)(chicken pox) Unknown Completed [facility] Varicella (varivax)(chicken pox) Unknown Completed [facility] Influenza Virus Vaccine Nasal Unknown Completed [facility] Meningococcal Polysaccharide (groups A, C, Y and W-135) conjugate vaccine (MCV4P) Unknown Completed [facility] TDAP Unknown Completed [facility] Meningococcal Vaccine Unknown Completed [facility] SARS-COV-2 COVID-19 PFIZER VACCINE Unknown Completed [facility] SARS-COV-2 COVID-19 PFIZER VACCINE Unknown Completed [facility] DTaP, Unspecified Formulation Unknown Completed [facility] DTaP, Unspecified Formulation Unknown Completed [facility] DTaP, Unspecified Formulation Unknown Completed [facility] DTaP, Unspecified Formulation Unknown Completed [facility] DTaP, Unspecified Formulation Unknown Completed [facility] Flu Trivalent Unknown [facility] Influenza Virus Vaccine Nasal Unknown Completed [facility] Influenza Virus Vaccine Nasal Unknown Completed [facility] Influenza Virus Vaccine Nasal Unknown Completed [facility] HEPATITIS A Unknown Completed [facility] Hib-HbOC Unknown Completed [facility] Meningococcal Polysaccharide (groups A, C, Y and W-135) conjugate vaccine (MCV4P) Unknown Completed [facility] IPV Unknown Completed [facility] IPV Unknown Completed [facility] IPV Unknown Completed [facility] IPV Unknown Completed [facility] DTAP Unknown Completed [facility] DTAP Unknown Completed [facility] DTAP Unknown Completed [facility] DTAP Unknown Completed [facility] HIB 4 Dose Schedule Unknown Completed [facility] HIB 4 Dose Schedule Unknown Completed [facility] HIB 4 Dose Schedule Unknown Completed [facility] HIB 4 Dose Schedule Unknown Completed [facility] HEPATITIS A Unknown Completed [facility] Hep B, Adol or Pedi Dosage Unknown Completed [facility] Hep B, Adol or Pedi Dosage Unknown Completed [facility] Hep B, Adol or Pedi Dosage Unknown Completed [facility] HPV Unknown Completed [facility] HPV Unknown Completed [facility] Influenza Virus Vaccine Unknown Completed [facility] Influenza Virus Vaccine Unknown Completed [facility] Influenza Virus Vaccine Unknown Completed [facility] Influenza Virus Vaccine Unknown Completed [facility] H1n1 Vaccine Unknown Completed [facility] H1n1 Vaccine Unknown Completed [facility] MMR Unknown Completed [facility] Pneumococcal 7 Conjugate, PCV7 (Prevnar7) Unknown Completed [facility] Pneumococcal 7 Conjugate, PCV7 (Prevnar7) Unknown Completed [facility] Pneumococcal 7 Conjugate, PCV7 (Prevnar7) Unknown Completed [facility] Polio (IPV/OPV) Unknown Completed [facility] Polio (IPV/OPV) Unknown Completed [facility] Polio (IPV/OPV) Unknown Completed [facility] PPD (TB) Unknown Completed [facility] Varicella (varivax)(chicken pox) Unknown Completed [facility] Varicella (varivax)(chicken pox) Unknown Completed [facility] Influenza Virus Vaccine Nasal Unknown Completed [facility] Meningococcal Polysaccharide (groups A, C, Y and W-135) conjugate vaccine (MCV4P) Unknown Completed [facility] TDAP Unknown Completed [facility] Meningococcal Vaccine Unknown Completed [facility] SARS-COV-2 COVID-19 PFIZER VACCINE Unknown Completed [facility] SARS-COV-2 COVID-19 PFIZER VACCINE Unknown Completed [facility] DTaP, Unspecified Formulation Unknown Completed [facility] DTaP, Unspecified Formulation Unknown Completed [facility] DTaP, Unspecified Formulation Unknown Completed [facility] DTaP, Unspecified Formulation Unknown Completed [facility] DTaP, Unspecified Formulation Unknown Completed [facility] Flu Trivalent Unknown Completed [facility] Influenza Virus Vaccine Nasal Unknown Completed [facility] Influenza Virus Vaccine Nasal Unknown Completed [facility] Influenza Virus Vaccine Nasal Unknown Completed [facility] HEPATITIS A Unknown Completed [facility] Hib-HbOC Unknown Completed [facility] Meningococcal Polysaccharide (groups A, C, Y and W-135) conjugate vaccine (MCV4P) Unknown Completed [facility] IPV Unknown Completed [facility] IPV Unknown Completed [facility] IPV Unknown Completed [facility] IPV Unknown Completed [facility] DTAP Unknown Completed [facility] DTAP Unknown Completed [facility] DTAP Unknown Completed [facility] DTAP Unknown Completed [facility] HIB 4 Dose Schedule Unknown Completed [facility] HIB 4 Dose Schedule Unknown Completed [facility] HIB 4 Dose Schedule Unknown Completed [facility] HIB 4 Dose Schedule Unknown Completed [facility] HEPATITIS A Unknown Completed [facility] Hep B, Adol or Pedi Dosage Unknown Completed [facility] Hep B, Adol or Pedi Dosage Unknown Completed [facility] Hep B, Adol or Pedi Dosage Unknown Completed [facility] HPV Unknown Completed [facility] HPV Unknown Completed [facility] Influenza Virus Vaccine Unknown Completed [facility] Influenza Virus Vaccine Unknown Completed [facility] Influenza Virus Vaccine Unknown Completed [facility] Influenza Virus Vaccine Unknown Completed [facility] H1n1 Vaccine Unknown Completed [facility] H1n1 Vaccine Unknown Completed [facility] MMR Unknown Completed [facility] Pneumococcal 7 Conjugate, PCV7 (Prevnar7) Unknown Completed [facility] Pneumococcal 7 Conjugate, PCV7 (Prevnar7) Unknown Completed [facility] Pneumococcal 7 Conjugate, PCV7 (Prevnar7) Unknown Completed [facility] Polio (IPV/OPV) Unknown Completed [facility] Polio (IPV/OPV) Unknown Completed [facility] Polio (IPV/OPV) Unknown Completed [facility] PPD (TB) Unknown Completed [facility] Varicella (varivax)(chicken pox) Unknown Completed [facility] Varicella (varivax)(chicken pox) Unknown Completed [facility] Influenza Virus Vaccine Nasal Unknown Completed [facility] Meningococcal Polysaccharide (groups A, C, Y and W-135) conjugate vaccine (MCV4P) Unknown Completed [facility] TDAP Unknown Completed [facility] Meningococcal Vaccine Unknown Completed [facility] SARS-COV-2 COVID-19 PFIZER VACCINE Unknown Completed [facility] Vital Signs Vital Name Observation Time Observation Value Comments S ource Systolic blood pressure 2024-03-18 16:54:16 118 mm[Hg] [facility] Diastolic blood pressure 2024-03-18 16:54:16 76 mm[Hg] [facility] Heart rate 2024-03-18 16:54:16 92 /min [facility] Body temperature 2024-03-18 16:54:16 36.67 Pilar [facility] Respiratory rate 2024-03-18 16:54:16 18 /min [facility] Oxygen saturation in Arterial blood by Pulse oximetry 2024-03-18 16:54:16 99 /min [facility] Body height 2024-03-18 13:18:00 157.5 cm [facility] Body weight 2024-03-18 13:18:00 56.7 kg [facility] BMI 2024-03-18 13:18:00 22.86 kg/m2 [facility] height 2023-12-13 08:20:00 61 [in_i] Commo n [facility] weight 2023-12-13 08:20:00 126.4 [lb_av] Co on [facility] temperature 2023-12-13 08:20:00 97.2 [degF] Com [facility] bmi 2023-12-13 08:20:00 23.88 kg/m2 Comm on [facility] oximetry 2023-12-13 08:20:00 97 % Commo n [facility] respiratory rate 2023-12-13 08:20:00 16 /min Common [facility] blood pressure systolic 2023-12-13 08:20:00 116 mm[Hg[facility] blood pressure diastolic 2023-12-13 08:20:00 78 mm[Hg] Common [facility] weight 2023-11-26 10:20:00 125.6 [lb_av] Co on [facility] temperature 2023-11-26 10:20:00 97.5 [degF] Com [facility] bmi 2023-11-26 10:20:00 23.73 kg/m2 Comm on [facility] oximetry 2023-11-26 10:20:00 94 % Commo n [facility] respiratory rate 2023-11-26 10:20:00 16 /min Common [facility] blood pressure systolic 2023-11-26 10:20:00 120 mm[Hg] Common [facility] blood pressure diastolic 2023-11-26 10:20:00 76 mm[Hg] [facility] height 2023-11-26 10:20:00 61 [in_i] Commo n [facility] Systolic blood pressure 2023-09-01 20:27:00 113 mm[Hg] [facility] Diastolic blood pressure 2023-09-01 20:27:00 74 mm[Hg] [facility] Heart rate 2023-09-01 20:27:00 76 /[facility] 2023-09-01 20:27:00 157.5 cm [facility] Body weight 2023-09-01 20:27:00 56.155 kg [facility] BMI 2023-09-01 20:27:00 22.64 kg/m2 [facility] Oxygen saturation in Arterial blood by Pulse oximetry 2023-09-01 20:27:00 99 /min [facility] Systolic blood pressure 2022-12-23 15:51:00 115 mm[Hg] [facility] Diastolic blood pressure 2022-12-23 15:51:00 78 mm[Hg] [facility] Heart rate 2022-12-23 15:51:00 60 /min Unive [facility] Body temperature 2022-12-23 15:51:00 37.11 Pilar [facility] Respiratory rate 2022-12-23 15:51:00 16 /min [facility] Body height 2022-12-23 15:51:00 157.5 cm [facility] Body weight 2022-12-23 15:51:00 52.3 kg [facility] BMI 2022-12-23 15:51:00 21.09 kg/m2 [facility] Systolic blood pressure 2022-07-05 21:26:00 114 mm[Hg] [facility] Diastolic blood pressure 2022-07-05 21:26:00 78 mm[Hg] [facility] Heart rate 2022-07-05 21:26:00 97 /min Unive [facility] Body temperature 2022-07-05 21:26:00 36.67 Pilar [facility] Respiratory rate 2022-07-05 21:26:00 16 /min [facility] Body height 2022-07-05 21:26:00 157.5 cm [facility] Body weight 2022-07-05 21:26:00 50.213 kg [facility] BMI 2022-07-05 21:26:00 20.25 kg/m2 [facility] Oxygen saturation in Arterial blood by Pulse oximetry 2022-07-05 21:26:00 98 /min [facility] Systolic blood pressure 2020-09-12 19:21:00 134 mm[Hg] [facility] Diastolic blood pressure 2020-09-12 19:21:00 89 mm[Hg] [facility] Heart rate 2020-09-12 19:21:00 122 /min Unive [facility] Body temperature 2020-09-12 19:21:00 37.56 Pilar [facility] Respiratory rate 2020-09-12 19:21:00 16 /min [facility] Body height 2020-09-12 19:21:00 154.9 cm [facility] Body weight 2020-09-12 19:21:00 49.896 kg [facility] BMI 2020-09-12 19:21:00 20.78 kg/m2 [facility] Oxygen saturation in Arterial blood by Pulse oximetry 2020-09-12 19:21:00 100 /min [facility] Systolic blood pressure 2020-09-12 19:21:00 134 mm[Hg] [facility] Diastolic blood pressure 2020-09-12 19:21:00 89 mm[Hg] [facility] Heart rate 2020-09-12 19:21:00 122 /min [facility] Body temperature 2020-09-12 19:21:00 37.56 Pilar [facility] Respiratory rate 2020-09-12 19:21:00 16 /min [facility] Body height 2020-09-12 19:21:00 154.9 cm [facility] Body weight 2020-09-12 19:21:00 49.896 kg [facility] BMI 2020-09-12 19:21:00 20.78 kg/m2 [facility] Oxygen saturation in Arterial blood by Pulse oximetry 2020-09-12 19:21:00 100 /min [facility] Procedures Procedure Date / Time Performed Performing Clinician Source US FIRST TRIMESTER LESS THAN 14 WEEKS WITH TRANSVAGINAL 2024-03-18 15:25:[address] [facility] HB ABO GROUPING 2024-03-18 13:54:00 [facility] 2024-03-18 13:43:00 Fatou Mas [facility] COMP. METABOLIC PANEL ([id number]) 2024-03-18 13:42:00 Arabella Mas [facility] TOTAL BETA HCG ASSAY 2024-03-18 13:42:00 Charlene Mas [facility] CBC WITH DIFF 2024-03-18 13:42:00 Arabella Mas [facility] URINALYSIS 2024-03-18 [facility] 2023-09-03 06:01:00 Doctor U nassigned, Buhl [facility] ASSIGNMENT OF BENEFITS 2022-12-23 15:02:57 Docto r Unassigned, Buhl [facility] SARS-COV-2 COVID-19 VACCINE,0.3ML,IM (PFIZER) 2021-03-28 21:08:00 Doctor Unassigned, Buhl [facility] POCT TEST 2020-09-12 19:43:00 Teresita Torre ra [facility] NOTICE OF PRIVACY PRACTICES 2020-09-12 19:12:23 Doctor Unassigned, Buhl [facility] CONSENT/REFUSAL FOR DIAGNOSIS AND TREATMENT 2020-09-12 19:12:09 Doctor Unassigned, Buhl [facility] Encounters Start Date/Time End Date/Time Encounter Type Admission Type Attending Clinicians Care Facility Care Department Encounter ID Source 2024-02-09 14:29:01 Outpatient Pam Ferrer [facility] [id number] [facility] 2023-12-09 08:06:00 Outpatient Pam Ferrer [facility] [id number] [facility] 2023-11-26 09:33:02 Outpatient Pam Ferrer [facility] [id number] [facility] 2021-05-24 23:57:16 Emergency [facility] [id number] [facility] 2024-04-14 14:00:00 2024-04-14 14:00:00 Outpatient JAREN SUMNER VIEN [facility] [id number] [facility] 2024-03-18 08:19:00 2024-03-18 12:12:00 Emergency X CHACE ARABELLA [facility] ERT [id number] [facility] 2024-03-18 08:19:00 2024-03-18 12:12:00 Emergency Arabella Mas [facility] 1..840.114 350.1.13.10 4.2.7.2.686 [id number] [facility] 2024-03-10 09:00:00 2024-03-10 09:00:00 Outpatient JAREN SUMNER [facility] [id number] [facility] 2023-12-13 00:00:00 2023-12-13 00:00:00 PREV VISIT EST AGE 18-39 [facility] [id number] [facility] 2023-11-26 00:00:00 2023-11-26 00:00:00 OFFICE VISIT NEW PT LEVEL 3 [facility] [id number] [facility] 2023-11-05 18:02:00 2023-11-05 19:10:00 Emergency EM Sandra Navarro [facility] SHREYA [id number] [facility] 2023-09-06 00:00:00 2023-09-06 00:00:00 Telephone Christianne Eckert [facility] 1..840.114 350.1.13.10 4.2.7.2.686 [id number] [facility] 2023-09-03 00:00:00 2023-09-03 00:00:00 Orders Only Doctor Unassigned, Buhl [facility] 1..114 350.1.13.10 4.2.7.2.686 [id number] [facility] 2023-09-03 00:00:00 2023-09-03 00:00:00 Patient Secure Msg [facility] 1..114 350.1.13.10 4.2.7.2.686 [id number] [facility] 2023-09-01 14:20:00 2023-09-01 14:49:13 Outpatient R TOMEKA [facility] [id number] [facility] 2023-09-01 14:20:00 2023-09-01 14:49:13 Office Visit [facility] 1..114 350.1.13.10 4.2.7.2.686 [id number] [facility] 2023-08-30 14:00:00 2023-08-30 14:00:00 Outpatient TG SAWANT [id number] Monica [facility]Snds 2022-12-31 00:00:00 2022-12-31 00:00:00 Patient Secure Msg Doctor Unassigned, [facility] 1..114 350.1.13.10 4.2.7.2.686 [id number] [facility] 2022-12-24 08:00:00 2022-12-24 08:15:00 [employer] Visit Pob, Adc Lab Main Nguyen Cabrera [facility] 1..114 350.1.13.10 4.2.7.2.686 [id number] [facility] 2022-12-24 08:00:00 2022-12-24 08:00:00 Outpatient R DEBORAH [facility] [id number] [facility] 2022-12-23 11:45:00 2022-12-23 12:00:00 [employer] Visit Draw, Clc-Bls Lab Deborah [facility] MEDICAL OFFICE BUILDING 1.840.114 350.1.13.10 4.2.7.2.686 [id number] [facility] 2022-12-23 10:50:00 2022-12-23 11:24:29 Outpatient R DEBORAH [facility] [id number] [facility] 2022-12-23 10:50:00 2022-12-23 11:24:29 Office Visit Deborah [facility] 1.840.114 350.1.13.10 4.2.7.2.686 [id number] [facility] 2022-12-23 00:00:00 2022-12-23 00:00:00 Orders Only Doctor Unassigned, Buhl [facility] 1.84.114 350.1.13.10 4.2.7.2.686 [id number] [facility] 2022-07-08 00:00:00 2022-07-08 00:00:00 Patient Secure Msg Doctor Unassigned, Buhl [facility] 1.84.114 350.1.13.10 4.2.7.2.686 [id number] [facility] 2022-07-05 15:40:00 2022-07-05 15:42:58 Outpatient R DEVIKA HOOK [facility] [id number] [facility] 2022-07-05 15:40:00 2022-07-05 15:42:58 Urgent Care Devika Hook Unknown, [facility] 1.2840.114 350.1.13.10 4.2.7.2.686 [id number] [facility] 2022-03-22 00:00:00 2022-03-22 00:00:00 Patient Secure Msg Doctor Unassigned, Buhl [facility] 1.2.840.114 350.1.13.10 4.2.7.2.686 [id number] [facility] 2022-03-05 00:00:00 2022-03-05 00:00:00 Patient Secure Msg Doctor Unassigned, Buhl [facility] 1.2840.114 350.1.13.10 4.2.7.2.686 [id number] [facility] 2022-01-28 00:00:00 2022-01-28 00:00:00 Patient Secure Msg Doctor Unassigned, Buhl [facility] 1.2840.114 350.1.13.10 4.2.7.2.686 [id number] [facility] 2021-03-28 16:04:57 2021-03-28 16:05:06 Imm/Inj Visit Nurse, Jimbo Posilverio [facility] Building 1..840.114 350.1.13.10 4.2.7.2.686 [id number] [facility] 2021-03-28 14:50:00 2021-03-28 16:05:06 Outpatient MO MAYA [facility] [id number] [facility] 2020-12-14 10:05:00 2020-12-14 10:05:00 Outpatient [facility] [id number] [facility] 2020-12-07 10:05:00 2020-12-07 10:05:00 Outpatient [facility] [id number] [facility] 2020-11-16 10:05:00 2020-11-16 10:05:00 Outpatient [facility] [id number] [facility] 2020-11-16 10:05:00 2020-11-16 10:05:00 Outpatient MATEUS ALEXIS [facility] [id number] [facility] 2020-09-13 09:20:00 2020-09-13 09:20:00 Outpatient [facility] [id number] [facility] 2020-09-12 13:28:00 2020-09-12 14:21:[address] [facility] 1.2.840.114 350.1.13.10 4.2.7.2.686 [id number] [facility] 2020-09-12 13:28:00 2020-09-12 14:21:[address] [facility] 1.2.840.114 350.1.13.10 4.2.7.2.686 [id number] 2012-07-21 00:00:00 2012-07-21 14:57:00 Outpatient [facility] [id number] [facility] 2012-05-18 00:00:00 2012-05-18 15:07:00 Outpatient [facility] [id number] Univers [facility] 2012-05-18 00:00:00 2012-05-18 00:00:00 Outpatient [facility] [id number] [facility] 2012-04-28 00:00:00 2012-04-28 16:10:00 Outpatient [facility] [id number] Univers ity [facility] 2012-04-28 00:00:00 2012-04-28 00:00:00 Outpatient [facility] [id number] [facility] 2012-03-10 00:00:00 2012-03-10 16:50:00 Outpatient [facility] [id number] [facility] 2012-03-09 00:00:00 2012-03-09 00:00:00 Outpatient [facility] [id number] [facility] 2012 00:00:00 2012 13:23:00 Outpatient [facility] [id number] [facility] 2011-04-28 00:00:00 2011-04-28 18:03:00 Outpatient [facility] [id number] [facility] Results Test Description Test Time Test Comments Results Resul t Comments Source US FIRST TRIMESTER LESS THAN 14 WEEKS WITH TRANSVAGINAL 2024-02-25 4 16:35:01 Indication: spotting ? Comparison: None RL: [id number] ORDERING PHYSICIAN: ?ARABELLA PRADO TECHNIQUE: Multiple real-time transvaginal sonographic images wereobtained. FINDINGS: A single intrauterine gestation is visualized. ?Specifically, aIntrauterine gestational sac, yolk sac, and pole are identified. The crown-rump length measurement is 5.1 mm, which corresponds to anestimated gestational age of 6 weeks 2 days based on this ultrasound. The heart rate is 110 beats per minute. The right ovary measures 2.7 x 1.3 x 2.6 cm. The left ovary measures 3.3 x 1.7 x 1.8 cm. [facility] ([id number][facility]2024-03-18 14:09:07* Test Item Value Reference Range Interpretation Comme nts NA (test code = 8024533678) 136 mmol/L 135-145 K (test code = 2425896369) 3.7 mmol/L 3.5-5.0 CL (test code = 2258188412) 103 mmol/L 98-108 CO2 TOTAL (test code = 3188516492) 24 mmol/L 23-31 AGAP (test code = 7401568004) 9 2-16 BUN (test code = 0950549502) 8 mg/dL 7-23 GLUCOSE (test code = 6630519850) 97 mg/dL 70-110 CREATININE (test code = 2160-0) 0.47 mg/dL 0.50-1.04 L TOTAL BILI (test code = 6771969232) 0.4 mg/dL 0.1-1.1 CALCIUM (test code = 5746592728) 9.2 mg/dL 8.6-10.6 T PROTEIN (test code = 3353468289) 7.9 g/dL 6.3-8.2 ALBUMIN (test code = 9871759596) 4.6 g/dL 3.5-5.0 ALK PHOS (test code = 0042607001) 68 U/L 34-122 ALTv (test code = 1742-6) 17 U/L 5-35 AST(SGOT) (test code = 4902901502) 35 U/L 13-40 eGFR (test code = 20541-9) 138.2 mL/min/1.73m2 CKD-EPI eGFR (2020). Assuming creatinine has been stable day-to-day for at least three months, the eGFR indicates Category G1 (>= 90 mL/min/1.73 m2) Lab Interpretation (test code = 65743-2) [facility] ONCE [id number] 14:03:00 * Test Item Value Reference Range Interpretation Comme nts ABO & RH (test code = 20) O POSITIVE IAT (test code = 1185) Negative [facility] [id number] 13:50:15* Test Item Value Reference Range Interpretation Comme nts WBC (test code = 6690-2) 9.84 4.30-11.10 RBC (test code = 789-8) 4.58 3.93-5.25 HGB (test code = 718-7) 13.0 g/dL 11.6-15.0 HCT (test code = 4544-3) 39.2 % 35.7-45.2 MCV (test code = 787-2) 85.6 fL 80.6-95.5 MCH (test code = 785-6) 28.4 pg 25.9-32.8 MCHC (test code = 786-4) 33.2 g/dL 31.6-35.1 RDW-SD (test code = 70837-2) 38.5 fL 39.0-49.9 L RDW-CV (test code = 788-0) 12.4 % 12.0-15.5 PLT (test code = 777-3) 325 166-358 MPV (test code = 61968-1) 10.7 fL 9.5-12.9 NRBC/100 WBC (test code = 2121631267) 0.0 0.0-10.0 NRBC x10^3 (test code = 7110506452) See_Comment [Automated messa ge] The system which generated this result transmitted reference range: 10*3/?L. The reference range was not used to interpret this result as normal/abnormal. GRAN MAT (NEUT) % (test code = 770-8) 69.7 % IMM GRAN % (test code = 7114310939) 0.20 % LYMPH % (test code = 736-9) 22.5 % MONO % (test code = 5905-5) 6.1 % EOS % (test code = 713-8) 1.1 % BASO % (test code = 706-2) 0.4 % GRAN MAT x10^3(ANC) (test code = 9271002995) 6.86 10*3/uL 1.88-7.09 IMM GRAN x10^3 (test code = 2851159263) 0.00-0.06 LYMPH x10^3 (test code = 731-0) 2.21 10*3/uL 1.32-3.29 MONO x10^3 (test code = 742-7) 0.60 10*3/uL 0.33-0.92 EOS x10^3 (test code = 711-2) 0.11 10*3/uL 0.03-0.39 BASO x10^3 (test code = 704-7) 0.04 10*3/uL 0.01-0.07 Lab Interpretation (test code = 52744-3) Abnormal [facility] [id number] 13:43:00* Test Item Value Reference Range Interpretation Comme nts POCT PREG (test code = 1605) Positive On board controls acceptable with C Line (test code = 3574) Yes POCT PREG LOT # (test code = 3575) [id number] POCT PREG TEST DATE ( test code = 3576) 12/02/24 Lab Interpretation (test cod e = 78839-4) Normal [facility] [id number] 19:43:00* Test Item Value Reference Range Interpretation Comme nts POCT PREG (test code = 1605) positive On board controls acceptable with C Line (test code = 3574) present POCT PREG LOT # (test code = 3575) [id number] POCT PREG TEST DATE ( test code = 3576) 04/24/2022 Lab Interpretation (test cod e = 80912-2) Normal [facility] Notes Date/Time Note Provider Source 2024-03-18 12:11:38 [employer] OPERATOR at bedside discussing results and discharge plan La Abreu RN [facility] 2024-03-18 09:09:42 REport to La BRIGGS T Gracie Joseph RN [facility] 2024-03-18 08:30:00 Brigida Cortes is a 24 year old female Presents with vaginal bleeding this morning around 0600, pt states she went to the BR and wiped, at first it was pink and then red, pt states it was a smear on the toilet paper, no clots. Pt states no allergies, and takes phenegan prn at home for N/V NAD, GCS 15, AOX4 PMH: n/a [facility] 2024-03-18 08:25:00 Pt oob to BR to void [facility] 2024-03-18 08:16:58 Brigida Cortes is a 24 year old female with 7 weeks and started spotting this morning. Denies pain or cramping. [facility] 2023-11-05 18:37:00 [facility] ([facility]) EMERGENCY PROVIDER REPORT REPORT#:[id number] REPORT STATUS: Signed DATE:11/05/23 TIME: 1836 PATIENT: BRIGIDA CORTES UNIT #: [id number] ROOM/BED: AGE: 23 SEX: F PCP PHYS: Pam Ferrer MD SERVICE AUTHOR: Sandra Navarro MD * ALL edits or amendments must be made on the electronic/computer document * [facility] Ill[facility] Free Text HPI Notes Free Text [...] Result Date Time Pulse Ox 100 11/04 1809 B/P 118/73 11/04 181 B/P Mean 88 11/04 1810 O2 Delivery Room air 11/04 1809 Temp 36.7 11/04 181 Pulse 89 11/04 181 Resp 16 11/04 1809 Last Documented: Result Date Time Pulse Ox 100 11/04 1809 B/P 118/73 11/04 181 B/P Mean 88 11/04 1809 O2 Delivery Room air 11/04 1809 Temp 36.7 11/04 1809 Pulse 89 11/04 1809 Resp 16 11/04 1809 Review of Vital [...] Documented: Result Date Time Pulse Ox 100 11/040 B/P 118/73 / 1810 B/P Mean 88 / 1810 O2 Delivery Room air 11/04 1809 Temp 36.7 / 1810 Pulse 89 04/ 1810 Resp 16 11/040 Last Documented: Result Date Time Pulse Ox 100 11/04 1810 B/P 118/73 / 1810 B/P Mean 88 / 1810 O2 Delivery Room air 11/04 1809 Temp 36.7 11/04 1810 Pulse 89 11/04 1810 Resp 16 11/040 All vital signs available at the time of this entry have been reviewed. Clinical Impression Clinical Impression Primary Impression: Acute pharyngitis Secondary Impressions: Viral syndrome Disposition Decision Discharge )( Discharged to Home Yes )( Time 183 )( Date 11/05/23 Discharge/Care Plan (Auto) Prescriptions [...] with your primary care doctor. at 1840 RPT #:[id number] END OF REPORT [facility] 2023-09-07 14:37:29 Labs discussed in alternative encounter 09/07/2023. [facility] 2023-09-07 14:36:47 Called patient and discussed lab results. Patient voiced understanding/agreement with plan. Christianne Eckert MD Department of Family Medicine [facility] 2023-09-07 09:41:50 Routing to provider, pt would like you to go over her labs with her. I can call if you want me to. Please advise [facility] 2023-09-07 09:11:10 Message routed to provider for review. Vincent Jones LVN 09/07/2023 9:11 AM [facility] Vincent Jones RN NEONATAL ICU [facility] 2023-09-06 16:13:53 Brigida Cortes is a 23 year old female Pt is calling to request a call back on labs done on 09/01/2023. Pt would like explained to her. TI Humphrey [facility]
[2024-03-24 01:39] LABS: Absolute Basophils 0.1 K/uL (0-0.5); Absolute Eosinophils 0.2 K/uL (0-0.5); Absolute Lymphocytes (CBC) 3.2 K/uL (0.7-4.9); Absolute Monocytes 0.8 K/uL (0.1-1.3); Absolute Neutrophil 6.9 K/uL (1.8-8.0); Basophils % 0.6 % (0-1.3); Eosinophils % 1.5 % (0-4.4); Hematocrit 38.3 % (36.0-45.0); Hemoglobin 12.8 g/dL (12.0-15.0); Lymphocytes % 28.5 % (15.3-44.8); MCH 28.6 pg (27.0-35.0); MCHC 33.3 g/dL (32.0-36.0); MPV 9.2 fL (7.6-11.3); Monocytes % 6.9 % (3.3-12.3); Neutrophils % 62.5 % (41.7-73.7); Nucleated Red Blood Cells % 0.1 % (0-0); Platelets 297 thou/uL (152-406); RBC Red Blood Cell Count 4.46 M/uL (3.86-4.86); Red Cell Distribution Width 13.4 % (12.1-15.2)
[2024-03-24 01:43] LABS: Specific Gravity 1.012 (1.005-1.030); Sqamous Epithelial <5 /HPF (None Seen); Urine Bacteria None Seen /HPF (<20); Urine Bilirubin NEGATIVE (Negative); Urine Blood Trace (Negative); Urine Clarity Turbid (Clear); Urine Color Colorless (Yellow); Urine Crystals Unidentified Few /HPF (None Seen); Urine Culture Reflex Order NOT NEEDED; Urine Glucose NEGATIVE (Negative); Urine Ketones NEGATIVE (Negative); Urine Microscopic Reflex YN ORDER UMIC; Urine Nitrite NEGATIVE (Negative); Urine Protein NEGATIVE (Negative); Urine RBC <5 /HPF (None Seen); Urine Urobilinogen Normal (Normal); Urine WBC <5 /HPF (<5); Urine pH 7.5 (5.0-7.0)
[2024-03-24 02:05] LABS: ALT/SGPT 18 U/L (13-56); Albumin 3.9 g/dL (3.4-5.0); Alkaline Phosphatase 68 U/L (45-117); Anion Gap 9.5 mEq/L (5.0-15.0); BUN Blood Urea Nitrogen 11 mg/dL (7-18); Bicarbonate 26 mEq/L (21-32); Bilirubin Total 0.3 mg/dL (0.2-1.0); Globulin 3.8 g/dL (2.3-3.5); Glomerular Filtration Rate 134 ml/min (=/>90); Glucose Level 103 mg/dL (74-106); HCG, Quantitative 86581 mIU/mL (1-3); Potassium 3.5 mEq/L (3.5-5.1); Protein, Total 7.7 g/dL (6.4-8.2); Sodium Level 134 mEq/L (136-145)
[2024-03-24 02:06] LABS: AST/SGOT < 10 U/L (15-37)
--- NOTE | 2024-03-24 02:57 | ER ---
Nurse's Notes [facility] Name: Nevin Palmer Age: 24 yrs Sex: Female : 2000 Arrival Date: 03/23/2024 Time: 23:56 Bed 7 Private MD: Diagnosis: Threatened ;Threatened miscarriage Presentation: 03/24 00:08 Chief complaint: Patient states: Pt reports vaginal spotting when wiping after voiding ss x 1 approximately 1 hour ago. Pt reports she is 7 weeks and wants to get checked out. Coronavirus screen: Client denies travel out of the [place] in the last 14 days. Ebola Screen: Patient denies exposure to infectious person. Patient denies travel to an Ebola-affected area in the 21 days before illness onset. Initial Sepsis Screen: Does the patient meet any 2 criteria? No. Patient's initial sepsis screen is negative. Does the patient have a suspected source of infection? No. Patient's initial sepsis screen is negative. Risk Assessment: Do you want to hurt yourself or someone else? Patient reports no desire to harm self or others. Onset of symptoms was March 24, 2024. 00:08 Method Of Arrival: Ambulatory ss 00:08 Acuity: CHRISTIANE 3 ss Triage Assessment: 00:09 General: Appears in no apparent distress. comfortable, Behavior is calm, cooperative. ss Pain: Denies pain. Neuro: Level of Consciousness is awake, alert. Respiratory: Respiratory effort is even, unlabored. 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 - Infectious Disease History:: Denies. - Social history:: Smoking status: Patient denies any tobacco usage or history of. - Family history:: not pertinent. Screenin:16 [facility] ED Fall Risk Assessment (Adult) History of falling in the last 3 months, kd3 including since admission No falls in past 3 months (0 pts) Confusion or Disorientation No (0 pts) Intoxicated or Sedated No (0 pts) Impaired Gait No (0 pts) Mobility Assist Device Used No (0 pt) Altered Elimination No (0 pt) Score/Fall Risk Level 0 - 2 = Low Risk Oriented to surroundings. Abuse screen: Denies threats or abuse. Denies injuries from another. Nutritional screening: No deficits noted. Tuberculosis screening: No symptoms or risk factors identified. Assessment: 01:18 General: Appears in no apparent distress. Behavior is calm, cooperative. Neuro: Level kd3 of Consciousness is awake, alert, obeys commands, Oriented to person, place, time, situation. Cardiovascular: Patient's skin is warm and dry. Respiratory: Airway is patent Trachea midline Respiratory effort is even, unlabored, Respiratory pattern is regular, symmetrical. : Reports vaginal bleeding that is bright red, spotty. 02:04 Reassessment: No changes from previously documented assessment. Patient and/or family kd3 updated on plan of care and expected duration. Pain level reassessed. Patient is alert, oriented x 3, equal unlabored respirations, skin warm/dry/pink. Patient denies pain at this time. Vital Signs: 00:08 BP 120 / 83; Pulse 80; Resp 16; Temp 98.1(TE); Pulse Ox 100% on R/A; Weight 56.7 kg; ss Height 5 ft. 2 in. ; Pain 0/10; 01:18 BP 111 / 70; Pulse 72; Resp 19; Pulse Ox 100% on R/A; kd3 03:04 BP 114 / 67; Pulse 84; Resp 19; Pulse Ox 98% on R/A; kd3 00:08 Body Mass Index 22.86 (56.70 kg, 157.48 cm) ss 00:08 Pain Scale: Adult ss Janel Coma Score: 06:23 Eye Response: spontaneous(4). Motor Response: obeys commands(6). Verbal Response: sp4 oriented(5). Total: 15. ED Course: 03/23 23:58 Patient arrived in ED. [email or web address] 03/24 00:09 Triage completed. ss 00:09 Arm band placed on right wrist. ss 00:16 Guillermo Disla MD is Attending Physician. sp4 00:18 Venecia Stauffer, CHESTER is Primary Nurse. kd3 00:59 Transvaginal OB In Process Unspecified. EDMS 01:16 No provider procedures requiring assistance completed. Inserted saline lock: 22 gauge kd3 in left antecubital area, using aseptic technique. Blood collected. Flushed with 10 mL NS. 01:16 Initial lab(s) drawn, by me, sent to lab. kd3 :19 CBC with Diff Sent. kd3 01: CMP Sent. kd3 : Urinalysis w/ reflexes Sent. kd3 01: Abo/rh Typing Sent. kd3 : HCG-Quantitative Sent. kd3 :19 Urine collected: clean catch specimen, clear. kd3 03:04 Patient has correct armband on for positive identification. Provided Education on: kd3 bleeding . 03:04 IV discontinued, intact, bleeding controlled, No redness/swelling at site. Pressure kd3 dressing applied. Administered Medications: No medications were administered Medication: :18 VIS not applicable for this client. kd3 Outcome: 02:57 Discharge ordered by . sp4 03:04 Discharged to home ambulatory, kd3 03:04 Condition: stable 03:04 Discharge instructions given to patient, family, Instructed on discharge instructions, follow up and referral plans. Demonstrated understanding of instructions, follow-up care, 03:04 Patient left the ED. kd3 Signatures: Dispatcher [employer] EDMS Romana Madera RN RN Gracie Devlin [email or web address] Venecia Stauffer RN RN kd3 Guillermo Disla MD MD sp4
--- NOTE | 2024-03-24 02:57 | EDPHYS ---
Physician Documentation [facility] Name: Nevin Palmer Age: 24 yrs Sex: Female : 2000 Arrival Date: 03/23/2024 Time: 23:56 Bed 7 Private MD: ED Physician Guillermo Disla HPI: 03/24 00:16 This 24 yrs old Female presents to ER via Ambulatory with complaints of sp4 Vaginal Bleeding, Pelvic Pain, EST 7WKS GESTATION. 00:21 24-year-old female -0-1-1 at 7 weeks 5 days EGA . sp4 06:23 LMP 01/30/2024 EGA by LMP 7 weeks 5 days, patient states she started moderate vaginal sp4 bleeding with cramps today.. 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 - Infectious Disease History:: Denies. - Social history:: Smoking status: Patient denies any tobacco usage or history of. - Family history:: not pertinent. ROS: 06:23 Constitutional: Negative for fever, chills, and weight loss, positive for pelvic cramps sp4 and vaginal bleeding 06:23 All other systems are negative, Exam: 06:23 Constitutional: This is a well developed, well nourished patient who is awake, alert, sp4 and in no acute distress. Head/Face: Normocephalic, atraumatic. Eyes: Pupils equal round and reactive to light, extra-ocular motions intact. Lids and lashes normal. Conjunctiva and sclera are not injected. Cornea within normal limits. Periorbital areas with no swelling, redness, or edema. ENT: Nares patent. No nasal discharge, no septal abnormalities noted. Tympanic membranes are normal and external auditory canals are clear. Oropharynx with no redness, swelling, or masses, exudates, or evidence of obstruction, uvula midline. Mucous membranes moist. Neck: Trachea midline, no thyromegaly or masses palpated, and no cervical lymphadenopathy. Supple, full range of motion without nuchal rigidity, or vertebral point tenderness. Chest/axilla: Normal chest wall appearance and motion. Nontender with no deformity. No lesions are appreciated. Cardiovascular: Regular rate and rhythm with a normal S1 and S2. No gallops, murmurs, or rubs. Normal PMI, no JVD. No pulse deficits. Respiratory: Lungs have equal breath sounds bilaterally, clear to auscultation and percussion. No rales, rhonchi or wheezes noted. No increased work of breathing, no retractions or nasal flaring. Abdomen/GI: Soft, with normal bowel sounds. No distension or tympany. No guarding or rebound. No evidence of tenderness throughout. Back: No spinal tenderness. No costovertebral tenderness. Skin: Warm, dry with normal turgor. Normal color with no rashes, no lesions, and no evidence of cellulitis. MS/ Extremity: Pulses equal, no cyanosis. Neurovascular intact. Full, normal range of motion. Neuro: Awake and alert, GCS 15, oriented to person, place, time, and situation. Cranial nerves II-XII grossly intact. Motor strength 5/5 in all extremities. Sensory grossly intact. Psych: Awake, alert, with orientation to person, place and time. Behavior, mood, and affect are within normal limits Vital Signs: 00:08 BP 120 / 83; Pulse 80; Resp 16; Temp 98.1(TE); Pulse Ox 100% on R/A; Weight 56.7 kg; ss Height 5 ft. 2 in. ; Pain 0/10; 01:18 BP 111 / 70; Pulse 72; Resp 19; Pulse Ox 100% on R/A; kd3 03:04 BP 114 / 67; Pulse 84; Resp 19; Pulse Ox 98% on R/A; kd3 00:08 Body Mass Index 22.86 (56.70 kg, 157.48 cm) ss 00:08 Pain Scale: Adult ss Huntington Coma Score: 06:23 Eye Response: spontaneous(4). Motor Response: obeys commands(6). Verbal Response: sp4 oriented(5). Total: 15. MDM: 00:17 Patient medically screened. sp4 02:21 ED course: EXAM DESCRIPTION: Transvaginal OB 03/24/2024 1:17 AM CDT CLINICAL HISTORY: 24 sp4 years, Female, bleeding in COMPARISON: None TECHNIQUE: Real time transabdominal and transvaginal sonographic imaging, including color-flow imaging, was performed by the cripple worker. Multiple quality assurance representative static images were saved for review. FINDINGS: The uterus measures 9.1 x 5.8 x 6.1 cm. No uterine fibroids are visualized. No additional myometrial lesions. The right ovary measures 2.9 x 1.8 x 2.1 cm in length. There are no focal lesions seen. Normal color and doppler flow is visualized. The left ovary was not visualized due to overlying gas. No free fluid was identified in the posterior cul-de-sac, no adnexal masses seen. There is a single live intrauterine gestation. MEASUREMENTS: CRL: 1.28 cm, consistent with 7 weeks 4 days. Ultrasonographic estimated date of delivery is 11/06/2024. heart rate is 136 beats per minute. The placenta is not yet visible due to early gestational age. No evidence for subchorionic hemorrhage. The amniotic fluid appears to be normal. No significant abnormalities. The gestational sac appears to be within normal limits. IMPRESSION: Single live intrauterine gestation with FHR of 136 bpm. Mean age by ultrasound is 7 weeks 4 days. TIEN by ultrasound is 11/06/2024. Left ovary was not visualized. Electronically signed by: Xander Boone MD 03/24/2024 01:19 AM. 06:23 Differential diagnosis: cervicitis, dysmenorrhea, endometriosis, Data reviewed: vital sp4 signs, nurses notes, lab test result(s), CBC, electrolytes, hepatic panel, radiologic studies, ultrasound. Consideration of Admission/Observation Escalation of care including admission/observation considered. ED course: Patient advised to repeat hCG level in 2 days. Stable for discharge home. . 03/24 00:16 Order name: Abo/rh Typing; Complete Time: 02:51 sp4 03/24 00:16 Order name: CBC with Diff; Complete Time: : sp4 03/24 00:16 Order name: CMP; Complete Time: : sp4 03/24 00:16 Order name: Urinalysis w/ reflexes; Complete Time: 02:19 sp4 03/24 00:17 Order name: HCG-Quantitative; Complete Time: 02: sp4 03/24 00:59 Order name: Transvaginal OB EDMS 03/24 00:16 Order name: IV Saline Lock; Complete Time: 01:19 sp4 03/24 00:16 Order name: Labs collected and sent; Complete Time: sp4 Administered Medications: No medications were administered Disposition Summary: 03/24/24 02:57 Discharge Ordered Notes: Recheck HCG level after 48 hours Location: Home sp4 Problem: new sp4 Symptoms: have improved sp4 Condition: Stable sp4 Diagnosis - Threatened sp4 - Threatened miscarriage sp4 Followup: sp4 - With: Private Physician - When: 2 - 3 days - Reason: Recheck today's complaints Discharge Instructions: - Discharge Summary Sheet sp4 - Threatened Miscarriage, [id number] sp4 Forms: - Patient Portal Instructions sp4 Signatures: Dispatcher [employer] Romana Marsh RN RN Guillermo Piper MD MD sp4 Corrections: (The following items were deleted from the chart) 00:17 00:17 ABO/RH TYPING+BB.LAB.BRZ ordered. EDMS EDMS 00:17 00:17 CBC+H.LAB.BRZ ordered. EDMS EDMS 00:17 00:17 COMPREHENSIVE METABOLIC PANEL+C.LAB.BRZ ordered. EDMS EDMS 00:17 00:17 Urinalysis+U.LAB.BRZ ordered. EDMS EDMS 00:17 00:17 QUANTITATIVE HCG+C.LAB.BRZ ordered. EDMS EDMS 00:59 00:17 OB Limited+US.RAD.BRZ ordered. EDMS EDMS
[2024-03-24 03:15] VITALS: TEMP 98.1
[2024-03-24 03:18] VITALS: BP 114/67; O2SAT 98
--- NOTE | 2024-03-24 10:40 | RAD REPORT ---
EXAM DESCRIPTION: US - Transvaginal OB - 03/24/2024 12:58 am CLINICAL HISTORY: 24 years Female, ABD CRAMPING, COMPARISON: None. TECHNIQUE: Transvaginal images of the pelvis obtained. FINDINGS: Uterus: Measures 7.1 x 5.4 x 6.1 cm. No myometrial mass. Gestational sac/Yolk sac/ pole: Single live intrauterine is identified with gestationa l sac containing small yolk sac and pole. [place]-rump length of 0.3 cm, compatible with estimate d gestational age of 5 weeks and 6 days. heart motion: 144 bpm Right ovary: Measures 3.5 x 1.2 x 2.0 cm. No suspicious sonographic abnormality. Left ovary: Measures 2.6 x 1.4 x 1.6 cm. No suspicious sonographic abnormality. Adnexa: No additional abnormality. Free fluid: None identified. IMPRESSION: Single live intrauterine with estimated gestational age of 5 weeks and 6 days. Electronically signed by: Iesha Sarabia MD 03/15/2024 11:41 PM CDT Due to temporary technical issues with the PACS/Fluency reporting system, reports are being signed by the in house radiologist without review as a courtesy to ensure prompt reporting. The interpreting r adiologist is fully responsible for the content of the report.
== END 2024-03-24 03:04 | disposition home or self-care (01) ==
LOC: ER 23:56
DX: O20.0 Threatened abortion (principal); Z3A.01 Less than 8 weeks gestation of pregnancy
CPT/HCPCS: 36415; 76817; 80053; 81001; 84702; 85025; 86900; 86901; 99284

== ENCOUNTER 2024-04-02 08:46 | Emergency (ER) | payer OTHER ==
--- OUTSIDE RECORDS SUMMARY | 2024-04-02 08:56 | XMS REPORT | Continuity of Care Document ---
Author Name Unknown Address [address] [facility] [place] [address] [facility] Address [address] [facility] [address] [place] [address] Care Team Providers Care Spudder Name Role Phone Nguyen Cabrera MD Primary Care Physician [phone] Pam Ferrer Attending Clinician Unavailable SANDHYA JAREN ROMI Attending Clinician Unavailable ARTHUR, JAREN CAM Attending Clinician Unavailable Salina Lane RN Attending Clinician UnavailSEGNUDO Mann Attending Clinician Unavail able ARABELLA ROSA Attending Clinician Unavailable ARABELLA ROSA Attending Clinician Unavailable ARABELLA MAS Attending Clinician Unavailable Arabella Mas NP Attending Clinician [phone] Sandra Navarro Attending Clinician Unavailable Christianne Eckert MD Attending Clinician [phone] Doctor Unassigned, [place] Attending Clinician U CHRISTIANNE Mao Attending Clinician Unavailable TG SAWANT Attending Clinician UnaNASH Thompson Attending Clinician Unavailable TAMMY ARMENTA Attending Clinician Unavailable TAMMY ARMENTA Attending Clinician Unavailable Pob, Adc Lab Main Attending Clinician UnavailNguyen Orozco MD Attending Clinician NGUYEN CABRERA Attending Clinician Unavailable Draw, Clc-[facility] Attending Clinician UnavailDEVIKA Mata Attending Clinician Unavailyoana Mcnallyefee BEATER LEADDevika Kaiser Attending Clinician [phone] Unknown, Attending Attending Clinician Unavailab le Nurse, Adc Pob Immunization Attending Clinician Unavailable Mo Ramsey DO Attending Clinician [phone] MO RAMSEY Attending Clinician Unavail able MATEUS ALCANTAR Attending Clinician Unavailable Chely Torre DO Attending Clinician ARABELLA MAS Admitting Clinician Unavailable Pam Ferrer Admitting Clinician Unavailable Payers Payer Name Policy Type Policy Number Effective Date Expirati on Date Source [employer] [id number] 2024 00:00:00 [facility] [place] [facility] [id number] 2024 00:00:00 MEDICAID PENDING PENDING 2020 00:00:00 Problems Condition Name Condition Details Condition Category Status Onset Date Resolution Date Last Treatment Date Treating Clinician Comments Source Nausea and vomiting during prior to 22 weeks gestation Nausea and vomiting during prior to 22 weeks gestation Disease Active 9-05 00:00: 00 [facility] Threatened Threatened Disease Active 03-18 00:00: 00 [facility] Single in first trimester Single in first trimester Disease Active 03-18 00:00: 00 [facility] High-risk in first trimester High-risk in first trimester Disease Active 03-18 00:00: 00 [facility] Passive smoke exposure Passive smoke exposure Disease Active 2012-07 007 00:00: 00 [facility] Hematuria of undiagnose d cause Hematuria of undiagnose d cause Disease Resolve d 03-18 00:00: 00 2024-03-30 00:00:00 2024-03-30 19:43:49 [facility] Vaginal spotting Vaginal spotting Disease Resolve d 03-18 00:00: 00 2024-03-30 00:00:00 2024-03-30 19:43:19 [facility] Periumbili wan abdominal pain Periumbili wan abdominal pain Disease Resolve d 2012-07 00:00: 00 2015-03-11 00:00:00 2022-02-08 00:26:50 [facility] Allergies, Adverse Reactions, Alerts Allergy Name Allergy Type Status Severity Reaction(s) Onset Date Inactive Date Treating Clinician Comments Source PROMIBISA BHAVANA DRUG INGREDI Active High Other-Cmnt 03-18 00:00: 00 [facility] Prometha mitzine Propensi ty to adverse reaction s Active Other - See comments 03-18 00:00: 00 [facility] No Known Allergie s DA Active U 11-04 00:00: 00 [facility] NO KNOWN ALLERGIE S Drug Class Active [facility] Social History Social Habit Start Date Stop Date Quantity Comments Source ASSERTION 2024-02-13 00:00:00 [facility] History SDOH Social Connections Membership [facility] History SDOH Housing Places Lived [facility] Use [facility] Sex Assigned At [facility] Alcoholic beverage intake 2024-03-30 00:00:00 2024-03-30 00:00:00 Current non-drinker of alcohol (finding) [facility] Alcohol intake 2023-09-01 00:00:00 2023-09-01 00:00:00 Current non-drinker of alcohol (finding) [facility] Exposure to SARS-CoV-2 (event) 2022-12-13 00:00:00 2022-12-23 09:58:[address] [facility] History SDOH Alcohol Frequency 2022-12-23 00:00:00 2022-12-23 00:00:[address] [facility] History SDOH Alcohol Std Drinks 2022-12-23 00:00:00 2022-12-23 00:00:[address] [facility] History SDOH Alcohol Binge 2022-12-23 00:00:00 2022-12-23 00:00:[address] [facility] History SDOH Social Connections Phone 2022-12-23 00:00:00 2022-12-23 00:00:[address] [facility] History SDOH Social Connections Get Together 2022-12-23 00:00:00 2022-12-23 00:00:[address] [facility] History SDOH Social Connections Orthodoxy 2022-12-23 00:00:00 2022-12-23 00:00:[address] [facility] History SDOH Social Connections Meetings 2022-12-23 00:00:00 2022-12-23 00:00:[address] [facility] History SDOH Social Connections Living 2022-12-23 00:00:00 2022-12-23 00:00:[address] [facility] History SDOH Housing Unable to Pay 2022-12-23 00:00:00 2022-12-23 00:00:[address] [facility] History SDOH Housing Homeless Last Year 2022-12-23 00:00:00 2022-12-23 00:00:[address] [facility] Tobacco use and exposure 2022-07-05 00:00:00 2022-07-05 00:00:[address] tobacco non-user [facility] Tobacco Comment 2022-07-05 00:00:00 2022-07-05 00:00:00 Dad smokes outside only [facility] History of Social function 2019-02-02 00:00:00 2019-02-02 00:00:00 [facility] Smoking Status Start Date Stop Date Source Never smoked tobacco [facility] Medications Ordered Medication Name Filled Medication Name Start Date Stop Date Current Medication? Ordering Clinician Indication Dosage Frequency Signature (SIG) Comments Components Source pyridoxine, VITAMIN B-6, (VITAMIN B-6) 25 mg tablet 03-30 00:00: 00 Yes [id number] 25mg Take 1 tablet by mouth every 6 (six) hours as needed for Nausea and Vomiting (N/V). [facility] doxylamine (UNISOM, DOXYLAMINE, ) 25 mg tablet 03-30 00:00: 00 Yes [id number] 25mg Take 1 tablet by mouth at bedtime as needed for Nausea and Vomiting (N/V). [facility] metoclopram garry HCl 10 mg tablet 03-30 00:00: 00 Yes [id number] 10mg Take 1 tablet by mouth every 6 (six) hours as needed for Nausea and Vomiting (N/V). [facility] ondansetron 4 mg disintegrat ing tablet 03-18 00:00: 00 Yes [id number] 4mg Take 1 tablet by mouth every 8 (eight) hours as needed for Nausea and Vomiting (N/V). [facility] meclizine 25 mg tablet 09-01 00:00: 03-18 00:00 :00 No [id number] 25mg Take 1 tablet by mouth 3 (three) times daily as needed for Dizziness. [facility] sulfamethox azole-trime thoprim (BACTRIM DS) 800-160 mg per tablet 2021-07 00:00: 00 07-13 05:59 :00 No [id number] 1{tbl} Take 1 tablet by mouth 2 (two) times daily for 7 days. [facility] amoxicillin 500 mg capsule 2021-07 00:00: 00 12-23 00:00 :00 No TAKE 1 CAPSULE BY MOUTH EVERY 8 HOURS FOR 7 DAYS [facility] ibuprofen 800 mg tablet 2021-07 00:00: 12-23 00:00 :00 No TAKE 1 TABLET BY MOUTH EVERY 8 HOURS FOR PAIN [facility] No Known Medications No Known Medications No [facility] No known medications No Un yvonne [facility] No known medications No Un yvonne [facility] Immunizations Ordered Immunization Name Filled Immunization Name Date Status Comments Source SARS-COV-2 COVID-19 PFIZER VACCINE 2021-03-28 00:00:[address] [facility] SARS-COV-2 COVID-19 PFIZER VACCINE 2021-03-28 00:00:[address] [facility] SARS-COV-2 COVID-19 PFIZER VACCINE 2021-03-28 00:00:[address] [facility] SARS-COV-2 COVID-19 PFIZER VACCINE 2021-03-28 00:00:[address] [facility] SARS-COV-2 COVID-19 PFIZER VACCINE 2021-03-28 00:00:[address] [facility] SARS-COV-2 COVID-19 PFIZER VACCINE 2021-03-28 00:00:[address] [facility] SARS-COV-2 COVID-19 PFIZER VACCINE 2021-03-28 00:00:[address] [facility] SARS-COV-2 COVID-19 PFIZER VACCINE 2021-03-28 00:00:[address] [facility] SARS-COV-2 COVID-19 PFIZER VACCINE 2021-03-28 00:00:[address] [facility] SARS-COV-2 COVID-19 PFIZER VACCINE 2020-11-16 00:00:[address] [facility] SARS-COV-2 COVID-19 PFIZER VACCINE 2020-11-16 00:00:[address] [facility] SARS-COV-2 COVID-19 PFIZER VACCINE 2020-11-16 00:00:[address] [facility] SARS-COV-2 COVID-19 PFIZER VACCINE 2020-11-16 00:00:[address] [facility] SARS-COV-2 COVID-19 PFIZER VACCINE 2020-11-16 00:00:[address] [facility] SARS-COV-2 COVID-19 PFIZER VACCINE 2020-11-16 00:00:[address] [facility] SARS-COV-2 COVID-19 PFIZER VACCINE 2020-11-16 00:00:[address] [facility] SARS-COV-2 COVID-19 PFIZER VACCINE 2020-11-16 00:00:[address] [facility] SARS-COV-2 COVID-19 PFIZER VACCINE 2020-11-16 00:00:[address] [facility] Meningococcal Vaccine 2018-03-16 00:00:[address] [facility] Meningococcal Vaccine 2018-03-16 00:00:[address] [facility] Meningococcal Vaccine 2018-03-16 00:00:[address] [facility] Meningococcal Polysaccharide (groups A, C, Y and W-135) conjugate vaccine (MCV4P) 2018-03-16 00:00:[address] [facility] Meningococcal Vaccine 2018-03-16 00:00:[address] [facility] Meningococcal Polysaccharide (groups A, C, Y and W-135) conjugate vaccine (MCV4P) 2018-03-16 00:00:[address] [facility] Meningococcal Vaccine 2018-03-16 00:00:[address] [facility] Meningococcal Polysaccharide (groups A, C, Y and W-135) conjugate vaccine (MCV4P) 2018-03-16 00:00:[address] [facility] Meningococcal Vaccine 2018-03-16 00:00:[address] [facility] Meningococcal Polysaccharide (groups A, C, Y and W-135) conjugate vaccine (MCV4P) 2018-03-16 00:00:[address] [facility] Meningococcal Vaccine 2018-03-16 00:00:[address] [facility] Meningococcal Polysaccharide (groups A, C, Y and W-135) conjugate vaccine (MCV4P) 2018-03-16 00:00:[address] [facility] Meningococcal Vaccine 2018-03-16 00:00:[address] [facility] Meningococcal Polysaccharide (groups A, C, Y and W-135) conjugate vaccine (MCV4P) 2018-03-16 00:00:[address] [facility] Meningococcal Vaccine 2018-03-16 00:00:[address] [facility] Meningococcal Polysaccharide (groups A, C, Y and W-135) conjugate vaccine (MCV4P) 2018-03-16 00:00:[address] [facility] Meningococcal Vaccine 2018-03-16 00:00:[address] [facility] Influenza Virus Vaccine Nasal 2013-05-01 00:00:[address] [facility] Meningococcal Polysaccharide (groups A, C, Y and W-135) conjugate vaccine (MCV4P) 2013-05-01 00:00:[address] [facility] TDAP 2013-05-01 00:00:[address] [facility] Influenza Virus Vaccine Nasal 2013-05-01 00:00:[address] [facility] Meningococcal Polysaccharide (groups A, C, Y and W-135) conjugate vaccine (MCV4P) 2013-05-01 00:00:[address] [facility] TDAP 2013-05-01 00:00:[address] [facility] Influenza Virus Vaccine Nasal 2013-05-01 00:00:[address] [facility] Meningococcal Polysaccharide (groups A, C, Y and W-135) conjugate vaccine (MCV4P) 2013-05-01 00:00:[address] [facility] TDAP 2013-05-01 00:00:[address] [facility] Influenza Virus Vaccine Nasal 2013-05-01 00:00:[address] [facility] Meningococcal Polysaccharide (groups A, C, Y and W-135) conjugate vaccine (MCV4P) 2013-05-01 00:00:[address] [facility] TDAP 2013-05-01 00:00:[address] [facility] Influenza Virus Vaccine Nasal 2013-05-01 00:00:[address] [facility] Meningococcal Polysaccharide (groups A, C, Y and W-135) conjugate vaccine (MCV4P) 2013-05-01 00:00:[address] [facility] TDAP 2013-05-01 00:00:[address] [facility] Influenza Virus Vaccine Nasal 2013-05-01 00:00:[address] [facility] Meningococcal Polysaccharide (groups A, C, Y and W-135) conjugate vaccine (MCV4P) 2013-05-01 00:00:[address] [facility] TDAP 2013-05-01 00:00:[address] [facility] Influenza Virus Vaccine Nasal 2013-05-01 00:00:[address] [facility] Meningococcal Polysaccharide (groups A, C, Y and W-135) conjugate vaccine (MCV4P) 2013-05-01 00:00:[address] [facility] TDAP 2013-05-01 00:00:[address] [facility] Influenza Virus Vaccine Nasal 2013-05-01 00:00:[address] [facility] Meningococcal Polysaccharide (groups A, C, Y and W-135) conjugate vaccine (MCV4P) 2013-05-01 00:00:[address] [facility] TDAP 2013-05-01 00:00:[address] [facility] Influenza Virus Vaccine Nasal 2013-05-01 00:00:[address] [facility] Meningococcal Polysaccharide (groups A, C, Y and W-135) conjugate vaccine (MCV4P) 2013-05-01 00:00:[address] [facility] TDAP 2013-05-01 00:00:[address] [facility] Influenza Virus Vaccine Nasal 2013-05-01 00:00:[address] [facility] Meningococcal Polysaccharide (groups A, C, Y and W-135) conjugate vaccine (MCV4P) 2013-05-01 00:00:[address] [facility] TDAP 2013-05-01 00:00:[address] [facility] HPV 2012-11-17 00:00:[address] [facility] HPV 2012-11-17 00:00:[address] [facility] HPV 2012-11-17 00:00:[address] [facility] HPV 2012-11-17 00:00:[address] [facility] HPV 2012-11-17 00:00:[address] [facility] HPV 2012-11-17 00:00:[address] [facility] HPV 2012-11-17 00:00:[address] [facility] HPV 2012-11-17 00:00:[address] [facility] HPV 2012-11-17 00:00:[address] [facility] HPV 2012-11-17 00:00:[address] [facility] HPV 2012-07-21 00:00:[address] [facility] HPV 2012-07-21 00:00:[address] [facility] HPV 2012-05-18 00:00:[address] [facility] Influenza Virus Vaccine 2012-05-18 00:00:[address] [facility] HPV 2012-05-18 00:00:[address] [facility] Influenza Virus Vaccine 2012-05-18 00:00:[address] [facility] HPV 2012-05-18 00:00:[address] [facility] Influenza Virus Vaccine 2012-05-18 00:00:[address] [facility] Influenza Virus Vaccine Nasal 2012-05-18 00:00:[address] [facility] HPV 2012-05-18 00:00:[address] [facility] Influenza Virus Vaccine 2012-05-18 00:00:[address] [facility] Influenza Virus Vaccine Nasal 2012-05-18 00:00:[address] [facility] HPV 2012-05-18 00:00:[address] [facility] Influenza Virus Vaccine 2012-05-18 00:00:[address] [facility] Influenza Virus Vaccine Nasal 2012-05-18 00:00:[address] [facility] HPV 2012-05-18 00:00:[address] [facility] Influenza Virus Vaccine 2012-05-18 00:00:[address] [facility] Influenza Virus Vaccine Nasal 2012-05-18 00:00:[address] [facility] HPV 2012-05-18 00:00:[address] [facility] Influenza Virus Vaccine 2012-05-18 00:00:[address] [facility] Influenza Virus Vaccine Nasal 2012-05-18 00:00:[address] [facility] HPV 2012-05-18 00:00:[address] [facility] Influenza Virus Vaccine 2012-05-18 00:00:[address] [facility] Influenza Virus Vaccine Nasal 2012-05-18 00:00:[address] [facility] HPV 2012-05-18 00:00:[address] [facility] HPV 2012-05-18 00:00:[address] [facility] Influenza Virus Vaccine 2012-05-18 00:00:[address] [facility] Influenza Virus Vaccine 2012-05-18 00:00:[address] [facility] Influenza Virus Vaccine Nasal 2012-05-18 00:00:[address] [facility] Influenza Virus Vaccine 2011-04-28 00:00:[address] [facility] Influenza Virus Vaccine 2011-04-28 00:00:[address] [facility] Influenza Virus Vaccine 2011-04-28 00:00:[address] [facility] Influenza Virus Vaccine Nasal 2011-04-28 00:00:[address] [facility] Influenza Virus Vaccine 2011-04-28 00:00:[address] [facility] Influenza Virus Vaccine Nasal 2011-04-28 00:00:[address] [facility] Influenza Virus Vaccine 2011-04-28 00:00:[address] [facility] Influenza Virus Vaccine Nasal 2011-04-28 00:00:[address] [facility] Influenza Virus Vaccine 2011-04-28 00:00:[address] [facility] Influenza Virus Vaccine Nasal 2011-04-28 00:00:[address] [facility] Influenza Virus Vaccine 2011-04-28 00:00:[address] [facility] Influenza Virus Vaccine Nasal 2011-04-28 00:00:[address] [facility] Influenza Virus Vaccine 2011-04-28 00:00:[address] [facility] Influenza Virus Vaccine Nasal 2011-04-28 00:00:[address] [facility] Influenza Virus Vaccine 2011-04-28 00:00:[address] [facility] Influenza Virus Vaccine 2011-04-28 00:00:[address] [facility] Influenza Virus Vaccine Nasal 2011-04-28 00:00:[address] [facility] Influenza Virus Vaccine 2010-04-25 00:00:[address] [facility] Influenza Virus Vaccine 2010-04-25 00:00:[address] [facility] Influenza Virus Vaccine 2010-04-25 00:00:[address] [facility] Influenza Virus Vaccine Nasal 2010-04-25 00:00:[address] [facility] Influenza Virus Vaccine 2010-04-25 00:00:[address] [facility] Influenza Virus Vaccine Nasal 2010-04-25 00:00:[address] [facility] Influenza Virus Vaccine 2010-04-25 00:00:[address] [facility] Influenza Virus Vaccine Nasal 2010-04-25 00:00:[address] [facility] Influenza Virus Vaccine 2010-04-25 00:00:[address] [facility] Influenza Virus Vaccine Nasal 2010-04-25 00:00:[address] [facility] Influenza Virus Vaccine 2010-04-25 00:00:[address] [facility] Influenza Virus Vaccine Nasal 2010-04-25 00:00:[address] [facility] Influenza Virus Vaccine 2010-04-25 00:00:[address] [facility] Influenza Virus Vaccine Nasal 2010-04-25 00:00:[address] [facility] Influenza Virus Vaccine 2010-04-25 00:00:[address] [facility] Influenza Virus Vaccine 2010-04-25 00:00:[address] [facility] Influenza Virus Vaccine Nasal 2010-04-25 00:00:[address] [facility] H1n1 Vaccine 2009-10-25 00:00:[address] [facility] H1n1 Vaccine 2009-10-25 00:00:[address] [facility] H1n1 Vaccine 2009-10-25 00:00:[address] [facility] H1n1 Vaccine 2009-10-25 00:00:[address] [facility] H1n1 Vaccine 2009-10-25 00:00:[address] [facility] H1n1 Vaccine 2009-10-25 00:00:[address] [facility] H1n1 Vaccine 2009-10-25 00:00:[address] [facility] H1n1 Vaccine 2009-10-25 00:00:[address] [facility] H1n1 Vaccine 2009-10-25 00:00:[address] [facility] H1n1 Vaccine 2009-10-25 00:00:[address] [facility] H1n1 Vaccine 2009-08-21 00:00:[address] [facility] H1n1 Vaccine 2009-08-21 00:00:[address] [facility] H1n1 Vaccine 2009-08-21 00:00:[address] [facility] H1n1 Vaccine 2009-08-21 00:00:[address] [facility] H1n1 Vaccine 2009-08-21 00:00:[address] [facility] H1n1 Vaccine 2009-08-21 00:00:[address] [facility] H1n1 Vaccine 2009-08-21 00:00:[address] [facility] H1n1 Vaccine 2009-08-21 00:00:[address] [facility] H1n1 Vaccine 2009-08-21 00:00:[address] [facility] H1n1 Vaccine 2009-08-21 00:00:[address] [facility] Influenza Virus Vaccine 2008-05-03 00:00:[address] [facility] Influenza Virus Vaccine 2008-05-03 00:00:[address] [facility] Influenza Virus Vaccine 2008-05-03 00:00:[address] [facility] Flu Trivalent 2008-05-03 00:00:[address] [facility] Influenza Virus Vaccine 2008-05-03 00:00:[address] [facility] Flu Trivalent 2008-05-03 00:00:[address] [facility] Influenza Virus Vaccine 2008-05-03 00:00:[address] [facility] Flu Trivalent 2008-05-03 00:00:[address] [facility] Influenza Virus Vaccine 2008-05-03 00:00:[address] [facility] Flu Trivalent 2008-05-03 00:00:[address] [facility] Influenza Virus Vaccine 2008-05-03 00:00:[address] [facility] Flu Trivalent 2008-05-03 00:00:[address] [facility] Influenza Virus Vaccine 2008-05-03 00:00:[address] [facility] Flu Trivalent 2008-05-03 00:00:[address] [facility] Influenza Virus Vaccine 2008-05-03 00:00:[address] [facility] Influenza Virus Vaccine 2008-05-03 00:00:[address] [facility] Flu Trivalent 2008-05-03 00:00:[address] [facility] Varicella (varivax)(chicken pox) 2008-03-13 00:00:[address] [facility] Varicella (varivax)(chicken pox) 2008-03-13 00:00:[address] [facility] Varicella (varivax)(chicken pox) 2008-03-13 00:00:[address] [facility] Varicella (varivax)(chicken pox) 2008-03-13 00:00:[address] [facility] Varicella (varivax)(chicken pox) 2008-03-13 00:00:[address] [facility] Varicella (varivax)(chicken pox) 2008-03-13 00:00:[address] [facility] Varicella (varivax)(chicken pox) 2008-03-13 00:00:[address] [facility] Varicella (varivax)(chicken pox) 2008-03-13 00:00:[address] [facility] Varicella (varivax)(chicken pox) 2008-03-13 00:00:[address] [facility] Varicella (varivax)(chicken pox) 2008-03-13 00:00:[address] [facility] HEPATITIS A 2006-09-17 00:00:[address] [facility] HEPATITIS A 2006-09-17 00:00:[address] [facility] HEPATITIS A 2006-09-17 00:00:[address] [facility] HEPATITIS A 2006-09-17 00:00:[address] [facility] HEPATITIS A 2006-09-17 00:00:[address] [facility] HEPATITIS A 2006-09-17 00:00:[address] [facility] HEPATITIS A 2006-09-17 00:00:[address] [facility] HEPATITIS A 2006-09-17 00:00:[address] [facility] HEPATITIS A 2006-09-17 00:00:[address] [facility] HEPATITIS A 2006-09-17 00:00:[address] [facility] DTaP, Unspecified Formulation 2006-03-17 00:00:[address] [facility] IPV 2006-03-17 00:00:[address] [facility] DTaP, Unspecified Formulation 2006-03-17 00:00:[address] [facility] IPV 2006-03-17 00:00:[address] [facility] DTaP, Unspecified Formulation 2006-03-17 00:00:[address] [facility] IPV 2006-03-17 00:00:[address] [facility] DTAP 2006-03-17 00:00:[address] [facility] HEPATITIS A 2006-03-17 00:00:[address] [facility] MMR 2006-03-17 00:00:[address] [facility] Polio (IPV/OPV) 2006-03-17 00:00:[address] [facility] DTaP, Unspecified Formulation 2006-03-17 00:00:[address] [facility] IPV 2006-03-17 00:00:[address] [facility] DTaP, Unspecified Formulation 2006-03-17 00:00:[address] [facility] IPV 2006-03-17 00:00:[address] [facility] DTaP, Unspecified Formulation 2006-03-17 00:00:[address] [facility] IPV 2006-03-17 00:00:[address] [facility] DTaP, Unspecified Formulation 2006-03-17 00:00:[address] [facility] IPV 2006-03-17 00:00:[address] [facility] DTAP 2006-03-17 00:00:[address] [facility] HEPATITIS A 2006-03-17 00:00:[address] [facility] MMR 2006-03-17 00:00:[address] [facility] Polio (IPV/OPV) 2006-03-17 00:00:[address] [facility] HEPATITIS A 2005-09-17 00:00:[address] [facility] HEPATITIS A 2005-09-17 00:00:[address] [facility] HEPATITIS A 2005-09-17 00:00:[address] [facility] HEPATITIS A 2005-09-17 00:00:[address] [facility] HEPATITIS A 2005-09-17 00:00:[address] [facility] HEPATITIS A 2005-09-17 00:00:[address] [facility] HEPATITIS A 2005-09-17 00:00:[address] [facility] PPD (TB) 2004-06-23 00:00:[address] [facility] PPD (TB) 2004-06-23 00:00:[address] [facility] PPD (TB) 2004-06-23 00:00:[address] [facility] PPD (TB) 2004-06-23 00:00:[address] [facility] PPD (TB) 2004-06-23 00:00:[address] [facility] PPD (TB) 2004-06-23 00:00:[address] [facility] PPD (TB) 2004-06-23 00:00:[address] [facility] PPD (TB) 2004-06-23 00:00:[address] [facility] PPD (TB) 2004-06-23 00:00:[address] [facility] PPD (TB) 2004-06-23 00:00:[address] [facility] Pneumococcal 7 Conjugate, PCV7 (Prevnar7) 2003-10-11 00:00:[address] [facility] Pneumococcal 7 Conjugate, PCV7 (Prevnar7) 2003-10-11 00:00:[address] [facility] Pneumococcal 7 Conjugate, PCV7 (Prevnar7) 2003-10-11 00:00:[address] [facility] Pneumococcal 7 Conjugate, PCV7 (Prevnar7) 2003-10-11 00:00:[address] [facility] Pneumococcal 7 Conjugate, PCV7 (Prevnar7) 2003-10-11 00:00:[address] [facility] Pneumococcal 7 Conjugate, PCV7 (Prevnar7) 2003-10-11 00:00:[address] [facility] Pneumococcal 7 Conjugate, PCV7 (Prevnar7) 2003-10-11 00:00:[address] [facility] Pneumococcal 7 Conjugate, PCV7 (Prevnar7) 2003-10-11 00:00:[address] [facility] Pneumococcal 7 Conjugate, PCV7 (Prevnar7) 2003-10-11 00:00:[address] [facility] Pneumococcal 7 Conjugate, PCV7 (Prevnar7) 2003-10-11 00:00:[address] [facility] Polio (IPV/OPV) 2003-06-13 00:00:[address] [facility] Polio (IPV/OPV) 2003-06-13 00:00:[address] [facility] Polio (IPV/OPV) 2003-06-13 00:00:[address] [facility] Polio (IPV/OPV) 2003-06-13 00:00:[address] [facility] Polio (IPV/OPV) 2003-06-13 00:00:[address] [facility] Polio (IPV/OPV) 2003-06-13 00:00:[address] [facility] Polio (IPV/OPV) 2003-06-13 00:00:[address] [facility] Polio (IPV/OPV) 2003-06-13 00:00:[address] [facility] Polio (IPV/OPV) 2003-06-13 00:00:[address] [facility] Polio (IPV/OPV) 2003-06-13 00:00:[address] [facility] Pneumococcal 7 Conjugate, PCV7 (Prevnar7) 2003-06-04 00:00:[address] [facility] DTAP 2003-06-04 00:00:[address] [facility] Pneumococcal 7 Conjugate, PCV7 (Prevnar7) 2003-06-04 00:00:[address] [facility] DTAP 2003-06-04 00:00:[address] [facility] Pneumococcal 7 Conjugate, PCV7 (Prevnar7) 2003-06-04 00:00:[address] [facility] DTaP, Unspecified Formulation 2003-06-04 00:00:[address] [facility] IPV 2003-06-04 00:00:[address] [facility] DTAP 2003-06-04 00:00:[address] [facility] Pneumococcal 7 Conjugate, PCV7 (Prevnar7) 2003-06-04 00:00:[address] [facility] DTaP, Unspecified Formulation 2003-06-04 00:00:[address] [facility] IPV 2003-06-04 00:00:[address] [facility] DTAP 2003-06-04 00:00:[address] [facility] Pneumococcal 7 Conjugate, PCV7 (Prevnar7) 2003-06-04 00:00:[address] [facility] DTaP, Unspecified Formulation 2003-06-04 00:00:[address] [facility] IPV 2003-06-04 00:00:[address] [facility] DTAP 2003-06-04 00:00:[address] [facility] Pneumococcal 7 Conjugate, PCV7 (Prevnar7) 2003-06-04 00:00:[address] [facility] DTaP, Unspecified Formulation 2003-06-04 00:00:[address] [facility] IPV 2003-06-04 00:00:[address] [facility] DTAP 2003-06-04 00:00:[address] [facility] DTAP 2003-06-04 00:00:[address] [facility] Pneumococcal 7 Conjugate, PCV7 (Prevnar7) 2003-06-04 00:00:[address] [facility] DTaP, Unspecified Formulation 2003-06-04 00:00:[address] [facility] IPV 2003-06-04 00:00:[address] [facility] DTAP 2003-06-04 00:00:[address] [facility] Pneumococcal 7 Conjugate, PCV7 (Prevnar7) 2003-06-04 00:00:[address] [facility] DTaP, Unspecified Formulation 2003-06-04 00:00:[address] [facility] IPV 2003-06-04 00:00:[address] [facility] DTAP 2003-06-04 00:00:[address] [facility] Pneumococcal 7 Conjugate, PCV7 (Prevnar7) 2003-06-04 00:00:[address] [facility] DTaP, Unspecified Formulation 2003-06-04 00:00:[address] [facility] IPV 2003-06-04 00:00:[address] [facility] Pneumococcal 7 Conjugate, PCV7 (Prevnar7) 2003-06-04 00:00:[address] [facility] DTAP 2003-06-04 00:00:[address] [facility] HIB 4 Dose Schedule 2003 00:00:[address] [facility] MMR 2003 00:00:[address] [facility] Pneumococcal 7 Conjugate, PCV7 (Prevnar7) 2003 00:00:[address] [facility] Varicella (varivax)(chicken pox) 2003 00:00:[address] [facility] HIB 4 Dose Schedule 2003 00:00:[address] [facility] MMR 2003 00:00:[address] [facility] Pneumococcal 7 Conjugate, PCV7 (Prevnar7) 2003 00:00:[address] [facility] Varicella (varivax)(chicken pox) 2003 00:00:[address] [facility] HIB 4 Dose Schedule 2003 00:00:[address] [facility] MMR 2003 00:00:[address] [facility] Pneumococcal 7 Conjugate, PCV7 (Prevnar7) 2003 00:00:[address] [facility] Varicella (varivax)(chicken pox) 2003 00:00:[address] [facility] Hib-HbOC 2003 00:00:[address] [facility] HIB 4 Dose Schedule 2003 00:00:[address] [facility] MMR 2003 00:00:[address] [facility] Pneumococcal 7 Conjugate, PCV7 (Prevnar7) 2003 00:00:[address] [facility] Varicella (varivax)(chicken pox) 2003 00:00:[address] [facility] Hib-HbOC 2003 00:00:[address] [facility] HIB 4 Dose Schedule 2003 00:00:[address] [facility] MMR 2003 00:00:[address] [facility] Pneumococcal 7 Conjugate, PCV7 (Prevnar7) 2003 00:00:[address] [facility] Varicella (varivax)(chicken pox) 2003 00:00:[address] [facility] Hib-HbOC 2003 00:00:[address] [facility] HIB 4 Dose Schedule 2003 00:00:[address] [facility] MMR 2003 00:00:[address] [facility] Pneumococcal 7 Conjugate, PCV7 (Prevnar7) 2003 00:00:[address] [facility] Varicella (varivax)(chicken pox) 2003 00:00:[address] [facility] Hib-HbOC 2003 00:00:[address] [facility] HIB 4 Dose Schedule 2003 00:00:[address] [facility] MMR 2003 00:00:[address] [facility] Pneumococcal 7 Conjugate, PCV7 (Prevnar7) 2003 00:00:[address] [facility] Varicella (varivax)(chicken pox) 2003 00:00:[address] [facility] Hib-HbOC 2003 00:00:[address] [facility] HIB 4 Dose Schedule 2003 00:00:[address] [facility] HIB 4 Dose Schedule 2003 00:00:[address] [facility] MMR 2003 00:00:[address] [facility] Pneumococcal 7 Conjugate, PCV7 (Prevnar7) 2003 00:00:[address] [facility] Varicella (varivax)(chicken pox) 2003 00:00:[address] [facility] Hib-HbOC 2003 00:00:[address] [facility] HIB 4 Dose Schedule 2003 00:00:[address] [facility] MMR 2003 00:00:[address] [facility] Pneumococcal 7 Conjugate, PCV7 (Prevnar7) 2003 00:00:[address] [facility] Varicella (varivax)(chicken pox) 2003 00:00:[address] [facility] Hib-HbOC 2003 00:00:[address] [facility] MMR 2003 00:00:[address] [facility] Pneumococcal 7 Conjugate, PCV7 (Prevnar7) 2003 00:00:[address] [facility] Varicella (varivax)(chicken pox) 2003 00:00:[address] [facility] HIB 4 Dose Schedule 2002 00:00:[address] [facility] Hep B, Adol or Pedi Dosage 2002 00:00:[address] [facility] DTAP 2002 00:00:[address] [facility] HIB 4 Dose Schedule 2002 00:00:[address] [facility] Hep B, Adol or Pedi Dosage 2002 00:00:[address] [facility] DTAP 2002 00:00:[address] [facility] HIB 4 Dose Schedule 2002 00:00:[address] [facility] Hep B, Adol or Pedi Dosage 2002 00:00:[address] [facility] DTaP, Unspecified Formulation 2002 00:00:[address] [facility] DTAP 2002 00:00:[address] [facility] HIB 4 Dose Schedule 2002 00:00:[address] [facility] Hep B, Adol or Pedi Dosage 2002 00:00:[address] [facility] DTaP, Unspecified Formulation 2002 00:00:[address] [facility] DTAP 2002 00:00:[address] [facility] HIB 4 Dose Schedule 2002 00:00:[address] [facility] Hep B, Adol or Pedi Dosage 2002 00:00:[address] [facility] DTaP, Unspecified Formulation 2002 00:00:[address] [facility] DTAP 2002 00:00:[address] [facility] HIB 4 Dose Schedule 2002 00:00:[address] [facility] Hep B, Adol or Pedi Dosage 2002 00:00:[address] [facility] DTaP, Unspecified Formulation 2002 00:00:[address] [facility] DTAP 2002 00:00:[address] [facility] HIB 4 Dose Schedule 2002 00:00:[address] [facility] DTAP 2002 00:00:[address] [facility] Hep B, Adol or Pedi Dosage 2002 00:00:[address] [facility] DTaP, Unspecified Formulation 2002 00:00:[address] [facility] HIB 4 Dose Schedule 2002 00:00:[address] [facility] DTAP 2002 00:00:[address] [facility] HIB 4 Dose Schedule 2002 00:00:[address] [facility] Hep B, Adol or Pedi Dosage 2002 00:00:[address] [facility] DTaP, Unspecified Formulation 2002 00:00:[address] [facility] Hep B, Adol or Pedi Dosage 2002 00:00:[address] [facility] DTAP 2002 00:00:[address] [facility] HIB 4 Dose Schedule 2002 00:00:[address] [facility] Hep B, Adol or Pedi Dosage 2002 00:00:[address] [facility] DTaP, Unspecified Formulation 2002 00:00:[address] [facility] DTAP 2002 00:00:[address] [facility] HIB 4 Dose Schedule 2002 00:00:[address] [facility] Polio (IPV/OPV) 2002 00:00:[address] [facility] DTAP 2002 00:00:[address] [facility] HIB 4 Dose Schedule 2002 00:00:[address] [facility] Polio (IPV/OPV) 2002 00:00:[address] [facility] DTAP 2002 00:00:[address] [facility] HIB 4 Dose Schedule 2002 00:00:[address] [facility] Polio (IPV/OPV) 2002 00:00:[address] [facility] DTaP, Unspecified Formulation 2002 00:00:[address] [facility] IPV 2002 00:00:[address] [facility] DTAP 2002 00:00:[address] [facility] HIB 4 Dose Schedule 2002 00:00:[address] [facility] Polio (IPV/OPV) 2002 00:00:[address] [facility] DTaP, Unspecified Formulation 2002 00:00:[address] [facility] IPV 2002 00:00:[address] [facility] DTAP 2002 00:00:[address] [facility] HIB 4 Dose Schedule 2002 00:00:[address] [facility] Polio (IPV/OPV) 2002 00:00:[address] [facility] DTaP, Unspecified Formulation 2002 00:00:[address] [facility] IPV 2002 00:00:[address] [facility] DTAP 2002 00:00:[address] [facility] HIB 4 Dose Schedule 2002 00:00:[address] [facility] Polio (IPV/OPV) 2002 00:00:[address] [facility] DTaP, Unspecified Formulation 2002 00:00:[address] [facility] IPV 2002 00:00:[address] [facility] DTAP 2002 00:00:[address] [facility] DTAP 2002 00:00:[address] [facility] HIB 4 Dose Schedule 2002 00:00:[address] [facility] Polio (IPV/OPV) 2002 00:00:[address] [facility] DTaP, Unspecified Formulation 2002 00:00:[address] [facility] HIB 4 Dose Schedule 2002 00:00:[address] [facility] IPV 2002 00:00:[address] [facility] DTAP 2002 00:00:[address] [facility] HIB 4 Dose Schedule 2002 00:00:[address] [facility] Polio (IPV/OPV) 2002 00:00:[address] [facility] DTaP, Unspecified Formulation 2002 00:00:[address] [facility] IPV 2002 00:00:[address] [facility] DTAP 2002 00:00:[address] [facility] HIB 4 Dose Schedule 2002 00:00:[address] [facility] Polio (IPV/OPV) 2002 00:00:[address] [facility] DTaP, Unspecified Formulation 2002 00:00:[address] [facility] IPV 2002 00:00:[address] [facility] Polio (IPV/OPV) 2002 00:00:[address] [facility] DTAP 2002 00:00:[address] [facility] Hep B, Adol or Pedi Dosage 2002 00:00:[address] [facility] Polio (IPV/OPV) 2002 00:00:[address] [facility] DTAP 2002 00:00:[address] [facility] HIB 4 Dose Schedule 2002 00:00:[address] [facility] Hep B, Adol or Pedi Dosage 2002 00:00:[address] [facility] Polio (IPV/OPV) 2002 00:00:[address] [facility] DTAP 2002 00:00:[address] [facility] HIB 4 Dose Schedule 2002 00:00:[address] [facility] Hep B, Adol or Pedi Dosage 2002 00:00:[address] [facility] Polio (IPV/OPV) 2002 00:00:[address] [facility] DTaP, Unspecified Formulation 2002 00:00:[address] [facility] IPV 2002 00:00:[address] [facility] DTAP 2002 00:00:[address] [facility] HIB 4 Dose Schedule 2002 00:00:[address] [facility] Hep B, Adol or Pedi Dosage 2002 00:00:[address] [facility] Polio (IPV/OPV) 2002 00:00:[address] [facility] DTaP, Unspecified Formulation 2002 00:00:[address] [facility] IPV 2002 00:00:[address] [facility] DTAP 2002 00:00:[address] [facility] HIB 4 Dose Schedule 2002 00:00:[address] [facility] Hep B, Adol or Pedi Dosage 2002 00:00:[address] [facility] Polio (IPV/OPV) 2002 00:00:[address] [facility] DTaP, Unspecified Formulation 2002 00:00:[address] [facility] IPV 2002 00:00:[address] [facility] DTAP 2002 00:00:[address] [facility] HIB 4 Dose Schedule 2002 00:00:[address] [facility] Hep B, Adol or Pedi Dosage 2002 00:00:[address] [facility] Polio (IPV/OPV) 2002 00:00:[address] [facility] DTaP, Unspecified Formulation 2002 00:00:[address] [facility] DTAP 2002 00:00:[address] [facility] IPV 2002 00:00:[address] [facility] DTAP 2002 00:00:[address] [facility] HIB 4 Dose Schedule 2002 00:00:[address] [facility] Hep B, Adol or Pedi Dosage 2002 00:00:[address] [facility] Polio (IPV/OPV) 2002 00:00:[address] [facility] HIB 4 Dose Schedule 2002 00:00:[address] [facility] DTaP, Unspecified Formulation 2002 00:00:[address] [facility] IPV 2002 00:00:[address] [facility] DTAP 2002 00:00:[address] [facility] HIB 4 Dose Schedule 2002 00:00:[address] [facility] Hep B, Adol or Pedi Dosage 2002 00:00:[address] [facility] Polio (IPV/OPV) 2002 00:00:[address] [facility] Hep B, Adol or Pedi Dosage 2002 00:00:[address] [facility] DTaP, Unspecified Formulation 2002 00:00:[address] [facility] IPV 2002 00:00:[address] [facility] DTAP 2002 00:00:[address] [facility] HIB 4 Dose Schedule 2002 00:00:[address] [facility] Hep B, Adol or Pedi Dosage 2002 00:00:[address] [facility] Polio (IPV/OPV) 2002 00:00:[address] [facility] DTaP, Unspecified Formulation 2002 00:00:[address] [facility] IPV 2002 00:00:[address] [facility] Polio (IPV/OPV) 2002 00:00:[address] [facility] DTAP 2002 00:00:[address] [facility] HIB 4 Dose Schedule 2002 00:00:[address] [facility] Hep B, Adol or Pedi Dosage 2002 00:00:[address] [facility] Hep B, Adol or Pedi Dosage 2002 00:00:[address] [facility] Hep B, Adol or Pedi Dosage 2002 00:00:[address] [facility] Hep B, Adol or Pedi Dosage 2002 00:00:[address] [facility] Hep B, Adol or Pedi Dosage 2002 00:00:[address] [facility] Hep B, Adol or Pedi Dosage 2002 00:00:[address] [facility] Hep B, Adol or Pedi Dosage 2002 00:00:[address] [facility] Hep B, Adol or Pedi Dosage 2002 00:00:[address] [facility] Hep B, Adol or Pedi Dosage 2002 00:00:[address] [facility] Hep B, Adol or Pedi Dosage 2002 00:00:[address] [facility] Hep B, Adol or Pedi Dosage Unknown Completed [facility] HPV Unknown Completed [facility] HPV Unknown Completed [facility] Influenza Virus Vaccine Unknown Completed [facility] Influenza Virus Vaccine Unknown Completed [facility] Influenza Virus Vaccine Unknown Completed [facility] Influenza Virus Vaccine Unknown Completed [facility] H1n1 Vaccine Unknown Completed [facility] H1n1 Vaccine Unknown Completed [facility] MMR Unknown Completed [facility] Pneumococcal 7 Conjugate, PCV7 (Prevnar7) Unknown Completed [facility] Pneumococcal 7 Conjugate, PCV7 (Prevnar7) Unknown Completed [facility] Pneumococcal 7 Conjugate, PCV7 (Prevnar7) Unknown Completed [facility] Polio (IPV/OPV) Unknown Completed [facility] Polio (IPV/OPV) Unknown Completed [facility] Polio (IPV/OPV) Unknown Completed [facility] PPD (TB) Unknown Completed [facility] Varicella (varivax)(chicken pox) Unknown Completed [facility] Varicella (varivax)(chicken pox) Unknown Completed [facility] Influenza Virus Vaccine Nasal Unknown Completed [facility] Meningococcal Polysaccharide (groups A, C, Y and W-135) conjugate vaccine (MCV4P) Unknown Completed [facility] TDAP Unknown Completed [facility] Meningococcal Vaccine Unknown Completed [facility] SARS-COV-2 COVID-19 PFIZER VACCINE Unknown Completed [facility] SARS-COV-2 COVID-19 PFIZER VACCINE Unknown Completed [facility] DTaP, Unspecified Formulation Unknown Completed [facility] DTaP, Unspecified Formulation Unknown Completed [facility] DTaP, Unspecified Formulation Unknown Completed [facility] DTaP, Unspecified Formulation Unknown Completed [facility] DTaP, Unspecified Formulation Unknown Completed [facility] Flu Trivalent Unknown Completed [facility] Influenza Virus Vaccine Nasal Unknown Completed [facility] Influenza Virus Vaccine Nasal Unknown Completed [facility] Influenza Virus Vaccine Nasal Unknown Completed [facility] HEPATITIS A Unknown Completed [facility] Hib-HbOC Unknown Completed [facility] Meningococcal Polysaccharide (groups A, C, Y and W-135) conjugate vaccine (MCV4P) Unknown Completed [facility] IPV Unknown Completed [facility] IPV Unknown Completed [facility] IPV Unknown Completed [facility] IPV Unknown Completed [facility] DTAP Unknown Completed [facility] DTAP Unknown Completed [facility] DTAP Unknown Completed [facility] DTAP Unknown Completed [facility] HIB 4 Dose Schedule Unknown Completed [facility] HIB 4 Dose Schedule Unknown Completed [facility] HIB 4 Dose Schedule Unknown Completed [facility] HIB 4 Dose Schedule Unknown Completed [facility] HEPATITIS A Unknown Completed [facility] Hep B, Adol or Pedi Dosage Unknown Completed [facility] Hep B, Adol or Pedi Dosage Unknown Completed [facility] Hep B, Adol or Pedi Dosage Unknown Completed [facility] HPV Unknown Completed [facility] HPV Unknown Completed [facility] Influenza Virus Vaccine Unknown Completed [facility] Influenza Virus Vaccine Unknown Completed [facility] Influenza Virus Vaccine Unknown Completed [facility] Influenza Virus Vaccine Unknown Completed [facility] H1n1 Vaccine Unknown Completed [facility] H1n1 Vaccine Unknown Completed [facility] MMR Unknown Completed [facility] Pneumococcal 7 Conjugate, PCV7 (Prevnar7) Unknown Completed [facility] Pneumococcal 7 Conjugate, PCV7 (Prevnar7) Unknown Completed [facility] Pneumococcal 7 Conjugate, PCV7 (Prevnar7) Unknown Completed [facility] Polio (IPV/OPV) Unknown Completed [facility] Polio (IPV/OPV) Unknown Completed [facility] Polio (IPV/OPV) Unknown Completed [facility] PPD (TB) Unknown Completed [facility] Varicella (varivax)(chicken pox) Unknown Completed [facility] Varicella (varivax)(chicken pox) Unknown Completed [facility] Influenza Virus Vaccine Nasal Unknown Completed [facility] Meningococcal Polysaccharide (groups A, C, Y and W-135) conjugate vaccine (MCV4P) Unknown Completed [facility] TDAP Unknown Completed [facility] Meningococcal Vaccine Unknown Completed [facility] SARS-COV-2 COVID-19 PFIZER VACCINE Unknown Completed [facility] SARS-COV-2 COVID-19 PFIZER VACCINE Unknown Completed [facility] DTaP, Unspecified Formulation Unknown Completed [facility] DTaP, Unspecified Formulation Unknown Completed [facility] DTaP, Unspecified Formulation Unknown Completed [facility] DTaP, Unspecified Formulation Unknown Completed [facility] DTaP, Unspecified Formulation Unknown Completed [facility] Flu Trivalent Unknown Completed [facility] Influenza Virus Vaccine Nasal Unknown Completed [facility] Influenza Virus Vaccine Nasal Unknown Completed [facility] Influenza Virus Vaccine Nasal Unknown Completed [facility] HEPATITIS A Unknown Completed [facility] Hib-HbOC Unknown Completed [facility] Meningococcal Polysaccharide (groups A, C, Y and W-135) conjugate vaccine (MCV4P) Unknown Completed [facility] IPV Unknown Completed [facility] IPV Unknown Completed [facility] IPV Unknown Completed [facility] IPV Unknown Completed [facility] DTAP Unknown Completed [facility] DTAP Unknown Completed [facility] DTAP Unknown Completed [facility] DTAP Unknown Completed [facility] HIB 4 Dose Schedule Unknown Completed [facility] HIB 4 Dose Schedule Unknown Completed [facility] HIB 4 Dose Schedule Unknown Completed [facility] HIB 4 Dose Schedule Unknown Completed [facility] HEPATITIS A Unknown Completed [facility] Hep B, Adol or Pedi Dosage Unknown Completed [facility] Hep B, Adol or Pedi Dosage Unknown Completed [facility] Hep B, Adol or Pedi Dosage Unknown Completed [facility] HPV Unknown Completed [facility] HPV Unknown Completed [facility] Influenza Virus Vaccine Unknown Completed [facility] Influenza Virus Vaccine Unknown Completed [facility] Influenza Virus Vaccine Unknown Completed [facility] Influenza Virus Vaccine Unknown Completed [facility] H1n1 Vaccine Unknown Completed [facility] H1n1 Vaccine Unknown Completed [facility] MMR Unknown Completed [facility] Pneumococcal 7 Conjugate, PCV7 (Prevnar7) Unknown Completed [facility] Pneumococcal 7 Conjugate, PCV7 (Prevnar7) Unknown Completed [facility] Pneumococcal 7 Conjugate, PCV7 (Prevnar7) Unknown Completed [facility] Polio (IPV/OPV) Unknown Completed [facility] Polio (IPV/OPV) Unknown Completed [facility] Polio (IPV/OPV) Unknown Completed [facility] PPD (TB) Unknown Completed [facility] Varicella (varivax)(chicken pox) Unknown Completed [facility] Varicella (varivax)(chicken pox) Unknown Completed [facility] Influenza Virus Vaccine Nasal Unknown Completed [facility] Meningococcal Polysaccharide (groups A, C, Y and W-135) conjugate vaccine (MCV4P) Unknown Completed [facility] TDAP Unknown Completed [facility] Meningococcal Vaccine Unknown Completed [facility] SARS-COV-2 COVID-19 PFIZER VACCINE Unknown Completed [facility] SARS-COV-2 COVID-19 PFIZER VACCINE Unknown Completed [facility] DTaP, Unspecified Formulation Unknown Completed [facility] DTaP, Unspecified Formulation Unknown Completed [facility] DTaP, Unspecified Formulation Unknown Completed [facility] DTaP, Unspecified Formulation Unknown Completed [facility] DTaP, Unspecified Formulation Unknown Completed [facility] Flu Trivalent Unknown Completed [facility] Influenza Virus Vaccine Nasal Unknown Completed [facility] Influenza Virus Vaccine Nasal Unknown Completed [facility] Influenza Virus Vaccine Nasal Unknown Completed [facility] HEPATITIS A Unknown Completed [facility] Hib-HbOC Unknown Completed [facility] Meningococcal Polysaccharide (groups A, C, Y and W-135) conjugate vaccine (MCV4P) Unknown Completed [facility] IPV Unknown Completed [facility] IPV Unknown Completed [facility] IPV Unknown Completed [facility] IPV Unknown Completed [facility] DTAP Unknown Completed [facility] HEPATITIS A Unknown Completed [facility] MMR Unknown Completed [facility] Polio (IPV/OPV) Unknown Completed [facility] HPV Unknown Completed [facility] DTAP Unknown Completed [facility] DTAP Unknown Completed [facility] DTAP Unknown Completed [facility] DTAP Unknown Completed [facility] HIB 4 Dose Schedule Unknown Completed [facility] HIB 4 Dose Schedule Unknown Completed [facility] HIB 4 Dose Schedule Unknown Completed [facility] HIB 4 Dose Schedule Unknown Completed [facility] HEPATITIS A Unknown Completed [facility] Hep B, Adol or Pedi Dosage Unknown Completed [facility] Hep B, Adol or Pedi Dosage Unknown Completed [facility] Hep B, Adol or Pedi Dosage Unknown Completed [facility] HPV Unknown Completed [facility] HPV Unknown Completed [facility] Influenza Virus Vaccine Unknown Completed [facility] Influenza Virus Vaccine Unknown Completed [facility] Influenza Virus Vaccine Unknown Completed [facility] Influenza Virus Vaccine Unknown Completed [facility] H1n1 Vaccine Unknown Completed [facility] H1n1 Vaccine Unknown Completed [facility] MMR Unknown Completed [facility] Pneumococcal 7 Conjugate, PCV7 (Prevnar7) Unknown Completed [facility] Pneumococcal 7 Conjugate, PCV7 (Prevnar7) Unknown Completed [facility] Pneumococcal 7 Conjugate, PCV7 (Prevnar7) Unknown Completed [facility] Polio (IPV/OPV) Unknown Completed [facility] Polio (IPV/OPV) Unknown Completed [facility] Polio (IPV/OPV) Unknown Completed [facility] PPD (TB) Unknown Completed [facility] Varicella (varivax)(chicken pox) Unknown Completed [facility] Varicella (varivax)(chicken pox) Unknown Completed [facility] Influenza Virus Vaccine Nasal Unknown Completed [facility] Meningococcal Polysaccharide (groups A, C, Y and W-135) conjugate vaccine (MCV4P) Unknown Completed [facility] TDAP Unknown Completed [facility] Meningococcal Vaccine Unknown Completed [facility] SARS-COV-2 COVID-19 PFIZER VACCINE Unknown Completed [facility] SARS-COV-2 COVID-19 PFIZER VACCINE Unknown Completed [facility] DTaP, Unspecified Formulation Unknown Completed [facility] DTaP, Unspecified Formulation Unknown Completed [facility] DTaP, Unspecified Formulation Unknown Completed [facility] DTaP, Unspecified Formulation Unknown Completed [facility] DTaP, Unspecified Formulation Unknown Completed [facility] Flu Trivalent Unknown Completed [facility] Influenza Virus Vaccine Nasal Unknown Completed [facility] Influenza Virus Vaccine Nasal Unknown Completed [facility] Influenza Virus Vaccine Nasal Unknown Completed [facility] HEPATITIS A Unknown Completed [facility] Hib-HbOC Unknown Completed [facility] Meningococcal Polysaccharide (groups A, C, Y and W-135) conjugate vaccine (MCV4P) Unknown Completed [facility] IPV Unknown Completed [facility] IPV Unknown Completed [facility] IPV Unknown Completed [facility] IPV Unknown Completed [facility] DTAP Unknown Completed [facility] DTAP Unknown Completed [facility] DTAP Unknown Completed [facility] DTAP Unknown Completed [facility] HIB 4 Dose Schedule Unknown Completed [facility] HIB 4 Dose Schedule Unknown Completed [facility] HIB 4 Dose Schedule Unknown Completed [facility] HIB 4 Dose Schedule Unknown Completed [facility] HEPATITIS A Unknown Completed [facility] Hep B, Adol or Pedi Dosage Unknown Completed [facility] Hep B, Adol or Pedi Dosage Unknown Completed [facility] Hep B, Adol or Pedi Dosage Unknown Completed [facility] HPV Unknown Completed [facility] HPV Unknown Completed [facility] Influenza Virus Vaccine Unknown Completed [facility] Influenza Virus Vaccine Unknown Completed [facility] Influenza Virus Vaccine Unknown Completed [facility] Influenza Virus Vaccine Unknown Completed [facility] H1n1 Vaccine Unknown Completed [facility] H1n1 Vaccine Unknown Completed [facility] MMR Unknown Completed [facility] Pneumococcal 7 Conjugate, PCV7 (Prevnar7) Unknown Completed [facility] Pneumococcal 7 Conjugate, PCV7 (Prevnar7) Unknown Completed [facility] Pneumococcal 7 Conjugate, PCV7 (Prevnar7) Unknown Completed [facility] Polio (IPV/OPV) Unknown Completed [facility] Polio (IPV/OPV) Unknown Completed [facility] Polio (IPV/OPV) Unknown Completed [facility] PPD (TB) Unknown Completed [facility] Varicella (varivax)(chicken pox) Unknown Completed [facility] Varicella (varivax)(chicken pox) Unknown Completed [facility] Influenza Virus Vaccine Nasal Unknown Completed [facility] Meningococcal Polysaccharide (groups A, C, Y and W-135) conjugate vaccine (MCV4P) Unknown Completed [facility] TDAP Unknown Completed [facility] Meningococcal Vaccine Unknown Completed [facility] SARS-COV-2 COVID-19 PFIZER VACCINE Unknown Completed [facility] SARS-COV-2 COVID-19 PFIZER VACCINE Unknown Completed [facility] DTaP, Unspecified Formulation Unknown Completed [facility] DTaP, Unspecified Formulation Unknown Completed [facility] DTaP, Unspecified Formulation Unknown Completed [facility] DTaP, Unspecified Formulation Unknown Completed [facility] DTaP, Unspecified Formulation Unknown Completed [facility] Flu Trivalent Unknown Completed [facility] Influenza Virus Vaccine Nasal Unknown Completed [facility] Influenza Virus Vaccine Nasal Unknown Completed [facility] Influenza Virus Vaccine Nasal Unknown Completed [facility] HEPATITIS A Unknown Completed [facility] Hib-HbOC Unknown Completed [facility] Meningococcal Polysaccharide (groups A, C, Y and W-135) conjugate vaccine (MCV4P) Unknown Completed [facility] IPV Unknown Completed [facility] IPV Unknown Completed [facility] IPV Unknown Completed [facility] IPV Unknown Completed [facility] DTAP Unknown Completed [facility] HEPATITIS A Unknown Completed [facility] MMR Unknown Completed [facility] Polio (IPV/OPV) Unknown Completed [facility] HPV Unknown Completed [facility] DTAP Unknown Completed [facility] DTAP Unknown Completed [facility] DTAP Unknown Completed [facility] DTAP Unknown Completed [facility] HIB 4 Dose Schedule Unknown Completed [facility] HIB 4 Dose Schedule Unknown Completed [facility] HIB 4 Dose Schedule Unknown Completed [facility] HIB 4 Dose Schedule Unknown Completed [facility] HEPATITIS A Unknown Completed [facility] Hep B, Adol or Pedi Dosage Unknown Completed [facility] Hep B, Adol or Pedi Dosage Unknown Completed [facility] Hep B, Adol or Pedi Dosage Unknown Completed [facility] HPV Unknown Completed [facility] HPV Unknown Completed [facility] Influenza Virus Vaccine Unknown Completed [facility] Influenza Virus Vaccine Unknown Completed [facility] Influenza Virus Vaccine Unknown Completed [facility] Influenza Virus Vaccine Unknown Completed [facility] H1n1 Vaccine Unknown Completed [facility] H1n1 Vaccine Unknown Completed [facility] MMR Unknown Completed [facility] Pneumococcal 7 Conjugate, PCV7 (Prevnar7) Unknown Completed [facility] Pneumococcal 7 Conjugate, PCV7 (Prevnar7) Unknown Completed [facility] Pneumococcal 7 Conjugate, PCV7 (Prevnar7) Unknown Completed [facility] Polio (IPV/OPV) Unknown Completed [facility] Polio (IPV/OPV) Unknown Completed [facility] Polio (IPV/OPV) Unknown Completed [facility] PPD (TB) Unknown Completed [facility] Varicella (varivax)(chicken pox) Unknown Completed [facility] Varicella (varivax)(chicken pox) Unknown Completed [facility] Influenza Virus Vaccine Nasal Unknown Completed [facility] Meningococcal Polysaccharide (groups A, C, Y and W-135) conjugate vaccine (MCV4P) Unknown Completed [facility] TDAP Unknown Completed [facility] Meningococcal Vaccine Unknown Completed [facility] SARS-COV-2 COVID-19 PFIZER VACCINE Unknown Completed [facility] SARS-COV-2 COVID-19 PFIZER VACCINE Unknown Completed [facility] DTaP, Unspecified Formulation Unknown Completed [facility] DTaP, Unspecified Formulation Unknown Completed [facility] DTaP, Unspecified Formulation Unknown Completed [facility] DTaP, Unspecified Formulation Unknown Completed [facility] DTaP, Unspecified Formulation Unknown Completed [facility] Flu Trivalent Unknown Completed [facility] Influenza Virus Vaccine Nasal Unknown Completed [facility] Influenza Virus Vaccine Nasal Unknown Completed [facility] Influenza Virus Vaccine Nasal Unknown Completed [facility] HEPATITIS A Unknown Completed [facility] Hib-HbOC Unknown Completed [facility] Meningococcal Polysaccharide (groups A, C, Y and W-135) conjugate vaccine (MCV4P) Unknown Completed [facility] IPV Unknown Completed [facility] IPV Unknown Completed [facility] IPV Unknown Completed [facility] IPV Unknown Completed [facility] DTAP Unknown Completed [facility] DTAP Unknown Completed [facility] DTAP Unknown Completed [facility] DTAP Unknown Completed [facility] HIB 4 Dose Schedule Unknown Completed [facility] HIB 4 Dose Schedule Unknown Completed [facility] HIB 4 Dose Schedule Unknown Completed [facility] HIB 4 Dose Schedule Unknown Completed [facility] HEPATITIS A Unknown Completed [facility] Hep B, Adol or Pedi Dosage Unknown Completed [facility] Hep B, Adol or Pedi Dosage Unknown Completed [facility] Hep B, Adol or Pedi Dosage Unknown Completed [facility] HPV Unknown Completed [facility] HPV Unknown Completed [facility] Influenza Virus Vaccine Unknown Completed [facility] Influenza Virus Vaccine Unknown Completed [facility] Influenza Virus Vaccine Unknown Completed [facility] Influenza Virus Vaccine Unknown Completed [facility] H1n1 Vaccine Unknown Completed [facility] H1n1 Vaccine Unknown Completed [facility] MMR Unknown Completed [facility] Pneumococcal 7 Conjugate, PCV7 (Prevnar7) Unknown Completed [facility] Pneumococcal 7 Conjugate, PCV7 (Prevnar7) Unknown Completed [facility] Pneumococcal 7 Conjugate, PCV7 (Prevnar7) Unknown Completed [facility] Polio (IPV/OPV) Unknown Completed [facility] Polio (IPV/OPV) Unknown Completed [facility] Polio (IPV/OPV) Unknown Completed [facility] PPD (TB) Unknown Completed [facility] Varicella (varivax)(chicken pox) Unknown Completed [facility] Varicella (varivax)(chicken pox) Unknown Completed [facility] Influenza Virus Vaccine Nasal Unknown Completed [facility] Meningococcal Polysaccharide (groups A, C, Y and W-135) conjugate vaccine (MCV4P) Unknown Completed [facility] TDAP Unknown Completed [facility] Meningococcal Vaccine Unknown Completed [facility] SARS-COV-2 COVID-19 PFIZER VACCINE Unknown Completed [facility] SARS-COV-2 COVID-19 PFIZER VACCINE Unknown Completed [facility] DTaP, Unspecified Formulation Unknown Completed [facility] DTaP, Unspecified Formulation Unknown Completed [facility] DTaP, Unspecified Formulation Unknown Completed [facility] DTaP, Unspecified Formulation Unknown Completed [facility] DTaP, Unspecified Formulation Unknown Completed [facility] Influenza, split virus, trivalent, PF (AFLURIA/FLUARIX/FLU LAVAL/FLUZONE) Unknown Completed [facility] Influenza Virus Vaccine Nasal Unknown Completed [facility] Influenza Virus Vaccine Nasal Unknown Completed [facility] Influenza Virus Vaccine Nasal Unknown Completed [facility] HEPATITIS A Unknown Completed [facility] Hib-HbOC Unknown Completed [facility] Meningococcal Polysaccharide (groups A, C, Y and W-135) conjugate vaccine (MCV4P) Unknown Completed [facility] IPV Unknown Completed [facility] IPV Unknown Completed [facility] IPV Unknown Completed [facility] IPV Unknown Completed [facility] DTAP Unknown Completed [facility] DTAP Unknown Completed [facility] DTAP Unknown Completed [facility] DTAP Unknown Completed [facility] HIB 4 Dose Schedule Unknown Completed [facility] HIB 4 Dose Schedule Unknown Completed [facility] HIB 4 Dose Schedule Unknown Completed [facility] HIB 4 Dose Schedule Unknown Completed [facility] HEPATITIS A Unknown Completed [facility] Hep B, Adol or Pedi Dosage Unknown Completed [facility] Hep B, Adol or Pedi Dosage Unknown Completed [facility] Hep B, Adol or Pedi Dosage Unknown Completed [facility] HPV Unknown Completed [facility] HPV Unknown Completed [facility] Influenza Virus Vaccine Unknown Completed [facility] Influenza Virus Vaccine Unknown Completed [facility] Influenza Virus Vaccine Unknown Completed [facility] Influenza Virus Vaccine Unknown Completed [facility] H1n1 Vaccine Unknown Completed [facility] H1n1 Vaccine Unknown Completed [facility] MMR Unknown Completed [facility] Pneumococcal 7 Conjugate, PCV7 (Prevnar7) Unknown Completed [facility] Pneumococcal 7 Conjugate, PCV7 (Prevnar7) Unknown Completed [facility] Pneumococcal 7 Conjugate, PCV7 (Prevnar7) Unknown Completed [facility] Polio (IPV/OPV) Unknown Completed [facility] Polio (IPV/OPV) Unknown Completed [facility] Polio (IPV/OPV) Unknown Completed [facility] PPD (TB) Unknown Completed [facility] Varicella (varivax)(chicken pox) Unknown Completed [facility] Varicella (varivax)(chicken pox) Unknown Completed [facility] Influenza Virus Vaccine Nasal Unknown Completed [facility] Meningococcal Polysaccharide (groups A, C, Y and W-135) conjugate vaccine (MCV4P) Unknown Completed [facility] TDAP Unknown Completed [facility] Meningococcal Vaccine Unknown Completed [facility] SARS-COV-2 COVID-19 PFIZER VACCINE Unknown Completed [facility] SARS-COV-2 COVID-19 PFIZER VACCINE Unknown Completed [facility] DTaP, Unspecified Formulation Unknown Completed [facility] DTaP, Unspecified Formulation Unknown Completed [facility] DTaP, Unspecified Formulation Unknown Completed [facility] DTaP, Unspecified Formulation Unknown Completed [facility] DTaP, Unspecified Formulation Unknown Completed [facility] Influenza, split virus, trivalent, PF (AFLURIA/FLUARIX/FLU LAVAL/FLUZONE) Unknown Completed [facility] Influenza Virus Vaccine Nasal Unknown Completed [facility] Influenza Virus Vaccine Nasal Unknown Completed [facility] Influenza Virus Vaccine Nasal Unknown Completed [facility] HEPATITIS A Unknown Completed [facility] Hib-HbOC Unknown Completed [facility] Meningococcal Polysaccharide (groups A, C, Y and W-135) conjugate vaccine (MCV4P) Unknown Completed [facility] IPV Unknown Completed [facility] IPV Unknown Completed [facility] IPV Unknown Completed [facility] IPV Unknown Completed [facility] DTAP Unknown Completed [facility] DTAP Unknown Completed [facility] DTAP Unknown Completed [facility] DTAP Unknown Completed [facility] HIB 4 Dose Schedule Unknown Completed [facility] HIB 4 Dose Schedule [address] [facility] HIB 4 Dose Schedule Unknown Completed [facility] HIB 4 Dose Schedule Unknown Completed [facility] HEPATITIS A Unknown Completed [facility] Hep B, Adol or Pedi Dosage Unknown Completed [facility] Hep B, Adol or Pedi Dosage Unknown Completed [facility] Hep B, Adol or Pedi Dosage Unknown Completed [facility] HPV Unknown Completed [facility] HPV Unknown Completed [facility] Influenza Virus Vaccine Unknown Completed [facility] Influenza Virus Vaccine Unknown Completed [facility] Influenza Virus Vaccine Unknown Completed [facility] Influenza Virus Vaccine Unknown Completed [facility] H1n1 Vaccine Unknown Completed [facility] H1n1 Vaccine Unknown Completed [facility] MMR Unknown Completed [facility] Pneumococcal 7 Conjugate, PCV7 (Prevnar7) Unknown Completed [facility] Pneumococcal 7 Conjugate, PCV7 (Prevnar7) Unknown Completed [facility] Pneumococcal 7 Conjugate, PCV7 (Prevnar7) Unknown Completed [facility] Polio (IPV/OPV) Unknown Completed [facility] Polio (IPV/OPV) Unknown Completed [facility] Polio (IPV/OPV) Unknown Completed [facility] PPD (TB) Unknown Completed [facility] Varicella (varivax)(chicken pox) Unknown Completed [facility] Varicella (varivax)(chicken pox) Unknown Completed [facility] Influenza Virus Vaccine Nasal Unknown Completed [facility] Meningococcal Polysaccharide (groups A, C, Y and W-135) conjugate vaccine (MCV4P) Unknown Completed [facility] TDAP Unknown Completed [facility] Meningococcal Vaccine Unknown Completed [facility] SARS-COV-2 COVID-19 PFIZER VACCINE Unknown Completed [facility] SARS-COV-2 COVID-19 PFIZER VACCINE Unknown Completed [facility] DTaP, Unspecified Formulation Unknown Completed [facility] DTaP, Unspecified Formulation Unknown Completed [facility] DTaP, Unspecified Formulation Unknown Completed [facility] DTaP, Unspecified Formulation Unknown Completed [facility] DTaP, Unspecified Formulation Unknown Completed [facility] Flu Trivalent Unknown Completed [facility] Influenza Virus Vaccine Nasal Unknown Completed [facility] Influenza Virus Vaccine Nasal Unknown Completed [facility] Influenza Virus Vaccine Nasal Unknown Completed [facility] HEPATITIS A Unknown Completed [facility] Hib-HbOC Unknown Completed [facility] Meningococcal Polysaccharide (groups A, C, Y and W-135) conjugate vaccine (MCV4P) Unknown Completed [facility] IPV Unknown Completed [facility] IPV Unknown Completed [facility] IPV Unknown Completed [facility] IPV Unknown Completed [facility] DTAP Unknown Completed [facility] DTAP Unknown Completed [facility] DTAP Unknown Completed [facility] DTAP Unknown Completed [facility] HIB 4 Dose Schedule Unknown Completed [facility] HIB 4 Dose Schedule Unknown Completed [facility] HIB 4 Dose Schedule Unknown Completed [facility] HIB 4 Dose Schedule Unknown Completed [facility] HEPATITIS A Unknown Completed [facility] Hep B, Adol or Pedi Dosage Unknown Completed [facility] Hep B, Adol or Pedi Dosage Unknown Completed [facility] Hep B, Adol or Pedi Dosage Unknown Completed [facility] HPV Unknown Completed [facility] HPV Unknown Completed [facility] Influenza Virus Vaccine Unknown Completed [facility] Influenza Virus Vaccine Unknown Completed [facility] Influenza Virus Vaccine Unknown Completed [facility] Influenza Virus Vaccine Unknown Completed [facility] H1n1 Vaccine Unknown Completed [facility] H1n1 Vaccine Unknown Completed [facility] MMR Unknown Completed [facility] Pneumococcal 7 Conjugate, PCV7 (Prevnar7) Unknown Completed [facility] Pneumococcal 7 Conjugate, PCV7 (Prevnar7) Unknown Completed [facility] Pneumococcal 7 Conjugate, PCV7 (Prevnar7) Unknown Completed [facility] Polio (IPV/OPV) Unknown Completed [facility] Polio (IPV/OPV) Unknown Completed [facility] Polio (IPV/OPV) Unknown Completed [facility] PPD (TB) Unknown Completed [facility] Varicella (varivax)(chicken pox) Unknown Completed [facility] Varicella (varivax)(chicken pox) Unknown Completed [facility] Influenza Virus Vaccine Nasal Unknown Completed [facility] Meningococcal Polysaccharide (groups A, C, Y and W-135) conjugate vaccine (MCV4P) Unknown Completed [facility] TDAP Unknown Completed [facility] Meningococcal Vaccine Unknown Completed [facility] SARS-COV-2 COVID-19 PFIZER VACCINE Unknown Completed [facility] SARS-COV-2 COVID-19 PFIZER VACCINE Unknown Completed [facility] DTaP, Unspecified Formulation Unknown Completed [facility] DTaP, Unspecified Formulation Unknown Completed [facility] DTaP, Unspecified Formulation Unknown Completed [facility] DTaP, Unspecified Formulation Unknown Completed [facility] DTaP, Unspecified Formulation Unknown Completed [facility] Flu Trivalent Unknown Completed [facility] Influenza Virus Vaccine Nasal Unknown Completed [facility] Influenza Virus Vaccine Nasal Unknown Completed [facility] Influenza Virus Vaccine Nasal Unknown Completed [facility] HEPATITIS A Unknown Completed [facility] Hib-HbOC Unknown Completed [facility] Meningococcal Polysaccharide (groups A, C, Y and W-135) conjugate vaccine (MCV4P) Unknown Completed [facility] IPV Unknown Completed [facility] IPV Unknown Completed [facility] IPV Unknown Completed [facility] IPV Unknown Completed [facility] DTAP Unknown Completed [facility] DTAP Unknown Completed [facility] DTAP Unknown Completed [facility] DTAP Unknown Completed [facility] HIB 4 Dose Schedule Unknown Completed [facility] HIB 4 Dose Schedule Unknown Completed [facility] HIB 4 Dose Schedule Unknown Completed [facility] HIB 4 Dose Schedule Unknown Completed [facility] HEPATITIS A Unknown Completed [facility] Hep B, Adol or Pedi Dosage Unknown Completed [facility] Hep B, Adol or Pedi Dosage Unknown Completed [facility] Hep B, Adol or Pedi Dosage Unknown Completed [facility] HPV Unknown Completed [facility] HPV Unknown Completed [facility] Influenza Virus Vaccine Unknown Completed [facility] Influenza Virus Vaccine Unknown Completed [facility] Influenza Virus Vaccine Unknown Completed [facility] Influenza Virus Vaccine Unknown Completed [facility] H1n1 Vaccine Unknown Completed [facility] H1n1 Vaccine Unknown Completed [facility] MMR Unknown Completed [facility] Pneumococcal 7 Conjugate, PCV7 (Prevnar7) Unknown Completed [facility] Pneumococcal 7 Conjugate, PCV7 (Prevnar7) Unknown Completed [facility] Pneumococcal 7 Conjugate, PCV7 (Prevnar7) Unknown Completed [facility] Polio (IPV/OPV) Unknown Completed [facility] Polio (IPV/OPV) Unknown Completed [facility] Polio (IPV/OPV) Unknown Completed [facility] PPD (TB) Unknown Completed [facility] Varicella (varivax)(chicken pox) Unknown Completed [facility] Varicella (varivax)(chicken pox) Unknown Completed [facility] Influenza Virus Vaccine Nasal Unknown Completed [facility] Meningococcal Polysaccharide (groups A, C, Y and W-135) conjugate vaccine (MCV4P) Unknown Completed [facility] TDAP Unknown Completed [facility] Meningococcal Vaccine Unknown Completed [facility] SARS-COV-2 COVID-19 PFIZER VACCINE Unknown Completed [facility] SARS-COV-2 COVID-19 PFIZER VACCINE Unknown Completed [facility] DTaP, Unspecified Formulation Unknown Completed [facility] DTaP, Unspecified Formulation Unknown Completed [facility] DTaP, Unspecified Formulation Unknown Completed [facility] DTaP, Unspecified Formulation Unknown Completed [facility] DTaP, Unspecified Formulation Unknown Completed [facility] Flu Trivalent Unknown Completed [facility] Influenza Virus Vaccine Nasal Unknown Completed [facility] Influenza Virus Vaccine Nasal Unknown Completed [facility] Influenza Virus Vaccine Nasal Unknown Completed [facility] HEPATITIS A Unknown Completed [facility] Hib-HbOC Unknown Completed [facility] Meningococcal Polysaccharide (groups A, C, Y and W-135) conjugate vaccine (MCV4P) Unknown Completed [facility] IPV Unknown Completed [facility] IPV Unknown Completed [facility] IPV Unknown Completed [facility] IPV Unknown Completed [facility] DTAP Unknown Completed [facility] DTAP Unknown Completed [facility] DTAP Unknown Completed [facility] DTAP Unknown Completed [facility] HIB 4 Dose Schedule Unknown Completed [facility] HIB 4 Dose Schedule Unknown Completed [facility] HIB 4 Dose Schedule Unknown Completed [facility] HIB 4 Dose Schedule Unknown Completed [facility] HEPATITIS A Unknown Completed [facility] Hep B, Adol or Pedi Dosage Unknown Completed [facility] Hep B, Adol or Pedi Dosage Unknown Completed [facility] Hep B, Adol or Pedi Dosage Unknown Completed [facility] HPV Unknown Completed [facility] HPV Unknown Completed [facility] Influenza Virus Vaccine Unknown Completed [facility] Influenza Virus Vaccine Unknown Completed [facility] Influenza Virus Vaccine Unknown Completed [facility] Influenza Virus Vaccine Unknown Completed [facility] H1n1 Vaccine Unknown Completed [facility] H1n1 Vaccine Unknown Completed [facility] MMR Unknown Completed [facility] Pneumococcal 7 Conjugate, PCV7 (Prevnar7) Unknown Completed [facility] Pneumococcal 7 Conjugate, PCV7 (Prevnar7) Unknown Completed [facility] Pneumococcal 7 Conjugate, PCV7 (Prevnar7) Unknown Completed [facility] Polio (IPV/OPV) Unknown Completed [facility] Polio (IPV/OPV) Unknown Completed [facility] Polio (IPV/OPV) Unknown Completed [facility] PPD (TB) Unknown Completed [facility] Varicella (varivax)(chicken pox) Unknown Completed [facility] Varicella (varivax)(chicken pox) Unknown Completed [facility] Influenza Virus Vaccine Nasal Unknown Completed [facility] Meningococcal Polysaccharide (groups A, C, Y and W-135) conjugate vaccine (MCV4P) Unknown Completed [facility] TDAP Unknown Completed [facility] Meningococcal Vaccine Unknown Completed [facility] SARS-COV-2 COVID-19 PFIZER VACCINE Unknown Completed [facility] SARS-COV-2 COVID-19 PFIZER VACCINE Unknown Completed [facility] DTaP, Unspecified Formulation Unknown Completed [facility] DTaP, Unspecified Formulation Unknown Completed [facility] DTaP, Unspecified Formulation Unknown Completed [facility] DTaP, Unspecified Formulation Unknown Completed [facility] DTaP, Unspecified Formulation Unknown Completed [facility] Flu Trivalent Unknown Completed [facility] Influenza Virus Vaccine Nasal Unknown Completed [facility] Influenza Virus Vaccine Nasal Unknown Completed [facility] Influenza Virus Vaccine Nasal Unknown Completed [facility] HEPATITIS A Unknown Completed [facility] Hib-HbOC Unknown Completed [facility] Meningococcal Polysaccharide (groups A, C, Y and W-135) conjugate vaccine (MCV4P) Unknown Completed [facility] IPV Unknown Completed [facility] IPV Unknown Completed [facility] IPV Unknown Completed [facility] IPV Unknown Completed [facility] DTAP Unknown Completed [facility] DTAP Unknown Completed [facility] DTAP Unknown Completed [facility] DTAP Unknown Completed [facility] HIB 4 Dose Schedule Unknown Completed [facility] HIB 4 Dose Schedule Unknown Completed [facility] HIB 4 Dose Schedule Unknown Completed [facility] HIB 4 Dose Schedule Unknown Completed [facility] HEPATITIS A Unknown Completed [facility] Hep B, Adol or Pedi Dosage Unknown Completed [facility] Hep B, Adol or Pedi Dosage Unknown Completed [facility] Hep B, Adol or Pedi Dosage Unknown Completed [facility] HPV Unknown Completed [facility] HPV Unknown Completed [facility] Influenza Virus Vaccine Unknown Completed [facility] Influenza Virus Vaccine Unknown Completed [facility] Influenza Virus Vaccine Unknown Completed [facility] Influenza Virus Vaccine Unknown Completed [facility] H1n1 Vaccine Unknown Completed [facility] H1n1 Vaccine Unknown Completed [facility] MMR Unknown Completed [facility] Pneumococcal 7 Conjugate, PCV7 (Prevnar7) Unknown Completed [facility] Pneumococcal 7 Conjugate, PCV7 (Prevnar7) Unknown Completed [facility] Pneumococcal 7 Conjugate, PCV7 (Prevnar7) Unknown Completed [facility] Polio (IPV/OPV) Unknown Completed [facility] Polio (IPV/OPV) Unknown Completed [facility] Polio (IPV/OPV) Unknown Completed [facility] PPD (TB) Unknown Completed [facility] Varicella (varivax)(chicken pox) Unknown Completed [facility] Varicella (varivax)(chicken pox) Unknown Completed [facility] Influenza Virus Vaccine Nasal Unknown Completed [facility] Meningococcal Polysaccharide (groups A, C, Y and W-135) conjugate vaccine (MCV4P) Unknown Completed [facility] TDAP Unknown Completed [facility] Meningococcal Vaccine Unknown Completed [facility] SARS-COV-2 COVID-19 PFIZER VACCINE Unknown Completed [facility] SARS-COV-2 COVID-19 PFIZER VACCINE Unknown Completed [facility] DTaP, Unspecified Formulation Unknown Completed [facility] DTaP, Unspecified Formulation Unknown Completed [facility] DTaP, Unspecified Formulation Unknown Completed [facility] DTaP, Unspecified Formulation Unknown Completed [facility] DTaP, Unspecified Formulation Unknown Completed [facility] Flu Trivalent Unknown Completed [facility] Influenza Virus Vaccine Nasal Unknown Completed [facility] Influenza Virus Vaccine Nasal Unknown Completed [facility] Influenza Virus Vaccine Nasal Unknown Completed [facility] HEPATITIS A Unknown Completed [facility] Hib-HbOC Unknown Completed [facility] Meningococcal Polysaccharide (groups A, C, Y and W-135) conjugate vaccine (MCV4P) Unknown Completed [facility] IPV Unknown Completed [facility] IPV Unknown Completed [facility] IPV Unknown Completed [facility] IPV Unknown Completed [facility] DTAP Unknown Completed [facility] DTAP Unknown Completed [facility] DTAP Unknown Completed [facility] DTAP Unknown Completed [facility] HIB 4 Dose Schedule Unknown Completed [facility] HIB 4 Dose Schedule Unknown Completed [facility] HIB 4 Dose Schedule Unknown Completed [facility] HIB 4 Dose Schedule Unknown Completed [facility] HEPATITIS A Unknown Completed [facility] Hep B, Adol or Pedi Dosage Unknown Completed [facility] Hep B, Adol or Pedi Dosage Unknown Completed [facility] Hep B, Adol or Pedi Dosage Unknown Completed [facility] HPV Unknown Completed [facility] HPV Unknown Completed [facility] Influenza Virus Vaccine Unknown Completed [facility] Influenza Virus Vaccine Unknown Completed [facility] Influenza Virus Vaccine Unknown Completed [facility] Influenza Virus Vaccine Unknown Completed [facility] H1n1 Vaccine Unknown Completed [facility] H1n1 Vaccine Unknown Completed [facility] MMR Unknown Completed [facility] Pneumococcal 7 Conjugate, PCV7 (Prevnar7) Unknown Completed [facility] Pneumococcal 7 Conjugate, PCV7 (Prevnar7) Unknown Completed [facility] Pneumococcal 7 Conjugate, PCV7 (Prevnar7) Unknown Completed [facility] Polio (IPV/OPV) Unknown Completed [facility] Polio (IPV/OPV) Unknown Completed [facility] Polio (IPV/OPV) Unknown Completed [facility] PPD (TB) Unknown Completed [facility] Varicella (varivax)(chicken pox) Unknown Completed [facility] Varicella (varivax)(chicken pox) Unknown Completed [facility] Influenza Virus Vaccine Nasal Unknown Completed [facility] Meningococcal Polysaccharide (groups A, C, Y and W-135) conjugate vaccine (MCV4P) Unknown Completed [facility] TDAP Unknown Completed [facility] Meningococcal Vaccine Unknown Completed [facility] SARS-COV-2 COVID-19 PFIZER VACCINE Unknown Completed [facility] SARS-COV-2 COVID-19 PFIZER VACCINE Unknown Completed [facility] DTaP, Unspecified Formulation Unknown Completed [facility] DTaP, Unspecified Formulation Unknown Completed [facility] DTaP, Unspecified Formulation Unknown Completed [facility] DTaP, Unspecified Formulation Unknown Completed [facility] DTaP, Unspecified Formulation Unknown Completed [facility] Flu Trivalent [facility] Unknown Completed [facility] Influenza Virus Vaccine Nasal Unknown Completed [facility] Influenza Virus Vaccine Nasal Unknown Completed [facility] HEPATITIS A Unknown Completed [facility] Hib-HbOC Unknown Completed [facility] Meningococcal Polysaccharide (groups A, C, Y and W-135) conjugate vaccine (MCV4P) Unknown Completed [facility] IPV Unknown Completed [facility] IPV Unknown Completed [facility] IPV Unknown Completed [facility] IPV Unknown Completed [facility] DTAP Unknown Completed [facility] HEPATITIS A [facility] Polio (IPV/OPV) Unknown Completed [facility] HPV Unknown Completed [facility] DTAP Unknown Completed [facility] DTAP Unknown Completed [facility] DTAP Unknown Completed [facility] DTAP Unknown Completed [facility] HIB 4 Dose Schedule Unknown Completed [facility] HIB 4 Dose Schedule Unknown Completed [facility] HIB 4 Dose Schedule Unknown Completed [facility] HIB 4 Dose Schedule Unknown Completed [facility] HEPATITIS A Unknown Completed [facility] Hep B, Adol or Pedi Dosage Unknown Completed [facility] Hep B, Adol or Pedi Dosage Unknown Completed [facility] Hep B, Adol or Pedi Dosage Unknown Completed [facility] HPV Unknown Completed [facility] HPV Unknown Completed [facility] Influenza Virus Vaccine Unknown Completed [facility] Influenza Virus Vaccine Unknown Completed [facility] Influenza Virus Vaccine Unknown Completed [facility] Influenza Virus Vaccine Unknown Completed [facility] H1n1 Vaccine Unknown Completed [facility] H1n1 Vaccine Unknown Completed [facility] MMR Unknown Completed [facility] Pneumococcal 7 Conjugate, PCV7 (Prevnar7) Unknown Completed [facility] Pneumococcal 7 Conjugate, PCV7 (Prevnar7) Unknown Completed [facility] Pneumococcal 7 Conjugate, PCV7 (Prevnar7) Unknown Completed [facility] Polio (IPV/OPV) [facility]) [facility] ([facility]/OPV) [facility] Com[facility] PPD (TB) Unknown Completed [facility] Varicella (varivax)(chicken pox) Unknown Completed [facility] Varicella (varivax)(chicken pox) Unknown Completed [facility] Influenza Virus Vaccine Nasal Unknown Completed [facility] Meningococcal Polysaccharide (groups A, C, Y and W-135) conjugate vaccine (MCV4P) Unknown Completed [facility] TDAP Unknown Completed [facility] Meningococcal Vaccine Unknown Completed [facility] SARS-COV-2 COVID-19 PFIZER VACCINE Unknown Completed [facility] SARS-COV-2 COVID-19 PFIZER VACCINE Unknown Completed [facility] DTaP, Unspecified Formulation Unknown Completed [facility] DTaP, Unspecified Formulation Unknown Completed [facility] DTaP, Unspecified Formulation Unknown Completed [facility] DTaP, Unspecified Formulation Unknown Completed [facility] DTaP, Unspecified Formulation Unknown Completed [facility] Flu Trivalent Unknown Completed [facility] Influenza Virus Vaccine Nasal Unknown Completed [facility] Influenza Virus Vaccine Nasal Unknown Completed [facility] Influenza Virus Vaccine Nasal Unknown Completed [facility] HEPATITIS A Unknown Completed [facility] Hib-HbOC Unknown [facility] [facility] Meningococcal Polysaccharide (groups A, C, Y and W-135) conjugate vaccine (MCV4P) Unknown Completed [facility] IPV Unknown Completed [facility] IPV Unknown Completed [facility] IPV Unknown Completed [facility] IPV Unknown Completed [facility] DTAP Unknown Completed [facility] HEPATITIS A Unknown Completed [facility] MMR Unknown Completed [facility] Polio (IPV/OPV) Unknown Completed [facility] HPV Unknown Completed [facility] DTAP Unknown Completed [facility] DTAP Unknown Completed [facility] DTAP Unknown Completed [facility] DTAP Unknown Completed [facility] HIB 4 Dose Schedule Unknown Completed [facility] HIB 4 Dose Schedule Unknown Completed [facility] HIB 4 Dose Schedule Unknown Completed [facility] HIB 4 Dose Schedule Unknown Completed [facility] HEPATITIS A Unknown Completed [facility] Hep B, Adol or Pedi Dosage Unknown Completed [facility] Hep B, Adol or Pedi Dosage Unknown Completed [facility] Hep B, Adol or Pedi Dosage Unknown Completed [facility] HPV Unknown Completed [facility] HPV Unknown Completed [facility] Influenza Virus Vaccine Unknown Completed [facility] Influenza Virus Vaccine Unknown Completed [facility] Influenza Virus Vaccine Unknown Completed [facility] Influenza Virus Vaccine Unknown Completed [facility] H1n1 Vaccine Unknown Completed [facility] H1n1 Vaccine Unknown Completed [facility] MMR Unknown Completed [facility] Pneumococcal 7 Conjugate, PCV7 (Prevnar7) Unknown Completed [facility] Pneumococcal 7 Conjugate, PCV7 (Prevnar7) Unknown Completed [facility] Pneumococcal 7 Conjugate, PCV7 (Prevnar7) Unknown Completed [facility] Polio (IPV/OPV) Unknown Completed [facility] Polio (IPV/OPV) Unknown Completed [facility] Polio (IPV/OPV) Unknown Completed [facility] PPD (TB) Unknown Completed [facility] Varicella (varivax)(chicken pox) Unknown Completed [facility] Varicella (varivax)(chicken pox) Unknown Completed [facility] Influenza Virus Vaccine Nasal Unknown Completed [facility] Meningococcal Polysaccharide (groups A, C, Y and W-135) conjugate vaccine (MCV4P) Unknown Completed [facility] TDAP Unknown Completed [facility] Meningococcal Vaccine Unknown Completed [facility] SARS-COV-2 COVID-19 PFIZER VACCINE Unknown Completed [facility] SARS-COV-2 COVID-19 PFIZER VACCINE Unknown Completed [facility] DTaP, Unspecified Formulation Unknown Completed [facility] DTaP, Unspecified Formulation Unknown Completed [facility] DTaP, Unspecified Formulation Unknown Completed [facility] DTaP, Unspecified Formulation Unknown Completed [facility] DTaP, Unspecified Formulation Unknown Completed [facility] Flu [facility]rivalent [facility] Virus Vaccine [facility]al Unknown Completed [facility] Influenza Virus Vaccine Nasal Unknown Completed [facility] Influenza Virus Vaccine Nasal Unknown Completed [facility] HEPATITIS A Unknown Completed [facility] Hib-HbOC Unknown Completed [facility] Meningococcal Polysaccharide (groups A, C, Y and W-135) conjugate vaccine (MCV4P) Unknown Completed [facility] IPV Unknown Completed [facility] IPV Unknown Completed [facility] IPV Unknown Completed [facility] IPV Unknown Completed [facility] DTAP Unknown Completed [facility] DTAP Unknown Completed [facility] DTAP Unknown Completed [facility] DTAP Unknown Completed [facility] HIB 4 Dose Schedule Unknown Completed [facility] HIB 4 Dose Schedule Unknown Completed [facility] HIB 4 Dose Schedule Unknown Completed [facility] HIB 4 Dose Schedule Unknown Completed [facility] HEPATITIS A Unknown Completed [facility] Hep B, Adol or Pedi Dosage Unknown Completed [facility] Hep B, Adol or Pedi Dosage Unknown Completed [facility] Hep B, Adol or Pedi Dosage Unknown Completed [facility] HPV Unknown Completed [facility] HPV Unknown Completed [facility] Influenza Virus Vaccine Unknown Completed [facility] Influenza Virus Vaccine Unknown Completed [facility] Influenza Virus Vaccine Unknown Completed [facility] Influenza Virus Vaccine Unknown Completed [facility] H1n1 Vaccine Unknown Completed [facility] H1n1 Vaccine Unknown Completed [facility] MMR Unknown Completed [facility] Pneumococcal 7 Conjugate, PCV7 (Prevnar7) Unknown Completed [facility] Pneumococcal 7 Conjugate, PCV7 (Prevnar7) Unknown Completed [facility] Pneumococcal 7 Conjugate, PCV7 (Prevnar7) Unknown Completed [facility] Polio (IPV/OPV) Unknown Completed [facility] Polio (IPV/OPV) Unknown Completed [facility] Polio (IPV/OPV) Unknown Completed [facility] PPD (TB) Unknown Completed [facility] Varicella (varivax)(chicken pox) Unknown Completed [facility] Varicella (varivax)(chicken pox) Unknown Completed [facility] Influenza Virus Vaccine Nasal Unknown Completed [facility] Meningococcal Polysaccharide (groups A, C, Y and W-135) conjugate vaccine (MCV4P) Unknown Completed [facility] TDAP Unknown Completed [facility] Meningococcal Vaccine Unknown Completed [facility] SARS-COV-2 COVID-19 PFIZER VACCINE Unknown Completed [facility] SARS-COV-2 COVID-19 PFIZER VACCINE Unknown Completed [facility] DTaP, Unspecified Formulation Unknown Completed [facility] DTaP, Unspecified Formulation Unknown Completed [facility] DTaP, Unspecified Formulation Unknown Completed [facility] DTaP, Unspecified Formulation Unknown Completed [facility] DTaP, Unspecified Formulation Unknown Completed [facility] Flu Trivalent Unknown Completed [facility] Influenza Virus Vaccine Nasal Unknown Completed [facility] Influenza Virus Vaccine Nasal Unknown Completed [facility] Influenza Virus Vaccine Nasal Unknown Completed [facility] HEPATITIS A Unknown Completed [facility] Hib-HbOC Unknown Completed [facility] Meningococcal Polysaccharide (groups A, C, Y and W-135) conjugate vaccine (MCV4P) Unknown Completed [facility] IPV Unknown Completed [facility] IPV Unknown Completed [facility] IPV Unknown Completed [facility] IPV Unknown Completed [facility] DTAP Unknown Completed [facility] DTAP Unknown Completed [facility] DTAP Unknown Completed [facility] DTAP Unknown Completed [facility] HIB 4 Dose Schedule Unknown Completed [facility] HIB 4 Dose Schedule Unknown Completed [facility] HIB 4 Dose Schedule Unknown Completed [facility] HIB 4 Dose Schedule Unknown Completed [facility] HEPATITIS A Unknown Completed [facility] Hep B, Adol or Pedi Dosage Unknown Completed [facility] Hep B, Adol or Pedi Dosage Unknown Completed [facility] Vital Signs Vital Name Observation Time Observation Value Comments S ource Systolic blood pressure 2024-03-18 16:54:16 118 mm[Hg] [facility] Diastolic blood pressure 2024-03-18 16:54:16 76 mm[Hg] [facility] Heart rate 2024-03-18 16:54:16 92 /min [facility] Body temperature 2024-03-18 16:54:[address] [facility] Respiratory rate 2024-03-18 16:54:16 18 /min [facility] Oxygen saturation in Arterial blood by Pulse oximetry 2024-03-18 16:54:16 99 /min [facility] Body height 2024-03-18 13:18:[address] [facility] Body weight 2024-03-18 13:18:[address] [facility] BMI 2024-03-18 13:18:00 22.86 kg/m2 [facility] height 2023-12-13 08:20:00 61 [in_i] Commo n [facility] weight 2023-12-13 08:20:00 126.4 [lb_av] Co mmon [facility] temperature 2023-12-13 08:20:00 97.2 [degF] Com [facility] bmi 2023-12-13 08:20:00 23.88 kg/m2 Comm on [facility] oximetry 2023-12-13 08:20:00 97 % Commo n [facility] respiratory rate 2023-12-13 08:20:00 16 /min [facility] blood pressure systolic 2023-12-13 08:20:00 116 mm[Hg] [facility] blood pressure diastolic 2023-12-13 08:20:00 78 mm[Hg] [facility] weight 2023-11-26 10:20:00 125.6 [lb_av] Co mmon [facility] temperature 2023-11-26 10:20:00 97.5 [degF] Com [facility] bmi 2023-11-26 10:20:00 23.73 kg/m2 Comm on [facility] oximetry 2023-11-26 10:20:00 94 % Commo n [facility] respiratory rate 2023-11-26 10:20:00 16 /min [facility] blood pressure systolic 2023-11-26 10:20:00 120 mm[Hg] [facility] blood pressure diastolic 2023-11-26 10:20:00 76 mm[Hg] [facility] height 2023-11-26 10:20:00 61 [in_i] Commo n [facility] Systolic blood pressure 2023-09-01 20:27:00 113 mm[Hg] [facility] Diastolic blood pressure 2023-09-01 20:27:00 74 mm[Hg] [facility] Heart rate 2023-09-01 20:27:00 76 /min [facility] Body height 2023-09-01 20:27:[address] [facility] Body weight 2023-09-01 20:27:[address] [facility] BMI 2023-09-01 20:27:00 22.64 kg/m2 [facility] Oxygen saturation in Arterial blood by Pulse oximetry 2023-09-01 20:27:00 99 /min [facility] Systolic blood pressure 2022-12-23 15:51:00 115 mm[Hg] [facility] Diastolic blood pressure 2022-12-23 15:51:00 78 mm[Hg] [facility] Heart rate 2022-12-23 15:51:00 60 /min [facility] Body temperature 2022-12-23 15:51:[address] [facility] Respiratory rate 2022-12-23 15:51:00 16 /min [facility] Body height 2022-12-23 15:51:[address] [facility] Body weight 2022-12-23 15:51:[address] [facility] BMI 2022-12-23 15:51:00 21.09 kg/m2 [facility] Systolic blood pressure 2022-07-05 21:26:00 114 mm[Hg] [facility] Diastolic blood pressure 2022-07-05 21:26:00 78 mm[Hg] [facility] Heart rate 2022-07-05 21:26:00 97 /min [facility] Body temperature 2022-07-05 21:26:[address] [facility] Respiratory rate 2022-07-05 21:26:00 16 /min [facility] Body height 2022-07-05 21:26:00 157.5 cm [facility] Body weight 2022-07-05 21:26:00 50.213 kg [facility] BMI 2022-07-05 21:26:00 20.25 kg/m2 [facility] Oxygen saturation in Arterial blood by Pulse oximetry 2022-07-05 21:26:00 98 /min [facility] Systolic blood pressure 2020-09-12 19:21:00 134 mm[Hg] [facility] Diastolic blood pressure 2020-09-12 19:21:00 89 mm[Hg] [facility] Heart rate 2020-09-12 19:21:00 122 /min [facility] Body temperature 2020-09-12 19:21:[address] [facility] Respiratory rate 2020-09-12 19:21:00 16 /min [facility] Body height 2020-09-12 19:21:00 154.9 cm [facility] Body weight 2020-09-12 19:21:[address] [facility] BMI 2020-09-12 19:21:00 20.78 kg/m2 [facility] Oxygen saturation in Arterial blood by Pulse oximetry 2020-09-12 19:21:00 100 /min [facility] Systolic blood pressure 2020-09-12 19:21:00 134 mm[Hg] [facility] Diastolic blood pressure 2020-09-12 19:21:00 89 mm[Hg] [facility] Heart rate 2020-09-12 19:21:00 122 /min [facility] Body temperature 2020-09-12 19:21:[address] [facility] Respiratory rate 2020-09-12 19:21:00 16 /min [facility] Body height 2020-09-12 19:21:00 154.9 cm [facility] 2020-09-12 19:21:[address] [facility] BMI 2020-09-12 19:21:00 20.78 kg/m2 [facility] Oxygen saturation in Arterial blood by Pulse oximetry 2020-09-12 19:21:00 100 /min [place] [facility] Procedures Procedure Date / Time Performed Performing Clinician Source US FIRST TRIMESTER LESS THAN 14 WEEKS WITH TRANSVAGINAL 2024-03-18 15:25:44 Arabella Mas [facility] HB ABO GROUPING 2024-03-18 13:54:00 [facility] 2024-03-18 13:43:[address] [facility] COMP. METABOLIC PANEL (81266) 2024-03-18 13:42:[address] [facility] TOTAL BETA HCG ASSAY 2024-03-18 13:42:[address] [facility] CBC WITH DIFF 2024-03-18 13:42:00 Arabella Mas [facility] URINALYSIS 2024-03-18 13:42:00 Arabella Msae [facility] SCANNED LAB RESULTS 2023-09-03 06:01:00 Doctor U [place]assigned[place] [facility] ASSIGNMENT OF BENEFITS 2022-12-23 15:02:57 Docto r Unassigned, [place] [facility] SARS-COV-2 COVID-19 VACCINE,0.3ML,IM (PFIZER) 2021-03-28 21:08:00 Doctor Unassigned, [place] [facility] POCT TEST 2020-09-12 19:43:[address] [facility] NOTICE OF PRIVACY PRACTICES 2020-09-12 19:12:23 Doctor Unassigned, [place] [facility] CONSENT/REFUSAL FOR DIAGNOSIS AND TREATMENT 2020-09-12 19:12:09 Doctor Unassigned, [place] [facility] Encounters Start Date/Time End Date/Time Encounter Type Admission Type Attending Clinicians Care Facility Care Department Encounter ID Source 2024-02-09 14:29:[address] [facility] [id number] [facility] 2023-12-09 08:06:[address] [facility] [id number] [facility] 2023-11-26 09:33:[address] [facility] [id number] [facility] 2021-05-24 23:57:16 Emergency [facility] [id number] [facility] 2024-04-28 08:15:00 2024-04-28 08:15:00 Outpatient R JAREN ARTHUR JAREN [facility] [id number] [facility] 2024-04-14 14:00:00 2024-04-14 14:00:00 Outpatient JAREN SUMNER VIEN [facility] [id number] [facility] 2024-04-13 08:15:00 2024-04-13 08:15:00 Outpatient R [facility] [id number] [facility] 2024-04-02 00:00:00 2024-04-02 08:16:[address] [facility] 1..840.114 350.1.13.10 4.2.7.2.686 [id number] [facility] 2024-03-30 14:00:00 2024-03-30 14:26:23 Outpatient JAREN SUMNER [facility] [id number] [facility] 2024-03-18 08:19:00 2024-03-18 12:12:00 Emergency X ARABELLA MAS [facility] ERT [id number] [facility] 2024-03-18 08:19:00 2024-03-18 12:12:00 Emergency Arabella Mas [facility] 1.840.114 350.1.13.10 4.2.7.2.686 [id number] [facility] 2024-03-10 09:00:00 2024-03-10 09:00:00 Outpatient JAREN SUMNER VIEN [facility] [id number] [facility] 2023-12-13 00:00:00 2023-12-13 00:00:00 PREV VISIT EST AGE 18-39 [facility] [id number] [facility] 2023-11-26 00:00:00 2023-11-26 00:00:00 OFFICE VISIT NEW PT LEVEL 3 [facility] [id number] [facility] 2023-11-05 18:02:00 2023-11-05 19:10:00 Emergency EM Sandra Navarro [facility] [id number] 77 [facility] 2023-09-06 00:00:00 2023-09-06 00:00:00 [facility] 1.0.114 350.1.13.10 4.2.7.2.686 [id number] [facility] 2023-09-03 00:00:00 2023-09-03 00:00:00 Orders Only Doctor Unassigned, [place] [facility] 1.2.840.114 350.1.13.10 4.2.7.2.686 [id number] [facility] 2023-09-03 00:00:00 2023-09-03 00:00:00 [facility] 1.0.114 350.1.13.10 4.2.7.2.686 [id number] [facility] 2023-09-01 14:20:00 2023-09-01 14:49:13 Outpatient R CHRISTIANNE ECKERT [facility] [id number] [facility] 2023-09-01 14:20:00 2023-09-01 14:49:13 Office Visit Christianne Eckert [facility] 1.840.114 350.1.13.10 4.2.7.2.686 [id number] [facility] 2023-08-30 14:00:00 2023-08-30 14:00:00 Outpatient TG SAWANT [id number] Monica Sands 2022-12-31 00:00:00 2022-12-31 00:00:00 Patient Secure Msg Doctor Unassigned, [place] [facility] 1..840.114 350.1.13.10 4.2.7.2.686 [id number] [facility] 2022-12-24 08:00:00 2022-12-24 08:15:00 Studio Musician Visit Posilverio, [facility] 1..840.114 350.1.13.10 4.2.7.2.686 [id number] [facility] 2022-12-24 08:00:00 2022-12-24 08:00:00 Outpatient R DEBORAH [facility] [id number] [facility] 2022-12-23 11:45:00 2022-12-23 12:00:00 Studio Musician Visit Draw, Clc-Bls Lab Deborah [facility] OFFICE BUILDING 1..840.114 350.1.13.10 4.2.7.2.686 [id number] [facility] 2022-12-23 10:50:00 2022-12-23 11:24:29 Outpatient R [facility]AH [facility] [id number] [facility] 2022-12-23 10:50:00 2022-12-23 11:24:29 Office Visit Deborah [facility] 1.2840.114 350.1.13.10 4.2.7.2.686 [id number] [facility] 2022-12-23 00:00:00 2022-12-23 00:00:00 Orders Only Doctor Unassigned, [place] [facility] 1.2.840.114 350.1.13.10 4.2.7.2.686 [id number] [facility] 2022-07-08 00:00:00 2022-07-08 00:00:00 Patient Secure Msg Doctor Unassigned, [place] [facility] 1.2840.114 350.1.13.10 4.2.7.2.686 [id number] [facility] 2022-07-05 15:40:00 2022-07-05 15:42:58 Outpatient R DEVIKA HOOK [facility] [id number] [facility] 2022-07-05 15:40:00 2022-07-05 15:42:58 Urgent Care Devika oHok Unknown, Attending [facility] 1.2840.114 350.1.13.10 4.2.7.2.686 [id number] [facility] 2022-03-22 00:00:00 2022-03-22 00:00:00 Patient Secure Msg Doctor Unassigned, [place] [facility] 1.2840.114 350.1.13.10 4.2.7.2.686 [id number] [facility] 2022-03-05 00:00:00 2022-03-05 00:00:00 Patient Secure Msg Doctor Unassigned, [place] [facility] 1.2840.114 350.1.13.10 4.2.7.2.686 [id number] [facility] 2022-01-28 00:00:00 2022-01-28 00:00:00 Patient Secure Msg Doctor Unassigned, [place] [facility] 1.114 350.1.13.10 4.2.7.2.686 [id number] [facility] 2021-03-28 16:04:57 2021-03-28 16:05:06 Imm/Inj Visit Nurse, Jimbo Pob Immunizatio [facility] 1..114 350.1.13.10 4.2.7.2.686 [id number] [facility] 2021-03-28 14:50:00 2021-03-28 16:05:06 Outpatient MO MAYA [facility] [id number] [facility] 2020-12-14 10:05:00 2020-12-14 10:05:00 Outpatient [facility] [id number] [facility] 2020-12-07 10:05:00 2020-12-07 10:05:00 Outpatient [facility] [id number] [facility] 2020-11-16 10:05:00 2020-11-16 10:05:00 Outpatient [facility] [id number] [facility] 2020-11-16 10:05:00 2020-11-16 10:05:00 Outpatient MATEUS ALEXIS [facility] [id number] [facility] 2020-09-13 09:20:00 2020-09-13 09:20:00 Outpatient [facility] [id number] [facility] 2020-09-12 13:28:00 2020-09-12 14:21:00 Emergency Chely Torre [facility] 1..114 350.1.13.10 4.2.7.2.686 [id number] [facility] 2020-09-12 13:28:00 2020-09-12 14:21:00 Emergency Chely Torre [facility] 1.2.840.114 350.1.13.10 4.2.7.2.686 [id number] 2012-07-21 00:00:00 2012-07-21 14:57:00 [facility]patient [facility] [id number] [facility] 2012-05-18 00:00:00 2012-05-18 15:07:00 [facility]patient [facility] [id number] [facility] 2012-05-18 00:00:00 2012-05-18 00:00:00 [facility]patient [facility] [id number] [facility] 2012-04-28 00:00:00 2012-04-28 16:10:00 [facility]patient [facility] [id number] [facility] 2012-04-28 00:00:00 2012-04-28 00:00:00 [facility]patient [facility] [id number] [facility] 2012-03-10 00:00:00 2012-03-10 16:50:00 [facility]patient [facility] [id number] [facility] 2012-03-09 00:00:00 2012-03-09 00:00:00 [facility]patient [facility] [id number] [facility] 2012 00:00:00 2012 13:23:00 Outpatient [facility] [id number] [facility] 2011-04-28 00:00:00 2011-04-28 18:03:00 Outpatient [facility] [id number] [facility] Results Test Description Test Time Test Comments Results Resul t Comments Source US FIRST TRIMESTER LESS THAN 14 WEEKS WITH TRANSVAGINAL 2024-02-25 4 16:35:01 Indication: spotting ? Comparison: None RL: [id number] ORDERING PHYSICIAN: ?ARABELLA ?CHACE TECHNIQUE: Multiple real-time transvaginal sonographic images wereobtained. [...] measures 3.3 x 1.7 x 1.8 [facility] ([id number][facility]2024-03-18 14:09:07* Test Item Value Reference Range Interpretation Comme nts NA (test code = 2022880417) 136 mmol/L 135-145 K (test code = 7058749426) 3.7 mmol/L 3.5-5.0 CL (test code = 4200074469) 103 mmol/L 98-108 CO2 TOTAL (test code = 6783605293) 24 mmol/L 23-31 AGAP (test code = 4418698604) 9 2-16 BUN (test code = 5489065842) 8 mg/dL 7-23 GLUCOSE (test code = 8253492659) 97 mg/dL 70-110 CREATININE (test code = 2160-0) 0.47 mg/dL 0.50-1.04 L TOTAL BILI (test code = 3042243981) 0.4 mg/dL 0.1-1.1 CALCIUM (test code = 5539003425) 9.2 mg/dL 8.6-10.6 T PROTEIN (test code = 3007711455) 7.9 g/dL 6.3-8.2 ALBUMIN (test code = 5286279370) 4.6 g/dL 3.5-5.0 ALK PHOS (test code = 4485680616) 68 U/L 34-122 ALTv (test code = 1742-6) 17 U/L 5-35 AST(SGOT) (test code = 6750841426) 35 U/L 13-40 eGFR (test code = 51997-5) 138.2 mL/min/1.73m2 CKD-EPI eGFR (2020). Assuming creatinine has been stable day-to-day for at least three months, the eGFR indicates Category G1 (>= 90 mL/min/1.73 m2) Lab Interpretation (test code = 89376-2) [facility] [id number] 14:03:00 * Test Item Value Reference Range Interpretation Comme nts ABO & RH (test code = 20) O POSITIVE IAT (test code = 1185) Negative [facility] [id number] 13:50:15* Test Item Value Reference Range Interpretation [...] 33.2 g/dL 31.6-35.1 RDW-SD (test code = 77194-3) 38.5 fL 39.0-49.9 L RDW-CV (test code = 788-0) 12.4 % 12.0-15.5 PLT (test code = 777-3) 325 166-358 MPV (test code = 26495-9) 10.7 fL 9.5-12.9 NRBC/100 WBC (test code = 3189075704) 0.0 0.0-10.0 NRBC x10^3 (test code = 3493481048) See_Comment [Automated messa ge] The system which generated this result transmitted reference range: 10*3/?L. The reference range was not used to interpret this result as normal/abnormal. GRAN MAT (NEUT) % (test code = 770-8) 69.7 % IMM GRAN % (test code = 5335770509) 0.20 % LYMPH % (test code = 736-9) 22.5 % MONO % (test code = 5905-5) 6.1 % EOS % (test code = 713-8) 1.1 % BASO % (test code = 706-2) 0.4 % GRAN MAT x10^3(ANC) (test code = 9025358392) 6.86 10*3/uL 1.88-7.09 IMM GRAN x10^3 (test code = 7374839065) 0.00-0.06 LYMPH x10^3 (test code = 731-0) 2.21 10*3/uL 1.32-3.29 MONO x10^3 (test code = 742-7) 0.60 10*3/uL 0.33-0.92 EOS x10^3 (test code = 711-2) 0.11 10*3/uL 0.03-0.39 BASO x10^3 (test code = 704-7) 0.04 10*3/uL 0.01-0.07 Lab Interpretation (test code = 50055-3) Abnormal [facility] [id number] 13:43:00* Test Item Value Reference Range Interpretation Comme nts POCT PREG (test code = 1605) Positive On board controls acceptable with C Line (test code = 3574) Yes POCT PREG LOT # (test code = 3575) [id number] POCT PREG TEST DATE ( test code = 3576) 12/02/24 Lab Interpretation (test cod e = 93203-6) Normal [facility] [id number] 19:43:00* Test Item Value Reference Range Interpretation Comme nts POCT PREG (test code = 1605) positive On board controls acceptable with C Line (test code = 3574) present POCT PREG LOT # (test code = 3575) [id number] POCT PREG TEST DATE ( test code = 3576) 04/24/2022 Lab Interpretation (test cod e = 60353-0) Normal [facility] Notes Date/Time Note Provider Source 2024-04-02 08:01:00 Regardinwks vomiting blood clots ----- Message from Lesley Hong sent at 04/02/2024 8:01 AM CDT ----- Brigida Cortes is a 24 year old female is currently 9 wks . Pt states she vomited this morning and had blood clots in her vomit. Per pt she keeps spitting up blood clots as well. Pt would like to know what she should do. IT Salina Lane RN [facility] 2024-04-02 08:01:00 Triage Assessment Last Clinic Visit: 03/30/24, OB, visit Primary Symptom: vomiting Onset / Duration: today Location / Description: GI Pain / Severity: 0/10 Associated Symptoms: blood in emesis Fever / Method: denies Hydration: eating less, drinking fluids, no fluids today, last void 20 min ago, denies hematuria or dysuria, has n/v, denies diarrhea Treatment so far: B6 vitamin 2 days ago Effect on ADL's: some Gestational Weeks: 9w 0d Rupture Membranes: denies Bleeding / Spotting / Pads per hour: denies Movement: NA Para / : EDC: 11/05/24 Pre-existing condition / Immunocompromised: ovarian cysts Brigida Cortes is a 24 year old female whose calling for advice with vomiting. Pt reports she vomited this morning. Pt reports noticed blood clots in emesis. Pt reports after vomiting she was still spitting up a small amt of blood. Assessment and triage completed per protocol. Patient verbalizes understanding and agrees to follow plan of care. Pt verbalized understanding of need for ER eval and will go to [facility] now as advised. Pt had no further questions or concerns. Call back advice given and pt verbalized understanding. 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 Denies pain or cramping. [facility] 2023-11-05 18:37:00 [facility] ([facility]) EMERGENCY PROVIDER REPORT REPORT#:[id number] REPORT STATUS: Signed DATE:11/05/23 TIME: 1836 PATIENT: BRIGIDA CORTES UNIT #: [id number] ROOM/BED: AGE: 23 SEX: F PCP PHYS: Pam Ferrer MD SERVICE AUTHOR: Sandra Navarro MD * ALL edits or amendments must be made on the electronic/computer document * DSM-Cez-Ekln Illness Free Text HPI Notes Free Text [...] 118/73 11/04 1810 B/P Mean 88 11/04 1809 O2 Delivery Room air 11/04 1809 Temp 36.7 11/04 1809 Pulse 89 11/04 1809 Resp 16 11/04 1809 Last Documented: Result Date Time Pulse Ox 100 11/04 1810 B/P 118/73 11/04 1810 B/P Mean 88 11/040 O2 Delivery Room air 11/04 1809 Temp 36.7 11/04 1809 Pulse 89 11/04 1809 Resp 11/04 Review of Vital Signs Reviewed Free Text [...] Documented: Result Date Time Pulse Ox 100 / 1810 B/P 118/73 / 1810 B/P Mean 88 / 1810 O2 Delivery Room air 11/04 1810 Temp 36.7 / 1810 Pulse 89 / 1810 Resp 16 11/040 Last Documented: Result Date Time Pulse Ox 100 11/04 1810 B/P 118/73 / 1810 B/P Mean 88 / 1810 O2 Delivery Room air 11/040 Temp 36.7 / 1810 Pulse 89 11/04 1810 Resp 16 11/04 1809 All vital signs available at the time [...] your primary care doctor. at 1840 RPT #:[id number] END OF REPORT [facility] 2023-09-07 14:37:29 Labs discussed in alternative encounter 09/07/2023. [facility] 2023-09-07 14:36:47 Called patient and discussed lab results. Patient voiced understanding/agreement with plan. Christianne Eckert MD Department of Family Medicine [facility] 2023-09-07 09:41:50 Routing to provider, pt would like you to go over her labs with her. I can call if you want me to. Please advise [facility] 2023-09-07 09:11:10 Message routed to provider for review. Vincent Jones LVN 09/07/2023 9:11 AM Vincent Jones LVN [facility] 2023-09-06 16:13:53 Brigida Cortes is a 23 year old female Pt is calling to request a call back on labs done on 09/01/2023. Pt would like explained to her. Anneliese Humphrey [facility]
[2024-04-02] MEDS ORDERED: NA CHLORIDE 0.9% 1,000 ML ONE (09:13)
[2024-04-02 09:34] LABS: Absolute Eosinophils 0.1 K/uL (0-0.5); Absolute Lymphocytes (CBC) 1.7 K/uL (0.7-4.9); Absolute Monocytes 0.5 K/uL (0.1-1.3); Basophils % 0.4 % (0-1.3); Eosinophils % 0.7 % (0-4.4); Hematocrit 39.5 % (36.0-45.0); Lymphocytes % 18.7 % (15.3-44.8); MCH 28.5 pg (27.0-35.0); MCHC 32.9 g/dL (32.0-36.0); MCV 86.7 fL (80-100); Neutrophils % 75.2 % (41.7-73.7); Platelets 301 thou/uL (152-406); RBC Red Blood Cell Count 4.55 M/uL (3.86-4.86); Red Cell Distribution Width 13.3 % (12.1-15.2)
[2024-04-02 09:45] LABS: Specific Gravity 1.027 (1.005-1.030); Urine Bacteria 20-50 /HPF (<20); Urine Bilirubin NEGATIVE (Negative); Urine Blood Negative (Negative); Urine Clarity Extremely Turbid (Clear); Urine Color Yellow (Yellow); Urine Culture Reflex Order REFLEXED; Urine Glucose NEGATIVE (Negative); Urine Ketones NEGATIVE (Negative); Urine Microscopic Reflex YN ORDER UMIC; Urine Mucus 4+ /HPF (None Seen); Urine Nitrite NEGATIVE (Negative); Urine Protein 1+ (Negative); Urine Urobilinogen Normal (Normal); Urine WBC >50 /HPF (<5); Urine pH 7.5 (5.0-7.0)
[2024-04-02 09:54] LABS: ALT/SGPT 20 U/L (13-56); Albumin 3.5 g/dL (3.4-5.0); Alkaline Phosphatase 55 U/L (45-117); Anion Gap 8.7 mEq/L (5.0-15.0); BUN Blood Urea Nitrogen 8 mg/dL (7-18); Bicarbonate 25 mEq/L (21-32); Bilirubin Total 0.4 mg/dL (0.2-1.0); Globulin 3.6 g/dL (2.3-3.5); Glomerular Filtration Rate 137 ml/min (=/>90); Glucose Level 96 mg/dL (74-106); Potassium 3.7 mEq/L (3.5-5.1); Protein, Total 7.1 g/dL (6.4-8.2); Sodium Level 136 mEq/L (136-145)
[2024-04-02 09:56] LABS: AST/SGOT < 10 U/L (15-37)
[2024-04-02 10:07] LABS: HCG, Quantitative 130735 mIU/mL (1-3)
--- NOTE | 2024-04-02 10:17 | EDPHYS ---
Physician Documentation [facility] Name: Nevin Palmer Age: 24 yrs Sex: Female : 2000 Arrival Date: 04/02/2024 Time: 08:46 Bed 18 Private MD: ED Physician Odin Raines HPI: 04/02 09:12 This 24 yrs old Female presents to ER via Ambulatory with complaints of 9wks kb , Vomiting Blood. 09:12 Pt is a 24 year old female who presents for nausea and vomiting that has been ongoing kb every morning since onset of 9 weeks ago. States she noticed a trace amount of blood in the vomit this morning so she came in for evaluation. Denies abd pain, vaginal bleeding. OB is Dr Boo. 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 - Infectious Disease History:: Denies. - Social history:: Smoking status: Patient denies any tobacco usage or history of. ROS: 09:11 Constitutional: As per HPI kb Exam: 09:11 Constitutional: This is a well developed, well nourished patient who is awake, alert, kb and in no acute distress. Head/Face: Normocephalic, atraumatic. ENT: Moist Mucous membranes Cardiovascular: Regular rate Respiratory: Respirations even and unlabored. No increased work of breathing. Talking in full sentences Abdomen/GI: Soft, non-tender. No distention Skin: Warm, dry with normal turgor. Normal color. MS/ Extremity: Pulses equal, no cyanosis. Neurovascular intact. Full, normal range of motion. Neuro: Awake and alert, GCS 15, oriented to person, place, time, and situation. Moves all extremities. Normal gait. Vital Signs: 09:08 BP 105 / 70; Pulse 81; Resp 17; Temp 98.5(O); Pulse Ox 100% ; Weight 58.06 kg; Height 5 ap3 ft. 2 in. ; Pain 0/10; 10:04 Pulse 82; Pulse Ox 100% ; ap3 09:08 Body Mass Index 23.41 (58.06 kg, 157.48 cm) ap3 09:08 Pain Scale: Adult ap3 MDM: 09:01 Patient medically screened. kb 09:12 Data reviewed: vital signs, nurses notes. kb 10:15 Differential diagnosis: dehydration, abnormal electrolytes, gi bleed, ulcer. kb Counseling: I had a detailed discussion with the patient and/or guardian regarding the historical points, exam findings, and any diagnostic results supporting the discharge/admit diagnosis, lab results, the need for outpatient follow up, an OB/Gyne specialist, to return to the emergency department if symptoms worsen or persist or if there are any questions or concerns that arise at home. 10:16 External Records Reviewed: pictures of blood in vomit reviewed on pt's phone. Very kb trace amounts. Pt reports she has been vomiting daily. Educated to return if bleeding continues or for any other concerns. . 04/02 09:07 Order name: Abo/rh Typing; Complete Time: 10:01 kb 04/02 09:07 Order name: CBC with Diff; Complete Time: 09:35 kb 04/02 09:07 Order name: Quantitative Hcg; Complete Time: 10:15 kb 04/02 09:07 Order name: Urinalysis w/ reflexes; Complete Time: 09:46 kb 04/02 09:07 Order name: CMP; Complete Time: 10:15 kb 04/02 09:47 Order name: Urine Culture EDMS 04/02 09:07 Order name: IV Saline Lock; Complete Time: 09:27 kb 04/02 09:07 Order name: Labs collected and sent; Complete Time: 09:27 kb 04/02 09:07 Order name: NPO; Complete Time: 09:12 kb Administered Medications: 09:12 Not Given (Patient Refused): promethazine6.25 mg IVP once ap3 09:39 Drug: NS 0.9% IV 1000 ml IV at 1000 ml once Route: IV; Rate: 1000 ml; Site: right ap3 antecubital; 10:28 Follow up: IV Status: Completed infusion; IV Intake: 1000ml ap3 Disposition: 12:02 Co-signature as Attending Physician, Odin Raines MD I reviewed the patient's care rt provided by the Advanced Practice Provider and agree with the diagnosis and treatment plan. Disposition Summary: 04/02/24 10:17 Discharge Ordered Notes: Location: Home kb Condition: Stable kb Diagnosis - Vomiting of , unspecified kb - UTI/ Urinary tract infection, site not specified kb Followup: kb - With: Emergency Department - When: As needed - Reason: Worsening of condition Followup: kb - With: Private Physician - When: 2 - 3 days - Reason: Recheck today's complaints, Continuance of care, Re-evaluation by your physician Discharge Instructions: - Discharge Summary Sheet kb - Morning Sickness, [id number] kb - Urinary Tract Infection, Adult, [id number] kb - and Urinary Tract Infection kb Forms: - Medication Reconciliation Form kb - Antibiotic Education kb - Prescription Opioid Use kb - Patient Portal Instructions kb - Leadership Thank You Letter kb Prescriptions: - Macrobid 100 mg Oral Capsule - take 1 capsule ORAL route every 12 hours for 10 days; 20 capsule; Refills: 0, kb Product Selection Permitted Signatures: Dispatcher [employer] EDKiersten Cabrera, dIania Perez RN RN ap3 Odin Raines MD MD rt Corrections: (The following items were deleted from the chart) 09:38 09:07 Test, Urine+UC.LAB.BRZ ordered. EDIN EDMS
--- NOTE | 2024-04-02 10:17 | ER ---
Nurse's Notes [facility] Name: Nevin Palmer Age: 24 yrs Sex: Female : 2000 Arrival Date: 04/02/2024 Time: 08:46 Bed 18 Private MD: Diagnosis: Vomiting of , unspecified;UTI/ Urinary tract infection, site not specified Presentation: 04/02 09:08 Chief complaint: Patient states: she is approx 9 weeks and has been vomiting ap3 her whole . patient reports she now has blood in her vomit. patient denies any pain or vaginal bleeding at this time. Coronavirus screen: At this time, the client does not indicate any symptoms associated with coronavirus-19. Ebola Screen: No symptoms or risks identified at this time. Initial Sepsis Screen: Does the patient meet any 2 criteria? No. Patient's initial sepsis screen is negative. Does the patient have a suspected source of infection? No. Patient's initial sepsis screen is negative. Risk Assessment: Do you want to hurt yourself or someone else? Patient reports no desire to harm self or others. Onset of symptoms is unknown. 09:08 Method Of Arrival: Ambulatory ap3 09:08 Acuity: CHRISTIANE 3 ap3 Triage Assessment: 09:10 General: Appears in no apparent distress. Behavior is calm, cooperative, appropriate ap3 for age. Pain: Denies pain. Neuro: Level of Consciousness is awake, alert, obeys commands, Oriented to person, place, time, situation. Cardiovascular: Patient's skin is warm and dry. Respiratory: Airway is patent Respiratory effort is even, unlabored, Respiratory pattern is regular, symmetrical. GI: Reports nausea, vomiting, with blood. 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 - Infectious Disease History:: Denies. - Social history:: Smoking status: Patient denies any tobacco usage or history of. Screenin:11 [facility] ED Fall Risk Assessment (Adult) History of falling in the last 3 months, ap3 including since admission No falls in past 3 months (0 pts) Confusion or Disorientation No (0 pts) Intoxicated or Sedated No (0 pts) Impaired Gait No (0 pts) Mobility Assist Device Used No (0 pt) Altered Elimination No (0 pt) Score/Fall Risk Level 0 - 2 = Low Risk Oriented to surroundings, Maintained a safe environment, Educated pt \T\ family on fall prevention, incl call for assistance when getting out of bed, Assessed \T\ reinforced patient's understanding of fall precautions, Hourly rounding (assess needs \T\ fall precautionary measures) done, Used ambulatory aids as needed (educated on \T\ assisted with), Used gait belt as appropriate. Abuse screen: Denies threats or abuse. Nutritional screening: No deficits noted. Tuberculosis screening: No symptoms or risk factors identified. Vital Signs: 09:08 BP 105 / 70; Pulse 81; Resp 17; Temp 98.5(O); Pulse Ox 100% ; Weight 58.06 kg; Height 5 ap3 ft. 2 in. ; Pain 0/10; 10:04 Pulse 82; Pulse Ox 100% ; ap3 09:08 Body Mass Index 23.41 (58.06 kg, 157.48 cm) ap3 09:08 Pain Scale: Adult ap3 ED Course: 08:49 Patient arrived in ED. mr 09:01 MartínKiersten FNP-C [facility] kb 09:01 Odin Raines MD is Attending Physician. kb 09:10 Triage completed. ap3 09:11 Arm band placed on right wrist. ap3 09:11 Patient has correct armband on for positive identification. Bed in low position. Call ap3 light in reach. Side rails up X 1. Adult w/ patient. Provided Education on: call light use . Pulse ox on. NIBP on. 09:26 Initial lab(s) drawn, by me, sent to lab. Inserted saline lock: 22 gauge in right cc6 antecubital area, using aseptic technique. Blood collected. Flushed with 10 mL NS. 09:34 Idania Stout, [place] is Primary Nurse. ap3 10:28 No provider procedures requiring assistance completed. IV discontinued, intact, ap3 bleeding controlled, No redness/swelling at site. Pressure dressing applied. Administered Medications: 09:12 Not Given (Patient Refused): promethazine6.25 mg IVP once ap3 09:39 Drug: NS 0.9% IV 1000 ml IV at 1000 ml once Route: IV; Rate: 1000 ml; Site: right ap3 antecubital; 10:28 Follow up: IV Status: Completed infusion; IV Intake: 1000ml ap3 Medication: 10: VIS not applicable for this client. ap3 Intake: 10: IV: 1000ml; Total: 1000ml. ap3 Outcome: 10:17 Discharge ordered by MD. ramos 10: Discharged to home ambulatory, with family, ap3 10: Condition: good : Discharge instructions given to patient, Instructed on discharge instructions, follow up and referral plans. Demonstrated understanding of instructions, follow-up care, medications, Prescriptions given X 1, : Patient left the ED. ap3 Signatures: Kiersten Resendiz, CLEMENTE-C VPK TEACHER-Melissa Frerer, Idania Shea RN RN ap3 Thais Wright cc6
[2024-04-02 10:38] VITALS: BP 105/70; TEMP 98.5; O2SAT 100
== END 2024-04-02 10:29 | disposition home or self-care (01) ==
LOC: ER 08:46
DX: O21.9 Vomiting of pregnancy, unspecified (principal); O23.41 Unspecified infection of urinary tract in pregnancy, first trimester; Z3A.09 9 weeks gestation of pregnancy
CPT/HCPCS: 87088; 85025; 81001; 87086; 36415; 86900; 86901; 84702; 80053; 96360; 99284; J7030

== ENCOUNTER 2024-12-11 03:45 | Emergency (ER) | payer OTHER ==
--- OUTSIDE RECORDS SUMMARY | 2024-12-11 03:56 | XMS REPORT | Continuity of Care Document ---
Author Name Unknown Address [address] [facility] [place] [address] Organization [facility] Address [address] [facility] [address] [place] [address] Care Team Providers Care Carrier Associate Name Role Phone PCP, PATIENT DOES NOT HAVE A Primary Care Physic mai Unavailable Pam Ferrer Attending Clinician Unavailable JAREN ARTHUR Attending Clinician Unavailable JAREN ARTHUR Attending Clinician Unavailable CHUCK MATHIS Attending Clinician UnavailJaren Arreaga MD Attending Clinician [phone] ALEM FREEDMAN Attending Clinician Unavailable Alem Daugherty Attending Clinician [phone] Unknown, Attending Attending Clinician Unavailab le UNKNOWN, ATTENDING Attending Clinician Unavailab GERARD Mahmood Attending Clinician Unavailable Yousif Vincent Attending Clinician [phone] Valentin Rivero CRNA Attending Clinician [phone] Garcia BROWN, Lay Attending Clinician [phone] Doctor Unassigned, Vivian Attending Clinician U navailable [facility] VICTORPSegundo Attending Clinician + Idania Dolan MD Attending Clinician [phone] IDANIA DOLAN Attending Clinician Unavailable LASHONDA NICOLE Attending Clinician LASHONDA Santamaria Attending Clinician Santi Nicole MD, Lashonda Attending Clinician + [phone] Kapil BRIGGS, Myrna Caceres Attending Clinician Unavaila JADYN Amezcua Attending Clinician Unavailab shyla Kelley MD, Jadyn Attending Clinician [phone] Kamini Samayoa MD Attending Clinician [phone] SEGUNDO BRADLEY Attending Clinician Unavail able Lab, Ang - Db Attending Clinician Unavailable CORNELIUS DURON Attending Clinician Unavailabl e Ultrasound, Ang-Mfm Attending Clinician Unavaila Cornelius Dior MD Attending Clinician [phone], Adc Lab Attending Clinician Unavailable NAYELY ELMORE Attending Clinician Unav ailable NAYELY ELMORE Attending Clinician Unav ailable Lolly Mooney NP Attending Clinician [phone] Nayely Elmore MD Attending Clinician + Salina Lane RN Attending Clinician Unavailabl e ARABELLA ROSA Attending Clinician Unavailable ARABELLA ROSA Attending Clinician Unavailable ARABELLA MAS Attending Clinician Unavailable Arabella Mas NP Attending Clinician [phone] Sandra Navarro Attending Clinician Unavailable Christianne Gama MD Attending Clinician [phone] Doctor Unassigned, Vivian Attending Clinician U navailable CHRISTIANNE GAMA Attending Clinician Unavailable TG SAWANT Attending Clinician Unava ilable NASH RODRÍGUEZ Attending Clinician Unavailable TAMMY ARMENTA Attending Clinician Unavailable TAMMY ARMENTA Attending Clinician Unavailable Pob, Adc Lab Main Attending Clinician UnavailNguyen Orozco MD Attending Clinician NGUYEN BROWN Attending Clinician Unavailable Draw, Clc-Bls Lab Attending Clinician UnavailCHERY Mata Attending Clinician UnavailChery Reinoso Attending Clinician [phone] Unknown, Attending Attending Clinician Unavailab shyla Nurse, Adc Pob Immunization Attending Clinician Unavailable Mo Fox DO Attending Clinician [phone] MO FOX Attending Clinician Unavail able MATEUS ALCANTAR Attending Clinician Unavailable Chely Torre DO Attending Clinician [phone] JAREN ARTHUR Admitting Clinician Unavailable LASHONDA NICOLE Admitting Clinician Santi Arthur MD, Jaren Velásquez Admitting Clinician [phone] Lashonda Nicole MD Admitting Clinician [phone] ARABELLA MAS Admitting Clinician Unavailable Pam Ferrer Admitting Clinician Unavailable Payers Payer Name Policy Type Policy Number Effective Date Expirati on Date Source [place] [employer] [id number] 2024 00:00:00 [place] [id number] 2024 00:00:00 [place] [id number] 2024 00:00:00 MEDICAID PENDING PENDING 2020 00:00:00 Problems Condition Name Condition Details Condition Category Status Onset Date Resolution Date Last Treatment Date Treating Clinician Comments Source Multiparit y Multiparit y Disease Active 2023-07 2-02 00:00: 00 [facility] Nausea and vomiting during prior to 22 weeks gestation Nausea and vomiting during prior to 22 weeks gestation Disease Active 9-05 00:00: 00 [facility] Single in first trimester Single in first trimester Disease Active 8-24 00:00: 00 [facility] Passive smoke exposure Passive smoke exposure Disease Active 2012-07 0-07 00:00: 00 [facility] Normal labor Normal labor Disease Resolve d 2025-0 3-27 00:00: 00 2024-12-04 00:00:00 2024-12-04 08:45:27 [facility] Liveborn infant, of [place] , born in hospital by vaginal delivery Liveborn , of [place] , born in hospital by vaginal delivery Disease Resolve d 2024-0 3-27 00:00: 00 2024-12-04 00:00:00 2024-12-04 08:45:28 [facility] Uterine contractio ns during Uterine contractio ns during Disease Resolve d 2024-0 3-24 00:00: 00 2024-12-04 00:00:00 2024-12-04 08:45:35 [facility] 37 weeks gestation of 37 weeks gestation of Disease Resolve d 2024-0 2-17 00:00: 00 2024-12-04 00:00:00 2024-12-04 08:45:24 [facility] Rubella non-immune status, antepartum Rubella non-immune status, antepartum Disease Resolve d 2023-07 2-02 00:00: 00 2024-12-04 00:00:00 2024-12-04 08:45:31 [facility] Susceptibl e to varicella (non-immun e), currently Susceptibl e to varicella (non-immun e), currently Disease Resolve d 2023-07 2-02 00:00: 00 2024-12-04 00:00:00 2024-12-04 08:45:29 [facility] Nausea and vomiting during Nausea and vomiting during Disease Resolve d 2023-0 9-05 00:00: 00 2024-12-04 00:00:00 2024-12-04 08:45:32 [facility] Supervisio n of high-risk Supervisio n of high-risk Disease Resolve d 2023-0 8-24 00:00: 00 2024-12-04 00:00:00 2024-12-04 08:45:33 [facility] 32 weeks gestation of 32 weeks gestation of Disease Resolve d 2024-0 2-17 00:00: 00 2024-09-18 00:00:00 2024-09-18 11:16:57 [facility] Pelvic pain during Pelvic pain during Disease Resolve d 2-06 00:00: 00 2024-09-11 00:00:00 2024-09-11 13:25:19 [facility] Bacterial vaginosis in Bacterial vaginosis in Disease Resolve d 1-18 00:00: 00 2024-08-31 00:00:00 2024-08-31 19:44:45 [facility] Threatened Threatened Disease Resolve d 03-18 00:00: 00 2024-08-31 00:00:00 2024-08-31 19:44:52 [facility] Hematuria of undiagnose d cause Hematuria of undiagnose d cause Disease Resolve d 03-18 00:00: 00 2024-03-30 00:00:00 2024-03-30 19:43:49 [facility] Vaginal spotting Vaginal spotting Disease Resolve d 03-18 00:00: 00 2024-03-30 00:00:00 2024-03-30 19:43:19 [facility] Periumbili wan abdominal pain Periumbili wan abdominal pain Disease Resolve d 2012-07 0 00:00: 00 2015-03-11 00:00:00 2022-02-08 00:26:50 [facility] Allergies, Adverse Reactions, Alerts Allergy Name Allergy Type Status Severity Reaction(s) Onset Date Inactive Date Treating Clinician Comments Source PROMETHA ZINE DRUG INGREDI Active High Other-Cmnt 03-18 00:00: 00 [facility] Prometha zine Propensi ty to adverse reaction s Active Other - See comments 03-18 00:00: 00 [facility] No Known Allergie s DA Active U 11-04 00:00: 00 [facility] NO KNOWN ALLERGIE S Drug Class Active [facility] Social History Social Habit Start Date Stop Date Quantity Comments Source ASSERTION 2024-02-13 00:00:00 Not [facility] History SDOH Social Connections Membership [facility] History SDOH Housing Places Lived [facility] of [facility] Use [facility] Sex Assigned At Common [facility] Alcoholic beverage intake 2024-12-10 00:00:00 2024-12-10 00:00:00 Current non-drinker of alcohol (finding) [facility] History of Social function 2024-06-26 00:00:00 2024-06-26 00:00:00 [facility] Alcohol intake 2023-09-01 00:00:00 2023-09-01 00:00:00 Current non-drinker of alcohol (finding) [facility] Exposure to SARS-CoV-2 (event) 2022-12-13 00:00:00 2022-12-23 09:58:00 Not sure [facility] History SDOH Alcohol Frequency 2022-12-23 00:00:00 2022-12-23 00:00:00 1 [facility] History SDOH Alcohol Std Drinks 2022-12-23 00:00:00 2022-12-23 00:00:00 0 [facility] History SDOH Alcohol Binge 2022-12-23 00:00:00 2022-12-23 00:00:00 1 [facility] History SDOH Social Connections Phone 2022-12-23 00:00:00 2022-12-23 00:00:00 5 [facility] History SDOH Social Connections Get Together 2022-12-23 00:00:00 2022-12-23 00:00:00 5 [facility] History SDOH Social Connections Mandaen 2022-12-23 00:00:00 2022-12-23 00:00:00 1 [facility] History SDOH Social Connections Meetings 2022-12-23 00:00:00 2022-12-23 00:00:00 2 [facility] History SDOH Social Connections Living 2022-12-23 00:00:00 2022-12-23 00:00:00 7 [facility] History SDOH Housing Unable to Pay 2022-12-23 00:00:00 2022-12-23 00:00:00 2 [facility] History SDOH Housing Homeless Last Year 2022-12-23 00:00:00 2022-12-23 00:00:00 2 [facility] Tobacco use and exposure 2022-07-05 00:00:00 2022-07-05 00:00:00 Smokeless tobacco non-user [facility] Tobacco Comment 2022-07-05 00:00:00 2022-07-05 00:00:00 Dad smokes outside only [facility] Smoking Status Start Date Stop Date Source Tobacco smoking consumption unknown [facility] Never smoked tobacco [facility] Medications Ordered Medication Name Filled Medication Name Start Date Stop Date Current Medication? Ordering Clinician Indication Dosage Frequency Signature (SIG) Comments Components Source triamcinolo ne 0.025 % cream 12-10 00:00: 00 12-18 04:59 :00 Yes [id number] Apply to area(s) 2 (two) times daily for 7 days. [facility] cephALEXin 500 mg capsule 11-03 00:00: 00 11-11 04:59 :00 Yes [id number] 500mg Take 1 capsule by mouth 4 (four) times daily for 7 days. [facility] ati162-mxbe fum-folic () tablet 1 tablet 10-20 14:00: 00 Yes 1{tbl} 1 tablet, Oral, DAILY, First dose on Wed10/20/24 at 0900, Until Discontinu ed, Routine [facility] ibuprofen (IBU) tablet 600 mg 10-19 23:17: 06 Yes 600mg 600 mg, Oral, Q8HPRN, Starting on Lilliana 10/19/24 at 1817, Until Discontinu ed, Routine, Pain (scale 4-6) [facility] rho(D) immune globulin (RHOPHYLAC) injection 300 mcg 10-19 19:17: 49 Yes 300ug 300 mcg, Intramuscu lar, ONCE, For 1 dose, Conditiona l, Routine [facility] witch Capo (TUCKS) 50 % topical pad 10-19 19:17: 31 Yes Topical, PRN, Starting on Wed10/19/24 at 1417, Until Discontinu ed, Routine, Pain (scale 1-3), Pain (scale 4-6) [facility] acetaminoph en (TYLENOL) tablet 650 mg 10-19 19:17: 10 Yes 650mg 650 mg, Oral, Q8HPRN, Starting on Wed10/19/24 at 1417, Until Discontinu ed, Routine, Pain (scale 1-3) [facility] HYDROcodone -acetaminop hen (NORCO 5) tablet 1 tablet 10-19 19:16: 30 Yes 1{tbl} 1 tablet, Oral, Q6HPRN, Starting on Wed10/19/24 at 1416, Until Discontinu ed, Routine, Pain (scale 7-10) [facility] diphenhydrA MINE (BENADRYL) tablet 25 mg 10-19 19:16: 30 Yes 25mg 25 mg, Oral, Q6HPRN, Starting on Wed10/19/24 at 1416, Until Discontinu ed, Routine, Sleep, Itching [facility] ondansetron (ZOFRAN (PF)) injection 4 mg 10-19 19:16: 30 Yes 4mg 4 mg, Slow IV Push, Q8HPRN, Starting on Wed10/19/24 at 1416, Until Discontinu ed, Administer over 2-5 Minutes, 2 mL [facility] simethicone (GAS RELIEF (SIMETHICON E)) chewable tablet 160 mg 10-19 19:16: 30 Yes 160mg 160 mg, Oral, PC+HSPRN, Starting on Wed10/19/24 at 1416, Until Discontinu ed, Routine, Gas [facility] docusate (COLACE) capsule 200 mg 10-19 19:16: 30 Yes 200mg 200 mg, Oral, QDAILYPRN, Starting on Wed10/19/24 at 1416, Until Discontinu ed, Routine, Constipati on [facility] magnesium hydroxide (MILK OF MAGNESIA) 400 mg/5 mL suspension 30 mL 10-19 19:16: 30 Yes 30mL 30 mL, Oral, QDAILYPRN, Starting on Lilliana 10/19/24 at 1416, Until Discontinu ed, Routine, Constipati on [facility] Oxytocin in Normal Saline 30 unit/500 mL IV infusion Soln 10-19 19:16: 30 Yes 300mL/h 300 mL/hr, IV Infusion, SEE-INSTRU CTIONS, Starting on Wed10/19/24 at 1416, Start at 300 mL/hr for 1 hr then 150 mL/hr for 1 hr. For post delivery uterotonic . [facility] benzocaine- menthol (DERMOPLAST ) 20-0.5 % topical spray 10-19 19:16: 30 Yes Topical, PRN, Starting on Wed10/19/24 at 1416, Until Discontinu ed, Routine, Perineum discomfort [facility] PHENYLephri ne 1000 mcg/10 mL in 0.9% NaCl syringe 10-19 14:13: 00 10-20 12:23 :50 No Slow IV Push, ONCE INTRA PROCEDURE, Starting on Lilliana 10/19/24 at 0913, Until Wed10/20/24 at 0723, Routine, Intra-op [facility] PIB fentaNYL-ro pivacaine 2 mcg/mL-0.1 % (PF) in NS 200 mL epidural infusion RTU 10-19 13:57: 00 10-20 12:23 :50 No Epidural, CONTINUOUS PRN, Starting on Lilliana 10/19/24 at 0857, Until Wed10/20/24 at 0723, Routine, Intra-op [facility] lidocaine-e pinephrine (XYLOCAINE W/EPINEPHRI NE) 2 %-1:200,000 injection 10-19 13:56: 00 10-20 12:23 :50 No Epidural, ONCE INTRA PROCEDURE, Starting on Lilliana 10/19/24 at 0856, Until Wed10/20/24 at 0723, Routine, Intra-op [facility] Oxytocin in Normal Saline 30 unit/500 mL IV infusion Soln 10-19 13:45: 00 10-19 19:16 :21 No 0mU/min 0-42 allison-unit s/min (0-42 mL/hr), IV Infusion, CONTINUOUS , Starting on Lilliana 10/19/24 at 0845, Infuse IV through a controlled infusion pump at a proximal port on the peripheral IV line. Oxytocin may be increased to 30 milliunits when ordered by a 3rd or 4th year resident or attending physician/ faculty. 3rd or 4th year resident must document a note that the increase to 30 milliunits was discussed with faculty. Oxytocin may be increased to 42 milliunits when ordered by a 3rd or 4th year resident or attending physician/ faculty. 3rd or 4th year resident must document a note that the increase to 42 milliunits was discussed with faculty. Max 42 allison-unit s/min. Oxytocin shall be maintained at a rate that achieves adequate contractio ns. "Adequate contractio ns" means 3-5 contractio ns in 10 minutes averaged over a 30-minute window -or- at least 200 MVU every 10 minutes for 2 hours if an IUPC is in place. Incrementa l dosage of oxytocin is determined by uterine and response; therefore the RN may increase or decrease the dosage by 6mu or discontinu e oxytocin based on maternal and assessment . See policy 7.11.52. For post-deliv toro uterotonic : Increase to 300 mL/hr for 1 hr then 150 mL/hr for 1 hr. For post delivery uterine atony: Start at 600 mL/hr for 1 hr then 150 mL/hr for 1 hr. [facility] lactated ringers IV infusion 250 mL 10-19 13:30: 00 10-19 14:13 :00 No 250mL at 999 mL/hr, 250 mL, IV Infusion, ONCE, 1 dose, On Lilliana 10/19/24 at 0830, Routine [facility] lactated ringers IV infusion 250 mL 10-19 12:31: 43 10-19 19:16 :20 No 250mL at 999 mL/hr, 250 mL, IV Infusion, PRN - SEE INSTRUCTIO NS, Starting on Lilliana 10/19/24 at 0731, Until Lilliana 10/19/24 at 1416, Routine [facility] D5W-LR IV infusion 1,000 mL 10-19 12:31: 43 10-19 19:16 :20 No 1000mL at 1-75 mL/hr, IV Infusion, TITRATE, Starting on Lilliana 10/19/24 at 0731, Until Lillaina 10/19/24 at 1416, Routine [facility] vitamin w/FA tablet 10-19 00:00: 00 12-04 00:00 :00 No [id number] 102 1{tbl} Take 1 tablet by mouth in the morning. [facility] docusate 100 mg capsule 10-19 00:00: 00 12-04 00:00 :00 No [id number] 102 200mg Take 2 capsules by mouth once daily as needed for Constipati on. [facility] ferrous sulfate 325 mg (65 mg iron) tablet 10-19 00:00: 00 12-04 00:00 :00 No [id number] 102 325mg Take 1 tablet by mouth in the morning. [facility] ibuprofen 800 mg tablet 10-19 00:00: 00 12-04 00:00 :00 No [id number] 102 800mg Take 1 tablet by mouth every 8 (eight) hours as needed (pain). Take with food or milk. [facility] acetaminoph en 500 mg tablet 10-19 00:00: 00 12-04 00:00 :00 No [id number] 102 1000mg Take 2 tablets by mouth every 8 (eight) hours as needed for Pain. [facility] acetaminoph en (TYLENOL) tablet 1,000 mg 10-15 22:45: 00 10-15 22:47 :00 No 1000mg 1,000 mg, Oral, Once, 1 dose, On 10/15/24 at 1745, Routine [facility] lactated ringers IV infusion 1,000 mL 09-11 20:15: 00 09-11 19:01 :00 No 1000mL at 999 mL/hr, 1,000 mL, IV Infusion, ONCE, 1 dose, On Wed09/11/24 at 1415, Routine [facility] proMETHazin e (PHENERGAN) 25 mg in NS 50 mL IV piggyback (CNR) 09-11 19:46: 00 09-11 20:40 :11 No 25mg 25 mg, IV Piggyback, at 200 mL/hr Administer over 15 Minutes, ONCE, 1 dose, On Wed09/11/24 at 1400, Routine [facility] ondansetron (ZOFRAN (PF)) injection 4 mg 09-11 18:45: 00 09-11 19:15 :00 No 4mg 4 mg, Slow IV Push, ONCE, On Wed09/11/24 at 1245, For 1 dose, Please give medication over 2-5 minutes. [facility] lactated ringers IV infusion 1,000 mL 09-11 18:45: 00 09-11 19:01 :56 No 1000mL at 999 mL/hr, 1,000 mL, IV Infusion, ONCE, 1 dose, On Wed09/11/24 at 1245, Routine [facility] acetaminoph en (TYLENOL) tablet 1,000 mg 09-11 18:35: 00 09-11 19:11 :00 No 1000mg 1,000 mg, Oral, ONCE, 1 dose, On Wed09/11/24 at 1245, Routine [facility] Nitrofurant oin&Nit. Macrocryst (MACROBID) 100 mg capsule 100 mg 08-22 01:52: 00 08-22 02:03 :00 No 100mg 100 mg, Oral, ONCE NOW, 1 dose, On Wed08/21/24 at 2000, Routine, Reason for Anti-Infec tive: Empiric Therapy for Suspected Infection, Empiric Therapy Site: Urine, Duration of therapy: Once (ED) [facility] Nitrofurant oin&Nit. Macrocryst 100 mg capsule 08-22 00:00: 00 08-31 00:00 :00 No [id number] 100mg Take 1 capsule by mouth in the morning and 1 capsule in the evening. [facility] metroNIDAZO LE (FLAGYL) tablet 500 mg 08-12 22:48: 00 08-12 23:01 :00 No 500mg 500 mg, Oral, ONCE NOW, 1 dose, On 08/12/24 at 1700, Routine, Reason for Anti-Infec tive: Documented Infection, Documented Infection Site: Skin / Soft Tissue, Duration of Therapy: Other (see Comments) [facility] metroNIDAZO LE 500 mg tablet 08-12 00:00: 00 08-31 00:00 :00 No [id number] 500mg Take 1 tablet by mouth every 12 (twelve) hours. [facility] ampicillin 500 mg capsule 2023-07 00:00: 00 08-12 00:00 :00 No [id number] 500mg Take 1 capsule by mouth every 6 (six) hours. [facility] PNV no.95/yoandy us fum/folic ac ( ORAL) 2023-07 16:17: 58 10-19 00:00 :00 No 1{tbl} Take 1 tablet by mouth in the morning. [facility] metroNIDAZO LE (FLAGYL) tablet 500 mg 2023-07 05:10: 00 06-04 01:59 :00 No 500mg 500 mg, Oral, Q12H, 2 doses, First dose on Wed06/02/24 at 2315, Last dose on 06/03/24 at 0800, Routine, Reason for Anti-Infec tive: Documented Infection, Documented Infection Site: Other, Other site: vag, Duration of Therapy: Once (ED) [facility] metroNIDAZO LE 500 mg tablet 2023-07 00:00: 00 08-12 00:00 :00 No [id number] 500mg Take 1 tablet by mouth every 12 (twelve) hours. [facility] ondansetron 4 mg disintegrat ing tablet 2023-07 0-04 00:00: 00 09-18 00:00 :00 No 4mg Take 1 tablet by mouth every 8 (eight) hours as needed for N/V unresponsi ve to Promethazi ne. [facility] proMETHazin e 25 mg tablet 04-24 00:00: 00 09-18 00:00 :00 No 25mg Take 1 tablet by mouth every 4 (four) hours as needed for Nausea and Vomiting (N/V). [facility] NaCl 0.9% (NS) bolus infusion 1,000 mL 04-10 00:30: 00 04-10 02:21 :00 No 1000mL at 999 mL/hr, 1,000 mL, IV Infusion, ONCE, 1 dose, On 04/09/24 at 1930, SEVEN [facility] Nitrofurant oin&Nit. Macrocryst (MACROBID) 100 mg capsule 04-03 00:00: 00 04-11 04:59 :00 No [id number] 100mg Take 1 capsule by mouth 2 (two) times daily for 7 days. [facility] doxylamine (UNISOM, DOXYLAMINE, ) 25 mg tablet 03-30 00:00: 00 10-19 00:00 :00 No [id number] 25mg Take 1 tablet by mouth at bedtime as needed for Nausea and Vomiting (N/V). [facility] pyridoxine, VITAMIN B-6, (VITAMIN B-6) 25 mg tablet 03-30 00:00: 00 09-18 00:00 :00 No [id number] 25mg Take 1 tablet by mouth every 6 (six) hours as needed for Nausea and Vomiting (N/V). [facility] metoclopram garry HCl 10 mg tablet 03-30 00:00: 00 04-28 00:00 :00 No [id number] 10mg Take 1 tablet by mouth every 6 (six) hours as needed for Nausea and Vomiting (N/V). [facility] ondansetron 4 mg disintegrat ing tablet 03-18 00:00: 00 04-28 00:00 :00 No [id number] 4mg Take 1 tablet by mouth every 8 (eight) hours as needed for Nausea and Vomiting (N/V). [facility] meclizine 25 mg tablet 09-01 00:00: 00 03-18 00:00 :00 No [id number] 25mg Take 1 tablet by mouth 3 (three) times daily as needed for Dizziness. [facility] sulfamethox azole-trime thoprim (BACTRIM DS) 800-160 mg per tablet 2021-07 00:00: 00 07-13 05:59 :00 No [id number] 1{tbl} Take 1 tablet by mouth 2 (two) times daily for 7 days. [facility] amoxicillin 500 mg capsule 2021-07 00:00: 00 12-23 00:00 :00 No TAKE 1 CAPSULE BY MOUTH EVERY 8 HOURS FOR 7 DAYS [facility] ibuprofen 800 mg tablet 2021-07 00:00: 00 12-23 00:00 :00 No TAKE 1 TABLET BY MOUTH EVERY 8 HOURS FOR PAIN [facility] No Known Medications No Known Medications No Common [facility] No known medications No Un yvonne [facility] No known medications No Un yvonne [facility] Immunizations Ordered Immunization Name Filled Immunization Name Date Status Comments Source TDAP 2024-08-17 00:00:00 Completed [facility] SARS-COV-2 COVID-19 PFIZER VACCINE 2021-03-28 00:00:00 Completed [facility] SARS-COV-2 COVID-19 PFIZER VACCINE 2021-03-28 00:00:00 Completed [facility] SARS-COV-2 COVID-19 PFIZER VACCINE 2021-03-28 00:00:00 Completed [facility] SARS-COV-2 COVID-19 PFIZER VACCINE 2021-03-28 00:00:00 Completed [facility] SARS-COV-2 COVID-19 PFIZER VACCINE 2021-03-28 00:00:00 Completed [facility] SARS-COV-2 COVID-19 PFIZER VACCINE 2021-03-28 00:00:00 Completed [facility] SARS-COV-2 COVID-19 PFIZER VACCINE 2021-03-28 00:00:00 Completed [facility] SARS-COV-2 COVID-19 PFIZER VACCINE 2021-03-28 00:00:00 Completed [facility] SARS-COV-2 COVID-19 PFIZER VACCINE 2021-03-28 00:00:00 Completed [facility] SARS-COV-2 COVID-19 PFIZER VACCINE 2021-03-28 00:00:00 Completed [facility] SARS-COV-2 COVID-19 PFIZER VACCINE 2021-03-28 00:00:00 Completed [facility] SARS-COV-2 COVID-19 PFIZER VACCINE 2021-03-28 00:00:00 Completed [facility] SARS-COV-2 COVID-19 PFIZER VACCINE 2021-03-28 00:00:00 Completed [facility] SARS-COV-2 COVID-19 PFIZER VACCINE 2020-11-16 00:00:00 Completed [facility] SARS-COV-2 COVID-19 PFIZER VACCINE 2020-11-16 00:00:00 Completed [facility] SARS-COV-2 COVID-19 PFIZER VACCINE 2020-11-16 00:00:00 Completed [facility] SARS-COV-2 COVID-19 PFIZER VACCINE 2020-11-16 00:00:00 Completed [facility] SARS-COV-2 COVID-19 PFIZER VACCINE 2020-11-16 00:00:00 Completed [facility] SARS-COV-2 COVID-19 PFIZER VACCINE 2020-11-16 00:00:00 Completed [facility] SARS-COV-2 COVID-19 PFIZER VACCINE 2020-11-16 00:00:00 Completed [facility] SARS-COV-2 COVID-19 PFIZER VACCINE 2020-11-16 00:00:00 Completed [facility] SARS-COV-2 COVID-19 PFIZER VACCINE 2020-11-16 00:00:00 Completed [facility] SARS-COV-2 COVID-19 PFIZER VACCINE 2020-11-16 00:00:00 Completed [facility] SARS-COV-2 COVID-19 PFIZER VACCINE 2020-11-16 00:00:00 Completed [facility] SARS-COV-2 COVID-19 PFIZER VACCINE 2020-11-16 00:00:00 Completed [facility] SARS-COV-2 COVID-19 PFIZER VACCINE 2020-11-16 00:00:00 Completed [facility] Meningococcal Vaccine 2018-03-16 00:00:00 Completed [facility] Meningococcal Vaccine 2018-03-16 00:00:00 Completed [facility] Meningococcal Vaccine 2018-03-16 00:00:00 Completed [facility] Meningococcal Polysaccharide (groups A, C, Y and W-135) conjugate vaccine (MCV4P) 2018-03-16 00:00:00 Completed Meningococcal Vaccine 2018-03-16 00:00:00 Completed [facility] Meningococcal Polysaccharide (groups A, C, Y and W-135) conjugate vaccine (MCV4P) 2018-03-16 00:00:00 Completed Meningococcal Vaccine 2018-03-16 00:00:00 Completed [facility] Meningococcal Polysaccharide (groups A, C, Y and W-135) conjugate vaccine (MCV4P) 2018-03-16 00:00:00 Completed Meningococcal Vaccine 2018-03-16 00:00:00 Completed [facility] Meningococcal Polysaccharide (groups A, C, Y and W-135) conjugate vaccine (MCV4P) 2018-03-16 00:00:00 Completed Meningococcal Vaccine 2018-03-16 00:00:00 Completed [facility] Meningococcal Polysaccharide (groups A, C, Y and W-135) conjugate vaccine (MCV4P) 2018-03-16 00:00:00 Completed Meningococcal Vaccine 2018-03-16 00:00:00 Completed [facility] Meningococcal Polysaccharide (groups A, C, Y and W-135) conjugate vaccine (MCV4P) 2018-03-16 00:00:00 Completed Meningococcal Vaccine 2018-03-16 00:00:00 Completed [facility] Meningococcal Polysaccharide (groups A, C, Y and W-135) conjugate vaccine (MCV4P) 2018-03-16 00:00:00 Completed [facility] Meningococcal Vaccine 2018-03-16 00:00:00 Completed [facility] Meningococcal Polysaccharide (groups A, C, Y and W-135) conjugate vaccine (MCV4P) 2018-03-16 00:00:00 Completed [facility] Meningococcal Vaccine 2018-03-16 00:00:00 Completed [facility] Meningococcal Polysaccharide (groups A, C, Y and W-135) conjugate vaccine (MCV4P) 2018-03-16 00:00:00 Completed [facility] Meningococcal Vaccine 2018-03-16 00:00:00 Completed [facility] Meningococcal Polysaccharide (groups A, C, Y and W-135) conjugate vaccine (MCV4P) 2018-03-16 00:00:00 Completed [facility] Meningococcal Vaccine 2018-03-16 00:00:00 Completed [facility] Meningococcal Polysaccharide (groups A, C, Y and W-135) conjugate vaccine (MCV4P) 2018-03-16 00:00:00 Completed [facility] Meningococcal Vaccine 2018-03-16 00:00:00 Completed [facility] Influenza Virus Vaccine Nasal 2013-05-01 00:00:00 Completed [facility] Meningococcal Polysaccharide (groups A, C, Y and W-135) conjugate vaccine (MCV4P) 2013-05-01 00:00:00 Completed [facility] TDAP 2013-05-01 00:00:00 Completed [facility] Influenza Virus Vaccine Nasal 2013-05-01 00:00:00 Completed [facility] Meningococcal Polysaccharide (groups A, C, Y and W-135) conjugate vaccine (MCV4P) 2013-05-01 00:00:00 Completed [facility] Influenza, Live, Trivalent, Intranasal (FLUMIST) 2013-05-01 00:00:00 Completed Meningococcal Polysaccharide (groups A, C, Y and W-135) conjugate vaccine (MCV4P) 2013-05-01 00:00:00 Completed TDAP 2013-05-01 00:00:00 Completed TDAP 2013-05-01 00:00:00 Completed [facility] Influenza, Live, Trivalent, Intranasal (FLUMIST) 2013-05-01 00:00:00 Completed Meningococcal Polysaccharide (groups A, C, Y and W-135) conjugate vaccine (MCV4P) 2013-05-01 00:00:00 Completed TDAP 2013-05-01 00:00:00 Completed Influenza, Live, Trivalent, Intranasal (FLUMIST) 2013-05-01 00:00:00 Completed Meningococcal Polysaccharide (groups A, C, Y and W-135) conjugate vaccine (MCV4P) 2013-05-01 00:00:00 Completed TDAP 2013-05-01 00:00:00 Completed Influenza, Live, Trivalent, Intranasal (FLUMIST) 2013-05-01 00:00:00 Completed Meningococcal Polysaccharide (groups A, C, Y and W-135) conjugate vaccine (MCV4P) 2013-05-01 00:00:00 Completed TDAP 2013-05-01 00:00:00 Completed Influenza, Live, Trivalent, Intranasal (FLUMIST) 2013-05-01 00:00:00 Completed Meningococcal Polysaccharide (groups A, C, Y and W-135) conjugate vaccine (MCV4P) 2013-05-01 00:00:00 Completed TDAP 2013-05-01 00:00:00 Completed Influenza, Live, Trivalent, Intranasal (FLUMIST) 2013-05-01 00:00:00 Completed Meningococcal Polysaccharide (groups A, C, Y and W-135) conjugate vaccine (MCV4P) 2013-05-01 00:00:00 Completed TDAP 2013-05-01 00:00:00 Completed Influenza Virus Vaccine Nasal 2013-05-01 00:00:00 Completed [facility] Meningococcal Polysaccharide (groups A, C, Y and W-135) conjugate vaccine (MCV4P) 2013-05-01 00:00:00 Completed [facility] TDAP 2013-05-01 00:00:00 Completed [facility] Influenza Virus Vaccine Nasal 2013-05-01 00:00:00 Completed [facility] Meningococcal Polysaccharide (groups A, C, Y and W-135) conjugate vaccine (MCV4P) 2013-05-01 00:00:00 Completed [facility] TDAP 2013-05-01 00:00:00 Completed [facility] Influenza Virus Vaccine Nasal 2013-05-01 00:00:00 Completed [facility] Meningococcal Polysaccharide (groups A, C, Y and W-135) conjugate vaccine (MCV4P) 2013-05-01 00:00:00 Completed [facility] TDAP 2013-05-01 00:00:00 Completed [facility] Influenza Virus Vaccine Nasal 2013-05-01 00:00:00 Completed [facility] Meningococcal Polysaccharide (groups A, C, Y and W-135) conjugate vaccine (MCV4P) 2013-05-01 00:00:00 Completed [facility] TDAP 2013-05-01 00:00:00 Completed [facility] Influenza Virus Vaccine Nasal 2013-05-01 00:00:00 Completed [facility] Meningococcal Polysaccharide (groups A, C, Y and W-135) conjugate vaccine (MCV4P) 2013-05-01 00:00:00 Completed [facility] TDAP 2013-05-01 00:00:00 Completed [facility] Influenza Virus Vaccine Nasal 2013-05-01 00:00:00 Completed [facility] Meningococcal Polysaccharide (groups A, C, Y and W-135) conjugate vaccine (MCV4P) 2013-05-01 00:00:00 Completed [facility] TDAP 2013-05-01 00:00:00 Completed [facility] HPV 2012-11-17 00:00:00 Completed [facility] HPV 2012-11-17 00:00:00 Completed [facility] HPV 2012-11-17 00:00:00 Completed HPV 2012-11-17 00:00:00 Completed HPV 2012-11-17 00:00:00 Completed HPV 2012-11-17 00:00:00 Completed HPV 2012-11-17 00:00:00 Completed HPV 2012-11-17 00:00:00 Completed HPV 2012-11-17 00:00:00 Completed [facility] HPV 2012-11-17 00:00:00 Completed [facility] HPV 2012-11-17 00:00:00 Completed [facility] HPV 2012-11-17 00:00:00 Completed [facility] HPV 2012-11-17 00:00:00 Completed [facility] HPV 2012-11-17 00:00:00 Completed [facility] HPV 2012-07-21 00:00:00 Completed HPV 2012-07-21 00:00:00 Completed HPV 2012-07-21 00:00:00 Completed [facility] HPV 2012-07-21 00:00:00 Completed [facility] HPV 2012-05-18 00:00:00 Completed [facility] Influenza Virus Vaccine 2012-05-18 00:00:00 Completed [facility] HPV 2012-05-18 00:00:00 Completed [facility] Influenza Virus Vaccine 2012-05-18 00:00:00 Completed [facility] HPV 2012-05-18 00:00:00 Completed Influenza Virus Vaccine 2012-05-18 00:00:00 Completed Influenza, Live, Trivalent, Intranasal (FLUMIST) 2012-05-18 00:00:00 Completed HPV 2012-05-18 00:00:00 Completed Influenza Virus Vaccine 2012-05-18 00:00:00 Completed Influenza, Live, Trivalent, Intranasal (FLUMIST) 2012-05-18 00:00:00 Completed HPV 2012-05-18 00:00:00 Completed Influenza Virus Vaccine 2012-05-18 00:00:00 Completed Influenza, Live, Trivalent, Intranasal (FLUMIST) 2012-05-18 00:00:00 Completed HPV 2012-05-18 00:00:00 Completed Influenza Virus Vaccine 2012-05-18 00:00:00 Completed Influenza, Live, Trivalent, Intranasal (FLUMIST) 2012-05-18 00:00:00 Completed HPV 2012-05-18 00:00:00 Completed Influenza Virus Vaccine 2012-05-18 00:00:00 Completed Influenza, Live, Trivalent, Intranasal (FLUMIST) 2012-05-18 00:00:00 Completed HPV 2012-05-18 00:00:00 Completed Influenza Virus Vaccine 2012-05-18 00:00:00 Completed Influenza, Live, Trivalent, Intranasal (FLUMIST) 2012-05-18 00:00:00 Completed HPV 2012-05-18 00:00:00 Completed [facility] Influenza Virus Vaccine 2012-05-18 00:00:00 Completed [facility] Influenza Virus Vaccine Nasal 2012-05-18 00:00:00 Completed [facility] HPV 2012-05-18 00:00:00 Completed [facility] Influenza Virus Vaccine 2012-05-18 00:00:00 Completed [facility] Influenza Virus Vaccine Nasal 2012-05-18 00:00:00 Completed [facility] HPV 2012-05-18 00:00:00 Completed [facility] Influenza Virus Vaccine 2012-05-18 00:00:00 Completed [facility] Influenza Virus Vaccine Nasal 2012-05-18 00:00:00 Completed [facility] HPV 2012-05-18 00:00:00 Completed [facility] Influenza Virus Vaccine 2012-05-18 00:00:00 Completed [facility] Influenza Virus Vaccine Nasal 2012-05-18 00:00:00 Completed [facility] HPV 2012-05-18 00:00:00 Completed [facility] Influenza Virus Vaccine 2012-05-18 00:00:00 Completed [facility] Influenza Virus Vaccine Nasal 2012-05-18 00:00:00 Completed [facility] HPV 2012-05-18 00:00:00 Completed [facility] Influenza Virus Vaccine 2012-05-18 00:00:00 Completed [facility] Influenza Virus Vaccine 2011-04-28 00:00:00 Completed [facility] Influenza Virus Vaccine 2011-04-28 00:00:00 Completed [facility] Influenza Virus Vaccine 2011-04-28 00:00:00 Completed Influenza, Live, Trivalent, Intranasal (FLUMIST) 2011-04-28 00:00:00 Completed Influenza Virus Vaccine 2011-04-28 00:00:00 Completed Influenza, Live, Trivalent, Intranasal (FLUMIST) 2011-04-28 00:00:00 Completed Influenza Virus Vaccine 2011-04-28 00:00:00 Completed Influenza, Live, Trivalent, Intranasal (FLUMIST) 2011-04-28 00:00:00 Completed Influenza Virus Vaccine 2011-04-28 00:00:00 Completed Influenza, Live, Trivalent, Intranasal (FLUMIST) 2011-04-28 00:00:00 Completed Influenza Virus Vaccine 2011-04-28 00:00:00 Completed Influenza, Live, Trivalent, Intranasal (FLUMIST) 2011-04-28 00:00:00 Completed Influenza Virus Vaccine 2011-04-28 00:00:00 Completed Influenza, Live, Trivalent, Intranasal (FLUMIST) 2011-04-28 00:00:00 Completed Influenza Virus Vaccine 2011-04-28 00:00:00 Completed [facility] Influenza Virus Vaccine Nasal 2011-04-28 00:00:00 Completed [facility] Influenza Virus Vaccine 2011-04-28 00:00:00 Completed [facility] Influenza Virus Vaccine Nasal 2011-04-28 00:00:00 Completed [facility] Influenza Virus Vaccine 2011-04-28 00:00:00 Completed [facility] Influenza Virus Vaccine Nasal 2011-04-28 00:00:00 Completed [facility] Influenza Virus Vaccine 2011-04-28 00:00:00 Completed [facility] Influenza Virus Vaccine Nasal 2011-04-28 00:00:00 Completed [facility] Influenza Virus Vaccine 2011-04-28 00:00:00 Completed [facility] Influenza Virus Vaccine Nasal 2011-04-28 00:00:00 Completed [facility] Influenza Virus Vaccine 2011-04-28 00:00:00 Completed [facility] Influenza Virus Vaccine 2010-04-25 00:00:00 Completed [facility] Influenza Virus Vaccine 2010-04-25 00:00:00 Completed [facility] Influenza Virus Vaccine 2010-04-25 00:00:00 Completed Influenza, Live, Trivalent, Intranasal (FLUMIST) 2010-04-25 00:00:00 Completed Influenza Virus Vaccine 2010-04-25 00:00:00 Completed Influenza, Live, Trivalent, Intranasal (FLUMIST) 2010-04-25 00:00:00 Completed Influenza Virus Vaccine 2010-04-25 00:00:00 Completed Influenza, Live, Trivalent, Intranasal (FLUMIST) 2010-04-25 00:00:00 Completed Influenza Virus Vaccine 2010-04-25 00:00:00 Completed Influenza, Live, Trivalent, Intranasal (FLUMIST) 2010-04-25 00:00:00 Completed Influenza Virus Vaccine 2010-04-25 00:00:00 Completed Influenza, Live, Trivalent, Intranasal (FLUMIST) 2010-04-25 00:00:00 Completed Influenza Virus Vaccine 2010-04-25 00:00:00 Completed Influenza, Live, Trivalent, Intranasal (FLUMIST) 2010-04-25 00:00:00 Completed Influenza Virus Vaccine 2010-04-25 00:00:00 Completed [facility] Influenza Virus Vaccine Nasal 2010-04-25 00:00:00 Completed [facility] Influenza Virus Vaccine 2010-04-25 00:00:00 Completed [facility] Influenza Virus Vaccine Nasal 2010-04-25 00:00:00 Completed [facility] Influenza Virus Vaccine 2010-04-25 00:00:00 Completed [facility] Influenza Virus Vaccine Nasal 2010-04-25 00:00:00 Completed [facility] Influenza Virus Vaccine 2010-04-25 00:00:00 Completed [facility] Influenza Virus Vaccine Nasal 2010-04-25 00:00:00 Completed [facility] Influenza Virus Vaccine 2010-04-25 00:00:00 Completed [facility] Influenza Virus Vaccine Nasal 2010-04-25 00:00:00 Completed [facility] Influenza Virus Vaccine 2010-04-25 00:00:00 Completed [facility] H1n1 Vaccine 2009-10-25 00:00:00 Completed [facility] H1n1 Vaccine 2009-10-25 00:00:00 Completed [facility] H1n1 Vaccine 2009-10-25 00:00:00 Completed H1n1 Vaccine 2009-10-25 00:00:00 Completed H1n1 Vaccine 2009-10-25 00:00:00 Completed H1n1 Vaccine 2009-10-25 00:00:00 Completed H1n1 Vaccine 2009-10-25 00:00:00 Completed H1n1 Vaccine 2009-10-25 00:00:00 Completed H1n1 Vaccine 2009-10-25 00:00:00 Completed [facility] H1n1 Vaccine 2009-10-25 00:00:00 Completed [facility] H1n1 Vaccine 2009-10-25 00:00:00 Completed [facility] H1n1 Vaccine 2009-10-25 00:00:00 Completed [facility] H1n1 Vaccine 2009-10-25 00:00:00 Completed [facility] H1n1 Vaccine 2009-10-25 00:00:00 Completed [facility] H1n1 Vaccine 2009-08-21 00:00:00 Completed [facility] H1n1 Vaccine 2009-08-21 00:00:00 Completed [facility] H1n1 Vaccine 2009-08-21 00:00:00 Completed H1n1 Vaccine 2009-08-21 00:00:00 Completed H1n1 Vaccine 2009-08-21 00:00:00 Completed H1n1 Vaccine 2009-08-21 00:00:00 Completed H1n1 Vaccine 2009-08-21 00:00:00 Completed H1n1 Vaccine 2009-08-21 00:00:00 Completed H1n1 Vaccine 2009-08-21 00:00:00 Completed [facility] H1n1 Vaccine 2009-08-21 00:00:00 Completed [facility] H1n1 Vaccine 2009-08-21 00:00:00 Completed [facility] H1n1 Vaccine 2009-08-21 00:00:00 Completed [facility] H1n1 Vaccine 2009-08-21 00:00:00 Completed [facility] H1n1 Vaccine 2009-08-21 00:00:00 Completed [facility] Influenza Virus Vaccine 2008-05-03 00:00:00 Completed [facility] Influenza Virus Vaccine 2008-05-03 00:00:00 Completed [facility] Influenza Virus Vaccine 2008-05-03 00:00:00 Completed Influenza, split virus, trivalent, PF (AFLURIA/FLUARIX/FLU LAVAL/FLUZONE) 2008-05-03 00:00:00 Completed Influenza Virus Vaccine 2008-05-03 00:00:00 Completed Influenza, split virus, trivalent, PF (AFLURIA/FLUARIX/FLU LAVAL/FLUZONE) 2008-05-03 00:00:00 Completed Influenza Virus Vaccine 2008-05-03 00:00:00 Completed Influenza, split virus, trivalent, PF (AFLURIA/FLUARIX/FLU LAVAL/FLUZONE) 2008-05-03 00:00:00 Completed Influenza Virus Vaccine 2008-05-03 00:00:00 Completed Influenza, split virus, trivalent, PF (AFLURIA/FLUARIX/FLU LAVAL/FLUZONE) 2008-05-03 00:00:00 Completed Influenza Virus Vaccine 2008-05-03 00:00:00 Completed Influenza, split virus, trivalent, PF (AFLURIA/FLUARIX/FLU LAVAL/FLUZONE) 2008-05-03 00:00:00 Completed Influenza Virus Vaccine 2008-05-03 00:00:00 Completed Influenza, split virus, trivalent, PF (AFLURIA/FLUARIX/FLU LAVAL/FLUZONE) 2008-05-03 00:00:00 Completed Influenza Virus Vaccine 2008-05-03 00:00:00 Completed [facility] Flu Trivalent 2008-05-03 00:00:00 Completed [facility] Influenza Virus Vaccine 2008-05-03 00:00:00 Completed [facility] Flu Trivalent 2008-05-03 00:00:00 Completed [facility] Influenza Virus Vaccine 2008-05-03 00:00:00 Completed [facility] Flu Trivalent 2008-05-03 00:00:00 Completed [facility] Influenza Virus Vaccine 2008-05-03 00:00:00 Completed [facility] Flu Trivalent 2008-05-03 00:00:00 Completed [facility] Influenza Virus Vaccine 2008-05-03 00:00:00 Completed [facility] Flu Trivalent 2008-05-03 00:00:00 Completed [facility] Influenza Virus Vaccine 2008-05-03 00:00:00 Completed [facility] Varicella (varivax)(chicken pox) 2008-03-13 00:00:00 Completed [facility] Varicella (varivax)(chicken pox) 2008-03-13 00:00:00 Completed [facility] Varicella (varivax)(chicken pox) 2008-03-13 00:00:00 Completed [facility] Varicella (varivax)(chicken pox) 2008-03-13 00:00:00 Completed [facility] Varicella (varivax)(chicken pox) 2008-03-13 00:00:00 Completed [facility] Varicella (varivax)(chicken pox) 2008-03-13 00:00:00 Completed [facility] Varicella (varivax)(chicken pox) 2008-03-13 00:00:00 Completed [facility] Varicella (varivax)(chicken pox) 2008-03-13 00:00:00 Completed [facility] Varicella (varivax)(chicken pox) 2008-03-13 00:00:00 Completed [facility] Varicella (varivax)(chicken pox) 2008-03-13 00:00:00 Completed [facility] Varicella (varivax)(chicken pox) 2008-03-13 00:00:00 Completed [facility] Varicella (varivax)(chicken pox) 2008-03-13 00:00:00 Completed [facility] Varicella (varivax)(chicken pox) 2008-03-13 00:00:00 Completed [facility] Varicella (varivax)(chicken pox) 2008-03-13 00:00:00 Completed [facility] HEPATITIS A 2006-09-17 00:00:00 Completed [facility] HEPATITIS A 2006-09-17 00:00:00 Completed [facility] HEPATITIS A 2006-09-17 00:00:00 Completed HEPATITIS A 2006-09-17 00:00:00 Completed HEPATITIS A 2006-09-17 00:00:00 Completed HEPATITIS A 2006-09-17 00:00:00 Completed HEPATITIS A 2006-09-17 00:00:00 Completed HEPATITIS A 2006-09-17 00:00:00 Completed HEPATITIS A 2006-09-17 00:00:00 Completed [facility] HEPATITIS A 2006-09-17 00:00:00 Completed [facility] HEPATITIS A 2006-09-17 00:00:00 Completed [facility] HEPATITIS A 2006-09-17 00:00:00 Completed [facility] HEPATITIS A 2006-09-17 00:00:00 Completed [facility] HEPATITIS A 2006-09-17 00:00:00 Completed [facility] DTaP, Unspecified Formulation 2006-03-17 00:00:00 Completed [facility] IPV 2006-03-17 00:00:00 Completed DTaP, Unspecified Formulation 2006-03-17 00:00:00 Completed [facility] IPV 2006-03-17 00:00:00 Completed DTaP, Unspecified Formulation 2006-03-17 00:00:00 Completed [facility] IPV 2006-03-17 00:00:00 Completed DTaP, Unspecified Formulation 2006-03-17 00:00:00 Completed [facility] IPV 2006-03-17 00:00:00 Completed DTAP 2006-03-17 00:00:00 Completed [facility] HEPATITIS A 2006-03-17 00:00:00 Completed MMR 2006-03-17 00:00:00 Completed Polio (IPV/OPV) 2006-03-17 00:00:00 Completed DTaP, Unspecified Formulation 2006-03-17 00:00:00 Completed [facility] IPV 2006-03-17 00:00:00 Completed DTaP, Unspecified Formulation 2006-03-17 00:00:00 Completed [facility] IPV 2006-03-17 00:00:00 Completed DTAP 2006-03-17 00:00:00 Completed [facility] HEPATITIS A 2006-03-17 00:00:00 Completed MMR 2006-03-17 00:00:00 Completed Polio (IPV/OPV) 2006-03-17 00:00:00 Completed DTaP, Unspecified Formulation 2006-03-17 00:00:00 Completed [facility] IPV 2006-03-17 00:00:00 Completed [facility] DTaP, Unspecified Formulation 2006-03-17 00:00:00 Completed [facility] IPV 2006-03-17 00:00:00 Completed [facility] DTaP, Unspecified Formulation 2006-03-17 00:00:00 Completed [facility] IPV 2006-03-17 00:00:00 Completed [facility] DTAP 2006-03-17 00:00:00 Completed [facility] HEPATITIS A 2006-03-17 00:00:00 Completed [facility] MMR 2006-03-17 00:00:00 Completed [facility] Polio (IPV/OPV) 2006-03-17 00:00:00 Completed [facility] DTaP, Unspecified Formulation 2006-03-17 00:00:00 Completed [facility] IPV 2006-03-17 00:00:00 Completed [facility] DTaP, Unspecified Formulation 2006-03-17 00:00:00 Completed [facility] IPV 2006-03-17 00:00:00 Completed [facility] DTAP 2006-03-17 00:00:00 Completed [facility] HEPATITIS A 2006-03-17 00:00:00 Completed [facility] MMR 2006-03-17 00:00:00 Completed [facility] Polio (IPV/OPV) 2006-03-17 00:00:00 Completed [facility] HEPATITIS A 2005-09-17 00:00:00 Completed HEPATITIS A 2005-09-17 00:00:00 Completed HEPATITIS A 2005-09-17 00:00:00 Completed HEPATITIS A 2005-09-17 00:00:00 Completed HEPATITIS A 2005-09-17 00:00:00 Completed HEPATITIS A 2005-09-17 00:00:00 Completed HEPATITIS A 2005-09-17 00:00:00 Completed [facility] HEPATITIS A 2005-09-17 00:00:00 Completed [facility] HEPATITIS A 2005-09-17 00:00:00 Completed [facility] HEPATITIS A 2005-09-17 00:00:00 Completed [facility] HEPATITIS A 2005-09-17 00:00:00 Completed [facility] PPD (TB) 2004-06-23 00:00:00 Completed [facility] PPD (TB) 2004-06-23 00:00:00 Completed [facility] PPD (TB) 2004-06-23 00:00:00 Completed PPD (TB) 2004-06-23 00:00:00 Completed PPD (TB) 2004-06-23 00:00:00 Completed PPD (TB) 2004-06-23 00:00:00 Completed PPD (TB) 2004-06-23 00:00:00 Completed PPD (TB) 2004-06-23 00:00:00 Completed PPD (TB) 2004-06-23 00:00:00 Completed [facility] PPD (TB) 2004-06-23 00:00:00 Completed [facility] PPD (TB) 2004-06-23 00:00:00 Completed [facility] PPD (TB) 2004-06-23 00:00:00 Completed [facility] PPD (TB) 2004-06-23 00:00:00 Completed [facility] PPD (TB) 2004-06-23 00:00:00 Completed [facility] Pneumococcal 7 Conjugate, PCV7 (Prevnar7) 2003-10-11 00:00:00 Completed [facility] Pneumococcal 7 Conjugate, PCV7 (Prevnar7) 2003-10-11 00:00:00 Completed [facility] Pneumococcal 7 Conjugate, PCV7 (Prevnar7) 2003-10-11 00:00:00 Completed Pneumococcal 7 Conjugate, PCV7 (Prevnar7) 2003-10-11 00:00:00 Completed Pneumococcal 7 Conjugate, PCV7 (Prevnar7) 2003-10-11 00:00:00 Completed Pneumococcal 7 Conjugate, PCV7 (Prevnar7) 2003-10-11 00:00:00 Completed Pneumococcal 7 Conjugate, PCV7 (Prevnar7) 2003-10-11 00:00:00 Completed Pneumococcal 7 Conjugate, PCV7 (Prevnar7) 2003-10-11 00:00:00 Completed Pneumococcal 7 Conjugate, PCV7 (Prevnar7) 2003-10-11 00:00:00 Completed [facility] Pneumococcal 7 Conjugate, PCV7 (Prevnar7) 2003-10-11 00:00:00 Completed [facility] Pneumococcal 7 Conjugate, PCV7 (Prevnar7) 2003-10-11 00:00:00 Completed [facility] Pneumococcal 7 Conjugate, PCV7 (Prevnar7) 2003-10-11 00:00:00 Completed [facility] Pneumococcal 7 Conjugate, PCV7 (Prevnar7) 2003-10-11 00:00:00 Completed [facility] Pneumococcal 7 Conjugate, PCV7 (Prevnar7) 2003-10-11 00:00:00 Completed [facility] Polio (IPV/OPV) 2003-06-13 00:00:00 Completed [facility] Polio (IPV/OPV) 2003-06-13 00:00:00 Completed [facility] Polio (IPV/OPV) 2003-06-13 00:00:00 Completed Polio (IPV/OPV) 2003-06-13 00:00:00 Completed Polio (IPV/OPV) 2003-06-13 00:00:00 Completed Polio (IPV/OPV) 2003-06-13 00:00:00 Completed Polio (IPV/OPV) 2003-06-13 00:00:00 Completed Polio (IPV/OPV) 2003-06-13 00:00:00 Completed Polio (IPV/OPV) 2003-06-13 00:00:00 Completed [facility] Polio (IPV/OPV) 2003-06-13 00:00:00 Completed [facility] Polio (IPV/OPV) 2003-06-13 00:00:00 Completed [facility] Polio (IPV/OPV) 2003-06-13 00:00:00 Completed [facility] Polio (IPV/OPV) 2003-06-13 00:00:00 Completed [facility] Polio (IPV/OPV) 2003-06-13 00:00:00 Completed [facility] Pneumococcal 7 Conjugate, PCV7 (Prevnar7) 2003-06-04 00:00:00 Completed [facility] DTAP 2003-06-04 00:00:00 Completed [facility] Pneumococcal 7 Conjugate, PCV7 (Prevnar7) 2003-06-04 00:00:00 Completed [facility] DTAP 2003-06-04 00:00:00 Completed Pneumococcal 7 Conjugate, PCV7 (Prevnar7) 2003-06-04 00:00:00 Completed DTaP, Unspecified Formulation 2003-06-04 00:00:00 Completed IPV 2003-06-04 00:00:00 Completed DTAP 2003-06-04 00:00:00 Completed Pneumococcal 7 Conjugate, PCV7 (Prevnar7) 2003-06-04 00:00:00 Completed DTaP, Unspecified Formulation 2003-06-04 00:00:00 Completed IPV 2003-06-04 00:00:00 Completed DTAP 2003-06-04 00:00:00 Completed Pneumococcal 7 Conjugate, PCV7 (Prevnar7) 2003-06-04 00:00:00 Completed DTaP, Unspecified Formulation 2003-06-04 00:00:00 Completed IPV 2003-06-04 00:00:00 Completed DTAP 2003-06-04 00:00:00 Completed Pneumococcal 7 Conjugate, PCV7 (Prevnar7) 2003-06-04 00:00:00 Completed DTaP, Unspecified Formulation 2003-06-04 00:00:00 Completed IPV 2003-06-04 00:00:00 Completed DTAP 2003-06-04 00:00:00 Completed Pneumococcal 7 Conjugate, PCV7 (Prevnar7) 2003-06-04 00:00:00 Completed DTaP, Unspecified Formulation 2003-06-04 00:00:00 Completed IPV 2003-06-04 00:00:00 Completed DTAP 2003-06-04 00:00:00 Completed Pneumococcal 7 Conjugate, PCV7 (Prevnar7) 2003-06-04 00:00:00 Completed DTaP, Unspecified Formulation 2003-06-04 00:00:00 Completed IPV 2003-06-04 00:00:00 Completed DTAP 2003-06-04 00:00:00 Completed [facility] Pneumococcal 7 Conjugate, PCV7 (Prevnar7) 2003-06-04 00:00:00 Completed [facility] DTaP, Unspecified Formulation 2003-06-04 00:00:00 Completed [facility] IPV 2003-06-04 00:00:00 Completed [facility] DTAP 2003-06-04 00:00:00 Completed [facility] Pneumococcal 7 Conjugate, PCV7 (Prevnar7) 2003-06-04 00:00:00 Completed [facility] DTaP, Unspecified Formulation 2003-06-04 00:00:00 Completed [facility] IPV 2003-06-04 00:00:00 Completed [facility] DTAP 2003-06-04 00:00:00 Completed [facility] Pneumococcal 7 Conjugate, PCV7 (Prevnar7) 2003-06-04 00:00:00 Completed [facility] DTaP, Unspecified Formulation 2003-06-04 00:00:00 Completed [facility] IPV 2003-06-04 00:00:00 Completed [facility] DTAP 2003-06-04 00:00:00 Completed [facility] DTAP 2003-06-04 00:00:00 Completed [facility] Pneumococcal 7 Conjugate, PCV7 (Prevnar7) 2003-06-04 00:00:00 Completed [facility] DTaP, Unspecified Formulation 2003-06-04 00:00:00 Completed [facility] IPV 2003-06-04 00:00:00 Completed [facility] DTAP 2003-06-04 00:00:00 Completed [facility] Pneumococcal 7 Conjugate, PCV7 (Prevnar7) 2003-06-04 00:00:00 Completed [facility] DTaP, Unspecified Formulation 2003-06-04 00:00:00 Completed [facility] IPV 2003-06-04 00:00:00 Completed [facility] Pneumococcal 7 Conjugate, PCV7 (Prevnar7) 2003-06-04 00:00:00 Completed [facility] DTAP 2003-06-04 00:00:00 Completed [facility] HIB 4 Dose Schedule 2003 00:00:00 Completed [facility] MMR 2003 00:00:00 Completed [facility] Pneumococcal 7 Conjugate, PCV7 (Prevnar7) 2003 00:00:00 Completed [facility] Varicella (varivax)(chicken pox) 2003 00:00:00 Completed [facility] HIB 4 Dose Schedule 2003 00:00:00 Completed [facility] MMR 2003 00:00:00 Completed [facility] Pneumococcal 7 Conjugate, PCV7 (Prevnar7) 2003 00:00:00 Completed [facility] Varicella (varivax)(chicken pox) 2003 00:00:00 Completed [facility] HIB 4 Dose Schedule 2003 00:00:00 Completed MMR 2003 00:00:00 Completed Pneumococcal 7 Conjugate, PCV7 (Prevnar7) 2003 00:00:00 Completed Varicella (varivax)(chicken pox) 2003 00:00:00 Completed Hib-HbOC 2003 00:00:00 Completed HIB 4 Dose Schedule 2003 00:00:00 Completed MMR 2003 00:00:00 Completed Pneumococcal 7 Conjugate, PCV7 (Prevnar7) 2003 00:00:00 Completed Varicella (varivax)(chicken pox) 2003 00:00:00 Completed Hib-HbOC 2003 00:00:00 Completed HIB 4 Dose Schedule 2003 00:00:00 Completed MMR 2003 00:00:00 Completed Pneumococcal 7 Conjugate, PCV7 (Prevnar7) 2003 00:00:00 Completed Varicella (varivax)(chicken pox) 2003 00:00:00 Completed Hib-HbOC 2003 00:00:00 Completed HIB 4 Dose Schedule 2003 00:00:00 Completed MMR 2003 00:00:00 Completed Pneumococcal 7 Conjugate, PCV7 (Prevnar7) 2003 00:00:00 Completed Varicella (varivax)(chicken pox) 2003 00:00:00 Completed Hib-HbOC 2003 00:00:00 Completed HIB 4 Dose Schedule 2003 00:00:00 Completed MMR 2003 00:00:00 Completed Pneumococcal 7 Conjugate, PCV7 (Prevnar7) 2003 00:00:00 Completed Varicella (varivax)(chicken pox) 2003 00:00:00 Completed Hib-HbOC 2003 00:00:00 Completed HIB 4 Dose Schedule 2003 00:00:00 Completed MMR 2003 00:00:00 Completed Pneumococcal 7 Conjugate, PCV7 (Prevnar7) 2003 00:00:00 Completed Varicella (varivax)(chicken pox) 2003 00:00:00 Completed Hib-HbOC 2003 00:00:00 Completed HIB 4 Dose Schedule 2003 00:00:00 Completed [facility] MMR 2003 00:00:00 Completed [facility] Pneumococcal 7 Conjugate, PCV7 (Prevnar7) 2003 00:00:00 Completed [facility] Varicella (varivax)(chicken pox) 2003 00:00:00 Completed [facility] Hib-HbOC 2003 00:00:00 Completed [facility] HIB 4 Dose Schedule 2003 00:00:00 Completed [facility] MMR 2003 00:00:00 Completed [facility] Pneumococcal 7 Conjugate, PCV7 (Prevnar7) 2003 00:00:00 Completed [facility] Varicella (varivax)(chicken pox) 2003 00:00:00 Completed [facility] Hib-HbOC 2003 00:00:00 Completed [facility] HIB 4 Dose Schedule 2003 00:00:00 Completed [facility] MMR 2003 00:00:00 Completed [facility] Pneumococcal 7 Conjugate, PCV7 (Prevnar7) 2003 00:00:00 Completed [facility] Varicella (varivax)(chicken pox) 2003 00:00:00 Completed [facility] Hib-HbOC 2003 00:00:00 Completed [facility] HIB 4 Dose Schedule 2003 00:00:00 Completed [facility] MMR 2003 00:00:00 Completed [facility] Pneumococcal 7 Conjugate, PCV7 (Prevnar7) 2003 00:00:00 Completed [facility] Varicella (varivax)(chicken pox) 2003 00:00:00 Completed [facility] Hib-HbOC 2003 00:00:00 Completed [facility] HIB 4 Dose Schedule 2003 00:00:00 Completed [facility] HIB 4 Dose Schedule 2003 00:00:00 Completed [facility] MMR 2003 00:00:00 Completed [facility] Pneumococcal 7 Conjugate, PCV7 (Prevnar7) 2003 00:00:00 Completed [facility] Varicella (varivax)(chicken pox) 2003 00:00:00 Completed [facility] Hib-HbOC 2003 00:00:00 Completed [facility] MMR 2003 00:00:00 Completed [facility] Pneumococcal 7 Conjugate, PCV7 (Prevnar7) 2003 00:00:00 Completed [facility] Varicella (varivax)(chicken pox) 2003 00:00:00 Completed [facility] HIB 4 Dose Schedule 2002 00:00:00 Completed [facility] Hep B, Adol or Pedi Dosage 2002 00:00:00 Completed [facility] DTAP 2002 00:00:00 Completed [facility] HIB 4 Dose Schedule 2002 00:00:00 Completed [facility] Hep B, Adol or Pedi Dosage 2002 00:00:00 Completed [facility] DTAP 2002 00:00:00 Completed HIB 4 Dose Schedule 2002 00:00:00 Completed Hep B, Adol or Pedi Dosage 2002 00:00:00 Completed DTaP, Unspecified Formulation 2002 00:00:00 Completed DTAP 2002 00:00:00 Completed HIB 4 Dose Schedule 2002 00:00:00 Completed Hep B, Adol or Pedi Dosage 2002 00:00:00 Completed DTaP, Unspecified Formulation 2002 00:00:00 Completed DTAP 2002 00:00:00 Completed HIB 4 Dose Schedule 2002 00:00:00 Completed Hep B, Adol or Pedi Dosage 2002 00:00:00 Completed DTaP, Unspecified Formulation 2002 00:00:00 Completed DTAP 2002 00:00:00 Completed HIB 4 Dose Schedule 2002 00:00:00 Completed Hep B, Adol or Pedi Dosage 2002 00:00:00 Completed DTaP, Unspecified Formulation 2002 00:00:00 Completed DTAP 2002 00:00:00 Completed HIB 4 Dose Schedule 2002 00:00:00 Completed Hep B, Adol or Pedi Dosage 2002 00:00:00 Completed DTaP, Unspecified Formulation 2002 00:00:00 Completed DTAP 2002 00:00:00 Completed HIB 4 Dose Schedule 2002 00:00:00 Completed Hep B, Adol or Pedi Dosage 2002 00:00:00 Completed DTaP, Unspecified Formulation 2002 00:00:00 Completed DTAP 2002 00:00:00 Completed [facility] HIB 4 Dose Schedule 2002 00:00:00 Completed [facility] Hep B, Adol or Pedi Dosage 2002 00:00:00 Completed [facility] DTaP, Unspecified Formulation 2002 00:00:00 Completed [facility] DTAP 2002 00:00:00 Completed [facility] HIB 4 Dose Schedule 2002 00:00:00 Completed [facility] Hep B, Adol or Pedi Dosage 2002 00:00:00 Completed [facility] DTaP, Unspecified Formulation 2002 00:00:00 Completed [facility] DTAP 2002 00:00:00 Completed [facility] HIB 4 Dose Schedule 2002 00:00:00 Completed [facility] Hep B, Adol or Pedi Dosage 2002 00:00:00 Completed [facility] DTaP, Unspecified Formulation 2002 00:00:00 Completed [facility] DTAP 2002 00:00:00 Completed [facility] HIB 4 Dose Schedule 2002 00:00:00 Completed [facility] DTAP 2002 00:00:00 Completed [facility] Hep B, Adol or Pedi Dosage 2002 00:00:00 Completed [facility] DTaP, Unspecified Formulation 2002 00:00:00 Completed [facility] HIB 4 Dose Schedule 2002 00:00:00 Completed [facility] DTAP 2002 00:00:00 Completed [facility] HIB 4 Dose Schedule 2002 00:00:00 Completed [facility] Hep B, Adol or Pedi Dosage 2002 00:00:00 Completed [facility] DTaP, Unspecified Formulation 2002 00:00:00 Completed [facility] Hep B, Adol or Pedi Dosage 2002 00:00:00 Completed [facility] DTAP 2002 00:00:00 Completed [facility] HIB 4 Dose Schedule 2002 00:00:00 Completed [facility] Polio (IPV/OPV) 2002 00:00:00 Completed [facility] DTAP 2002 00:00:00 Completed [facility] HIB 4 Dose Schedule 2002 00:00:00 Completed [facility] Polio (IPV/OPV) 2002 00:00:00 Completed [facility] DTAP 2002 00:00:00 Completed HIB 4 Dose Schedule 2002 00:00:00 Completed Polio (IPV/OPV) 2002 00:00:00 Completed DTaP, Unspecified Formulation 2002 00:00:00 Completed IPV 2002 00:00:00 Completed DTAP 2002 00:00:00 Completed HIB 4 Dose Schedule 2002 00:00:00 Completed Polio (IPV/OPV) 2002 00:00:00 Completed DTaP, Unspecified Formulation 2002 00:00:00 Completed IPV 2002 00:00:00 Completed DTAP 2002 00:00:00 Completed HIB 4 Dose Schedule 2002 00:00:00 Completed Polio (IPV/OPV) 2002 00:00:00 Completed DTaP, Unspecified Formulation 2002 00:00:00 Completed IPV 2002 00:00:00 Completed DTAP 2002 00:00:00 Completed HIB 4 Dose Schedule 2002 00:00:00 Completed Polio (IPV/OPV) 2002 00:00:00 Completed DTaP, Unspecified Formulation 2002 00:00:00 Completed IPV 2002 00:00:00 Completed DTAP 2002 00:00:00 Completed HIB 4 Dose Schedule 2002 00:00:00 Completed Polio (IPV/OPV) 2002 00:00:00 Completed DTaP, Unspecified Formulation 2002 00:00:00 Completed IPV 2002 00:00:00 Completed DTAP 2002 00:00:00 Completed HIB 4 Dose Schedule 2002 00:00:00 Completed Polio (IPV/OPV) 2002 00:00:00 Completed DTaP, Unspecified Formulation 2002 00:00:00 Completed IPV 2002 00:00:00 Completed DTAP 2002 00:00:00 Completed [facility] HIB 4 Dose Schedule 2002 00:00:00 Completed [facility] Polio (IPV/OPV) 2002 00:00:00 Completed [facility] DTaP, Unspecified Formulation 2002 00:00:00 Completed [facility] IPV 2002 00:00:00 Completed [facility] DTAP 2002 00:00:00 Completed [facility] HIB 4 Dose Schedule 2002 00:00:00 Completed [facility] Polio (IPV/OPV) 2002 00:00:00 Completed [facility] DTaP, Unspecified Formulation 2002 00:00:00 Completed [facility] IPV 2002 00:00:00 Completed [facility] DTAP 2002 00:00:00 Completed [facility] HIB 4 Dose Schedule 2002 00:00:00 Completed [facility] Polio (IPV/OPV) 2002 00:00:00 Completed [facility] DTaP, Unspecified Formulation 2002 00:00:00 Completed [facility] IPV 2002 00:00:00 Completed [facility] DTAP 2002 00:00:00 Completed [facility] DTAP 2002 00:00:00 Completed [facility] HIB 4 Dose Schedule 2002 00:00:00 Completed [facility] Polio (IPV/OPV) 2002 00:00:00 Completed [facility] DTaP, Unspecified Formulation 2002 00:00:00 Completed [facility] HIB 4 Dose Schedule 2002 00:00:00 Completed [facility] IPV 2002 00:00:00 Completed [facility] DTAP 2002 00:00:00 Completed [facility] HIB 4 Dose Schedule 2002 00:00:00 Completed [facility] Polio (IPV/OPV) 2002 00:00:00 Completed [facility] DTaP, Unspecified Formulation 2002 00:00:00 Completed [facility] IPV 2002 00:00:00 Completed [facility] Polio (IPV/OPV) 2002 00:00:00 Completed [facility] DTAP 2002 00:00:00 Completed [facility] Hep B, Adol or Pedi Dosage 2002 00:00:00 Completed [facility] Polio (IPV/OPV) 2002 00:00:00 Completed [facility] DTAP 2002 00:00:00 Completed [facility] HIB 4 Dose Schedule 2002 00:00:00 Completed [facility] Hep B, Adol or Pedi Dosage 2002 00:00:00 Completed [facility] Polio (IPV/OPV) 2002 00:00:00 Completed [facility] DTAP 2002 00:00:00 Completed [facility] HIB 4 Dose Schedule 2002 00:00:00 Completed Hep B, Adol or Pedi Dosage 2002 00:00:00 Completed Polio (IPV/OPV) 2002 00:00:00 Completed DTaP, Unspecified Formulation 2002 00:00:00 Completed IPV 2002 00:00:00 Completed DTAP 2002 00:00:00 Completed [facility] HIB 4 Dose Schedule 2002 00:00:00 Completed Hep B, Adol or Pedi Dosage 2002 00:00:00 Completed Polio (IPV/OPV) 2002 00:00:00 Completed DTaP, Unspecified Formulation 2002 00:00:00 Completed IPV 2002 00:00:00 Completed DTAP 2002 00:00:00 Completed [facility] HIB 4 Dose Schedule 2002 00:00:00 Completed Hep B, Adol or Pedi Dosage 2002 00:00:00 Completed Polio (IPV/OPV) 2002 00:00:00 Completed DTaP, Unspecified Formulation 2002 00:00:00 Completed IPV 2002 00:00:00 Completed DTAP 2002 00:00:00 Completed [facility] HIB 4 Dose Schedule 2002 00:00:00 Completed Hep B, Adol or Pedi Dosage 2002 00:00:00 Completed Polio (IPV/OPV) 2002 00:00:00 Completed DTaP, Unspecified Formulation 2002 00:00:00 Completed IPV 2002 00:00:00 Completed DTAP 2002 00:00:00 Completed [facility] HIB 4 Dose Schedule 2002 00:00:00 Completed Hep B, Adol or Pedi Dosage 2002 00:00:00 Completed Polio (IPV/OPV) 2002 00:00:00 Completed DTaP, Unspecified Formulation 2002 00:00:00 Completed IPV 2002 00:00:00 Completed DTAP 2002 00:00:00 Completed [facility] HIB 4 Dose Schedule 2002 00:00:00 Completed Hep B, Adol or Pedi Dosage 2002 00:00:00 Completed Polio (IPV/OPV) 2002 00:00:00 Completed DTaP, Unspecified Formulation 2002 00:00:00 Completed IPV 2002 00:00:00 Completed DTAP 2002 00:00:00 Completed [facility] HIB 4 Dose Schedule 2002 00:00:00 Completed [facility] Hep B, Adol or Pedi Dosage 2002 00:00:00 Completed [facility] Polio (IPV/OPV) 2002 00:00:00 Completed [facility] DTaP, Unspecified Formulation 2002 00:00:00 Completed [facility] IPV 2002 00:00:00 Completed [facility] DTAP 2002 00:00:00 Completed [facility] HIB 4 Dose Schedule 2002 00:00:00 Completed [facility] Hep B, Adol or Pedi Dosage 2002 00:00:00 Completed [facility] Polio (IPV/OPV) 2002 00:00:00 Completed [facility] DTaP, Unspecified Formulation 2002 00:00:00 Completed [facility] IPV 2002 00:00:00 Completed [facility] DTAP 2002 00:00:00 Completed [facility] HIB 4 Dose Schedule 2002 00:00:00 Completed [facility] Hep B, Adol or Pedi Dosage 2002 00:00:00 Completed [facility] Polio (IPV/OPV) 2002 00:00:00 Completed [facility] DTaP, Unspecified Formulation 2002 00:00:00 Completed [facility] IPV 2002 00:00:00 Completed [facility] DTAP 2002 00:00:00 Completed [facility] DTAP 2002 00:00:00 Completed [facility] HIB 4 Dose Schedule 2002 00:00:00 Completed [facility] Hep B, Adol or Pedi Dosage 2002 00:00:00 Completed [facility] Polio (IPV/OPV) 2002 00:00:00 Completed [facility] HIB 4 Dose Schedule 2002 00:00:00 Completed [facility] DTaP, Unspecified Formulation 2002 00:00:00 Completed [facility] IPV 2002 00:00:00 Completed [facility] DTAP 2002 00:00:00 Completed [facility] HIB 4 Dose Schedule 2002 00:00:00 Completed [facility] Hep B, Adol or Pedi Dosage 2002 00:00:00 Completed [facility] Polio (IPV/OPV) 2002 00:00:00 Completed [facility] Hep B, Adol or Pedi Dosage 2002 00:00:00 Completed [facility] DTaP, Unspecified Formulation 2002 00:00:00 Completed [facility] IPV 2002 00:00:00 Completed [facility] Polio (IPV/OPV) 2002 00:00:00 Completed [facility] DTAP 2002 00:00:00 Completed [facility] HIB 4 Dose Schedule 2002 00:00:00 Completed [facility] Hep B, Adol or Pedi Dosage 2002 00:00:00 Completed [facility] Hep B, Adol or Pedi Dosage 2002 00:00:00 Completed [facility] Hep B, Adol or Pedi Dosage 2002 00:00:00 Completed Hep B, Adol or Pedi Dosage 2002 00:00:00 Completed Hep B, Adol or Pedi Dosage 2002 00:00:00 Completed Hep B, Adol or Pedi Dosage 2002 00:00:00 Completed Hep B, Adol or Pedi Dosage 2002 00:00:00 Completed Hep B, Adol or Pedi Dosage 2002 00:00:00 Completed Hep B, Adol or Pedi Dosage 2002 00:00:00 Completed [facility] Hep B, Adol or Pedi Dosage 2002 00:00:00 Completed [facility] Hep B, Adol or Pedi Dosage 2002 00:00:00 Completed [facility] Hep B, Adol or Pedi Dosage 2002 00:00:00 Completed [facility] Hep B, Adol or Pedi Dosage 2002 00:00:00 Completed [facility] Hep B, Adol or Pedi Dosage 2002 00:00:00 Completed [facility] PPD (TB) Unknown Completed [facility] TDAP Unknown Completed [facility] Meningococcal Vaccine Unknown Completed [facility] Flu Trivalent Unknown Completed [facility] Hib-HbOC Unknown Completed [facility] DTAP Unknown Completed [facility] HEPATITIS A Unknown Completed [facility] Polio (IPV/OPV) Unknown Completed [facility] HPV Unknown Completed [facility] HIB 4 Dose Schedule Unknown Completed [facility] Hep B, Adol or Pedi Dosage Unknown Completed [facility] Influenza Virus Vaccine Unknown Completed [facility] H1n1 Vaccine Unknown Completed [facility] MMR Unknown Completed [facility] Pneumococcal 7 Conjugate, PCV7 (Prevnar7) Unknown Completed [facility] Varicella (varivax)(chicken pox) Unknown Completed [facility] Influenza Virus Vaccine Nasal Unknown Completed [facility] Meningococcal Polysaccharide (groups A, C, Y and W-135) conjugate vaccine (MCV4P) Unknown Completed [facility] SARS-COV-2 COVID-19 PFIZER VACCINE Unknown Completed [facility] DTaP, Unspecified Formulation Unknown Completed [facility] IPV Unknown Completed [facility] DTAP Unknown Completed [facility] HIB 4 Dose Schedule Unknown Completed [facility] HEPATITIS A Unknown Completed [facility] Hep B, Adol or Pedi Dosage Unknown Completed [facility] HPV Unknown Completed [facility] Influenza Virus Vaccine Unknown Completed [facility] H1n1 Vaccine Unknown Completed [facility] MMR Unknown Completed [facility] Pneumococcal 7 Conjugate, PCV7 (Prevnar7) Unknown Completed [facility] Polio (IPV/OPV) Unknown Completed [facility] PPD (TB) Unknown Completed [facility] Varicella (varivax)(chicken pox) Unknown Completed [facility] Influenza Virus Vaccine Nasal Unknown Completed [facility] Meningococcal Polysaccharide (groups A, C, Y and W-135) conjugate vaccine (MCV4P) Unknown Completed [facility] TDAP Unknown Completed [facility] Meningococcal Vaccine Unknown Completed [facility] SARS-COV-2 COVID-19 PFIZER VACCINE Unknown Completed [facility] DTaP, Unspecified Formulation Unknown Completed [facility] Flu Trivalent Unknown Completed [facility] Hib-HbOC Unknown Completed [facility] IPV Unknown Completed [facility] DTAP Unknown Completed [facility] HIB 4 Dose Schedule Unknown Completed [facility] HEPATITIS A Unknown Completed [facility] Hep B, Adol or Pedi Dosage Unknown Completed [facility] HPV Unknown Completed [facility] Influenza Virus Vaccine Unknown Completed [facility] H1n1 Vaccine Unknown Completed [facility] MMR Unknown Completed [facility] Pneumococcal 7 Conjugate, PCV7 (Prevnar7) Unknown Completed [facility] Polio (IPV/OPV) Unknown Completed [facility] PPD (TB) Unknown Completed [facility] Varicella (varivax)(chicken pox) Unknown Completed [facility] Influenza Virus Vaccine Nasal Unknown Completed [facility] Meningococcal Polysaccharide (groups A, C, Y and W-135) conjugate vaccine (MCV4P) Unknown Completed [facility] TDAP Unknown Completed [facility] Meningococcal Vaccine Unknown Completed [facility] SARS-COV-2 COVID-19 PFIZER VACCINE Unknown Completed [facility] DTaP, Unspecified Formulation Unknown Completed [facility] Flu Trivalent Unknown Completed [facility] Hib-HbOC Unknown Completed [facility] IPV Unknown Completed [facility] DTAP Unknown Completed [facility] HEPATITIS A Unknown Completed [facility] MMR Unknown Completed [facility] Polio (IPV/OPV) Unknown Completed [facility] HPV Unknown Completed [facility] HIB 4 Dose Schedule Unknown Completed [facility] Hep B, Adol or Pedi Dosage Unknown Completed [facility] Influenza Virus Vaccine Unknown Completed [facility] H1n1 Vaccine Unknown Completed [facility] Pneumococcal 7 Conjugate, PCV7 (Prevnar7) Unknown Completed [facility] PPD (TB) Unknown Completed [facility] Varicella (varivax)(chicken pox) Unknown Completed [facility] Influenza Virus Vaccine Nasal Unknown Completed [facility] Meningococcal Polysaccharide (groups A, C, Y and W-135) conjugate vaccine (MCV4P) Unknown Completed [facility] TDAP Unknown Completed [facility] Meningococcal Vaccine Unknown Completed [facility] SARS-COV-2 COVID-19 PFIZER VACCINE Unknown Completed [facility] DTaP, Unspecified Formulation Unknown Completed [facility] Flu Trivalent Unknown Completed [facility] Hib-HbOC Unknown Completed [facility] IPV Unknown Completed [facility] DTAP Unknown Completed [facility] HIB 4 Dose Schedule Unknown Completed [facility] HEPATITIS A Unknown Completed [facility] Hep B, Adol or Pedi Dosage Unknown Completed [facility] HPV Unknown Completed [facility] Influenza Virus Vaccine Unknown Completed [facility] H1n1 Vaccine Unknown Completed [facility] MMR Unknown Completed [facility] Pneumococcal 7 Conjugate, PCV7 (Prevnar7) Unknown Completed [facility] Polio (IPV/OPV) Unknown Completed [facility] PPD (TB) Unknown Completed [facility] Varicella (varivax)(chicken pox) Unknown Completed [facility] Influenza Virus Vaccine Nasal Unknown Completed [facility] Meningococcal Polysaccharide (groups A, C, Y and W-135) conjugate vaccine (MCV4P) Unknown Completed [facility] TDAP Unknown Completed [facility] Meningococcal Vaccine Unknown Completed [facility] SARS-COV-2 COVID-19 PFIZER VACCINE Unknown Completed [facility] DTaP, Unspecified Formulation Unknown Completed [facility] Influenza, split virus, trivalent, PF (AFLURIA/FLUARIX/FLU LAVAL/FLUZONE) Unknown Completed [facility] Hib-HbOC Unknown Completed [facility] IPV Unknown Completed [facility] DTAP Unknown Completed [facility] HIB 4 Dose Schedule Unknown Completed [facility] HEPATITIS A Unknown Completed [facility] Hep B, Adol or Pedi Dosage Unknown Completed [facility] HPV Unknown Completed [facility] Influenza Virus Vaccine Unknown Completed [facility] H1n1 Vaccine Unknown Completed [facility] MMR Unknown Completed [facility] Pneumococcal 7 Conjugate, PCV7 (Prevnar7) Unknown Completed [facility] Polio (IPV/OPV) Unknown Completed [facility] PPD (TB) Unknown Completed [facility] Varicella (varivax)(chicken pox) Unknown Completed [facility] Influenza Virus Vaccine Nasal Unknown Completed [facility] Meningococcal Polysaccharide (groups A, C, Y and W-135) conjugate vaccine (MCV4P) Unknown Completed [facility] TDAP Unknown Completed [facility] Meningococcal Vaccine Unknown Completed [facility] SARS-COV-2 COVID-19 PFIZER VACCINE Unknown Completed [facility] DTaP, Unspecified Formulation Unknown Completed [facility] Influenza, split virus, trivalent, PF (AFLURIA/FLUARIX/FLU LAVAL/FLUZONE) Unknown Completed [facility] Hib-HbOC Unknown Completed [facility] IPV Unknown Completed [facility] DTAP Unknown Completed [facility] HIB 4 Dose Schedule Unknown Completed [facility] HEPATITIS A Unknown Completed [facility] Hep B, Adol or Pedi Dosage Unknown Completed [facility] HPV Unknown Completed [facility] Influenza Virus Vaccine Unknown Completed [facility] H1n1 Vaccine Unknown Completed [facility] MMR Unknown Completed [facility] Pneumococcal 7 Conjugate, PCV7 (Prevnar7) Unknown Completed [facility] Polio (IPV/OPV) Unknown Completed [facility] P[facility] (TB[facility] Unknown Completed [facility] Varicella (varivax)(chicken pox) Unknown Completed [facility] Influenza Virus Vaccine Nasal Unknown Completed [facility] Meningococcal Polysaccharide (groups A, C, Y and W-135) conjugate vaccine (MCV4P) Unknown Completed [facility] TDAP Unknown Completed [facility] Meningococcal Vaccine Unknown Completed [facility] SARS-COV-2 COVID-19 PFIZER VACCINE Unknown Completed [facility] DTaP, Unspecified Formulation Unknown Completed [facility] Influenza, split virus, trivalent, PF (AFLURIA/FLUARIX/FLU LAVAL/FLUZONE) Unknown Completed [facility] Hib-HbOC Unknown Completed [facility] IPV Unknown Completed [facility] DTAP Unknown Completed [facility] HIB 4 Dose Schedule Unknown Completed [facility] HEPATITIS A Unknown Completed [facility] Hep B, Adol or Pedi Dosage Unknown Completed [facility] HPV Unknown Completed [facility] Influenza Virus Vaccine Unknown Completed [facility] H1n1 Vaccine Unknown Completed [facility] MMR Unknown Completed [facility] Pneumococcal 7 Conjugate, PCV7 (Prevnar7) Unknown Completed [facility] Polio (IPV/OPV) Unknown Completed [facility] PPD (TB) Unknown Completed [facility] Varicella (varivax)(chicken pox) Unknown Completed [facility] Influenza Virus Vaccine Nasal Unknown Completed [facility] Meningococcal Polysaccharide (groups A, C, Y and W-135) conjugate vaccine (MCV4P) Unknown Completed [facility] TDAP Unknown Completed [facility] Meningococcal Vaccine Unknown Completed [facility] SARS-COV-2 COVID-19 PFIZER VACCINE Unknown Completed [facility] DTaP, Unspecified Formulation Unknown Completed [facility] Influenza, split virus, trivalent, PF (AFLURIA/FLUARIX/FLU LAVAL/FLUZONE) Unknown Completed [facility] Hib-HbOC Unknown Completed [facility] IPV Unknown Completed [facility] DTAP Unknown Completed [facility] HIB 4 Dose Schedule Unknown Completed [facility] HEPATITIS A Unknown Completed [facility] Hep B, Adol or Pedi Dosage Unknown Completed [facility] HPV Unknown Completed [facility] Influenza Virus Vaccine Unknown Completed [facility] H1n1 Vaccine Unknown Completed [facility] MMR Unknown Completed [facility] Pneumococcal 7 Conjugate, PCV7 (Prevnar7) Unknown Completed [facility] Polio (IPV/OPV) Unknown Completed [facility] PPD (TB) Unknown Completed [facility] Varicella (varivax)(chicken pox) Unknown Completed [facility] Influenza Virus Vaccine Nasal Unknown Completed [facility] Meningococcal Polysaccharide (groups A, C, Y and W-135) conjugate vaccine (MCV4P) Unknown Completed [facility] TDAP Unknown Completed [facility] Meningococcal Vaccine Unknown Completed [facility] SARS-COV-2 COVID-19 PFIZER VACCINE Unknown Completed [facility] DTaP, Unspecified Formulation Unknown Completed [facility] Influenza, split virus, trivalent, PF (AFLURIA/FLUARIX/FLU LAVAL/FLUZONE) Unknown Completed [facility] Hib-HbOC Unknown Completed [facility] IPV Unknown Completed [facility] DTAP Unknown Completed [facility] HIB 4 Dose Schedule Unknown Completed [facility] HEPATITIS A Unknown Completed [facility] Hep B, Adol or Pedi Dosage Unknown Completed [facility] HPV Unknown Completed [facility] Influenza Virus Vaccine Unknown Completed [facility] H1n1 Vaccine Unknown Completed [facility] MMR Unknown Completed [facility] Pneumococcal 7 Conjugate, PCV7 (Prevnar7) Unknown Completed [facility] Polio (IPV/OPV) Unknown Completed [facility] PPD (TB) Unknown Completed [facility] Varicella (varivax)(chicken pox) Unknown Completed [facility] Influenza Virus Vaccine Nasal Unknown Completed [facility] Meningococcal Polysaccharide (groups A, C, Y and W-135) conjugate vaccine (MCV4P) Unknown Completed [facility] TDAP Unknown Completed [facility] Meningococcal Vaccine Unknown Completed [facility] SARS-COV-2 COVID-19 PFIZER VACCINE Unknown Completed [facility] DTaP, Unspecified Formulation Unknown Completed [facility] Influenza, split virus, trivalent, PF (AFLURIA/FLUARIX/FLU LAVAL/FLUZONE) Unknown Completed [facility] Hib-HbOC Unknown Completed [facility] IPV Unknown Completed [facility] DTAP Unknown Completed [facility] HIB 4 Dose Schedule Unknown Completed [facility] HEPATITIS A Unknown Completed [facility] Hep B, Adol or Pedi Dosage Unknown Completed [facility] HPV Unknown Completed [facility] Influenza Virus Vaccine Unknown Completed [facility] H1n1 Vaccine Unknown Completed [facility] MMR Unknown Completed [facility] Pneumococcal 7 Conjugate, PCV7 (Prevnar7) Unknown Completed [facility] Polio (IPV/OPV) Unknown Completed [facility] PPD (TB) Unknown Completed [facility] Varicella (varivax)(chicken pox) Unknown Completed [facility] Influenza Virus Vaccine Nasal Unknown Completed [facility] Meningococcal Polysaccharide (groups A, C, Y and W-135) conjugate vaccine (MCV4P) Unknown Completed [facility] TDAP Unknown Completed [facility] Meningococcal Vaccine Unknown Completed [facility] SARS-COV-2 COVID-19 PFIZER VACCINE Unknown Completed [facility] DTaP, Unspecified Formulation Unknown Completed [facility] Influenza, split virus, trivalent, PF (AFLURIA/FLUARIX/FLU LAVAL/FLUZONE) Unknown Completed [facility] Hib-HbOC Unknown Completed [facility] IPV Unknown Completed [facility] DTAP Unknown Completed [facility] HIB 4 Dose Schedule Unknown Completed [facility] HEPATITIS A Unknown Completed [facility] Hep B, Adol or Pedi Dosage Unknown Completed [facility] HPV Unknown Completed [facility] Influenza Virus Vaccine Unknown Completed [facility] H1n1 Vaccine Unknown Completed [facility] MMR Unknown Completed [facility] Pneumococcal 7 Conjugate, PCV7 (Prevnar7) Unknown Completed [facility] Polio (IPV/OPV) Unknown Completed [facility] PPD (TB) Unknown Completed [facility] Varicella (varivax)(chicken pox) Unknown Completed [facility] Influenza, Live, Trivalent, Intranasal (FLUMIST) Unknown Completed [facility] Meningococcal Polysaccharide (groups A, C, Y and W-135) conjugate vaccine (MCV4P) Unknown Completed [facility] TDAP Unknown Completed [facility] Meningococcal Vaccine Unknown Completed [facility] SARS-COV-2 COVID-19 PFIZER VACCINE Unknown Completed [facility] DTaP, Unspecified Formulation Unknown Completed [facility] Influenza, split virus, trivalent, PF (AFLURIA/FLUARIX/FLU LAVAL/FLUZONE) Unknown Completed [facility] Hib-HbOC Unknown Completed [facility] IPV Unknown Completed [facility] DTAP Unknown Completed [facility] HIB 4 Dose Schedule Unknown Completed [facility] HEPATITIS A Unknown Completed [facility] Hep B, Adol or Pedi Dosage Unknown Completed [facility] HPV Unknown Completed [facility] Influenza Virus Vaccine Unknown Completed [facility] H1n1 Vaccine Unknown Completed [facility] MMR Unknown Completed [facility] Pneumococcal 7 Conjugate, PCV7 (Prevnar7) Unknown Completed [facility] Polio (IPV/OPV) Unknown Completed [facility] PPD (TB) Unknown Completed [facility] Varicella (varivax)(chicken pox) Unknown Completed [facility] Influenza, Live, Trivalent, Intranasal (FLUMIST) Unknown Completed [facility] Meningococcal Polysaccharide (groups A, C, Y and W-135) conjugate vaccine (MCV4P) Unknown Completed [facility] TDAP Unknown Completed [facility] Meningococcal Vaccine Unknown Completed [facility] SARS-COV-2 COVID-19 PFIZER VACCINE Unknown Completed [facility] DTaP, Unspecified Formulation Unknown Completed [facility] Influenza, split virus, trivalent, PF (AFLURIA/FLUARIX/FLU LAVAL/FLUZONE) Unknown Completed [facility] Hib-HbOC Unknown Completed [facility] IPV Unknown Completed [facility] DTAP Unknown Completed [facility] HIB 4 Dose Schedule Unknown Completed [facility] HEPATITIS A Unknown Completed [facility] Hep B, Adol or Pedi Dosage Unknown Completed [facility] HPV Unknown Completed [facility] Influenza Virus Vaccine Unknown Completed [facility] H1n1 Vaccine Unknown Completed [facility] MMR Unknown Completed [facility] Pneumococcal 7 Conjugate, PCV7 (Prevnar7) Unknown Completed [facility] Polio (IPV/OPV) Unknown Completed [facility] PPD (TB) Unknown Completed [facility] Varicella (varivax)(chicken pox) Unknown Completed [facility] Meningococcal Polysaccharide (groups A, C, Y and W-135) conjugate vaccine (MCV4P) Unknown Completed [facility] TDAP Unknown Completed [facility] Meningococcal Vaccine Unknown Completed [facility] SARS-COV-2 COVID-19 PFIZER VACCINE Unknown Completed [facility] DTaP, Unspecified Formulation Unknown Completed [facility] Flu Trivalent Unknown Completed [facility] Influenza Virus Vaccine Nasal Unknown Completed [facility] Hib-HbOC Unknown Completed [facility] IPV Unknown Completed [facility] DTAP Unknown Completed [facility] HIB 4 Dose Schedule Unknown Completed [facility] HEPATITIS A Unknown Completed [facility] Hep B, Adol or Pedi Dosage Unknown Completed [facility] HPV Unknown Completed [facility] Influenza Virus Vaccine Unknown Completed [facility] H1n1 Vaccine Unknown Completed [facility] MMR Unknown Completed [facility] Pneumococcal 7 Conjugate, PCV7 (Prevnar7) Unknown Completed [facility] Polio (IPV/OPV) Unknown Completed [facility] PPD (TB) Unknown Completed [facility] Varicella (varivax)(chicken pox) Unknown Completed [facility] Meningococcal Polysaccharide (groups A, C, Y and W-135) conjugate vaccine (MCV4P) Unknown Completed [facility] TDAP Unknown Completed [facility] Meningococcal Vaccine Unknown Completed [facility] SARS-COV-2 COVID-19 PFIZER VACCINE Unknown Completed [facility] DTaP, Unspecified Formulation Unknown Completed [facility] Flu Trivalent Unknown Completed [facility] Influenza Virus Vaccine Nasal Unknown Completed [facility] Hib-HbOC Unknown Completed [facility] IPV Unknown Completed [facility] DTAP Unknown Completed [facility] HIB 4 Dose Schedule Unknown Completed [facility] HEPATITIS A Unknown Completed [facility] Hep B, Adol or Pedi Dosage Unknown Completed [facility] HPV Unknown Completed [facility] Influenza Virus Vaccine Unknown Completed [facility] H1n1 Vaccine Unknown Completed [facility] MMR Unknown Completed [facility] Pneumococcal 7 Conjugate, PCV7 (Prevnar7) Unknown Completed [facility] Polio (IPV/OPV) Unknown Completed [facility] PPD (TB) Unknown Completed [facility] Varicella (varivax)(chicken pox) Unknown Completed [facility] Meningococcal Polysaccharide (groups A, C, Y and W-135) conjugate vaccine (MCV4P) Unknown Completed [facility] TDAP Unknown Completed [facility] Meningococcal Vaccine Unknown Completed [facility] SARS-COV-2 COVID-19 PFIZER VACCINE Unknown Completed [facility] DTaP, Unspecified Formulation Unknown Completed [facility] Flu [facility]rivalent [facility] Vaccine Nasal Unknown Completed [facility] Hib-HbOC Unknown Completed [facility] IPV Unknown Completed [facility] DTAP Unknown Completed [facility] HIB 4 Dose Schedule Unknown Completed [facility] HEPATITIS A Unknown Completed [facility] Hep B, Adol or Pedi Dosage Unknown Completed [facility] HPV Unknown Completed [facility] Influenza Virus Vaccine Unknown Completed [facility] H1n1 Vaccine Unknown Completed [facility] MMR Unknown Completed [facility] Pneumococcal 7 Conjugate, PCV7 (Prevnar7) Unknown Completed [facility] Polio (IPV/OPV) Unknown Completed [facility] PPD (TB) Unknown Completed [facility] Varicella (varivax)(chicken pox) Unknown Completed [facility] Meningococcal Polysaccharide (groups A, C, Y and W-135) conjugate vaccine (MCV4P) Unknown Completed [facility] TDAP Unknown Completed [facility] Meningococcal Vaccine Unknown Completed [facility] SARS-COV-2 COVID-19 PFIZER VACCINE Unknown Completed [facility] DTaP, Unspecified Formulation Unknown Completed [facility] Flu Trivalent [facility] Influenza Virus Vaccine Nasal Unknown Completed [facility] Hib-HbOC Unknown Completed [facility] IPV Unknown Completed [facility] Vital Signs Vital Name Observation Time Observation Value Comments S ource Systolic blood pressure 2024-12-10 20:08:00 112 mm[Hg] [facility] Diastolic blood pressure 2024-12-10 20:08:00 74 mm[Hg] [facility] Heart rate 2024-12-10 20:08:00 82 /min [facility] Body temperature 2024-12-10 20:08:00 36.89 Pilar [facility] Respiratory rate 2024-12-10 20:08:00 18 /min [facility] Body height 2024-12-10 20:08:00 157.5 cm [facility] Body weight 2024-12-10 20:08:00 60.464 kg [facility] BMI 2024-12-10 20:08:00 24.38 kg/m2 [facility] Oxygen saturation in Arterial blood by Pulse oximetry 2024-12-10 20:08:00 98 /min [facility] Systolic blood pressure 2024-12-04 13:17:00 123 mm[Hg] [facility] Diastolic blood pressure 2024-12-04 13:17:00 82 mm[Hg] [facility] Heart rate 2024-12-04 13:17:00 66 /min [facility] Body temperature 2024-12-04 13:17:00 36.11 Pilar [facility] Body height 2024-12-04 13:17:00 157.5 cm [facility] Body weight 2024-12-04 13:17:00 59.784 kg [facility] BMI 2024-12-04 13:17:00 24.11 kg/m2 [facility] Systolic blood pressure 2024-11-03 23:59:00 119 mm[Hg] [facility] Diastolic blood pressure 2024-11-03 23:59:00 75 mm[Hg] [facility] Heart rate 2024-11-03 23:59:00 79 /min [facility] Body temperature 2024-11-03 23:59:00 36.83 Pilar [facility] Respiratory rate 2024-11-03 23:59:00 17 /min [facility] [facility] Body height 2024-11-03 23:59:00 157.5 cm [facility] Body weight 2024-11-03 23:59:00 59.875 kg [facility] BMI 2024-11-03 23:59:00 24.14 kg/m2 [facility] Oxygen saturation in Arterial blood by Pulse oximetry 2024-11-03 23:59:00 100 /min [facility] Heart rate 2024-10-21 14:00:00 78 /min [facility] Body temperature 2024-10-21 14:00:00 36.78 Pilar [facility] Respiratory rate 2024-10-21 14:00:00 16 /min [facility] Oxygen saturation in Arterial blood by Pulse oximetry 2024-10-21 14:00:00 100 /min [facility] Systolic blood pressure 2024-10-21 09:45:00 130 mm[Hg] [facility] Diastolic blood pressure 2024-10-21 09:45:00 82 mm[Hg] [facility] Body height 2024-10-19 00:00:00 157.5 cm [facility] Body weight 2024-10-19 00:00:00 69.854 kg [facility] BMI 2024-10-19 00:00:00 28.17 kg/m2 [facility] Systolic blood pressure 2024-10-16 11:00:00 101 mm[Hg] [facility] Diastolic blood pressure 2024-10-16 11:00:00 50 mm[Hg] [facility] Heart rate 2024-10-16 11:00:00 84 /min [facility] Oxygen saturation in Arterial blood by Pulse oximetry 2024-10-16 11:00:00 100 /min [facility] Body temperature 2024-10-16 04:09:00 36.56 Pilar [facility] Respiratory rate 2024-10-16 04:09:00 17 /min [facility] Body height 2024-10-15 21:20:00 157.5 cm [facility] Body weight 2024-10-15 21:20:00 69.854 kg [facility] BMI 2024-10-15 21:20:00 28.17 kg/m2 [facility] Systolic blood pressure 2024-09-24 01:00:00 114 mm[Hg] [facility] Diastolic blood pressure 2024-09-24 01:00:00 72 mm[Hg] [facility] Heart rate 2024-09-24 01:00:00 100 /min [facility] Body temperature 2024-09-24 01:00:00 37 Pilar [facility] Respiratory rate 2024-09-24 01:00:00 18 /min [facility] Body height 2024-09-24 01:00:00 157.5 cm [facility] Body weight 2024-09-24 01:00:00 65.318 kg [facility] BMI 2024-09-24 01:00:00 26.34 kg/m2 [facility] Oxygen saturation in Arterial blood by Pulse oximetry 2024-09-24 01:00:00 100 /min [facility] Systolic blood pressure 2024-09-18 17:00:00 117 mm[Hg] [facility] Diastolic blood pressure 2024-09-18 17:00:00 71 mm[Hg] [facility] Heart rate 2024-09-18 17:00:00 96 /min [facility] Body temperature 2024-09-18 17:00:00 36.11 Pilar [facility] Respiratory rate 2024-09-18 17:00:00 18 /min [facility] Body height 2024-09-18 17:00:00 157.5 cm [facility] Body weight 2024-09-18 17:00:00 65.318 kg [facility] BMI 2024-09-18 17:00:00 26.34 kg/m2 [facility] Systolic blood pressure 2024-09-12 23:51:00 104 mm[Hg] [facility] Diastolic blood pressure 2024-09-12 23:51:00 69 mm[Hg] [facility] Heart rate 2024-09-12 23:51:00 98 /min [facility] Body temperature 2024-09-12 23:51:00 36.17 Pilar [facility] Respiratory rate 2024-09-12 23:51:00 16 /min [facility] Body weight 2024-09-12 23:51:00 65.59 kg [facility] BMI 2024-09-12 23:51:00 26.45 kg/m2 [facility] Oxygen saturation in Arterial blood by Pulse oximetry 2024-09-12 23:51:00 99 /min [facility] Systolic blood pressure 2024-09-11 22:30:00 99 mm[Hg] [facility] Diastolic blood pressure 2024-09-11 22:30:00 60 mm[Hg] [facility] Heart rate 2024-09-11 22:30:00 109 /min [facility] Oxygen saturation in Arterial blood by Pulse oximetry 2024-09-11 22:30:00 98 /min [facility] Body temperature 2024-09-11 21:30:00 37.06 Pilar [facility] Respiratory rate 2024-09-11 18:15:00 18 /min [facility] Body height 2024-09-11 18:15:00 157.5 cm [facility] Body weight 2024-09-11 18:15:00 65.318 kg [facility] BMI 2024-09-11 18:15:00 26.34 kg/m2 [facility] Systolic blood pressure 2024-09-11 12:44:03 120 mm[Hg] [facility] Diastolic blood pressure 2024-09-11 12:44:03 80 mm[Hg] [facility] Heart rate 2024-09-11 12:44:03 115 /min [facility] Body temperature 2024-09-11 12:44:03 37.5 Pilar [facility] Respiratory rate 2024-09-11 12:44:03 17 /min [facility] Body height 2024-09-11 12:41:00 [facility] 2024-09-11 12:41:00 65.545 kg [facility] BMI 2024-09-11 12:41:00 26.43 kg/m2 [facility] Oxygen saturation in Arterial blood by Pulse oximetry 2024-09-11 12:41:00 100 /min [facility] Systolic blood pressure 2024-08-31 22:21:00 113 mm[Hg] [facility] Diastolic blood pressure 2024-08-31 22:21:00 71 mm[Hg] [facility] Heart rate 2024-08-31 22:21:00 101 [facility] Body temperature 2024-08-31 22:21:00 36.28 Pilar [facility] Body height 2024-08-31 22:21:00 157.5 cm [facility] Body weight 2024-08-31 22:21:00 65.772 kg [facility] BMI 2024-08-31 22:21:00 26.52 kg/m2 [facility] Systolic blood pressure 2024-08-30 01:00:00 118 mm[Hg] [facility] Diastolic blood pressure 2024-08-30 01:00:00 76 mm[Hg] [facility] Heart rate 2024-08-30 01:00:00 99 /min [facility] Oxygen saturation in Arterial blood by Pulse oximetry 2024-08-30 01:00:00 100 /min [facility] Body temperature 2024-08-30 00:20:00 37.17 Pilar [facility] Respiratory rate 2024-08-30 00:20:00 16 /min [facility] Body height 2024-08-29 23:48:00 [facility].5 [facility] 2024-08-29 23:48:00 [facility]454 [facility] 2024-08-29 23:48:00 26.39 kg/m2 [facility] Systolic blood pressure 2024-08-22 02:15:00 114 mm[Hg] [facility] Diastolic blood pressure 2024-08-22 02:15:00 67 mm[Hg] [facility] Heart rate 2024-08-22 02:15:00 89 /min [facility] Oxygen saturation in Arterial blood by Pulse oximetry 2024-08-22 02:15:00 99 /min [facility] Body temperature 2024-08-22 00:18:00 36.67 Pilar [facility] Respiratory rate 2024-08-22 00:18:00 18 /min [facility] Body height 2024-08-22 00:18:00 157.5 cm [facility] Body weight 2024-08-22 00:18:00 63.504 kg [facility] BMI 2024-08-22 00:18:00 25.61 kg/m2 [facility] Systolic blood pressure 2024-08-18 20:15:00 109 mm[Hg] [facility] Diastolic blood pressure 2024-08-18 20:15:00 76 mm[Hg] [facility] Heart rate 2024-08-18 20:15:00 91 /min [facility] Respiratory rate 2024-08-18 20:15:00 18 /min [facility] Body height 2024-08-18 20:15:00 157.5 cm [facility] Body weight 2024-08-18 20:15:00 63.957 kg [facility] BMI 2024-08-18 20:15:00 25.79 kg/m2 [facility] Systolic blood pressure 2024-08-17 14:26:00 109 mm[Hg] [facility] Diastolic blood pressure 2024-08-17 14:26:00 71 mm[Hg] [facility] Heart rate 2024-08-17 14:26:00 89 /min [facility] Body temperature 2024-08-17 14:26:00 36.72 Pilar [facility] Respiratory rate 2024-08-17 14:26:00 16 /min [facility] Body weight 2024-08-17 14:26:00 64.728 kg [facility] BMI 2024-08-17 14:26:00 26.10 kg/m2 [facility] Heart rate 2024-08-12 21:00:00 99 /min [facility] Oxygen saturation in Arterial blood by Pulse oximetry 2024-08-12 21:00:00 100 /min [facility] Systolic blood pressure 2024-08-12 20:59:00 109 mm[Hg] [facility] Diastolic blood pressure 2024-08-12 20:59:00 64 mm[Hg] [facility] Respiratory rate 2024-08-12 20:59:00 18 /min [facility] Body temperature 2024-08-12 20:40:00 36.89 Pilar [facility] Body height 2024-08-12 20:40:00 157.5 cm [facility] Body weight 2024-08-12 20:40:00 63.957 kg [facility] BMI 2024-08-12 20:40:00 25.79 kg/m2 [facility] Systolic blood pressure 2024-07-24 13:55:00 111 mm[Hg] [facility] Diastolic blood pressure 2024-07-24 13:55:00 74 mm[Hg] [facility] Heart rate 2024-07-24 13:55:00 77 /min [facility] Body temperature 2024-07-24 13:55:00 36.33 Pilar [facility] Respiratory rate 2024-07-24 13:55:00 18 /min [facility] Body height 2024-07-24 13:55:00 157.5 cm [facility] Body weight 2024-07-24 13:55:00 62.199 kg [facility] BMI 2024-07-24 13:55:00 25.08 kg/m2 [facility] Systolic blood pressure 2024-07-15 19:00:00 115 mm[Hg] [facility] Diastolic blood pressure 2024-07-15 19:00:00 66 mm[Hg] [facility] Heart rate 2024-07-15 19:00:00 94 /min [facility] Oxygen saturation in Arterial blood by Pulse oximetry 2024-07-15 19:00:00 100 /min [facility] Body temperature 2024-07-15 18:04:00 36.89 Pilar [facility] Respiratory rate 2024-07-15 18:04:00 16 /min [facility] Body height 2024-07-15 17:45:00 157.5 cm [facility] Body weight 2024-07-15 17:45:00 61.644 kg [facility] BMI 2024-07-15 17:45:00 24.86 kg/m2 [facility] Systolic blood pressure 2024-06-26 15:12:00 120 mm[Hg] [facility] Diastolic blood pressure 2024-06-26 15:12:00 73 mm[Hg] [facility] Heart rate 2024-06-26 15:12:00 78 /min [facility] Body temperature 2024-06-26 15:12:00 36.72 Pilar [facility] Respiratory rate 2024-06-26 15:12:00 16 /min [facility] Body height 2024-06-26 15:12:00 157.5 cm [facility] Body weight 2024-06-26 15:12:00 59.467 kg [facility] BMI 2024-06-26 15:12:00 23.98 kg/m2 [facility] Systolic blood pressure 2024-06-06 22:21:00 118 mm[Hg] [facility] Diastolic blood pressure 2024-06-06 22:21:00 78 mm[Hg] [facility] Heart rate 2024-06-06 22:21:00 102 /min [facility] Body temperature 2024-06-06 22:21:00 36.11 Pilar [facility] Body weight 2024-06-06 22:21:00 58.605 kg [facility] BMI 2024-06-06 22:21:00 23.63 kg/m2 [facility] Systolic blood pressure 2024-06-03 05:00:00 110 mm[Hg] [facility] Diastolic blood pressure 2024-06-03 05:00:00 59 mm[Hg] [facility] Heart rate 2024-06-03 05:00:00 78 /min [facility] Oxygen saturation in Arterial blood by Pulse oximetry 2024-06-03 05:00:00 100 /min [facility] Body temperature 2024-06-03 03:38:00 36.5 Pilar [facility] Respiratory rate 2024-06-03 03:15:00 18 /min [facility] Body height 2024-06-03 03:15:00 157.5 cm [facility] Body weight 2024-06-03 03:15:00 58.242 kg [facility] BMI 2024-06-03 03:15:00 23.48 kg/m2 [facility] Systolic blood pressure 2024-05-25 14:09:00 120 mm[Hg] [facility] Diastolic blood pressure 2024-05-25 14:09:00 78 mm[Hg] [facility] Heart rate 2024-05-25 14:09:00 101 /min [facility] Body temperature 2024-05-25 14:09:00 36.39 Pilar [facility] Body height 2024-05-25 14:09:00 157.5 cm [facility] Body weight 2024-05-25 14:09:00 57.516 kg [facility] BMI 2024-05-25 14:09:00 23.19 kg/m2 [facility] Systolic blood pressure 2024-04-28 13:15:00 114 mm[Hg] [facility] Diastolic blood pressure 2024-04-28 13:15:00 75 mm[Hg] [facility] Heart rate 2024-04-28 13:15:00 86 /min [facility] Respiratory rate 2024-04-28 13:15:00 18 /min [facility] Body height 2024-04-28 13:15:00 157.5 cm [facility] Body weight 2024-04-28 13:15:00 56.7 kg [facility] BMI 2024-04-28 13:15:00 22.86 kg/m2 [facility] Systolic blood pressure 2024-04-10 02:00:00 104 mm[Hg] [facility] Diastolic blood pressure 2024-04-10 02:00:00 64 mm[Hg] [facility] Heart rate 2024-04-10 02:00:00 82 /min [facility] Body temperature 2024-04-10 02:00:00 36.72 Pilar [facility] Respiratory rate 2024-04-10 02:00:00 17 /min [facility] Oxygen saturation in Arterial blood by Pulse oximetry 2024-04-10 02:00:00 100 /min [facility] Body height 2024-04-09 23:21:00 157.5 cm [facility] Body weight 2024-04-09 23:21:00 58.786 kg [facility] BMI 2024-04-09 23:21:00 23.70 kg/m2 [facility] Systolic blood pressure 2024-04-03 13:55:00 115 mm[Hg] [facility] Diastolic blood pressure 2024-04-03 13:55:00 79 mm[Hg] [facility] Heart rate 2024-04-03 13:55:00 82 /min [facility] Body temperature 2024-04-03 13:55:00 36.17 Pilar [facility] Body height 2024-04-03 13:55:00 157.5 cm [facility] Body weight 2024-04-03 13:55:00 57.788 kg [facility] BMI 2024-04-03 13:55:00 23.30 kg/m2 [facility] Systolic blood pressure 2024-03-18 16:54:16 118 mm[Hg] [facility] Diastolic blood pressure 2024-03-18 16:54:16 76 mm[Hg] [facility] Heart rate 2024-03-18 16:54:16 92 /min [facility] Body temperature 2024-03-18 16:54:16 36.67 Pilar [facility] Respiratory rate 2024-03-18 16:54:16 18 /min [facility] Oxygen saturation in Arterial blood by Pulse oximetry 2024-03-18 16:54:16 99 /min [facility] Body height 2024-03-18 13:18:00 157.5 cm [facility] Body weight 2024-03-18 13:18:00 56.7 kg [facility] BMI 2024-03-18 13:18:00 22.86 kg/m2 [facility] height 2023-12-13 08:20:00 61 [in_i] Commo n [facility] weight 2023-12-13 08:20:00 126.4 [lb_av] Co mmon [facility] temperature 2023-12-13 08:20:00 97.2 [degF] Com mon [facility] bmi 2023-12-13 08:20:00 23.88 kg/m2 Comm on [facility] oximetry 2023-12-13 08:20:00 97 % Commo n [facility] respiratory rate 2023-12-13 08:20:00 16 /min Common [facility] blood pressure systolic 2023-12-13 08:20:00 116 mm[Hg] Common [facility] blood pressure diastolic 2023-12-13 08:20:00 78 mm[Hg] [facility] weight 2023-11-26 10:20:00 125.6 [lb_av] Co mmon [facility] temperature 2023-11-26 10:20:00 97.5 [degF] Com mon [facility] bmi 2023-11-26 10:20:00 23.73 kg/m2 [facility] on [facility] oximetry 2023-11-26 10:20:00 94 % Commo n [facility] respiratory rate 2023-11-26 10:20:00 16 /min [facility] blood pressure systolic 2023-11-26 10:20:00 120 mm[Hg] Common [facility] blood pressure diastolic 2023-11-26 10:20:00 76 mm[Hg] Common [facility] height 2023-11-26 10:20:00 61 [in_i] Commo n [facility] Body height 2023-09-01 20:27:00 157.5 cm [facility] Body weight 2023-09-01 20:27:00 56.155 kg [facility] BMI 2023-09-01 20:27:00 22.64 kg/m2 [facility] Oxygen saturation in Arterial blood by Pulse oximetry 2023-09-01 20:27:00 99 /min [facility] Systolic blood pressure 2023-09-01 20:27:00 113 mm[Hg] [facility] Diastolic blood pressure 2023-09-01 20:27:00 74 mm[Hg] [facility] Heart rate 2023-09-01 20:27:00 76 /min [facility] Systolic blood pressure 2022-12-23 15:51:00 115 mm[Hg] [facility] Diastolic blood pressure 2022-12-23 15:51:00 78 mm[Hg] [facility] Heart rate 2022-12-23 15:51:00 60 /min [facility] Body temperature 2022-12-23 15:51:00 37.11 Pilar [facility] Respiratory rate 2022-12-23 15:51:00 16 /min [facility] Body height 2022-12-23 15:51:00 157.5 cm [facility] Body weight 2022-12-23 15:51:00 52.3 kg [facility] BMI 2022-12-23 15:51:00 21.09 kg/m2 [facility] Systolic blood pressure 2022-07-05 21:26:00 114 mm[Hg] [facility] Diastolic blood pressure 2022-07-05 21:26:00 78 mm[Hg] [facility] Heart rate 2022-07-05 21:26:00 97 /min [facility] Body temperature 2022-07-05 21:26:00 36.67 Pilar [facility] Respiratory rate 2022-07-05 21:26:00 16 /min [facility] Body height 2022-07-05 21:26:00 157.5 cm [facility] Body weight 2022-07-05 21:26:00 50.213 kg [facility] BMI 2022-07-05 21:26:00 20.25 kg/m2 [facility] Oxygen saturation in Arterial blood by Pulse oximetry 2022-07-05 21:26:00 98 /min [facility] Systolic blood pressure 2020-09-12 19:21:00 134 mm[Hg] [facility] Diastolic blood pressure 2020-09-12 19:21:00 89 mm[Hg] [facility] Heart rate 2020-09-12 19:21:00 122 /min [facility] Body temperature 2020-09-12 19:21:00 37.56 Pilar [facility] Respiratory rate 2020-09-12 19:21:00 16 /min [facility] Body height 2020-09-12 19:21:00 154.9 cm [facility] Body weight 2020-09-12 19:21:00 49.896 kg [facility] BMI 2020-09-12 19:21:00 20.78 kg/m2 [facility] Oxygen saturation in Arterial blood by Pulse oximetry 2020-09-12 19:21:00 100 /min [facility] Systolic blood pressure 2020-09-12 19:21:00 134 mm[Hg] [facility] Diastolic blood pressure 2020-09-12 19:21:00 89 mm[Hg] [facility] Heart rate 2020-09-12 19:21:00 122 /min [facility] Body temperature 2020-09-12 19:21:00 37.56 Pilar [facility] Respiratory rate 2020-09-12 19:21:00 16 /min [facility] Body height 2020-09-12 19:21:00 154.9 cm [facility] Body weight 2020-09-12 19:21:00 49.896 kg [facility] BMI 2020-09-12 19:21:00 20.78 kg/m2 [facility] Oxygen saturation in Arterial blood by Pulse oximetry 2020-09-12 19:21:00 100 /min [facility] Procedures Procedure Date / Time Performed Performing Clinician Source CBC WITH DIFF 2024-10-20 09:11:00 Selin Cortes [facility] CENTRAL NEURAXIAL BLOCK 2024-10-19 13:43:00 Valentin Rivero [facility] CBC WITH DIFF 2024-10-19 13:04:00 Jaren [facility] HEPATITIS B SURFACE ANTIGEN 2024-10-19 13:04:00 Jaren Arthur [facility] HB ABO GROUPING 2024-10-19 13:04:00 Jaren Arthur [facility] RHO (D) IMMUNE GLOBULIN 2024-10-19 13:04:00 Selin Cortes [facility] ADC OR [place] ONLY - RPR 2024-10-19 13:04:00 Jaren Arthur [facility] HIV 1/2 AG-AB WITH REFLEX 2024-10-19 13:04:00 Jaren Arthur [facility] URINALYSIS 2024-09-24 01:31:00 Jaren Arthur [facility] ADC CLC OR LCC ONLY - WET PREP 2024-09-24 01:31:00 Jaren Arthur [facility] POCT URINALYSIS W/O SPECIFIC GRAVITY 2024-09-18 00:00:00 Jaren Arthur [facility] AMYLASE 2024-09-11 19:00:00 [facility] LIPASE 2024-09-11 19:00:00 Selin Cortes [facility] COMP. METABOLIC PANEL ([id number]) 2024-09-11 19:00:00 Selin Cortes [facility] CBC WITH DIFF 2024-09-11 19:00:00 Selin Cortes [facility] URINALYSIS 2024-09-11 19:00:00 [facility] INFLUENZA A/B RSV COVID NAAT 2024-09-11 19:00:00 Selin Cortes [facility] POCT URINALYSIS W/O SPECIFIC GRAVITY 2024-08-31 00:00:00 Jaren Arthur [facility] URINALYSIS 2024-08-30 01:07:00 Jaren Arthur [facility] URINALYSIS 2024-08-22 01:06:00 Jaren Arthur [facility] ADC CLC OR LCC ONLY - WET PREP 2024-08-22 01:06:00 Jaren Arthur [facility] POCT URINALYSIS W/O SPECIFIC GRAVITY 2024-08-18 00:00:00 Jaren Arthur [facility] TDAP VACCINE, >11 YRS, IM 2024-08-17 14:28:31 Segundo Bradley [facility] POCT URINALYSIS W/O SPECIFIC GRAVITY 2024-08-17 00:00:00 Segundo Bradley [facility] URINALYSIS 2024-08-12 21:18:00 Corey [facility] ADC CLC OR LCC ONLY - WET PREP 2024-08-12 21:18:00 Guyis [facility] URINALYSIS 2024-07-15 18:14:00 [facility]y [facility] ADC CLC OR LCC ONLY - WET PREP 2024-07-15 18:14:00 [place] [facility] POCT URINALYSIS W/O SPECIFIC GRAVITY 2024-06-26 15:16:00 Segundo Bradley [facility] SECOND AND THIRD TRIMESTER ULTRASOUND 2024-06-19 18:03:00 Jaren Arthur [facility] POCT URINALYSIS W/O SPECIFIC GRAVITY 2024-06-06 00:00:00 Jaren Arthur [facility] ADC CLC OR LCC ONLY - WET PREP 2024-06-03 03:56:00 Jaren Arthur [facility] URINALYSIS 2024-06-03 03:55:00 Jaren Arthur [facility] POCT URINALYSIS W/O SPECIFIC GRAVITY 2024-05-25 00:00:00 Jaren Arthur [facility] SCANNED LAB RESULTS 2024-04-26 14:48:49 Doctor Stepan rosado, Vivian [facility] SCANNED LAB RESULTS 2024-04-26 14:48:48 Doctor U alonzo, Vivian [facility] BASIC METABOLIC PANEL (NA, K, CL, CO2, GLUCOSE, BUN, CREATININE, CA) 2024-04-10 00:17:00 Lolly Mooney [facility] CBC WITH DIFF 2024-04-10 00:17:00 Lolly Mooney [facility] URINALYSIS 2024-04-10 00:17:00 Lolly Mooney [facility] POCT URINALYSIS W/O SPECIFIC GRAVITY 2024-04-03 00:00:00 Jaren Arthur [facility] US FIRST TRIMESTER LESS THAN 14 WEEKS WITH TRANSVAGINAL 2024-03-18 15:25:44 Arabella Mas [facility] HB ABO GROUPING 2024-03-18 13:54:00 Arabella Mas [facility] POCT TEST 2024-03-18 13:43:00 Fatou Mas [facility] COMP. METABOLIC PANEL ([id number]) 2024-03-18 13:42:00 Arabella Mas [facility] TOTAL BETA HCG ASSAY 2024-03-18 13:42:00 Charlene Mas [facility] CBC WITH DIFF 2024-03-18 13:42:00 Arabella Mas [facility] URINALYSIS 2024-03-18 13:42:00 Arabella Mas [facility] SCANNED LAB RESULTS 2023-09-03 06:01:00 Doctor Stepan rosado, [facility]ian [facility] ASSIGNMENT OF BENEFITS 2022-12-23 15:02:57 Docto r Unassigned, [facility] SARS-COV-2 COVID-19 VACCINE,0.3ML,IM (PFIZER) 2021-03-28 21:08:00 Doctor Unassigned, [facility] POCT TEST 2020-09-12 19:43:00 Teresita Torre ra [facility] NOTICE OF [facility] 2020-09-12 19:12:23 Doctor Unassigned, Vivian [facility] CONSENT/REFUSAL FOR DIAGNOSIS AND TREATMENT 2020-09-12 19:12:09 Doctor Unassigned, Vivian [facility] US, PELVIS, LMT PEDIATRIC 2012-04-28 15:02:00 Kamini Samayoa [facility] OB / COMEDIAN CLINIC NOTE 2012-04-28 05:01:00 Doctor Unassigned, Vivian [facility] Encounters Start Date/Time End Date/Time Encounter Type Admission Type Attending [facility] Facility Care Department Encounter ID Source 2024-10-16 06:41:21 Outpatient X [facility] [id number] [facility] 2024-08-29 19:58:58 Outpatient X [facility] [id number] [facility] 2024-07-15 13:10:02 Outpatient X [facility] KYLE [id number] [facility] 2024-06-12 09:10:01 Outpatient Pam Ferrer [facility] [id number] [facility] 2024-02-09 14:29:01 Outpatient Pam Ferrer [facility] [id number] [facility] 2023-12-09 08:06:00 Outpatient Pam Ferrer [facility] [id number] [facility] 2023-11-26 09:33:02 Outpatient Pam Ferrer [facility] [id number] [facility] 2021-05-24 23:57:16 Emergency [facility] [id number] [facility] 2024-12-10 15:20:00 2024-12-10 15:24:37 Urgent Care R CHUCK MATIHS [facility] 1.840.114 350.1.13.10 4.2.7.2.686 [id number] [facility] 2024-12-04 08:00:00 2024-12-04 08:34:28 Outpatient JAREN SUMNER VIEN [facility] [id number] [facility] 2024-12-04 08:00:00 2024-12-04 08:34:28 Routine Visit Jaren Arthur [facility] NAL [facility]ILDING 1..840.114 350.1.13.10 4.2.7.2.686 [id number] [facility] 2024-11-03 19:00:00 2024-11-03 19:13:11 Outpatient R ALEM FREEDMAN [facility] [id number] [facility] 2024-11-03 19:00:00 2024-11-03 19:13:11 Urgent Care Alem Freedman Unknown, Attending [facility] 1..840.114 350.1.13.10 4.2.7.2.686 [id number] [facility] 2024-11-03 17:40:00 2024-11-03 17:40:00 Outpatient R UNKNOWN, ATTENDING [facility] [id number] [facility] 2024-10-23 13:00:00 2024-10-23 13:00:00 Outpatient R JAREN ARTHUR JAREN [facility] [id number] [facility] 2024-10-23 08:00:00 2024-10-23 08:00:00 Outpatient R JAREN ARTHUR JAREN [facility] [id number] [facility] 2024-09-20 00:00:00 2024-10-21 18:16:45 Patient Secure Msg Jaren Arthur [facility] NAL BUILDING 1.2.840.114 350.1.13.10 4.2.7.2.686 [id number] 134 [id number] [facility] 2024-10-18 18:42:00 2024-10-21 13:35:00 Inpatient X JAREN ARTHUR JAREN [facility] KYLE [id number] [facility] 2024-10-18 18:42:00 2024-10-21 13:35:00 Hospital Encounter Yousif Uribe Arthur Jaren [facility] [address] 1.2.840.114 350.1.13.10 4.2.7.2.686 [id number] [id number] [facility] 2024-10-20 00:00:00 2024-10-20 11:06:31 Telephone Jaren Arthur [facility] PROFESS[facility] NAL BUILDING 1.2.840.114 350.1.13.10 4.2.7.2.686 [id number] 134 [id number] [facility] 2024-10-19 08:40:00 2024-10-19 16:15:00 Anesthesia Event Valentin Rivero Stacey [facility] 1.2.840.114 350.1.13.10 4.2.7.2.686 [id number] [id number] [facility] 2024-10-15 16:10:00 2024-10-16 06:29:00 [facility] [id number] [facility] 2024-10-15 16:10:00 2024-10-16 06:29:00 Emergency Yousif Uribe Jaren Jennings [facility] 1.2840.114 350.1.13.10 4.2.7.2.686 [id number] [id number] [facility] 2024-09-12 00:00:00 2024-10-14 18:16:38 Patient Secure Msg Jaren Arthur [facility] PROFESSIO NAL BUILDING 1.2.840.114 350.1.13.10 4.2.7.2.686 [id number] 134 [id number] [facility] 2024-10-11 11:15:00 2024-10-11 11:15:00 Outpatient R JAREN ARTHUR JAREN [facility] [id number] [facility] 2024-10-09 15:30:00 2024-10-09 15:30:00 Outpatient R JAREN ARTHUR JAREN [facility] [id number] [facility] 2024-09-23 18:50:00 2024-09-23 21:06:00 Outpatient P JAREN ARTHUR JAREN [facility] KYLE [id number] [facility] 2024-09-23 18:50:00 2024-09-23 21:06:00 Hospital Encounter Jaren Arthur [facility] 1.2840.114 350.1.13.10 4.2.7.2.686 [id number] [id number] [facility] 2024-08-22 00:00:00 2024-09-23 18:15:39 Patient Secure Msg Jaren Arthur [facility] PROFESSIO NAL BUILDING 1.2.840.114 350.1.13.10 4.2.7.2.686 [id number] 134 [id number] [facility] 2024-08-23 00:00:00 2024-09-23 18:14:24 Patient Secure Msg Doctor Unassigned, Vivian Doctor Unassigned, Vivian [facility] BUILDING 1.2.840.114 350.1.13.10 4.2.7.2.686 [id number] 134 [id number] [facility] 2024-09-18 11:15:00 2024-09-18 11:22:18 Outpatient R JAREN ARTHUR VIEN [facility] [id number] [facility] 2024-09-18 11:15:00 2024-09-18 11:22:18 Routine Visit Jaren Arthur [facility] BUILDING 1.2.840.114 350.1.13.10 4.2.7.2.686 [id number] 134 [id number] [facility] 2024-08-11 00:00:00 2024-09-16 18:20:59 Patient Secure Msg Segundo Bradley [facility] 1..840.114 350.1.13.10 4.2.7.2.686 [id number] [facility] 2024-09-12 17:40:00 2024-09-12 18:00:00 Urgent Care Idania Dolan Unknown, Attending [facility] BUILD[facility] 1..840.114 350.1.13.10 4.2.7.2.686 [id number] [facility] 2024-09-12 17:40:00 2024-09-12 17:40:00 Outpatient R IDANIA DOLAN [facility] [id number] [facility] 2024-09-12 07:15:00 2024-09-12 07:15:00 Outpatient R [facility] [id number] [facility] 2024-09-11 12:05:00 2024-09-11 16:45:00 Outpatient X CASTRO-MICHELLE S, LASHONDA MARSHAL Garcia LASHONDA [facility] KYLE [id number] [facility] 2024-09-11 12:05:00 2024-09-11 16:45:00 Emergency CastroAgustin garcia Lashonda [facility] 1.2.840.114 350.1.13.10 4.2.7.2.686 [id number] 083 [id number] [facility] 2024-09-11 00:00:00 2024-09-11 10:57:29 Patient Secure Msg Jaren Arthur [facility] BUILDING 1.2.840.114 350.1.13.10 4.2.7.2.686 [id number] 134 [id number] [facility] 2024-09-11 00:00:00 2024-09-11 10:55:50 Telephone Jaren Arthur [facility] BUILDING 1.2.840.114 350.1.13.10 4.2.7.2.686 [id number] 134 [id number] [facility] 2024-09-11 00:00:00 2024-09-11 10:07:52 Telephone Jaren Arthur [facility] BUILDING 1.2.840.114 350.1.13.10 4.2.7.2.686 [id number] 134 [id number] [facility] 2024-09-11 00:00:00 2024-09-11 08:53:53 Patient Secure Msg Jaren Arthur [facility] BUILDING 1.2.840.114 350.1.13.10 4.2.7.2.686 [id number] 134 [id number] [facility] 2024-09-11 00:00:00 2024-09-11 07:37:32 Nurse Triage Myrna Dick Chessica T [facility] 1.2.840.114 350.1.13.10 4.2.7.2.686 [id number] [id number] [facility] 2024-09-11 06:44:00 2024-09-11 07:04:00 Emergency X JADYN RODRIGUEZ [facility] E[facility] [id number] [facility] 2024-09-11 06:44:00 2024-09-11 07:04:00 Emergency Zay Merlosshaan Jadyn [facility] 1.2.840.114 350.1.13.10 4.2.7.2.686 [id number] [id number] [facility] 2024-08-04 00:00:00 2024-09-09 18:21:45 Patient Secure Msg Segundo Bradley [facility] 1.2.840.114 350.1.13.10 4.2.7.2.686 [id number] 107 [id number] [facility] 2024-08-09 00:00:00 2024-09-09 18:13:54 Patient Secure Msg Jenna Bradleyola C [facility] 1.2.840.114 350.1.13.10 4.2.7.2.686 [id number] 107 [id number] [facility] 2024-04-26 00:00:00 2024-09-09 06:53:30 Orders Only Doctor Unassigned, Vivian Doctor Unassigned, Vivian [facility]) 1.2.840.114 350.1.13.10 4.2.7.2.686 [id number] 009 [id number] [facility] 2024-04-26 00:00:00 2024-09-09 06:53:20 Orders Only Doctor Unassigned, Vivian Doctor Unassigned, Vivian [facility] 1.2.840.114 350.1.13.10 4.2.7.2.686 [id number] [id number] [facility] 2012-04-28 00:00:00 2024-09-09 05:09:34 Orders Only Kamini Samayoa [facility] ([facility]) 1.2.840.114 350.1.13.10 4.2.7.2.686 [id number] 095 [id number] [facility] 2024-09-05 00:00:00 2024-09-05 16:05:38 Patient Secure Msg [facility] 1.2.840.114 350.1.13.10 4.2.7.2.686 [id number] 134 [id number] [facility] 2024-08-31 16:00:00 2024-08-31 16:42:29 Outpatient R JAREN ARTHUR VIEN [facility] [id number] [facility] 2024-08-31 16:00:00 2024-08-31 16:42:29 [facility] 1.2.840.114 350.1.13.10 4.2.7.2.686 [id number] 134 [id number] [facility] 2024-08-29 17:57:00 2024-08-29 19:50:00 Outpatient X JAREN ARTHUR VIEN [facility] KYLE [id number] [facility] 2024-08-29 17:57:00 2024-08-29 19:50:00 Emergency Jaren Arthur [facility] 1.2.840.114 350.1.13.10 4.2.7.2.686 [id number] [id number] [facility] 2024-08-28 15:30:00 2024-08-28 15:30:00 Outpatient R JAREN ARTHUR VIEN [facility] [id number] [facility] 2024-08-25 09:30:00 2024-08-25 09:30:00 Outpatient R [facility] [id number] [facility] 2024-08-23 00:00:00 2024-08-23 14:10:39 Telephone Jaren Arthur [facility] BUILDING 1.2.840.114 350.1.13.10 4.2.7.2.686 [id number] 134 [id number] [facility] 2024-08-21 18:17:00 2024-08-21 20:44:00 Outpatient P JAREN ARTHUR VIEN [facility] KYLE [id number] [facility] 2024-08-21 18:17:00 2024-08-21 20:44:00 Hospital Encounter Lashonda Holder Vien Cam [facility] 1..840.114 350.1.13.10 4.2.7.2.686 [id number] [id number] [facility] 2024-08-21 00:00:00 2024-08-21 17:00:56 Patient Secure Msg Jaren Arthur [facility] BUILDING 1.2.840.114 350.1.13.10 4.2.7.2.686 [id number] 134 [id number] [facility] 2024-08-21 00:00:00 2024-08-21 16:48:51 Telephone Jaren Arthur [facility] BUILDING 1.2.840.114 350.1.13.10 4.2.7.2.686 [id number] 134 [id number] [facility] 2024-08-21 08:00:00 2024-08-21 08:00:00 Outpatient R JAREN ARTHUR VIEN [facility] [id number] [facility] 2024-08-21 07:45:00 2024-08-21 08:00:00 Switchgear Repairer Visit Lab, Jaren Shabazz Lab, Arsalan West [facility] 1.2.840.114 350.1.13.10 4.2.7.2.686 [id number] [facility] 2024-08-21 07:45:00 2024-08-21 07:45:00 Outpatient R JAREN ARTHUR SANDHYA [facility] [id number] [facility] 2024-07-17 00:00:00 2024-08-19 18:15:59 Patient Secure Msg Segundo Bradley [facility] 1..840.114 350.1.13.10 4.2.7.2.686 [id number] 107 [id number] [facility] 2024-08-18 14:00:00 2024-08-18 14:40:54 Outpatient R JAREN ARTHUR [facility] [id number] [facility] 2024-08-18 14:00:00 2024-08-18 14:40:54 Routine Visit Sandhya Jaren Didier [facility] 1.840.114 350.1.13.10 4.2.7.2.686 [id number] 134 [id number] [facility] 2024-08-17 00:00:00 2024-08-18 14:30:49 Patient Secure Msg Jaren Arthur [facility] 1..840.114 350.1.13.10 4.2.7.2.686 [id number] 134 [id number] [facility] 2024-08-17 00:00:00 2024-08-17 16:52:17 Telephone Jaren Arthur [facility] 1..840.114 350.1.13.10 4.2.7.2.686 [id number] 134 [id number] [facility] 2024-08-17 08:00:00 2024-08-17 08:59:29 Outpatient R SEGUNDO BRADLEY [facility] [id number] [facility] 2024-08-17 08:00:00 2024-08-17 08:59:29 Routine Visit Segundo Bradley Umer [facility] 1.2.840.114 350.1.13.10 4.2.7.2.686 [id number] 107 [id number] [facility] 2024-07-08 00:00:00 2024-08-12 18:20:35 Patient Secure Msg Segundo Bradley [facility] CH[facility] 1.2840.114 350.1.13.10 4.2.7.2.686 [id number] 107 [id number] [facility] 2024-08-12 14:43:00 2024-08-12 17:05:00 Outpatient X MATTHEW-MICHELLE S, LASHONDA MATTHEW-MICHELLE S, LASHONDA [facility] KYLE [id number] [facility] 2024-08-12 14:43:00 2024-08-12 17:05:00 Emergency Matthew-Michelle s, Lashonda [facility] 1..840.114 350.1.13.10 4.2.7.2.686 [id number] 083 [id number] [facility] 2024-08-09 00:00:00 2024-08-10 07:07:17 Telephone Segundo Bradley Umer [facility] 1.2.840.114 350.1.13.10 4.2.7.2.686 [id number] 107 [id number] [facility] 2024-06-29 00:00:00 2024-08-05 18:21:34 Patient Secure Msg Segundo Bradley [facility] 1.2.840.114 350.1.13.10 4.2.7.2.686 [id number] 107 [id number] [facility] 2024-07-24 07:45:00 2024-07-24 08:10:31 Outpatient R SEGUNDO BRADLEY [facility] [id number] [facility] 2024-07-24 07:45:00 2024-07-24 08:10:31 Routine Visit Segundo Bradley [facility] 1.2.840.114 350.1.13.10 4.2.7.2.686 [id number] 107 [id number] [facility] 2024-07-17 00:00:00 2024-07-17 09:35:11 Patient Secure Msg Segundo Bradley [facility] 1..840.114 350.1.13.10 4.2.7.2.686 [id number] 107 [id number] [facility] 2024-07-17 00:00:00 2024-07-17 08:48:59 Case Management Castro-Michelle s Lashonda [facility] 1..840.114 350.1.13.10 4.2.7.2.686 [id number] 134 [id number] [facility] 2024-07-15 11:49:00 2024-07-15 13:09:00 Outpatient X CASTRO-MICHELLE S, LASHONDA CASTRO-MICHELLE S, LASHONDA [facility]YLE [id number] [facility] 2024-07-15 11:49:00 2024-07-15 13:09:00 Emergency Castro-Michelle s, Lashonda [facility] AT [facility] 1.840.114 350.1.13.10 4.2.7.2.686 [id number] 083 [id number] [facility] 2024-07-11 00:00:00 2024-07-12 16:51:30 Patient Secure Msg Segundo Bradley [facility] 1.2.840.114 350.1.13.10 4.2.7.2.686 [id number] 107 [id number] [facility] 2024-06-27 00:00:00 2024-06-27 12:30:13 Patient Secure Msg Segundo Bradley [facility] 1.2.840.114 350.1.13.10 4.2.7.2.686 [id number] 107 [id number] [facility] 2024-06-27 00:00:00 2024-06-27 11:18:42 Patient Secure Segundo Souza [facility] CH[facility] 1.2.840.114 350.1.13.10 4.2.7.2.686 [id number] 107 [id number] [facility] 2024-06-26 00:00:00 2024-06-26 13:15:40 Patient Secure Segundo Souza [facility] CH[facility] 1.2.840.114 350.1.13.10 4.2.7.2.686 [id number] 107 [id number] [facility] 2024-06-26 09:15:00 2024-06-26 09:50:33 Outpatient R SEGUNDO BRADLEY [facility] [id number] [facility] 2024-06-26 09:15:00 2024-06-26 09:50:33 Routine Visit Segundo Bradley [facility] 1.2.840.114 350.1.13.10 4.2.7.2.686 [id number] 107 [id number] [facility] 2024-06-26 08:45:00 2024-06-26 08:45:00 Outpatient R JAREN ARTHUR VIEN [facility] [id number] [facility] 2024-06-19 11:00:00 2024-06-19 11:55:25 Outpatient P CORNELIUS DURON [facility] [id number] [facility] 2024-06-19 11:00:00 2024-06-19 11:55:25 Switchgear Repairer Visit Ultrasound, Cornelius Cavazos [facility] 1.840.114 350.1.13.10 4.2.7.2.686 [id number] [facility] 2024-06-13 00:00:00 2024-06-13 00:00:00 [id number] 2024-06-06 16:15:00 2024-06-06 16:33:21 Outpatient R JAREN ARTHUR VIEN [facility] [id number] [facility] 2024-06-06 16:15:00 2024-06-06 16:33:21 Routine Visit Jaren Arthur [facility] .840.114 350.1.13.10 4.2.7.2.686 [id number] 134 [id number] [facility] 2024-06-02 21:18:00 2024-06-02 23:30:00 Outpatient X JAREN ARTHUR VIEN [facility] KYLE [id number] [facility] 2024-06-02 21:18:00 2024-06-02 23:30:00 Emergency Jaren Arthur [facility] ..114 350.1.13.10 4.2.7.2.686 [id number] [id number] [facility] 2024-04-25 00:00:00 2024-05-27 18:21:01 Patient Secure Msg Doctor Unassigned, Vivian Doctor Unassigned, [facility] 1.840.114 350.1.13.10 4.2.7.2.686 [id number] 134 [id number] [facility] 2024-05-25 09:30:00 2024-05-25 09:45:00 Switchgear Repairer Visit 2, Adc Lab Jaren Arthur 2, Adc Lab [facility] PROFESSIO NAL BUILDING 1.2.840.114 350.1.13.10 4.2.7.2.686 [id number] 353 [id number] [facility] 2024-05-25 09:00:00 2024-05-25 09:23:36 Outpatient R JAREN ARTHUR VIEN [facility] [id number] [facility] 2024-05-25 09:00:00 2024-05-25 09:23:36 Routine Visit [facility] 1.2.840.114 350.1.13.10 4.2.7.2.686 [id number] 134 [id number] [facility] 2024-04-19 00:00:00 2024-05-20 18:20:43 Patient Secure Msg Doctor Unassigned, Vivian Doctor Unassigned, [facility] 1.2.840.114 350.1.13.10 4.2.7.2.686 [id number] 134 [id number] [facility] 2024-04-28 08:15:00 2024-04-28 08:41:29 Outpatient R JAREN ARTHUR VIEN [facility] [id number] [facility] 2024-04-28 08:15:00 2024-04-28 08:41:29 Routine Visit [facility] 1.2.840.114 350.1.13.10 4.2.7.2.686 [id number] 134 [id number] [facility] 2024-04-25 00:00:00 2024-04-25 09:49:15 Telephone Arthur, Jaren [facility]ESS[facility] NAL BUILDING 1.2.840.114 350.1.13.10 4.2.7.2.686 [id number] 134 [id number] [facility] 2024-04-23 00:00:00 2024-04-25 09:39:28 Refill Jaren Arthur [facility] NAL BUILDING 1.2.840.114 350.1.13.10 4.2.7.2.686 [id number] 134 [id number] [facility] 2024-04-23 00:00:00 2024-04-24 16:46:24 Patient Secure [facility] 1.2.840.114 350.1.13.10 4.2.7.2.686 [id number] 134 [id number] [facility] 2024-04-21 00:00:00 2024-04-21 11:17:04 [facility] 1.2.840.114 350.1.13.10 4.2.7.2.686 [id number] 134 [id number] [facility] 2024-04-19 00:00:00 2024-04-19 17:06:52 Telephone Jaren Arthur [facility] 1.2.840.114 350.1.13.10 4.2.7.2.686 [id number] 134 [id number] [facility] 2024-04-14 14:00:00 2024-04-14 14:00:00 Outpatient R JAREN ARTHUR [facility] [id number] [facility] 2024-04-13 08:15:00 2024-04-13 08:31:49 Outpatient R JAREN ARTHUR [facility] [id number] [facility] 2024-04-13 08:15:00 2024-04-13 08:31:49 [employer] Rep[employer]r Visit 2, Adc Lab Jaren Arthur 2, [facility] BU[facility] 1.2.840.114 350.1.13.10 4.2.7.2.686 [id number] 353 [id number] [facility] 2024-04-09 18:24:00 2024-04-09 21:22:00 Emergency X MARLENAERKATTY , NAYELY CATARINA , NAYELY [facility] ERT [id number] [facility] 2024-04-09 18:24:00 2024-04-09 21:22:00 Emergency Drever, Lolly G Catarina , Nayely Light [facility] 1.2840.114 350.1.13.10 4.2.7.2.686 [id number] [id number] [facility] 2024-04-03 00:00:00 2024-04-03 11:37:53 Telephone Jaren Arthur [facility] 1.2840.114 350.1.13.10 4.2.7.2.686 [id number] 134 [id number] [facility] 2024-04-03 08:45:00 2024-04-03 09:18:49 [facility] [id number] [facility] 2024-04-03 08:45:00 2024-04-03 09:18:49 Routine Visit Jaren Arthur Didier [facility] BUILDING 1.2840.114 350.1.13.10 4.2.7.2.686 [id number] 134 [id number] [facility] 2024-04-03 00:00:00 2024-04-03 08:48:30 Patient Secure Msg Jaren Arthur [facility] BUILDING 1.2.840.114 350.1.13.10 4.2.7.2.686 [id number] 134 [id number] [facility] 2024-04-02 00:00:00 2024-04-03 08:07:25 Patient Secure Sandhya [facility] 1.2.840.114 350.1.13.10 4.2.7.2.686 [id number] 134 [id number] [facility] 2024-04-02 00:00:00 2024-04-02 08:16:[address] Wendy [facility] 1.2.840.114 350.1.13.10 4.2.7.2.686 [id number] [facility] 2024-03-30 14:00:00 2024-03-30 14:26:23 Outpatient JAREN SUMNER [facility] [id number] [facility] 2024-03-18 08:19:00 2024-03-18 12:12:00 Emergency X CHACE, ARABELLA [facility] ERT [id number] [facility] 2024-03-18 08:19:00 2024-03-18 12:12:00 Emergency Chace, Arabella [facility] 1.2.840.114 350.1.13.10 4.2.7.2.686 [id number] [facility] 2024-03-10 09:00:00 2024-03-10 09:00:00 Outpatient JAREN SUMNER VIEN [facility] [id number] [facility] 2023-12-13 00:00:00 2023-12-13 00:00:00 PREV VISIT EST AGE 18-39 [facility] [id number] [facility] 2023-11-26 00:00:00 2023-11-26 00:00:00 OFFICE VISIT NEW PT LEVEL [address] [facility] [facility] [id number] [facility] 2023-11-05 18:02:00 2023-11-05 19:10:00 Emergency EM [facility] [id number] [facility] 2023-09-06 00:00:00 2023-09-06 00:00:00 Telephone Lanette Christianne [facility] 1..114 350.1.13.10 4.2.7.2.686 [id number] [facility] 2023-09-03 00:00:00 2023-09-03 00:00:00 Orders Only Doctor Unassigned, Vivian [facility] 1..114 350.1.13.10 4.2.7.2.686 [id number] [facility] 2023-09-03 00:00:00 2023-09-03 00:00:00 Patient Secure Msg Lanette [facility] 1..114 350.1.13.10 4.2.7.2.686 [id number] [facility] 2023-09-01 14:20:00 2023-09-01 14:49:13 Outpatient R LANETTE CHRISTIANNE [facility] [id number] [facility] 2023-09-01 14:20:00 2023-09-01 14:49:13 Office Visit Christianne Gama [facility] 1..114 350.1.13.10 4.2.7.2.686 [id number] [facility] 2023-08-30 14:00:00 2023-08-30 14:00:00 Outpatient TG SAWANT [id number] [facility] 2022-12-31 00:00:00 2022-12-31 00:00:00 Patient Secure Msg Doctor Unassigned, Vivian [facility] 1..114 350.1.13.10 4.2.7.2.686 [id number] [facility] 2022-12-24 08:00:00 2022-12-24 08:15:00 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 Visit Pob, Adc Lab Main Wuananth, [facility] NAL BUILDING 1.20.114 350.1.13.10 4.2.7.2.686 [id number] [facility] 2022-12-24 08:00:00 2022-12-24 08:00:00 Outpatient R DEBORAH, [facility] [id number] [facility] 2022-12-23 11:45:00 2022-12-23 12:00:00 Switchgear Repairer Visit Draw, [facility] 1..114 350.1.13.10 4.2.7.2.686 [id number] [facility] 2022-12-23 10:50:00 2022-12-23 11:24:29 Outpatient R DEBORAH [facility] [id number] [facility] 2022-12-23 10:50:00 2022-12-23 11:24:29 Office Visit Deborah [facility] ..114 350.1.13.10 4.2.7.2.686 [id number] [facility] 2022-12-23 00:00:00 2022-12-23 00:00:00 Orders Only Doctor Unassigned, Vivian [facility] 1.0.114 350.1.13.10 4.2.7.2.686 [id number] [facility] 2022-07-08 00:00:00 2022-07-08 00:00:00 Patient Secure Msg Doctor Unassigned, Vivian [facility] 1.0.114 350.1.13.10 4.2.7.2.686 [id number] [facility] 2022-07-05 15:40:00 2022-07-05 15:42:58 Outpatient R CHERY CANTRELL [facility] [id number] [facility] 2022-07-05 15:40:00 2022-07-05 15:42:58 Urgent Care Chery Cantrell Unknown, [facility] 1.114 350.1.13.10 4.2.7.2.686 [id number] [facility] 2022-03-22 00:00:00 2022-03-22 00:00:00 Patient Secure Msg Doctor Unassigned, Vivian [facility] 1.114 350.1.13.10 4.2.7.2.686 [id number] [facility] 2022-03-05 00:00:00 2022-03-05 00:00:00 Patient Secure Msg Doctor Unassigned, Vivian [facility] 1.114 350.1.13.10 4.2.7.2.686 [id number] [facility] 2022-01-28 00:00:00 2022-01-28 00:00:00 Patient Secure Msg Doctor Unassigned, Vivian [facility] 1.114 350.1.13.10 4.2.7.2.686 [id number] [facility] 2021-03-28 16:04:57 2021-03-28 16:05:06 Imm/Inj Visit Nurse, Jimbo Avila [facility] Profess[facility] nal Building 1.114 350.1.13.10 4.2.7.2.686 [id number] [facility] 2021-03-28 14:50:00 2021-03-28 16:05:06 Outpatient MO MAYA [facility] [id number] [facility] 2020-12-14 10:05:00 2020-12-14 10:05:00 Outpatient [facility] [id number] [facility] 2020-12-07 10:05:00 2020-12-07 10:05:00 Outpatient [facility] [id number] [facility] 2020-11-16 10:05:00 2020-11-16 10:05:00 Outpatient [facility] [id number] [facility] 2020-11-16 10:05:00 2020-11-16 10:05:00 Outpatient MATEUS ALEXIS [facility] [id number] [facility] 2020-09-13 09:20:00 2020-09-13 09:20:00 Outpatient [facility] [id number] [facility] 2020-09-12 13:28:00 2020-09-12 14:21:00 Emergency Chely Torre [facility] 1.2.840.114 350.1.13.10 4.2.7.2.686 [id number] [facility] 2020-09-12 13:28:00 2020-09-12 14:21:00 Emergency Chely Torre [facility] 1.2.840.114 350.1.13.10 4.2.7.2.686 [id number] 2012-07-21 00:00:00 2012-07-21 14:57:00 Outpatient [facility] [id number] [facility] 2012-05-18 00:00:00 2012-05-18 15:07:00 Outpatient [facility] [id number] [facility] 2012-05-18 00:00:00 2012-05-18 00:00:00 Outpatient [facility] [id number] [facility] 2012-04-28 00:00:00 2012-04-28 16:10:00 Outpatient [facility] [id number] [facility] 2012-04-28 00:00:00 2012-04-28 00:00:00 Outpatient [facility] [id number] [facility] 2012-03-10 00:00:00 2012-03-10 16:50:00 Outpatient [facility] [id number] [facility] 2012-03-09 00:00:00 2012-03-09 00:00:00 Outpatient [facility] [id number] [facility] 2012 00:00:00 2012 13:23:00 Outpatient [facility] [id number] [facility] 2011-04-28 00:00:00 2011-04-28 18:03:00 Outpatient [facility] [id number] [facility] Results Test Description Test Time Test Comments Results Result Co mments Source [facility] - [id number] 03:24:30* Test Item Value Reference Range Interpretation Comme nts RPR (Qualitative) (test code = 43117-5) Nonreactive Nonreactive Lab Interpretation (test cod e = 06904-6) Normal [facility]atitis B Surface Oqlctew9049-17-04 22:21:41 * Test Item Value Reference Range Interpretation Comme nts HBsAg Semi-Quantitative (yuan t code = 5195-3) 0.06 Negative [facility] HospitalRHO (D) IMMUNE LOTELEPB7205-29-23 20:03:12* Test Item Value Reference Range Interpretation Comme nts RHIG CANDIDATE? (test code = 5188) No- see comment Patient is not a candidate for RhIg- Patient is Rh Positive.Performed at [facility] Laboratory Services - ADC Blood [address] [place] [id number] Free: [phone] No. [id number] [facility]HIV 1/2 Ag-Ab with Bnetfu7270-88-64 15:06:00* Test Item Value Reference Range Interpretation Comme nts HIV Semi-quantitative (test code = 53612-7) 0.09 Negative GERSON (test code = GERSON) Non-reactive for HIV-1 antigen and HIV-1/HIV-2 antibodies. ?No laboratory evidence of HIV infection. ?Repeat in 2-4 weeks if acute HIV infection is suspected. [facility] Bahuo5184-18-54 13:43:00 Valentin Rivero CRNA ? ? 10/19/2024 10:21 AM Central Neuraxial Block Date/Time: 10/19/2024 8:43 AM Performed by: Valentin Rivero CRNAAuthorized by: Lay Zelaya MD ?Patient Location: OBEnd Time: 10/19/2024 8:56 AMReason for Block: OB request, Patient request and Labor analgesiaStaff: ? ?Resident/HUMAN SERVICES CASE MANAGER: Valentin Rivero CRNA ?Performed by: resident/GHAZALPreanesthetic Checklist: patient identified, IV checked, risks and benefits explained, monitors and equipment checked, timeout performed, obsurgical consent/approval, pre-op evaluation, surgical consent, site marked, anesthesia consent, OB/surgical consent verified, ob/surgical consent verified and ob/surgical consent approvalProcedure: ?Type of Neuraxial: Epidural ?Epidural Description: 1st attempt ? Sterility Prep cap, drape, gloves,hand hygiene and mask ? ?Sedation Level no sedation ?Patient Position: sitting ?Prep: Betadine and patient draped ? ?Monitoring: heart rate, continuous pulse ox, heart rate / toco and NIBP ?Location: lumbar (1-5) ?Lumbar: L3-L4 ?Approach: midline ? ?Technique: TONE air and catheter ?Guidance with: landmark technique}Epidural/Spinal [place] and/or Catheter: ?Epidural/Spinal Kit: BBraun ?Needle Type: Tuohy ?Needle Gauge: 17 G ?Needle Length: 3.5 in (8.89 cm) ?Needle Insertion Depth: 5 ?Catheter Type: multiport ? ?Catheter Size: 19 G ? ?Catheter at Skin Depth: 10 ?Number of Attempts: 1 ?Test Dose: lidocaine 1.5% with epinephrine 1-to-200,000 and negative ? ?Dose: 3 cc ? ?Catheter Securement Method: Tegaderm, surgical tape and clear occlusive dressingAssessment: ?Sensory Level: above T10?Block Outcome: successful block, no apparent complications, pain relieved, patient tolerated procedure well, patient satisfied, patient comfortable, positive pain relief, appropriate motor block, appropriate sensory block and pain improved ? ?Procedure Assessment: patient tolerated procedure well with no complicationsNotes: ? Smooth and atraumatic, (+) Local, (+) [facility] with Anwqqplbdldw8285-30-28 13:37:07* Test Item Value Reference Range Interpretation Comme nts WBC (test code = 6690-2) 9.83 4.30-11.10 RBC (test code = 789-8) 2.87 3.93-5.25 L HGB (test code = 718-7) 8.9 g/dL 11.6-15.0 L HCT (test code = 4544-3) 26.6 % 35.7-45.2 L MCV (test code = 787-2) 92.7 fL 80.6-95.5 MCH (test code = 785-6) 31.0 pg 25.9-32.8 MCHC (test code = 786-4) 33.5 g/dL 31.6-35.1 RDW-SD (test code = 21351-9) 44.1 fL 39.0-49.9 RDW-CV (test code = 788-0) 13.0 % 12.0-15.5 PLT (test code = 777-3) 148 166-358 L MPV (test code = 60468-5) 11.7 fL 9.5-12.9 NRBC/100 WBC (test code = 8939055542) 0.0 0.0-10.0 NRBC x10^3 (test code = 2893086855) See_Comment [Automated NurseGrida ge] The system which generated this result transmitted reference range: 10*3/?L. The reference range was not used to interpret this result as normal/abnormal. GRAN MAT (NEUT) % (test code = 770-8) 75.0 % IMM GRAN % (test code = 2486284961) 0.60 % LYMPH % (test code = 736-9) 16.6 % MONO % (test code = 5905-5) 6.6 % EOS % (test code = 713-8) 1.0 % BASO % (test code = 706-2) 0.2 % GRAN MAT x10^3(ANC) (test code = 1384419981) 7.37 10*3/uL 1.88-7.09 H IMM GRAN x10^3 (test code = 6019477405) 0.06 10*3/uL 0.00-0.06 LYMPH x10^3 (test code = 731-0) 1.63 10*3/uL 1.32-3.29 MONO x10^3 (test code = 742-7) 0.65 10*3/uL 0.33-0.92 EOS x10^3 (test code = 711-2) 0.10 10*3/uL 0.03-0.39 BASO x10^3 (test code = 704-7) 0.01-0.07 Lab Interpretation (test code = 16887-0) Abnormal [facility] HospitalType and Screen - ONCE [id number] 13:29:00 * Test Item Value Reference Range Interpretation Comme nts ABO & RH (test code = 20) O POSITIVE IAT (test code = 1185) Negative [facility] HospitalPOCT Urinalysis w/o Specific Ibnibjr7285-97-20 17:17:00* Test Item Value Reference Range Interpretation Comme nts POCT PH U (test code = 3254) n/a 5-8 POCT U LEUK EST (test code = 3263) n/a Negative - N egative POCT U NIT (test code = 3262) n/a Negative - Negati ve POCT U PROT (test code = 3259) neg Negative - Negat donna POCT U GLU (test code = 3256) neg Negative - Negati ve POCT U KETONE (test code = 3258) n/a Negative - Neg ative POCT U BLD (test code = 3257) n/a Negative - Negati ve [facility] HospitalComp. Metabolic Panel (99931)2024-09-11 19:51:37* Test Item Value Reference Range Interpretation Comme nts NA (test code = 1211378905) 131 mmol/L 135-145 L K (test code = 3574056232) 3.8 mmol/L 3.5-5.0 CL (test code = 5831222274) 103 mmol/L 98-108 CO2 TOTAL (test code = 1920154349) 24 mmol/L 23-31 AGAP (test code = 9895165625) 4 2-16 BUN (test code = 2894787542) 8 mg/dL 7-23 GLUCOSE (test code = 2855194772) 91 mg/dL 70-110 CREATININE (test code = 2160-0) 0.37 mg/dL 0.50-1.04 L TOTAL BILI (test code = 0072900054) 0.6 mg/dL 0.1-1.1 CALCIUM (test code = 9130826063) 9.0 mg/dL 8.6-10.6 T PROTEIN (test code = 5278649466) 6.9 g/dL 6.3-8.2 ALBUMIN (test code = 3100043982) 3.9 g/dL 3.5-5.0 ALK PHOS (test code = 9193325971) 121 U/L 34-122 ALTv (test code = 1742-6) 13 U/L 5-35 AST(SGOT) (test code = 4348516868) 21 U/L 13-40 eGFR (test code = 90718-2) 146.4 mL/min/1.73m2 CKD-EPI eGFR (2020). Assuming creatinine has been stable day-to-day for at least three months, the eGFR indicates Category G1 (>= 90 mL/min/1.73 m2) Lab Interpretation (test code = 65164-2) Abnormal [facility] HospitalLipase2025-02-17 19:51:17* Test Item Value Reference Range Interpretation Comme nts LIPASE (test code = 7812414290) 65 U/L 0-220 Lab Interpretation (test cod e = 82037-7) Normal [facility] HospitalAmylase2025-02-17 19:50:36* Test Item Value Reference Range Interpretation Comme nts DAWNA (test code = 8925673220) 58 U/L 35-110 Lab Interpretation (test cod e = 79893-9) Normal [facility] HospitalCbc with Tjmz7054-58-51 19:24:13* Test Item Value Reference Range Interpretation Comme nts WBC (test code = 6690-2) 16.40 4.30-11.10 H RBC (test code = 789-8) 4.00 3.93-5.25 HGB (test code = 718-7) 12.5 g/dL 11.6-15.0 HCT (test code = 4544-3) 36.3 % 35.7-45.2 MCV (test code = 787-2) 90.8 fL 80.6-95.5 MCH (test code = 785-6) 31.3 pg 25.9-32.8 MCHC (test code = 786-4) 34.4 g/dL 31.6-35.1 RDW-SD (test code = 37786-7) 42.5 fL 39.0-49.9 RDW-CV (test code = 788-0) 13.0 % 12.0-15.5 PLT (test code = 777-3) 217 166-358 MPV (test code = 22383-3) 11.1 fL 9.5-12.9 NRBC/100 WBC (test code = 8285248811) 0.0 0.0-10.0 NRBC x10^3 (test code = 9751860232) See_Comment [Automated message] The system which generated this result transmitted reference range: 10*3/?L. The reference range was not used to interpret this result as normal/abnormal. GRAN MAT (NEUT) % (test code = 770-8) 91.2 % IMM GRAN % (test code = 9265079263) 0.50 % LYMPH % (test code = 736-9) 4.5 % MONO % (test code = 5905-5) 3.5 % EOS % (test code = 713-8) 0.1 % BASO % (test code = 706-2) 0.2 % GRAN MAT x10^3(ANC) (test code = 2428144926) 14.95 10*3/uL 1.88-7.09 H IMM GRAN x10^3 (test code = 2235749984) 0.09 10*3/uL 0.00-0.06 H LYMPH x10^3 (test code = 731-0) 0.74 10*3/uL 1.32-3.29 L MONO x10^3 (test code = 742-7) 0.58 10*3/uL 0.33-0.92 EOS x10^3 (test code = 711-2) 0.03-0.39 L BASO x10^3 (test code = 704-7) 0.03 10*3/uL 0.01-0.07 Lab Interpretation (test code = 47271-9) Abnormal [facility] Urinalysis w/o Specific Cmnsofm8831-11-65 22:20:00* Test Item Value Reference Range Interpretation Comme nts POCT PH U (test code = 3254) n.a 5-8 POCT U LEUK EST (test code = 3263) n.a Negative - Negative POCT U NIT (test code = 3262) n.a Negative - Negati ve POCT U PROT (test code = 3259) negative Negative - Negat donna POCT U GLU (test code = 3256) negative Negative - Negati ve POCT U KETONE (test code = 3258) n.a Negative - Neg ative POCT U BLD (test code = 3257) n.a Negative - Negati ve [facility] Urinalysis w/o Specific Xuutnea2655-14-42 20:22:00* Test Item Value Reference Range Interpretation Comme nts POCT PH U (test code = 3254) 7 mg/dl 5-8 POCT U LEUK EST (test code = 3263) 1+ Negative - Negative POCT U NIT (test code = 3262) Negative Negative - Negati ve POCT U PROT (test code = 3259) Trace Negative - Negat donna POCT U GLU (test code = 3256) Negative Negative - Negati ve POCT U KETONE (test code = 3258) Negative Negative - Neg ative POCT U BLD (test code = 3257) Negative Negative - Negati ve [facility] Urinalysis w/o Specific Ckuhfim0969-51-53 14:27:00* Test Item Value Reference Range Interpretation Comme nts POCT PH U (test code = 3254) . 5-8 POCT U LEUK EST (test code = 3263) . Negative - N egative POCT U NIT (test code = 3262) . Negative - Negati ve POCT U PROT (test code = 3259) trace Negative - Negat donna POCT U GLU (test code = 3256) normal Negative - Negati ve POCT U KETONE (test code = 3258) . Negative - Neg ative POCT U BLD (test code = 3257) . Negative - Negati ve [facility] Urinalysis w/o Specific Tvlfeos0298-06-31 15:16:00* Test Item Value Reference Range Interpretation Comme nts POCT PH U (test code = 3254) 8 mg/dl 5-8 POCT U LEUK EST (test code = 3263) 2+ Negative - Negative POCT U NIT (test code = 3262) neg Negative - Negati ve POCT U PROT (test code = 3259) trace Negative - Negat donna POCT U GLU (test code = 3256) neg Negative - Negati ve POCT U KETONE (test code = 3258) neg Negative - Neg ative POCT U BLD (test code = 3257) 50 Negative - Negati ve [facility] Urinalysis w/o Specific Wepbxky4314-63-28 22:16:00* Test Item Value Reference Range Interpretation Comme nts POCT PH U (test code = 3254) 7 mg/dl 5-8 POCT U LEUK EST (test code = 3263) negative Negative - Negative POCT U NIT (test code = 3262) negative Negative - Negati ve POCT U PROT (test code = 3259) trace Negative - Negat donna POCT U GLU (test code = 3256) negative Negative - Negati ve POCT U KETONE (test code = 3258) small Negative - Neg ative POCT U BLD (test code = 3257) negative Negative - Negati ve [facility] Cvfgubu3596-82-85 14:08:00* Test Item Value Reference Range Interpretation Comme nts POCT PH U (test code = 3254) n/a 5-8 POCT U LEUK EST (test code = 3263) n/a Negative - Negative POCT U NIT (test code = 3262) n/a Negative - Negati ve POCT U PROT (test code = 3259) negative Negative - Negat donna POCT U GLU (test code = 3256) negative Negative - Negati ve POCT U KETONE (test code = 3258) n/a Negative - Neg ative POCT U BLD (test code = 3257) n/a Negative - Negati ve [facility]SC[facility]ED LAB UBCCTOO5532-11-96 14:48:49Ordered by an unspecified provider.[facility] RESULTS 2024-04-26 14:48:48Ordered by an unspecified provider.[facility] METABOLIC PANEL (NA, K, CL, CO2, GLUCOSE, BUN, CREATININE, CA)2024-04-10 01:15:08* Test Item Value Reference Range Interpretation Comme nts NA (test code = 8951007026) 134 mmol/L 135-145 L K (test code = 6631744414) 3.4 mmol/L 3.5-5.0 L CL (test code = 9254209789) 101 mmol/L 98-108 CO2 TOTAL (test code = 7143045928) 23 mmol/L 23-31 AGAP (test code = 7542674735) 10 2-16 BUN (test code = 7275398331) 10 mg/dL 7-23 GLUCOSE (test code = 4366857142) 107 mg/dL 70-110 CREATININE (test code = 2160-0) 0.37 mg/dL 0.50-1.04 L CALCIUM (test code = 2838288941) 9.4 mg/dL 8.6-10.6 eGFR (test code = 23499-3) 146.4 mL/min/1.73m2 CKD-EPI eGFR (2020). Assuming creatinine has been stable day-to-day for at least three months, the eGFR indicates Category G1 (>= 90 mL/min/1.73 m2) Lab Interpretation (test code = 26256-2) Abnormal [facility] WITH [id number] 01:01:08* Test Item Value Reference Range Interpretation Comme nts WBC (test code = 6690-2) 12.20 4.30-11.10 H RBC (test code = 789-8) 4.24 3.93-5.25 HGB (test code = 718-7) 12.2 g/dL 11.6-15.0 HCT (test code = 4544-3) 36.9 % 35.7-45.2 MCV (test code = 787-2) 87.0 fL 80.6-95.5 MCH (test code = 785-6) 28.8 pg 25.9-32.8 MCHC (test code = 786-4) 33.1 g/dL 31.6-35.1 RDW-SD (test code = 14043-2) 39.8 fL 39.0-49.9 RDW-CV (test code = 788-0) 12.6 % 12.0-15.5 PLT (test code = 777-3) 314 166-358 MPV (test code = 05156-7) 11.2 fL 9.5-12.9 NRBC/100 WBC (test code = 8311209569) 0.0 0.0-10.0 NRBC x10^3 (test code = 5441736307) See_Comment [Automated messa ge] The system which generated this result transmitted reference range: 10*3/?L. The reference range was not used to interpret this result as normal/abnormal. GRAN MAT (NEUT) % (test code = 770-8) 72.5 % IMM GRAN % (test code = 4504243907) 0.40 % LYMPH % (test code = 736-9) 18.9 % MONO % (test code = 5905-5) 6.7 % EOS % (test code = 713-8) 1.0 % BASO % (test code = 706-2) 0.5 % GRAN MAT x10^3(ANC) (test code = 5697610827) 8.84 10*3/uL 1.88-7.09 H IMM GRAN x10^3 (test code = 5966667291) 0.05 10*3/uL 0.00-0.06 LYMPH x10^3 (test code = 731-0) 2.31 10*3/uL 1.32-3.29 MONO x10^3 (test code = 742-7) 0.82 10*3/uL 0.33-0.92 EOS x10^3 (test code = 711-2) 0.12 10*3/uL 0.03-0.39 BASO x10^3 (test code = 704-7) 0.06 10*3/uL 0.01-0.07 Lab Interpretation (test code = 76834-9) [facility]normal [facility] w/o Specific Zilctue1808-97-38 13:54:00* Test Item Value Reference Range Interpretation Comme nts POCT PH U (test code = 3254) 8 mg/dl 5-8 POCT U LEUK EST (test code = 3263) ++ Negative - Negative POCT U NIT (test code = 3262) Negative Negative - Negati ve POCT U PROT (test code = 3259) Negative Negative - Negat donna POCT U GLU (test code = 3256) Negative Negative - Negati ve POCT U KETONE (test code = 3258) Negative Negative - Neg ative POCT U BLD (test code = 3257) Negative Negative - Negati ve [facility] HospitalUS FIRST TRIMESTER LESS THAN 14 WEEKS WITH DIHPDDFFRDSA7365-04-97 16:35:01Indication: spotting ? Comparison: None RL: [id number] ORDERING PHYSICIAN: MERLENE PRADO TECHNIQUE: Multiple real- time transvaginal sonographic images wereobtained. FINDINGS: A single [...] measures 3.3 x 1.7 x 1.8 cm. [facility] SFGJP8756-75-05 14:52:44* Test Item Value Reference Range Interpretation Comme [facility] BETA HCG (test code = 9033921767) 39481.00 See_Comment [Automated [employer]] The system which generated this result transmitted reference range: Non- female and male patients: <5 mIU/mL. The reference range was not used to interpret this result as normal/abnormal. GERSON (test code = GERSON) Gestational Age ?Range (mIU/mL) 1-10 ?Weeks ?[id number] Weeks ?[id number] Weeks ?7812-09496076-07 Weeks ?[id number] Biotin has been reported to cause a negative bias, interpret results relative to patient's use of biotin. [facility]. METABOLIC PANEL (83457)2024-03-18 14:09:07* Test Item Value Reference Range Interpretation Comme nts NA (test code = 1483336183) 136 mmol/L 135-145 K (test code = 1115731835) 3.7 mmol/L 3.5-5.0 CL (test code = 2196465090) 103 mmol/L 98-108 CO2 TOTAL (test code = 0837487987) 24 mmol/L 23-31 AGAP (test code = 4081014812) 9 2-16 BUN (test code = 0133623675) 8 mg/dL 7-23 GLUCOSE (test code = 3334633201) 97 mg/dL 70-110 CREATININE (test code = 2160-0) 0.47 mg/dL 0.50-1.04 L TOTAL BILI (test code = 8237662852) 0.4 mg/dL 0.1-1.1 CALCIUM (test code = 9653010964) 9.2 mg/dL 8.6-10.6 T PROTEIN (test code = 3263677723) 7.9 g/dL 6.3-8.2 ALBUMIN (test code = 6235919122) 4.6 g/dL 3.5-5.0 ALK PHOS (test code = 4599437175) 68 U/L 34-122 ALTv (test code = 1742-6) 17 U/L 5-35 AST(SGOT) (test code = 1022997427) 35 U/L 13-40 eGFR (test code = 11523-2) 138.2 mL/min/1.73m2 CKD-EPI eGFR (2020). Assuming creatinine has been stable day-to-day for at least three months, the eGFR indicates Category G1 (>= 90 mL/min/1.73 m2) Lab Interpretation (test code = 61284-2) [facility] [id number] 14:03:00 * Test Item Value Reference Range Interpretation Comme nts ABO & RH (test code = 20) O POSITIVE IAT (test code = 1185) Negative [facility] [id number] 13:50:15* Test Item Value Reference Range Interpretation [...] 33.2 g/dL 31.6-35.1 RDW-SD (test code = 46272-7) 38.5 fL 39.0-49.9 L RDW-CV (test code = 788-0) 12.4 % 12.0-15.5 PLT (test code = 777-3) 325 166-358 MPV (test code = 78865-8) 10.7 fL 9.5-12.9 NRBC/100 WBC (test code = 0137441277) 0.0 0.0-10.0 NRBC x10^3 (test code = 6057999974) See_Comment [Automated messa ge] The system which generated this result transmitted reference range: 10*3/?L. The reference range was not used to interpret this result as normal/abnormal. GRAN MAT (NEUT) % (test code = 770-8) 69.7 % IMM GRAN % (test code = 2109646782) 0.20 % LYMPH % (test code = 736-9) 22.5 % MONO % (test code = 5905-5) 6.1 % EOS % (test code = 713-8) 1.1 % BASO % (test code = 706-2) 0.4 % GRAN MAT x10^3(ANC) (test code = 2434798242) 6.86 10*3/uL 1.88-7.09 IMM GRAN x10^3 (test code = 2924753284) 0.00-0.06 LYMPH x10^3 (test code = 731-0) 2.21 10*3/uL 1.32-3.29 MONO x10^3 (test code = 742-7) 0.60 10*3/uL 0.33-0.92 EOS x10^3 (test code = 711-2) 0.11 10*3/uL 0.03-0.39 BASO x10^3 (test code = 704-7) 0.04 10*3/uL 0.01-0.07 Lab Interpretation (test code = 82416-3) Abnormal [facility] [id number] 13:43:00* Test Item Value Reference Range Interpretation Comme nts POCT PREG (test code = 1605) Positive On board controls acceptable with C Line (test code = 3574) Yes POCT PREG LOT # (test code = 3575) [id number] POCT PREG TEST DATE ( test code = 3576) 12/02/24 Lab Interpretation (test cod e = 80481-4) Normal [facility] [id number] 19:43:00* Test Item Value Reference Range Interpretation Comme nts POCT PREG (test code = 1605) positive On board controls acceptable with C Line (test code = 3574) present POCT PREG LOT # (test code = 3575) [id number] POCT PREG TEST DATE ( test code = 3576) 04/24/2022 Lab Interpretation (test cod e = 94587-6) [facility] [id number] 15:11:00 *.*.*.*.*.*.*.*.*.*.*.*.*.*FINAL*.*.*.*.*.*.*.*.*.*.*.*.*.*.*TRANSABDOMINAL PELVIC ULTRASOUND HISTORY: ovarian cyst COMPARISON: None. FINDINGS: Both ovaries are normal in size and contour. Both ovaries contain multiplefollicles, without dominant cyst. The uterus is normal in size and echotexture. All of these are a little advanced for her age of 12 years. The urinary bladder appears normal.SORENSEN, DEBORAH L, ? Personally interpreted by: MANPREET BARNES MD /Signed/ MANPREET BARNES MDUnHouston [facility] History and Physical Notes Date/Time Note Provider Source 2024-10-18 19:34:57 TRIAGE HISTORY & PHYSICAL IDENTIFYING DATA Nevin Cortes is 24 year old, /White, 37w3d, female with TIEN 11/05/2024, by Last Menstrual Period. : 2002 Primary Care Physician: PATIENT DOES NOT HAVE A PCP CHIEF COMPLAINT Contractions HISTORY OF PRESENT ILLNESS Nevin Cortes is a 24 year old female @ 37w3d presented for contractions +FM. No VB or LOF. No pre-eclampsia sx or other complaints. PAST OBSTETRIC HISTORY OB History Para Term AB Living 3 1 1 1 1 SAB IAB Ectopic Multiple Live Births 1 1 # Outcome Date GA Lbr Tha/2nd Weight Sex Type Anes PTL Lv 3 Current 2 Term 08/02/21 38w0d 2722 g M Vag-Spont ANITA 1 SAB 08/2020 PAST MEDICAL HISTORY Problem list: Patient Active Problem List Diagnosis Date Noted Normal labor 10/19/2024 Uterine contractions during 10/16/2024 37 weeks gestation of 09/11/2024 Multiparity 06/26/2024 Rubella non-immune status, antepartum 06/26/2024 Susceptible to varicella (non-immune), currently 06/26/2024 Nausea and vomiting during 03/30/2024 Supervision of high-risk 03/18/2024 Passive smoke exposure 05/01/2013 Operations: No past surgical history on file. Past Medical History: Diagnosis Date Ovarian cyst 2012 CURRENT HEALTH STATUS Medications: Current Facility-Administered Medications Medication Dose Route Frequency Last Rate Last Admin carboprost (HEMABATE) injection 250 mcg 250 mcg Intramuscular Q2HPRN D5W-LR IV infusion 1,000 mL 1,000 mL IV Infusion TITRATE FENTanyl (PF) (SUBLIMAZE) injection 50 mcg 50 mcg Slow IV Push Q1HPRN lactated ringers IV infusion 250 mL 250 mL IV Infusion ONCE lactated ringers IV infusion 250 mL 250 mL IV Infusion PRN - SEE INSTRUCTIONS lactated ringers IV infusion 250 mL 250 mL IV Infusion PRN - SEE INSTRUCTIONS lidocaine 1% (PF) (XYLOCAINE) injection 0.3 mL 0.3 mL Infiltration PRN - SEE INSTRUCTIONS methylergonovine (METHERGINE) injection 0.2 mg 0.2 mg Intramuscular Q4HPRN miSOPROStoL (CYTOTEC) tablet 200 mcg 200 mcg Rectal PRN ondansetron (ZOFRAN (PF)) injection 4 mg 4 mg Slow IV Push Q8HPRN Oxytocin in Normal Saline 30 unit/500 mL IV infusion Soln 600 mL/hr IV Infusion PRN Oxytocin in Normal Saline 30 unit/500 mL IV infusion Soln 0-42 allison-units/min IV Infusion CONTINUOUS proMETHazine (PHENERGAN) 25 mg in NaCl 0.9% (NS) 50 mL IV piggyback 25 mg IV Piggyback Q4HPRN sodium citrate-citric acid (BICITRA) 500-334 mg/5 mL solution 30 mL 30 mL Oral PRE-PROCEDURE ONCE sodium citrate-citric acid (BICITRA) 500-334 mg/5 mL solution 30 mL 30 mL Oral PRE-PROCEDURE ONCE terbutaline (BRETHINE) injection 0.25 mg 0.25 mg Subcutaneous PRN tranexamic acid in (ISO-OS) sodium chloride 1,000 mg/100 mL (10 mg/mL) IV 1,000 mg 1,000 mg IV Piggyback PRN Allergies and drug reactions: Patient has no known allergies. HOME MEDICATIONS Medications Prior to Admission Medication Sig Dispense Refill Last Dose PNV no.95/ferrous fum/folic ac ( ORAL) Take 1 tablet by mouth in the morning. 10/14/24 doxylamine (UNISOM, DOXYLAMINE,) 25 mg tablet Take 1 tablet by mouth at bedtime as needed for Nausea and Vomiting (N/V). 30 tablet 1 10/14/24 SOCIAL HISTORY Tobacco History: Social History Tobacco Use Smoking Status Never Passive exposure: Yes Smokeless Tobacco Never Tobacco Comments Dad smokes outside only Drug History: Social History Substance and Sexual Activity Drug Use No Alcohol History: Social History Substance and Sexual Activity Alcohol Use No FAMILY HISTORY Family History Problem Relation Age of Onset Uterine Cancer Maternal Grandmother Arthritis NoFHx Asthma NoFHx defects NoFHx Breast Cancer NoFHx Colon Cancer NoFHx Ovarian Cancer NoFHx Cancer NoFHx Depression NoFHx Diabetes NoFHx Genetic NoFHx Heart NoFHx High cholesterol NoFHx Hypertension NoFHx Mental retardation NoFHx Neurological NoFHx Osteoporosis NoFHx Psychiatry NoFHx REVIEW OF SYSTEMS General: negative Constitutional: negative Eyes: negative ENT/Mouth: negative Cardiovascular: negative Respiratory: negative Gastrointestinal:negative Genitourinary: See HPI Musculoskeletal: negative Skin/breast: negative Neurological: negative Psychiatric: negative Endocrine: negative Hemat/Lymph: negative Allergic/Immuno:none VITAL SIGNS BP: (108-133)/(61-87) Temp: [36.5 ?C (97.7 ?F)-37.1 ?C (98.8 ?F)] Temp source: Axillary (10/19 0655) Pulse: [72-118] Resp: [18-20] SpO2: [97 %-100 %] Height: [157.5 cm (5' 2")] Weight: [69.9 kg (154 lb)-70 kg (154 lb 4.8 oz)] BMI (calculated): [28.17-28.22] PHYSICAL EXAMINATIONS Gen: alert and oriented, well appearing, no distress CV: RRR, normal S1/S2, no m/r/g Resp: normal work of breathing, lungs CTAB Abd: gravid, soft, NTTP Ext: no calf tenderness or edema : SVE 360/-2 REVIEW OF LABORATORY, PATHOLOGY, AND RADIOLOGY DATA Lab results: Type & Screen HIV Hep B Syphilis Chlamydia ABO & RH Date Value Ref Range Status 03/18/2024 O POSITIVE Final No results found for: "HIVMULTIPLEX" No components found for: "HBSHBSAG" No results found for: "SYPIGG" C. trachomatis Nucleic Acid Date Value Ref Range Status 10/11/2024 Negative Negative Final IAT Date Value Ref Range Status 03/18/2024 Negative Final Varicella Rubella Glucose Group B Strep CBC VZV IgG antibody Date Value Ref Range Status 04/13/2024 Negative Negative Final Rubella screen IgG Date Value Ref Range Status 04/13/2024 Negative Negative Final GLUC 1 HR Date Value Ref Range Status 08/21/2024 159 120 - 170 mg/dL Final No results found for: "CGBS" HGB Date Value Ref Range Status 10/11/2024 11.9 11.6 - 15.0 g/dL Final HCT Date Value Ref Range Status 10/11/2024 36.0 35.7 - 45.2 % Final PLT Date Value Ref Range Status 10/11/2024 180 166 - 358 10*3/?L Final Active Hospital Problems Diagnosis Date Noted Normal labor 10/19/2024 37 weeks gestation of 09/11/2024 Supervision of high-risk 03/18/2024 Resolved Hospital Problems No resolved problems to display. Present on Admission: Supervision of high-risk 37 weeks gestation of Normal labor Placenta Accreta Screening Prior ? : No Prior Uterine Surgery?: No Placenta low lying/previa in current ? : No Screening outcome: A positive screening outcome indicates a history of prior delivery or prior uterine surgery, AND the presence of either a placenta low lying/previa or ultrasound suspicion of PASD in the current . Negative screening. ASSESSMENT AND PLAN Nevin Cortes is a 24 year old at 37w3d who presents with contractions. Contractions - admit for augmentation of labor - regular contractions with cervical change from 2 cm to 3 cm now /-3 this am. - GBS negative - cephalic presentation confirmed - Nando EFW < 4500 grams - strip overall reactive and reassuring except for a decel at 7:30 this morning. PVT of Dr. Arthur, please see OB Summary for more details Jaren Arthur MD T [facility] 2024-09-11 16:30:00 TRIAGE HISTORY & PHYSICAL IDENTIFYING DATA Nevin Cortes is 24 year old, /White, 32w1d, female with TIEN 11/05/2024, by Last Menstrual Period. : 2002 Primary Care Physician: PATIENT DOES NOT HAVE A PCP CHIEF COMPLAINT Nausea, vomiting HISTORY OF PRESENT ILLNESS Nevin Cortes is a 24 year old female at 32w1d presenting with complaints of nausea, vomiting. Patient reports nausea since 5:00AM this morning, has vomited 4 times. Patient reports she mostly vomited what she ate last night and "yellow" content. Patient reports dizziness, chills and mild abdominal cramping after vomiting. Denies sick contacts, abdominal pain, diarrhea, urinary symptoms, vaginal bleeding, LOF, or contractions. Reports good FM. Denies symptoms of PreE. PAST OBSTETRIC HISTORY OB History Para Term AB Living 3 1 1 1 1 SAB IAB Ectopic Multiple Live Births 1 1 # Outcome Date GA Lbr Tha/2nd Weight Sex Type Anes PTL Lv 3 Current 2 Term 08/02/21 38w0d 2722 g M Vag-Spont ANITA 1 SAB 08/2020 PAST MEDICAL HISTORY Problem list: Patient Active Problem List Diagnosis Date Noted 32 weeks gestation of 09/11/2024 Multiparity 06/26/2024 Rubella non-immune status, antepartum 06/26/2024 Susceptible to varicella (non-immune), currently 06/26/2024 Nausea and vomiting during 03/30/2024 Supervision of high-risk 03/18/2024 Passive smoke exposure 05/01/2013 Operations: No past surgical history on file. Past Medical History: Diagnosis Date Ovarian cyst 2012 CURRENT HEALTH STATUS Medications: No current facility-administered medications for this encounter. Allergies and drug reactions: Patient has no known allergies. HOME MEDICATIONS Medications Prior to Admission Medication Sig Dispense Refill Last Dose PNV no.95/ferrous fum/folic ac ( ORAL) Take by mouth. Taking ondansetron 4 mg disintegrating tablet Take 1 tablet by mouth every 8 (eight) hours as needed for N/V unresponsive to Promethazine. 30 tablet 1 Not Taking proMETHazine 25 mg tablet Take 1 tablet by mouth every 4 (four) hours as needed for Nausea and Vomiting (N/V). 30 tablet 1 Not Taking doxylamine (UNISOM, DOXYLAMINE,) 25 mg tablet Take 1 tablet by mouth at bedtime as needed for Nausea and Vomiting (N/V). 30 tablet 1 Taking pyridoxine, VITAMIN B-6, (VITAMIN B-6) 25 mg tablet Take 1 tablet by mouth every 6 (six) hours as needed for Nausea and Vomiting (N/V). 120 tablet 1 Not Taking SOCIAL HISTORY Tobacco History: Social History Tobacco Use Smoking Status Never Passive exposure: Yes Smokeless Tobacco Never Tobacco Comments Dad smokes outside only Drug History: Social History Substance and Sexual Activity Drug Use No Alcohol History: Social History Substance and Sexual Activity Alcohol Use No FAMILY HISTORY Family History Problem Relation Age of Onset Uterine Cancer Maternal Grandmother Arthritis NoFHx Asthma NoFHx defects NoFHx Breast Cancer NoFHx Colon Cancer NoFHx Ovarian Cancer NoFHx Cancer NoFHx Depression NoFHx Diabetes NoFHx Genetic NoFHx Heart NoFHx High cholesterol NoFHx Hypertension NoFHx Mental retardation NoFHx Neurological NoFHx Osteoporosis NoFHx Psychiatry NoFHx REVIEW OF SYSTEMS General: negative Constitutional: negative Eyes: negative ENT/Mouth: negative Cardiovascular: negative Respiratory: negative Gastrointestinal: NV Genitourinary: negative Musculoskeletal: negative Skin/breast: negative Neurological: negative Psychiatric: negative Endocrine: negative Hemat/Lymph: negative Allergic/Immuno:none VITAL SIGNS BP: (108-127)/(64-80) Temp: [37.1 ?C (98.7 ?F)-37.6 ?C (99.7 ?F)] Temp source: Oral (09/11 1530) Pulse: [100-130] Resp: [17-18] SpO2: [98 %-100 %] Height: [157.5 cm (5' 2")] Weight: [65.3 kg (144 lb)-65.5 kg (144 lb 8 oz)] BMI (calculated): [26.34-26.43] PHYSICAL EXAMINATIONS General: patient alert and in no acute distress HEENT: symmetric, negative for masses Lungs: unlabored breathing Cardiology: peripheral pulses intact and regular Abdomen: soft, non-tender, non-distended, no liver, spleen or abnormal masses palpated and Gravid Extremities: no clubbing, cyanosis, or edema Neuro: patient moving all extremities, no facial droop : SVE: 10/-4 REVIEW OF LABORATORY, PATHOLOGY, AND RADIOLOGY DATA Lab results: Type & Screen HIV Hep B Syphilis Chlamydia ABO & RH Date Value Ref Range Status 03/18/2024 O POSITIVE Final No results found for: "HIVMULTIPLEX" No components found for: "HBSHBSAG" No results found for: "SYPIGG" C. trachomatis Nucleic Acid Date Value Ref Range Status 08/29/2024 Negative Negative Final IAT Date Value Ref Range Status 03/18/2024 Negative Final Varicella Rubella Glucose Group B Strep CBC VZV IgG antibody Date Value Ref Range Status 04/13/2024 Negative Negative Final Rubella screen IgG Date Value Ref Range Status 04/13/2024 Negative Negative Final GLUC 1 HR Date Value Ref Range Status 08/21/2024 159 120 - 170 mg/dL Final No results found for: "CGBS" HGB Date Value Ref Range Status 09/11/2024 12.5 11.6 - 15.0 g/dL Final HCT Date Value Ref Range Status 09/11/2024 36.3 35.7 - 45.2 % Final PLT Date Value Ref Range Status 09/11/2024 217 166 - 358 10*3/?L Final Active Hospital Problems Diagnosis Date Noted 32 weeks gestation of 09/11/2024 Nausea and vomiting during 03/30/2024 Resolved Hospital Problems No resolved problems to display. Present on Admission: 32 weeks gestation of Nausea and vomiting during ASSESSMENT AND PLAN Nevin Cortes is a 24 year old at 32w1d who presents with complaints of nausea, vomiting. Nausea, vomiting - Reports nausea since 5:00AM this morning, has vomited 4 times, has mostly vomited what she ate last night and "yellow" content. - Reports dizziness, chills and mild abdominal cramping after vomiting. - Denies sick contacts, abdominal pain, diarrhea, urinary symptoms, vaginal bleeding, LOF, or contractions. - Reports good FM. Denies symptoms of PreE. - FHT: difficulty tracing initially (tracing maternal). One incidental variable decel, otherwise overall reactive/reassuring for gestational age. - Theba: irritability, irregular ctx every 2-8+min. - SVE: Dilation: 1 / Effacement (%): 0 % / Station: -4 - VS: tachycardic upon arrival (120s), low-grade fever (99.7) - Plan: LR bolus, Flu/Covid/RSV swab and labs sent. Tylenol, Zofran, Phenergan given. PO challenge after nausea resolves. Repeat SVE due to irregular ctx. Antepartum course reviewed - 1 h 159, 3 h 135, sero neg, RNI, VZVNI, O+/neg, GBS unk, Pap NIL 10/04/23 - H/H, plt: 12.5 / 36.3, 217 on 09/11/24 - PVT of MD Arthur Fetus - Presentation on admission: cephalic - EFW 57%ile, RT lateral anterior no previa placenta, DRE wnl, normal anatomy, cervical length 3.9cm on MFM US 06/19/24 - AFP neg, NIPT low risk, Horizon neg Placenta Accreta Screening Prior ? : No Prior Uterine Surgery?: No Placenta low lying/previa in current ? : No Screening outcome: Negative screening. DISPO: Flu/Covid/RSV negative, WBC 16.40, NA 131, all other labs overall wnl. Pending UC, will follow up with results. Nausea, vomiting resolved, PO diet tolerated, patient reports to feeling better. Tachycardia, low grade fever improved. Discussed possible causes of nausea vomiting, such as food poisoning. FHT overall reactive/reassuring for gestational age. Theba irregular ctx spaced out, patient denied feeling them. SVE 1/0/-4, unchanged after 3hr. Patient reassured. Pelvic rest recommended. Stable for DC home with ER precautions, labor warnings & kick count. Follow-up as scheduled or sooner PRN, next PNV on 09/18/24. Selin Cortes MSN, [employer], BUILD MASTER-C This patient was discussed with the attending provider. Plan of care discussed and agreed upon. Informed consent discussed with the patient, including: condition, proposed care, treatments and services, alternative forms of treatment, and risks of no treatment. Details discussed around the procedures to be used, and the risks and hazards involved, potential benefits, and side effects of the patient s proposed care, treatment, and services; the likelihood of the patient achieving his or her goals; and any potential problems that might occur during recuperation. Reasonable alternative also discussed with the patient s proposed care, treatment, and services. The discussion encompasses risks, benefits, and side effects related to the alternative and risks related to not receiving the proposed care, treatment, and services. R AND SANDER Associated attestation - Lashonda Nicole MD - 09/11/2024 5:09 PM FILER AND SANDER Reviewed Triage H&P with SHANE Cortes and in agreement. [facility] Procedure Notes Date/Time Note Provider Source 2024-10-19 10:20:28 Associated Order(s): Central Neuraxial Block Central Neuraxial Block Date/Time: 10/19/2024 8:43 AM Performed by: Valentin Rivero CRNA Authorized by: Lay Zelaya MD Patient Location: OB End Time: 10/19/2024 8:56 AM Reason for Block: OB request, Patient request and Labor analgesia Staff: Resident/HUMAN SERVICES CASE MANAGER: Valentin Rivero CRNA Performed by: resident/HUMAN SERVICES CASE MANAGER Preanesthetic Checklist: patient identified, IV checked, risks and benefits explained, monitors and equipment checked, timeout performed, ob surgical consent/approval, pre-op evaluation, surgical consent, site marked, anesthesia consent, OB/surgical consent verified, ob/surgical consent verified and ob/surgical consent approval Procedure: Type of Neuraxial: Epidural Epidural Description: 1st attempt Sterility Prep cap, drape, gloves, hand hygiene and mask Sedation Level no sedation Patient Position: sitting Prep: Betadine and patient draped Monitoring: heart rate, continuous pulse ox, heart rate / toco and NIBP Location: lumbar (1-5) Lumbar: L3-L4 Approach: midline Technique: TONE air and catheter Guidance with: landmark technique} Epidural/Spinal [place] and/or Catheter: Epidural/Spinal Kit: BBun Needle Type: Tuohy Needle Gauge: 17 G Needle Length: 3.5 in (8.89 cm) Needle Insertion Depth: 5 Catheter Type: multiport Catheter Size: 19 G Catheter at Skin Depth: 10 Number of Attempts: 1 Test Dose: lidocaine 1.5% with epinephrine 1-to-200,000 and negative Dose: 3 cc Catheter Securement Method: Tegaderm, surgical tape and clear occlusive dressing Assessment: Sensory Level: above T10 Block Outcome: successful block, no apparent complications, pain relieved, patient tolerated procedure well, patient satisfied, patient comfortable, positive pain relief, appropriate motor block, appropriate sensory block and pain improved Procedure Assessment: patient tolerated procedure well with no complications Notes: Smooth and atraumatic, (+) Local, (+) STF 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 2024-10-21 02:45:41 Problem: Discharge Planning - Goal: Adequate for discharge 10/21/2024244 by Cinthia Salinas RN Outcome: Progressing as expected 10/20/2024 1900 by Cinthia Salinas RN Outcome: Progressing as expected Goal: Mood stable 10/21/2024244 by Cinthia Salinas RN Outcome: Progressing as expected 10/20/2024 190 by Cinthia Salinas RN Outcome: Progressing as expected Problem: Complications of hemorrhage (risk or actual) Goal: Absence of active bleeding 10/21/2024244 by Cinthia Salinas RN Outcome: Progressing as expected 10/20/2024 1900 by Cinthia Salinas RN Outcome: Progressing as expected Goal: Absence of complications 10/21/2024244 by Cinthia Salinas RN Outcome: Progressing as expected 10/20/2024 1900 by Cinthia Salinas RN Outcome: Progressing as expected Cinthia Salinas RN [facility] 2024-10-20 11:05:46 Returned call to pharmacy. Pharmacy states they do not have exact PNV in stock. Advised new PNV can be filled if it contains iron and folic acid. No other questions or concerns. Gurjit Carter RN 10/20/2024 11:06 AM Gurjit Carter RN [facility] 2024-10-20 09:00:44 [place] from [facility] pharmacy, calling to let the provider know they don't have the prescribed pre vitamin on hand. Asking if it is ok to switch for something that they may have available. Has several other options to discuss. [phone] Yas Cohen [facility] 2024-10-20 08:24:06 Problem: Discharge Planning - Goal: Adequate for discharge Outcome: Progressing as expected Goal: Mood stable Outcome: Progressing as expected Problem: Complications of hemorrhage (risk or actual) Goal: Absence of active bleeding Outcome: Progressing as expected Goal: Absence of complications Outcome: Progressing as expected [facility] Sarbari 2024-10-20 07:23:55 Patient: Nvein Cortes Procedure Summary Date: 10/19/24 Room / Location: Anesthesia Start: 0840 Anesthesia Stop: 1615 Procedure: CENTRAL NEURAXIAL BLOCK Diagnosis: Scheduled Providers: Responsible Provider: Lay Zelaya MD Anesthesia Type: Epidural ASA Status: 2 Anesthesia Type: Epidural Last vitals BP Temp Pulse Resp SpO2 There were no known notable events for this encounter. Anesthesia Post Evaluation Patient location during evaluation: bedside Patient participation: complete - patient participated Level of consciousness: awake and alert Pain management: satisfactory to patient Airway patency: patent Cardiovascular status: acceptable and blood pressure returned to baseline Respiratory status: acceptable Hydration status: acceptable Comments: Anesthesia TREY Post Operative Faculty Note Date of service: 10/20/2024 Patient is s/p labor epidural placement and removal. Patient examined, patient awake. Patient participation in post anesthesia evaluation: Block not fully resolved, as expected. Patient participated otherwise. Patient advised about fall precautions. Vital Signs: BP 110/61 (BP Location: Right arm, Patient Position: Lying right side) | Pulse 66 | Temp 36.5 ?C (97.7 ?F) (Oral) | Resp 16 | Ht 1.575 m (5' 2") | Wt 69.9 kg (154 lb) | LMP 01/30/2024 | SpO2 99% | Unknown | BMI 28.17 kg/m? Pain: Scale used: 0 - 10 Ratin Nausea and vomiting: Not present. Post operative/post procedure hydration status: Euvolemic. Post-operative course: Block resolving appropriately, and patient advised about fall precautions as noted above. Complications: No apparent complications Lay Zelaya MD 10/20/2024 07:24 AN-ANESTHESIOLOGY ANESTHESIOLOGIST [facility] 2024-10-19 20:10:25 Problem: Discharge Planning - Goal: Adequate for discharge Outcome: Progressing as expected Goal: Mood stable Outcome: Progressing as expected Problem: Complications of hemorrhage (risk or actual) Goal: Absence of active bleeding Outcome: Progressing as expected Goal: Absence of complications Outcome: Progressing as expected Mirella Moscoso RN [facility] 2024-10-19 17:52:14 VAGINAL DELIVERY NOTE Delivery Date: 10/19/2024 Delivery Time: 2:10 PM Delivery Summary The patient was admitted to the Labor & Delivery unit for delivery at 37 weeks due to labor. Delivery Physician: Jaren Arthur MD Intrapartum Anesthesia/Analgesia: Epidural Delivery of beaver fetus with cephalic presentation Shoulder Dystocia: No Operative Delivery: No Fetus Vaginal delivery of head with cephalic position, left occipital anterior. As the head crowned and distended the perineum, no episiotomy was performed. A blue towel was used to protect the perineum as the head crowned and delivered. The other hand was used to exert pressure on the occiput to control the delivery of the head. The perineum was pushed with a towel-draped hand as the head and mouth was delivered over the perineum. The head was allowed to rotate externally to achieve natural body posture. Examination of neck revealed no umbilical cord. The shoulder was delivered by gentle downward traction applied to head and downward traction for the delivery of anterior shoulder. This was followed by upward traction with delivery of posterior shoulder and body. After the delivery of infant, bulb suction was performed from ororpharynx and nostril with removal of clear amniotic fluid. A normal, male was delivered. Delayed cord clamping done Yes. The umbilical cord was double clamped, cut and the was handed off the field to the circulating nurse Placenta Placenta was delivered spontaneously while the abdominal hand lifted the uterus cephalad and other hand keeping the umbilical cord slightly taut. Fourth Stage Fourth stage of labor was managed by uterine massage with abdominal hand and infusion 30 units of pitocin mixed with intravenous fluid. Labor Complications:None Anesthesia: Epidural Delivery Type: Normal Spontaneous Vaginal QBL: 50 cc Additional Complications: None Uterotonics: No TXA given: No Laceration: None Episiotomy: None Perineal Lacerations: None Other Lacerations:None: Additional information 50 cc Laceration Repair: No laceration repair needed. Initial count personnel: Nevin GU CST Initial count verified by: DR. SANDHYA Ordonez Initial Count 0 5 Added Counts 0 0 Final Count 0 5 Final count personnel: DR. ARTHUR Final count verified by: Nevin GU CST Accurate final count? Yes Weight: 3450 g 1 Minute 5 Minute 10 Minute Totals: 8 9 Jaren Arthur MD 10/19/2024 5:53 PM [facility] 2024-10-19 14:34:36 Problem: Intrapartum process (including labor pain) Goal: Absence of or reduction of complications of labor Outcome: Resolved Goal: Able to cope with pain Outcome: Resolved Goal: Adequate to move to next level of care Outcome: Resolved Goal: Reduction in pain sensation Outcome: Resolved Problem: Discharge Planning - Goal: Adequate for discharge Outcome: Progressing as expected Goal: Mood stable Outcome: Progressing as expected Problem: Complications of hemorrhage (risk or actual) Goal: Absence of active bleeding Outcome: Progressing as expected Goal: Absence of complications Outcome: Progressing as expected [facility] 2024-10-19 14:32:43 Problem: Intrapartum process (including labor pain) Goal: Absence of or reduction of complications of labor Outcome: Resolved Goal: Able to cope with pain Outcome: Resolved Goal: Adequate to move to next level of care Outcome: Resolved Goal: Reduction in pain sensation Outcome: Resolved [facility] 2024-10-19 10:22:38 Name/ MRN / Age / Gender: Nevin Cortes, [id number] 24 year old female BMI: Estimated body mass index is 28.17 kg/m? as calculated from the following: Height as of this encounter: 1.575 m (5' 2"). Weight as of this encounter: 69.9 kg (154 lb). Allergies: Patient has no known allergies. Last Vitals: BP Readings from Last 1 Encounters: 10/19/24 115/65 Pulse Readings from Last 1 Encounters: 10/19/24 83 SpO2 Readings from Last 1 Encounters: 10/19/24 100% Date of Surgery: 10/19/2024 Surgeon: * No surgeons listed * Procedure: CENTRAL NEURAXIAL BLOCK OR Location: [place] ANESTHESIA OUT OF OR - OR LOCATION Anesthesia Preop Eval (physical exam) Anesthesia Preop: [id number] NPO Status Verified Clear Liquids: > 2 Hours Solid Food/Non-Clear Liquids: > 8 Hours PONV Risk Factors: female and non-smoker Anesthesia History Anesthesia History Negative Previous Anesthetics/Airways Cardiovascular Negative Cardiac ROS Pulmonary Negative Pulmonary ROS Neuro/Musculoskeletal Negative Neuro/Musculosketal ROS GI/Hepatic Negative GI/Hepatic ROS Hematology Negative Hematology ROS Renal Negative Renal ROS Skin (+) Current IV access and 18g Endo/Other Negative Endo/Other ROS Other CROWN IRONER Negative CROWN IRONER ROS Pediatric Pediatric N/A N/A Preoperative Medication Instructions Continue taking all prescribed medications except: LAILA inhibitors, ARBs, diuretics, all oral diabetes medications Anticoagulant Therapy: Defer to surgeons Insulin: Take 1/2 dose the night prior to surgery. Hold on DOS. Phentermine: Alert [facility] anesthesiologist SGLT2 Inhibitors: "gliflozins" to be held for 3 days prior to elective surgeries GLP1 Agonosit: stop 7 days prior to surgery MAC Cases: Continue taking LAILA inhibitors and ARBs ASA Classification ASA: 2 Labs: Chemistry 09/11/2024 CBC 10/19/2024 131 (L) 103 8 91 9.83 8.9 (L) 148 (L) 3.8 24 0.37 (L) 26.6 (L) eGFR: 146.4 Date: 09/11/2024 ANC: 7.37 (H) Date: 10/19/2024 LFTs 09/11/2024 Coags AST: 21 AP: 121 Prot: 6.9 Ca: 9.0 PT: - Date: - ALT: 13 T Eran: 0.6 Alb: 3.9 PTT: - Date: - PO4: - Date: - INR: - Date: - Cardiac Endocrine & other pBNP: - Date: - A1C: 4.6 Date: 08/17/2024 Trop I: - Date: - POCT A1C: - Date: - CK: - Date: - TSH: - Date: - CKMB: - Date: - FT4: - Date: - LDL: - Date: - Lact: - Date: - Procal: - Date: - Respiratory -|-|-|-|- D-dimer: - ABG Date: - Date: - Miscellaneous Type and Screen: O POSITIVE Antibody: Negative Date: 10/19/2024 POCT : Positive Date: 03/18/2024 Current Medications: Outpatient Medications Marked as Taking for the 10/18/24 encounter (Hospital Encounter) Medication Sig Dispense Refill PNV no.95/ferrous fum/folic ac ( ORAL) Take 1 tablet by mouth in the morning. doxylamine (UNISOM, DOXYLAMINE,) 25 mg tablet Take 1 tablet by mouth at bedtime as needed for Nausea and Vomiting (N/V). 30 tablet 1 Previous Surgeries: No past surgical history on file. Anesthesia Physical Exam General alert and oriented x 3 Neuro/Psych neurological Dental no notable dental hx Abdominal (+) gravid Airway Mallampati score:II TM distance:> 5 cm Neck ROM: full Mouth opening:small Extremity Normal extremity Pulmonary pulmonary exam normal Other Cardiovascular cardiovascular exam normal Anesthesia Plan ASA Status: 2 Plan discussed during pre-op evaluation: Epidural Anesthetic plan on DOS: Epidural Plan to include: IV induction Anesthesia plan discussed with: patient or packaging sales representative Post-Operative Analgesia: routine analgesia & antiemetics Recovery Plan: LDR Additional comments: AN-ANESTHESIOLOGY ANESTHESIOLOGIST [facility] 2024-10-18 18:45:33 Patient is 37 weeks. OB Arthur. A1. Contractions all day. Sttes they are about 5 minutes apart lasting 1-2 minutes. TIEN 10/30. May have lost mucous plug earlier. Alberto Cummins RN [facility] - [facility] 2024-10-18 18:37:00 [facility] Emergency Department Note Patient Name: Nevin Cortes Date of : 2000 24 year old female Treatment Room: [facility] Primary Care Physician: PATIENT DOES NOT HAVE A PCP Patient Escorted by: Family [5] Mode of Arrival: Personal means [1] EMS Treatment Prior to ED Arrival: Travel and Exposure Screening: Symptoms Does patient have any of these symptoms?: (not recorded) Exposure Screening Has patient had contact with someone with a communicable disease in the last month?: (not recorded) Diseases exposed to:: (not recorded) Is Patient ?: (not recorded) Exposure Date: (not recorded) Chief Complaint: Chief Complaint Patient presents with CONTRACTIONS History of Present Illness: Nevin, 24yF, A1, 37 weeks. Presents with complaint of uterine contractions for the past hour and a half. They have been consistently happening every 5 minutes. Contractions are 1 to 1-1/2-minute in duration. She passed a quarter size amount of mucus in the toilet. No vaginal bleeding. No abdominal pain, fever, shortness of breath. Feeling well overall. Vital signs stable. Past Medical History/Immunizations: Past Medical History: Diagnosis Date Ovarian cyst 2012 Allergies: No Known Allergies Past Social History: Tobacco Use Never smoked or used smokeless tobacco. Passive Exposure: Yes Comments: Dad smokes outside only Vaping Use Never used Alcohol Use No. Drug Use No. Sexual Activity Not sexually active. Past Surgical History: No past surgical history on file. Review of Systems: Review of Systems Constitutional: Negative for fever. Respiratory: Negative for shortness of breath. Cardiovascular: Negative for chest pain. Gastrointestinal: Negative for abdominal pain. Physical Exam: ED Triage Vitals [10/18/24 1846] Weight 70 kg (154 lb 4.8 oz) Actual or estimated Actual Height 1.575 m (5' 2") BP 133/85 Pulse 102 Resp 20 Temp 37.1 ?C (98.8 ?F) Temp source Oral SpO2 98 % Measured on Physical Exam Vitals and nursing note reviewed. Constitutional: General: She is not in acute distress. Appearance: Normal appearance. She is not ill-appearing. Cardiovascular: Rate and Rhythm: Normal rate and regular rhythm. Pulses: Normal pulses. Heart sounds: Normal heart sounds. Pulmonary: Effort: Pulmonary effort is normal. Breath sounds: Normal breath sounds. Abdominal: Tenderness: There is no abdominal tenderness. Neurological: Mental Status: She is alert. Radiology: No orders to display Lab Results: Lab Results - No data to display EKG: If EKG completed, see Procedure Note. Orders and Treatments: No orders of the defined types were placed in this encounter. No orders of the defined types were placed in this encounter. First Provider Eval: ED Events None ED COURSE Diagnosis/Impression as of 10/18/241849 37 weeks gestation of Procedures: Procedures MDM: Medical Decision Making Nevin, 24yF, A1, 37 weeks. Presents with complaint of uterine contractions for the past hour and a half. They have been consistently happening every 5 minutes. Contractions are 1 to 1-1/2-minute in duration. She passed a quarter size amount of mucus in the toilet. No vaginal bleeding. No abdominal pain, fever, shortness of breath. Feeling well overall. Vital signs stable. Exam normal other than presence of contractions. Pt taken to L&D in a wheelchair. Flowsheet Documentation: Scoring Tools: No data recorded Disposition/Condition: ED Disposition ED Disposition Triaged to L&D Condition -- Comment -- Discharge Medications: Patient's Medications START taking these medications No medications on file CONTINUE taking these medications which have NOT CHANGED DOXYLAMINE (UNISOM, DOXYLAMINE,) 25 MG TABLET Take 1 tablet by mouth at bedtime as needed for Nausea and Vomiting (N/V). PNV NO.95/FERROUS FUM/FOLIC AC ( ORAL) Take 1 tablet by mouth in the morning. START taking Modified Medications as Prescribed No medications on file STOP taking these medications No medications on file Follow-up: Electronically signed by: Yousif Uribe PAC 10/18/241849 Associated attestation - Jadyn Rodriguez MD - 10/19/2024 2:39 AM CDT Addendum I personally examined and participated in decision-making for this patient with the resident, Yousif Bangura, PAC . Please see the resident note for further details. I evaluated the patient and performed the substantive portion of this visit based upon time. I have reviewed and verified the documentation for this encounter and assume responsibility for the services by signing the medical record. Findings discussed with patient Diagnoses that have been ruled out: None Diagnoses that are still under consideration: None Final diagnoses: 37 weeks gestation of ED Disposition ED Disposition Triaged to L&D Condition -- Comment -- PA-PHYSICIAN BILLING CLERK MIDLEVEL PROVIDER [facility] 2024-10-15 16:09:38 Patient arrived ambulatory c/o contractions that started approximately 3 hours ago. Patient is 37 weeks , G3A1P1, Obgyn Dr. Arthur. Denies any loss of mucous plug, denies vaginal bleeding. Gave report to Christal form L&D Marilynn Pearson RN [facility] 2024-09-23 18:48:01 34 weeks patient with complaints of having contractions since last night. Report called and handed over to CHESTER Farr. M1 LMP - 01/30/2024 R AND SANDER Rekha Long RN [facility] 2024-09-18 11:15:00 Age: [age] year old GA: 33w1d Pelvic pain/pressure -States that is improving and the maternity belt is helping - patient cancelled appointment with physical therapy as no childcare but states that she is doing better. Elective induction at 39 weeks on 10/30/2024 unless clinically indicated otherwise Daily kick counts and labor precautions reviewed Follow-up in 2 weeks for visit R AND SANDER [facility] 2024-09-11 12:01:47 Pt to ED CO contraction like pain starting today. Denies fluid loss or vaginal bleeding. , previous vaginal delivery. Feeling baby move. OB is Dr. Arthur. 32w1d. TIEN 11/05/2024. Report to [place]. TI Londono RN [facility] 2024-09-11 10:57:06 Please see telephone encounter. Sent pt to L&D. KATIE DELACRUZ RN 09/11/2024 10:57 AM R AND SANDER Katie Delacruz RN [facility] 2024-09-11 10:50:16 Name and verified. Pt c/o abd pain 04/04. Denies LOF or vaginal bleeding. Advised pt to go to L&D. Verbalized understanding. Maryuri Moore RN advised. KATIE DELACRUZ RN 09/11/2024 10:55 AM R AND SANDER Katie Delacruz RN [facility] 2024-09-11 10:34:02 Pt requesting to speak with katie about symptoms previously discussed. Pt did not state what they are exactly. TI Weiss [facility] 2024-09-11 10:07:43 Please see MCM. KATIE DELACRUZ RN 09/11/2024 10:07 AM TI Delacruz RN [facility] 2024-09-11 08:46:04 Name and verified. Pt stated that she has vomiting 3-4 times since this 0600 today. Denies diarrhea. Has not been able to hold any fluids down. Advised pt to monitor and explained fluid challenge. If still not able to hold fluids down or does gets worse, cx, lower back pain- to let us know. Verbalized understanding. KATIE DELACRUZ RN 09/11/2024 8:53 AM TI Delacruz RN [facility] 2024-09-11 08:37:30 Nevin Cortes is a 24 year old female Experiencing vomiting x this morning and light headed x 1 day. Would like a return call. Thank you TI Gaines [facility] 2024-09-11 07:24:00 Regardin wks 1 day vomiting/abd pain/lightheaded/ vaginal pain ----- Message from Patient Working Manager sent at 09/11/2024 7:17 AM FILER AND SANDER ----- Nevin Cortes is a 24 year old female.Pt is 32 wks and 1 day calling to speak with a nurse pt complains of pain in vaginal area, feeling lightheaded,vomiting,abd pain. Please advise TI Dick RN [facility] 2024-09-11 07:24:00 Reason for Disposition Message left on unidentified voice mail. Phone number verified. Protocols used: No Contact or Duplicate Contact [employer]-VP Nurse Note: attempted to reach pt 2x. Left VM to call back if still needs assistance. Call back number provided. Access Center Myrna Dick RN [facility] 2024-09-11 07:03:17 Pt requesting to leave AMA. ERP notified. PT counseled to remain, risk of leaving AMA including discussed with pt. Pt continued to decline further ER evaluation at this time. AMA papers signed,witnessed, and placed on patients chart. Pt left ambulatory. No ataxia noted, GCS 15, and A&Ox4. TI Akhtar RN [facility] 2024-09-11 06:47:19 Patient requesting to be evaluated by L&D instead of in the ER. Patient educated on reasoning of being seen in the ER first. TI Quispe RN [facility] 2024-09-11 06:40:46 32w1d gestation C/o feeling lightheaded x24 hours and 2 episodes of vomiting Endorses + movement OB: Dr. Arthur TI Elizabeth RN [facility] 2024-08-31 16:00:00 Age: [age] year old GA: 30w4d Pelvic pain/pressure -X 1 week -Maternity belt is not helping -Discussed to continue maternity belt rest as needed, Tylenol as needed - Referral to physical therapy placed Abnormal 1 hour, 3-hour within normal limits -Continue healthy diet and exercise Elective induction at 39 weeks on 10/30/2024 unless clinically indicated otherwise Daily kick counts Follow-up in 2 weeks for visit [facility] 2024-08-29 17:51:00 Report called to Nicki Asif RN in LDRP. All questions answered. Pt to LDRP via w/c with KELSEA and Javad RN in attendance. [facility] 2024-08-29 17:45:51 C/O back pain, lower abdominal pain and decreased movement. States feel less movement than normal. Strtaed since approximately 0700. 30W2D. A1. No PMHx. Takes daily. ROGERIO Arthur. R AND SANDER Isa Rai RN [facility] 2024-08-23 14:10:30 See mychart encounter Gurjit Carter RN 08/23/2024 2:10 PM R AND SANDER Gurjit Carter RN [facility] 2024-08-23 11:00:36 Nevin Cortes is a 24 year old female Returning the call from nurse Wilson regarding test results. Pt will like a call back at: [phone] TI Cohen [facility] 2024-08-21 18:17:22 Patient is 29 weeks patient of doctor sandhya. . Patient reports cramping and spotting that started at 0800. TI Rehman RN [facility] 2024-08-21 16:54:26 Name and verified. Did not complete abx. Cramping started this morning. Last cramp at 1507. Pain 9/10. Tightening of abdomen. Light spotting started 2 hrs- only with wipe. Light pink in color. Instructed pt to go to L&D through ER. Verbalized understanding. L&D advised. Verbalized understanding. KATIE DELACRUZ RN 08/21/2024 4:57 PM R AND SANDER Kaite Delacruz RN [facility] 2024-08-21 16:48:42 Name and verified, pt is aware of results. Pt verbalized understanding. Mari Jones RN 08/21/2024 4:48 PM R AND SANDER Mari Jones RN [facility] 2024-08-21 16:36:40 Attempted to reach pt, no answer, left a vm Mari Jones RN 08/21/2024 4:[address] [facility] 2024-08-21 15:46:03 Pt requesting a call to go over glucose test results. R AND SANDER Jacklyn Weiss [facility] 2024-08-21 07:45:00 Images from the original note were not included. Venipuncture collection performed by clean technique on the right anticubitus. Total of 1 attempts were made. Slight pressure and a bandage/dressing were applied to the site(s). The patient experienced no complications. The following specimens were processed according to instructions and sent to [facility] laboratories per lab order on 08/21/2024 : LT BLUE SST 1 RED LAV PPT DK GREEN (LiHep) DK GREEN (SodH) MURRAY DK BLUE (K2) DK BLUE (S) ACD Blood Culture NIPT/NTD Gave pt 100 Glucola- No issues Pt started 075 Pt finished 753 Will draw pt [id number] Kimberly Menjivar 08/21/2024 7:[address] [facility] 2024-08-21 07:45:00 Images from the original note were not included. Venipuncture collection performed by clean technique on the left anticubitus. Total of 1 attempts were made. Slight pressure and a bandage/dressing were applied to the site(s). The patient experienced no complications. The following specimens were processed according to instructions and sent to [facility] laboratories per lab order on 08/21/2024 : LT BLUE SST 1 RED LAV PPT DK GREEN (LiHep) DK GREEN (SodH) MURRAY DK BLUE (K2) DK BLUE (S) ACD Blood Culture NIPT/NTD [facility] 2024-08-21 07:45:00 Images from the original note were not included. Venipuncture collection performed by clean technique on the right anticubitus. Total of 1 attempts were made. Slight pressure and a bandage/dressing were applied to the site(s). The patient experienced no complications. The following specimens were processed according to instructions and sent to [facility] [id number] per lab order on 08/21/2024 : LT BLUE SST 1 RED LAV PPT DK GREEN (LiHep) DK GREEN (SodH) MURRAY DK BLUE (K2) DK BLUE (S) ACD Blood Culture NIPT/NTD [facility] 2024-08-21 07:45:00 Images from the original note were not included. Venipuncture collection performed by clean technique on the left anticubitus. Total of 1 attempts were made. Slight pressure and a bandage/dressing were applied to the site(s). The patient experienced no complications. The following specimens were processed according to instructions and sent to [facility] laboratories per lab order on 08/21/2024 : LT BLUE SST 1 RED LAV PPT DK GREEN (LiHep) DK GREEN (SodH) MURRAY DK BLUE (K2) DK BLUE (S) ACD Blood Culture NIPT/NTD [facility] 2024-08-18 14:30:38 Pt was seen today. KATIE DELACRUZ RN 08/18/2024 2:30 PM R AND SANDER Katie Delacruz RN [facility] 2024-08-18 14:00:00 Age: [age] year old GA: 28w5d Patient transferred care to [facility] and now transferred care back to [place]. Wants to deliver with me in [place]. Tentatively scheduled for induction at 39 weeks on 10/30/24 unless clinically indicated otherwise [place] Martinez -Random, about 5 times a day -Patient drinks about 60 ounces of water a day -Discussed adequate hydration -Urine culture sent - labor precautions reviewed Pelvic pressure with ambulation -Belly band helps - Advise maternity belt, rest prn, tylenol prn BV -Patient was seen on 08/12/2024 at labor and delivery for contractions and was diagnosed with BV. She has 2 days of Flagyl left. Abnormal 1 hour -3-hour ordered -Hemoglobin A1c ordered 3rd trimester teaching done- reviewed S/S of PTL (contractions, leakage of fluid and Vaginal bleeding) and also Kick Counts. Also dicussed Kory-Martinez, pelvic and lower back pains- expectations and differenced with S/S of PTL She plans to breast/bottle fed BC options reviewed- opted for [facility] Bowling Floor Manager: Dawna Sarmiento Encourage patient to bring in wishes if she has any. Follow-up in 2 weeks for visit [facility] 2024-08-17 16:49:06 Nevin Cortes is a 24 year old female Please dis regard TI Cardenas [facility] 2024-08-12 14:40:33 Patient 28 weeks , having contractions for the past 5 days. No bleeding, no ROM. MD Bradley. . HX: denies. R AND SANDER Dawna Sarmiento RN [facility] 2024-08-10 07:06:54 Replied to [employer] message sent by patient. R AND SANDER Radha Rogel RN [facility] 2024-08-09 17:42:55 Nevin Cortes is a 24 year old female Pt calling to find out if she can eat before her glucose test. Please advise R AND SANDER Beverly High [facility] 2024-07-15 11:42:18 Pt arrived ambulatory for lower abdominal cramping that started this morning, , 23 weeks, sees Segundo Bradley DNP. Denies any other symptoms. Spoke [facility] L&D Pt transported to L&D via wheelchair by pct R AND SANDER Magy Cohen RN [facility] 2024-06-06 16:15:00 Age: [age] year old GA: 18w2d Follow-up from L&D visit. Was seen on 06/02/24 at [facility] L&D. States that her lower back pain has improved since taken Flagyl for BV. Last episode was yesterday. Discussed maternity belt. Offered physical therapy referral. Patient declined physical therapy referral at this time. Follow-up as scheduled for PN [facility] 2024-06-02 21:14:03 Lower back pain and right lower abd pain that started this am, pt states she is 18 weeks preg. , Due date: 11/05/2024 R AND SANDER Khadra Freeman RN [facility] 2024-05-25 09:30:00 Images from the original note were not included. Venipuncture collection performed by clean technique on the left anticubitus. Total of 1 attempts were made. Slight pressure and a bandage/dressing were applied to the site(s). The patient experienced no complications. The following specimens were processed according to instructions and sent to [facility] laboratories per lab order on 05/25/2024 : LT BLUE SST 1 RED LAV PPT DK GREEN (LiHep) DK GREEN (SodH) MURRAY DK BLUE (K2) DK BLUE (S) ACD Blood Culture NIPT/NTD T [facility] 2024-05-25 09:00:00 Age: [age] year old GA: 16w4d Doing well without concerns Maternal serum AFP ordered Anatomy scan scheduled for 06/19/2024 Follow-up in 4 weeks for visit T [facility] 2024-04-28 08:15:00 Age: [age] year old GA: 12w5d Nausea/vomiting -Taking Phenergan and Unisom -Still has severe nausea this morning -Zofran prescribed. Can take Zofran in addition to Phenergan, Unisom, vitamin B6. Received record: Pap negative on 10/01/2023, GC/CT/trichomoniasis, HIV/herpes/hepatitis B/hepatitis C/RPR negative Panorama low risk male Horizon negative Rubella nonimmune VZV nonimmune Maternal serum AFP at next visit Anatomy scan ordered Follow-up in 4 weeks for visit T [facility] 2024-04-25 09:46:41 Received Panorama and Horizon results via fax. Stamped and will be scanned/uploaded into pt's chart. Pt viewed Panorama results on [employer] website. Dezide message sent for Horizon. Mari Jones RN 04/25/2024 9:47 AM Mari Jones RN [facility] 2024-04-24 16:09:[address] Arthur: send in Phenergan 25 mg PO q4h prn n/v 30 tab 1 refill. Prescription sent. Patient notified. Gurjit Carter RN [facility] 2024-04-19 17:04:18 Name and verified, pt is aware of lab results regarding VZV and Rubella. Pt informed she can vaccinated once she delivers. Pt was also advised to stay away from any individuals with unusual rashes. Pt verbalized understanding. Mari Jones RN 04/19/2024 5:05 PM Mari Jones RN [facility] 2024-04-19 16:55:12 Nevin Cortes is a 24 year old female that is returning the clinic's call for lab results. Please advise. Kathy Gibson [facility] 2024-04-13 08:15:00 Images from the original note were not included. Venipuncture collection performed by clean technique on the left anticubitus. Total of 1 attempts were made. Slight pressure and a bandage/dressing were applied to the site(s). The patient experienced no complications. The following specimens were processed according to instructions and sent to [facility] laboratories per lab order on 04/13/2024 : LT BLUE SST 3 RED 1 LAV PPT DK GREEN (LiHep) DK GREEN (SodH) MURRAY DK BLUE (K2) DK BLUE (S) ACD Blood Culture NIPT/NTD Pallavi collected [facility] 2024-04-09 21:21:43 Pt given printed and verbal discharge instructions regarding dizziness Pt verbalized understanding of instructions, pt awake alert oriented, resp reg unlabored, skin w/d, color appropriate for race, moves all ext well,pt encouraged to follow up with pcp Advised to seek medical attention for new/prolonged/worsening of symptoms No adverse reaction to meds given in ER noted upon discharge PIV d'cd, dressing to site, catheter in tact. Awake, alert oriented, resp reg unlabored, skin w/d, pt leaving amb with steady gait, in no apparent distress [facility] Birdie Elizabeth RN [facility] 2024-04-09 18:20:15 CC: patient presents to the ER with complaints of dizziness while lying down. Patient states she is 10 weeks gestation. Awake, alert, oriented, resp reg unlabored, skin warm and dry, color appropriate for race, moves all ext without difficulty, amb without assistance. Appears in no distress. [facility] 2024-04-09 18:14:00 Nevin Cortes is a 24 year old female presenting with dizziness and SOB, both now resolved. Patient seen with Lolly Mooney PHYSIOLOGY TEACHER. Please see her note for additional details. Patient now asymptomatic. Patient's labs unremarkable. Plan for discharge home with close PCP and central supply worker follow up. Latest Reference Range & Units 04/09/24 19:17 WBC x10 3 4.30 - 11.10 10*3/?L 12.20 (H) RBC x10 6 3.93 - 5.25 10*6/?L 4.24 HGB 11.6 - 15.0 g/dL 12.2 HCT 35.7 - 45.2 % 36.9 MCV 80.6 - 95.5 fL 87.0 MCH 25.9 - 32.8 pg 28.8 MCHC 31.6 - 35.1 g/dL 33.1 RDW-SD 39.0 - 49.9 fL 39.8 RDW-CV 12.0 - 15.5 % 12.6 PLT x10 3 166 - 358 10*3/?L 314 MPV 9.5 - 12.9 fL 11.2 NRBC /100 WBC 0.0 - 10.0 /100 WBCs 0.0 NRBC x10 3 10*3/?L <0.01 GRAN MAT (NEUT) % % 72.5 IMM GRAN % % 0.40 LYMPH% % 18.9 MONO % % 6.7 EOS % % 1.0 BASO % % 0.5 GRAN MAT x10 3 (ANC) 1.88 - 7.09 10*3/uL 8.84 (H) IMM GRAN x10 3 0.00 - 0.06 10*3/uL 0.05 LYMPH x10 3 1.32 - 3.29 10*3/uL 2.31 MONO x10 3 0.33 - 0.92 10*3/uL 0.82 EOS x10 3 0.03 - 0.39 10*3/uL 0.12 BASO x10 3 0.01 - 0.07 10*3/uL 0.06 NA 135 - 145 mmol/L 134 (L) K 3.5 - 5.0 mmol/L 3.4 (L) CL 98 - 108 mmol/L 101 CO2 TOTAL 23 - 31 mmol/L 23 AGAP 2 - 16 10 BUN 7 - 23 mg/dL 10 GLUCOSE 70 - 110 mg/dL 107 CREATININE 0.50 - 1.04 mg/dL 0.37 (L) eGFR mL/min/1.73m2 146.4 CALCIUM 8.6 - 10.6 mg/dL 9.4 COLOR Yellow Colorless ! APPEARANCE Clear Clear SP GRAVITY 1.003 - 1.030 1.003 PH 4.8 - 8.0 8.0 PROTEIN Negative Negative GLU U QUAL Normal Normal KETONES Negative Negative BILIRUBIN Negative Negative BLOOD Negative Negative UROBILIN Normal Normal NITRITE Negative Negative LEUK MADELEINE Negative 25/uL ! RBC/HPF 0 - 3 HPF <1 WBC/HPF 0 - 5 HPF 5 BACTERIA Negative Negative SQ EPITH HPF 2 (H): Data is abnormally high (L): Data is abnormally low !: Data is abnormal Nayely Elmore MD 04/09/24 [id number] [employer]AFF [facility] 2024-04-03 11:37:43 Rx sent to pharmacy. Gurjit Carter RN 04/03/2024 11:37 AM Gurjit Carter RN [facility] 2024-04-03 11:00:35 Provider has not completed office visit note at this time. Gurjit Carter RN 04/03/2024 11:[address] [facility] 2024-04-03 10:50:57 Pt calling because she says that the pharmacy has not received the Rx antibiotic for UTI. Pharmacy [facility] [address] [place] [address] Jacklyn Weiss [facility] 2024-04-03 08:47:31 Patient seen in office 04.03.2024. Will close encounter. Clemencia Camilo MA [facility] 2024-04-03 08:45:00 Age: [age] year old GA: 9w1d Patient here for ER follow-up. Nausea/vomiting -Patient was seen at [facility] ER yesterday for vomiting. States that she had some blood in her vomit. Last time she vomits was yesterday morning. States that she is currently using vitamin B6 as needed. -Recommend patient to take vitamin B6 scheduled for the interim and Unisom/Reglan as needed UTI - states that she was prescribed antibiotics for urinary tract infection at [facility] ER yesterday but has not started. Does not know the name but prefers that I prescribed her antibiotic. -Macrobid prescribed [facility] 2024-04-03 08:07:00 Per pt, was seen in ER. Will close encounter. Clemencia Camilo MA [facility] 2024-04-02 08:01:00 Regardinwks vomiting blood clots ----- Message from Lesley Hong sent at 04/02/2024 8:01 AM CDT ----- Nevin Cortes is a 24 year old female is currently 9 wks . Pt states she vomited this morning and had blood clots in her vomit. Per pt she keeps spitting up blood clots as well. Pt would like to know what she should do. Salina Lane RN [facility] 2024-04-02 08:01:00 Triage Assessment Last Clinic [...] 11/05/24 Pre-existing condition / Immunocompromised: ovarian cysts Nevin Cortes is a 24 year old female [...] for ER eval and will go to [facility] now as advised. Pt had no further questions or concerns. Call back advice given and pt verbalized understanding. Salina Lane RN Reason for Disposition [1] Vomiting AND [2] contains red blood or black ("coffee ground") material (Exception: Few red streaks in vomit that only happened once.) Protocols used: - Morning Sickness (Nausea and Vomiting of )-ADULT-AH [facility] 2024-03-18 12:11:38 PHYSIOLOGY TEACHER at bedside discussing results and discharge plan T La Abreu RN [facility] 2024-03-18 09:09:42 REport to La BRIGGS T Gracie Joseph RN [facility] 2024-03-18 08:30:00 Nevin Cortes is a 24 year old female Presents with vaginal bleeding this morning around 0600, pt states she went to the BR and wiped, at first it was pink and then red, pt states it was a smear on the toilet paper, no clots. Pt states no allergies, and takes phenegan prn at home for N/V NAD, GCS 15, AOX4 PMH: n/a [facility] 2024-03-18 08:25:00 Pt oob to BR to void [facility] 2024-03-18 08:16:58 Nevin Cortes is a 24 year old female with 7 weeks and started spotting this morning. Denies pain or cramping. [facility] 2023-11-05 18:37:[address] [facility] ([facility]) EMERGENCY PROVIDER REPORT REPORT#:[id number] REPORT STATUS: Signed DATE:11/05/23 TIME: 1836 PATIENT: NEVIN CORTES UNIT #: [id number] ROOM/BED: AGE: 23 SEX: F PCP PHYS: Pam Ferrer MD SERVICE AUTHOR: Sandra Navarro MD * ALL edits or amendments must be made on the electronic/computer document * [id number] Illness Free Text HPI Notes Free Text [...] Ox 100 11/04 1809 B/P 118/73 11/04 1809 B/P Mean 88 11/04 1809 O2 Delivery Room air 11/04 1809 Temp 36.7 11/04 1809 Pulse 89 11/04 1809 Resp 11/04 Last Documented: Result Date Time Pulse Ox 100 11/04 1809 B/P 118/73 11/04 1809 B/P Mean 88 11/04 1809 O2 Delivery [...] Pulse Ox 100 04/ 1810 B/P 118/73 /12 1810 B/P Mean 88 /12 1810 O2 Delivery Room air 11/04 1810 [...] your primary care doctor. at 1840 RPT #:[id number] END OF REPORT [facility] 2023-09-07 14:37:29 Labs discussed in alternative encounter 09/07/2023. [facility] 2023-09-07 14:36:47 Called patient and discussed lab results. Patient voiced understanding/agreement with plan. Christianne Gama MD Department of Family Medicine [facility] 2023-09-07 09:41:50 Routing to provider, pt would like you to go over her labs with her. I can call if you want me to. Please advise [facility] 2023-09-07 09:11:10 Message routed to provider for review. Vincent Jones LVN 09/07/2023 9:[address] [facility] Vincent Jones POWER ORIGINATOR [facility] 2023-09-06 16:13:53 Nevin Cortes is a 23 year old female Pt is calling to request a call back on labs done on 09/01/2023. Pt would like explained to her. TI Humphrey [facility]
[2024-12-11] MEDS ORDERED: ONDANSETRON 4 MG (ODT) TAB ONE (04:25)
[2024-12-11] MEDS ORDERED: ALBUTEROL 2.5 MG/3 ML NEB SOL ONE (04:25)
[2024-12-11] MEDS ORDERED: KETOROLAC 30 MG/ML INJ ONE (04:25)
[2024-12-11 05:19] LABS: SARS-CoV-2 Antigen Rapid Res Negative (Negative)
--- NOTE | 2024-12-11 05:58 | RAD REPORT ---
PROCEDURE: XR Chest, 1 View CLINICAL INDICATION: The patient is 24 years old and is Female; Dyspnea. TECHNIQUE: Frontal view of the chest. COMPARISON: None. FINDINGS: LUNGS: No discrete focal consolidation. PLEURAL SPACE: No appreciable pleural effusion or pneumothorax. MEDIASTINUM: Unremarkable cardiomediastinal contour. BONES/JOINTS: No acute osseous abnormality. IMPRESSION: No acute cardiopulmonary abnormality. Electronically signed by: Vimal Rowell MD 12/11/2024 05:50 AM CDT Transcribed Date/Time: 12/11/2024 5:57 AM
--- NOTE | 2024-12-11 06:02 | ER ---
Nurse's Notes [facility] Name: Nevin Palmer Age: 24 yrs Sex: Female : 2000 Arrival Date: 12/11/2024 Time: 03:45 Bed 4 Private MD: Diagnosis: Acute upper respiratory infection, unspecified Presentation: 12/11 04:03 Chief complaint: Patient states: PT C/O SORE THROAT, COUGH, NAUSEA AND FEELING SOB. PT br2 STATES SHE TOOK DAYQUIL BEFORE BED AND WOKE UP AT 0230 FEELING SOB. PT SON CURRENTLY HAS URI. Coronavirus screen: Client denies travel out of the [place] in the last 14 days. Ebola Screen: Patient denies exposure to infectious person. Initial Sepsis Screen: Does the patient meet any 2 criteria? No. Patient's initial sepsis screen is negative. Does the patient have a suspected source of infection? No. Patient's initial sepsis screen is negative. Risk Assessment: Do you want to hurt yourself or someone else? Patient reports no desire to harm self or others. Onset of symptoms was December 11, 2024 at 02:30. 04:03 Method Of Arrival: Ambulatory br2 04:03 Acuity: CHRISTIANE 3 br2 Triage Assessment: 04:04 General: Appears in no apparent distress. uncomfortable, slender, well groomed, well vc1 developed, well nourished, Behavior is calm, cooperative, appropriate for age. Pain: Complains of pain in throat Pain does not radiate. Pain currently is 4 out of 10 on a pain scale. EENT: Reports pain when swallowing. Neuro: Level of Consciousness is awake, alert, obeys commands, Oriented to person, place, time, situation, Appropriate for age. Cardiovascular: Heart tones S1 S2 present Capillary refill < 3 seconds Patient's skin is warm and dry. Respiratory: Reports shortness of breath at rest cough that is Airway is patent Respiratory effort is even, unlabored, Respiratory pattern is regular, symmetrical, Breath sounds are clear bilaterally. Onset: The symptoms/episode began/occurred just prior to arrival, the patient has mild shortness of breath. GI: No deficits noted. No signs and/or symptoms were reported involving the gastrointestinal system. : No deficits noted. No signs and/or symptoms were reported regarding the genitourinary system. Derm: Skin is intact, is healthy with good turgor, Skin is dry, Skin is normal, Skin temperature is warm. Musculoskeletal: Circulation, motion, and sensation intact. Range of motion: intact in all extremities. 04:05 General: Appears in no apparent distress. comfortable, Behavior is calm, cooperative. br2 Pain: Complains of pain in right aspect of thyroid and left aspect of thyroid Pain currently is 4 out of 10 on a pain scale. Respiratory: Reports shortness of breath at rest Onset: The symptoms/episode began/occurred just prior to arrival, the patient has mild shortness of breath. 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 - Infectious Disease History:: Denies. - Social history:: Smoking status: Patient denies any tobacco usage or history of. Patient/guardian denies using alcohol, street drugs. - Family history:: not pertinent. Screenin:10 [facility] ED Fall Risk Assessment (Adult) History of falling in the last 3 months, vc1 including since admission No falls in past 3 months (0 pts) Confusion or Disorientation No (0 pts) Intoxicated or Sedated No (0 pts) Impaired Gait No (0 pts) Mobility Assist Device Used No (0 pt) Altered Elimination No (0 pt) Score/Fall Risk Level 0 - 2 = Low Risk Oriented to surroundings, Maintained a safe environment, Hourly rounding (assess needs \T\ fall precautionary measures) done. Abuse screen: Denies threats or abuse. Nutritional screening: No deficits noted. Tuberculosis screening: No symptoms or risk factors identified. Assessment: 04:08 General: see triage assess,emt. Pain: Denies pain. Cardiovascular: Rhythm is sinus vc1 rhythm. 06:04 Reassessment: Patient appears in no apparent distress at this time. Patient and/or al5 family updated on plan of care and expected duration. Pain level reassessed. Patient is alert, oriented x 3, equal unlabored respirations, skin warm/dry/pink. Patient states feeling better. Patient states symptoms have improved. Vital Signs: 04:03 BP 139 / 100; Pulse 80; Resp 18 S; Temp 98(O); Pulse Ox 100% on R/A; Weight 58.97 kg; br2 Height 5 ft. 2 in. ; Pain 4/10; 04:30 BP 118 / 86; Pulse 73; Resp 18; Pulse Ox 100% ; al5 04:34 BP 118 / 86; vc1 05:00 BP 123 / 77; Pulse 74; Resp 16; Pulse Ox 100% ; al5 06:03 BP 120 / 70; Pulse 76; Resp 16; Pulse Ox 100% ; al5 04:03 Body Mass Index 23.78 (58.97 kg, 157.48 cm) br2 04:03 Pain Scale: Adult br2 ED Course: 03:46 Patient arrived in ED. mr 03:48 Odin Raines MD is Attending Physician. rt 04:05 Triage completed. br2 04:05 Arm band placed on right wrist. br2 04:11 Patient has correct armband on for positive identification. Bed in low position. Call vc1 light in reach. Provided Education on: Plan of care. cloth bleaching range tender on. Pulse ox on. NIBP on. 04:13 No provider procedures requiring assistance completed. vc1 04:20 Laureen Farley, RN is Primary Nurse. vc1 04:33 SARS RAPID Sent. vc1 04:41 Chest Single View XRAY In Process Unspecified. EDMS 06:01 Odin Raines MD is Referral Physician. rt 06:06 Patient did not have IV access during this emergency room visit. al5 Administered Medications: 04:33 Drug: Albuterol Inhalation 2.5 mg Inhalation once Route: Inhalation; vc1 04:33 Drug: Ketorolac IM 30 mg IM once Route: IM; Site: right deltoid; vc1 06:06 Follow up: Response: No adverse reaction; Marked relief of symptoms al5 04:33 Drug: Ondansetron Oral Disintegrating Tablet Oral Disintegrating Tablet 4 mg PO once vc1 Route: PO; 06:06 Follow up: Response: No adverse reaction; Marked relief of symptoms al5 Medication: 04:13 VIS not applicable for this client. vc1 Outcome: 06:01 Discharge ordered by . rt 06:06 Discharged to home ambulatory, al5 06:06 Condition: stable 06:06 Discharge instructions given to patient, Instructed on discharge instructions, follow up and referral plans. medication usage, Demonstrated understanding of instructions, follow-up care, medications, Prescriptions given X 2, 06:10 Patient left the ED. al5 Signatures: Dispatcher [employer] EDOR Melissa Felton, Reg [place] mr Laureen Farley RN RN vc1 Odin Raines MD MD rt Langhorst, Amanda, RN RN al5 Lakeisha Latif RN RN br2
--- NOTE | 2024-12-11 06:02 | EDPHYS ---
Physician Documentation [facility] Name: Nevin Palmer Age: 24 yrs Sex: Female : 2000 Arrival Date: 12/11/2024 Time: 03:45 Bed 4 Private MD: ED Physician Odin Raines HPI: 12/11 06:06 This 24 yrs old Female presents to ER via Ambulatory with complaints of rt Breathing Difficulty. 06:06 Patient presents to the ED with sore throat, cough, shortness of breath, nausea. rt Patient states that her son has an upper respiratory infection, has been taking DayQuil with no relief. Denies other acute complaints, symptoms are moderate in severity, no other aggravating or alleviating factors.. 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 - Infectious Disease History:: Denies. - Social history:: Smoking status: Patient denies any tobacco usage or history of. Patient/guardian denies using alcohol, street drugs. - Family history:: not pertinent. ROS: 06:06 Constitutional: Negative for fever, chills, and weight loss, Cardiovascular: Negative rt for chest pain, palpitations, and edema, MS/Extremity: Negative for injury and deformity, Skin: Negative for injury, rash, and discoloration, Neuro: Negative for headache, weakness, numbness, tingling, and seizure, 06:06 ENT: Positive for rhinorrhea, sore throat, 06:06 Respiratory: Positive for cough, shortness of breath, 06:06 Abdomen/GI: Positive for nausea, Negative for abdominal pain, vomiting, Exam: 06:06 Constitutional: This is a well developed, well nourished patient who is awake, alert, rt and in no acute distress. Head/Face: Normocephalic, atraumatic. Chest/axilla: Normal chest wall appearance and motion. Nontender with no deformity. No lesions are appreciated. Cardiovascular: Regular rate and rhythm with a normal S1 and S2. No gallops, murmurs, or rubs. Normal PMI, no JVD. No pulse deficits. Respiratory: Lungs have equal breath sounds bilaterally, clear to auscultation and percussion. No rales, rhonchi or wheezes noted. No increased work of breathing, no retractions or nasal flaring. Abdomen/GI: Soft, non-tender, with normal bowel sounds. No distension or tympany. No guarding or rebound. No evidence of tenderness throughout. Skin: Warm, dry with normal turgor. Normal color with no rashes, no lesions, and no evidence of cellulitis. MS/ Extremity: Pulses equal, no cyanosis. Neurovascular intact. Full, normal range of motion. Neuro: Awake and alert, GCS 15, oriented to person, place, time, and situation. Cranial nerves II-XII grossly intact. Motor strength 5/5 in all extremities. Sensory grossly intact. Cerebellar exam normal. Normal gait. Vital Signs: 04:03 BP 139 / 100; Pulse 80; Resp 18 S; Temp 98(O); Pulse Ox 100% on R/A; Weight 58.97 kg; br2 Height 5 ft. 2 in. ; Pain 4/10; 04:30 BP 118 / 86; Pulse 73; Resp 18; Pulse Ox 100% ; al5 04:34 BP 118 / 86; vc1 05:00 BP 123 / 77; Pulse 74; Resp 16; Pulse Ox 100% ; al5 06:03 BP 120 / 70; Pulse 76; Resp 16; Pulse Ox 100% ; al5 04:03 Body Mass Index 23.78 (58.97 kg, 157.48 cm) br2 04:03 Pain Scale: Adult br2 MDM: 04:13 Medical Screening Exam initiated rt 06:06 Differential diagnosis: Bronchospasm, upper respiratory infection. Data reviewed: vital rt signs, nurses notes, lab test result(s), EKG, radiologic studies. I considered the following discharge prescriptions or medication management in the emergency department Medications were administered in the Emergency Department. See MAR. Independent interpretation of the following test(s) in the Emergency Department X-Ray: My interpretation is No infiltrate seen on interpretation of x-ray images. Test considered but Not performed: CT: Low suspicion for PE, CT angiogram not indicated. Counseling: I had a detailed discussion with the patient and/or guardian regarding the historical points, exam findings, and any diagnostic results supporting the discharge/admit diagnosis, lab results, radiology results, the need for outpatient follow up. Response to treatment: the patient's symptoms have markedly improved after treatment. 12/11 04:17 Order name: SARS RAPID; Complete Time: 05:22 rt 12/11 04:17 Order name: Chest Single View XRAY; Complete Time: 05:59 rt Administered Medications: 04:33 Drug: Albuterol Inhalation 2.5 mg Inhalation once Route: Inhalation; vc1 04:33 Drug: Ketorolac IM 30 mg IM once Route: IM; Site: right deltoid; vc1 06:06 Follow up: Response: No adverse reaction; Marked relief of symptoms al5 04:33 Drug: Ondansetron Oral Disintegrating Tablet Oral Disintegrating Tablet 4 mg PO once vc1 Route: PO; 06:06 Follow up: Response: No adverse reaction; Marked relief of symptoms al5 Disposition Summary: 12/11/24 06:01 Discharge Ordered Notes: Location: Home rt Problem: new rt Symptoms: have improved rt Condition: Stable rt Diagnosis - Acute upper respiratory infection, unspecified rt Followup: rt - With: Private Physician - When: 2 - 3 days - Reason: Discharge Instructions: - Discharge Summary Sheet rt - Viral Respiratory Infection rt Forms: - Medication Reconciliation Form rt - Antibiotic Education rt - Prescription Opioid Use rt - Patient Portal Instructions rt - Leadership Thank You Letter rt Prescriptions: - albuterol sulfate 90 mcg/actuation Inhalation HFA Aerosol Inhaler - inhale 2 puff INHALATION route every 6 hours as needed for shortness of breath rt or wheezing; 2 Each; Refills: 0, Product Selection Permitted - Prednisone 20 mg Oral Tablet - take 2 tablets ORAL route once daily for 5 days; 10 tablet; Refills: 0, Product rt Selection Permitted Signatures: Dispatcher [employer] Laureen Bernard RN RN vc1 Odin Raines MD MD rt Lakeisha Latif RN RN br2 Idania Holder RN al5
[2024-12-11 06:16] VITALS: TEMP 98; O2SAT 100
[2024-12-11 06:21] VITALS: BP 120/70
== END 2024-12-11 06:10 | disposition home or self-care (01) ==
LOC: ER 03:45
DX: J06.9 Acute upper respiratory infection, unspecified (principal); Z11.52 Encounter for screening for COVID-19
CPT/HCPCS: 36415; 71045; 96372; 99285; 87426; Q0162; J7613